=== PATIENT | female | born 1940 | race Caucasian/White ===

== ENCOUNTER → 2016-08-03 | Outpatient (CLI) | payer MEDICARE ==
--- NOTE | 2016-08-03 14:55 | XR ---
EXAMINATION TYPE: XR chest 2V DATE OF EXAM: 08/03/2016 2:37 PM COMPARISON: NONE TECHNIQUE: PA and lateral views submitted. HISTORY: Follow-up for pneumonia FINDINGS: The lungs are clear and there is no pneumothorax, pleural effusion, or focal pneumonia. Biapical pl eural thickening. Hyperinflation suggests COPD. The heart is enlarged. IMPRESSION: 1. No acute process. Correlate for COPD and mild cardiomegaly.
== END | disposition home or self-care (01) ==
LOC: RADXRMAIN 14:22
PROVIDERS: ATTEND Internal Medicine
DX: R05 Cough (principal)
CPT/HCPCS: 71020

== ENCOUNTER → 2016-10-16 | Outpatient (CLI) | payer MEDICARE ==
--- NOTE | 2016-10-17 10:52 | MM ---
Reason for exam: screening (asymptomatic). Last mammogram was performed 2 years and 3 months ago. History: Patient is postmenopausal. Family history of breast cancer in aunt. Benign excisional biopsy of the right breast, February 08, 1998. Took estrogen for 5 years. Physical Findings: A clinical breast exam by your physician is recommended on an annual basis and results should be correlated with mammographic findings. MG 3D Screening Mammo W/Cad Bilateral CC view(s) were taken. MLO and XCCL view(s) were taken of the right breast. Prior study comparison: July 19, 2014, bilateral MG screening mammo w CAD. July 06, 2013, bilateral digital screening mammo w/CAD. The breast tissue is heterogeneously dense. This may lower the sensitivity of mammography. Benign calcifications. There is no discrete abnormality. No significant changes when compared with prior studies. ASSESSMENT: Benign, BI-RAD 2 RECOMMENDATION: Routine screening mammogram of both breasts in 1 year.
== END | disposition home or self-care (01) ==
LOC: RADMAMWWP 09:48
PROVIDERS: ATTEND Internal Medicine
DX: Z12.31 Encounter for screening mammogram for malignant neoplasm of breast (principal)
CPT/HCPCS: 77063; G0202

== ENCOUNTER 2019-09-13 14:43 | Inpatient (IN) | payer MEDICARE ==
[2019-09-13] MEDS ORDERED: DILTIAZEM DRIP BOLUS FROM BAG 1 MG SOLN IV ONE ×2 (15:21→16:39)
[2019-09-13] MEDS ORDERED: FUROSEMIDE 10 MG/ML 4 ML VIAL IV STA (15:21)
[2019-09-13] MEDS ORDERED: DILTIAZEM 125 MG in SODIUM CHLORIDE 0.9% 100 ML IV SCH (15:30)
[2019-09-13 15:51] LABS: Basophils % (A) 0 %; Eosinophils # (A) 0.1 k/uL (0-0.7); Eosinophils % (A) 1 %; HCT 45.9 % (34.0-46.0); HGB 14.7 gm/dL (11.4-16.0); Lymphocytes # (A) 0.8 k/uL (1.0-4.8); Lymphocytes % (A) 11 %; MCH 33.2 pg (25.0-35.0); MCV 103.6 fL (80.0-100.0); Macrocytosis Moderate; Mean Platelet Volume 10.2; Monocytes # (A) 0.4 k/uL (0-1.0); Monocytes % (A) 5 %; Neutrophils # (A) 5.9 k/uL (1.3-7.7); Neutrophils % (A) 81 %; Platelet Count 241 k/uL (150-450); RBC 4.44 m/uL (3.80-5.40); RDW 14.6 % (11.5-15.5); WBC 7.2 k/uL (3.8-10.6)
[2019-09-13 16:01] LABS: Calcium 9.4 mg/dL (8.4-10.2); Magnesium 2.1 mg/dL (1.6-2.3); Potassium 3.8 mmol/L (3.5-5.1); Total Bilirubin 1.5 mg/dL (0.2-1.3)
--- NOTE | 2019-09-13 16:02 | XR ---
EXAMINATION TYPE: XR chest 2V DATE OF EXAM: 09/13/2019 COMPARISON: 08/03/2016 HISTORY: Difficulty breathing TECHNIQUE: FINDINGS: There is mild infiltrate at both lung bases. There is blunting of the costophrenic angles. There is no definite heart failure. Heart is probably enlarged. Thoracic aorta shows mild atheromatou s change. There are chest leads. Bony thorax is intact. IMPRESSION: Mild bilateral basilar pulmonary infiltrates and pleural fluid appears new compared to [facility] st exam. No obvious heart failure.
[2019-09-13 16:05] LABS: INR 1.4 (<1.2); Partial Thromboplastin Time 25.5 sec (22.0-30.0); Prothrombin Time 13.7 sec (9.0-12.0)
--- NOTE | 2019-09-13 16:07 | ED ---
SOB HPI - General Chief Complaint: Shortness of Breath Stated Complaint: SOB/cough-sent by [facility] Time Seen by Provider: 09/13/19 15:00 Source: patient, RN notes reviewed Mode of arrival: ambulatory Limitations: no limitations - History of Present Illness Initial Comments: This is a 78-year-old female history of atrial fibrillation who presents with complaints of shortness of breath. She states for about 3 days some exertional dyspnea she has a fevers chills nausea vomiting sweats no cough no peripheral edema no other symptoms. She's had no palpitations.. She was seen at [facility] and sent here for further evaluation MD Complaint: shortness of breath - Related Data Home Medications Medication Instructions Recorded Confirmed Acetaminophen [Tylenol Arthritis] 650 mg PO Q6H PRN 09/13/19 09/13/19 Apixaban [Eliquis] 5 mg PO BID 09/13/19 09/13/19 Calcium Carbonate/Vitamin D3 1 cap PO DAILY 09/13/19 09/13/19 [Calcium 600-Vit D3 800 Caplet] Celecoxib [CeleBREX] 200 mg PO DAILY 09/13/19 09/13/19 DULoxetine HCL [Cymbalta] 60 mg PO DAILY 09/13/19 09/13/19 Furosemide [Lasix] 20 mg PO Q48H PRN 09/13/19 09/13/19 LORazepam [Ativan] 1 mg PO HS 09/13/19 09/13/19 Losartan [Cozaar] 50 mg PO DAILY 09/13/19 09/13/19 Magnesium Oxide 400 mg PO DAILY 09/13/19 09/13/19 Metoprolol Tartrate 25 mg PO BID 09/13/19 09/13/19 Multivitamins, Thera [Multivitamin 1 tab PO DAILY 09/13/19 09/13/19 (formulary)] Spironolactone 12.5 mg PO Q48H PRN 09/13/19 09/13/19 Venlafaxine HCl [Effexor XR] 75 mg PO DAILY 09/13/19 09/13/19 traZODone HCL 50 mg PO HS 09/13/19 09/13/19 Allergies Allergy/AdvReac Type Severity Reaction Status Date / Time Penicillins AdvReac Rash/Hives Verified 09/13/19 16:23 Review of Systems ROS Statement: Those systems with pertinent positive or pertinent negative responses have been documented in the HPI. ROS Other: All systems not noted in ROS Statement are negative. Past Medical History Past Medical History: Atrial Fibrillation, GERD/Reflux, Hypertension Additional Past Medical History / Comment(s): "inflammed hips" History of Any Multi-Drug Resistant Organisms: None Reported Past Surgical History: Hysterectomy Additional Past Surgical History / Comment(s): "Illestomy,carpal tunnel bilat eral hands,bunyon surgery on left foot." Past Psychological History: Anxiety, Depression Smoking Status: Never smoker Past Alcohol Use History: Occasional Past Drug Use History: None Reported General Exam - General Exam Comments Initial Comments: This is a well-developed well-nourished awake alert oriented x 3 female Limitations: no limitations General appearance: alert, in no apparent distress Head exam: Present: atraumatic, normocephalic, normal inspection Eye exam: Present: normal appearance, PERRL, EOMI. Absent: scleral icterus, conjunctival injection, periorbital swelling ENT exam: Present: normal exam, mucous membranes moist Neck exam: Present: normal inspection. Absent: tenderness, meningismus, lymphadenopathy Respiratory exam: Present: decreased breath sounds, other (Basilar crepitation/rales left&right lower lobes). Absent: respiratory distress, wheezes, rales, rhonchi, stridor Cardiovascular Exam: Present: tachycardia, irregular rhythm. Absent: systolic murmur, diastolic murmur, rubs, gallop, clicks GI/Abdominal exam: Present: soft, normal bowel sounds. Absent: distended, ten derness, guarding, rebound, rigid Extremities exam: Present: normal inspection, full ROM, normal capillary refill. Absent: tenderness, pedal edema, joint swelling, calf tenderness Back exam: Present: normal inspection Neurological exam: Present: alert, oriented X3, CN II-XII intact Psychiatric exam: Present: normal affect, normal mood Skin exam: Present: warm, dry, intact, normal color. Absent: rash Course Vital Signs 09/13/19 09/13/19 09/13/19 14:45 16:02 16:53 Temperature 97.4 F L Pulse Rate 147 H 133 H 125 H Respiratory 20 16 16 Rate Blood Pressure 135/94 151/106 117/94 O2 Sat by Pulse 95 99 98 Oximetry - Reevaluation(s) Reevaluation #1: 09/13/19 17:06 I did reevaluate patient several occasions no improvement in her heart rate just far with the initial treatment. She does have evidence of CHF on x-rays Medical Decision Making - Medical Decision Making I did discuss findings with patient and with Dr. Wiley Evans. Patient be admitted he has have A. fib RVR with evidence of CHF. - Lab Data Result diagrams: 09/13/19 15:41 09/13/19 15:41 Lab Results 09/13/19 09/13/19 09/13/19 Range/Units 15:41 15:41 15:41 WBC 7.2 (3.8-10.6) k/uL RBC 4.44 (3.80-5.40) m/uL Hgb 14.7 (11.4-16.0) gm/dL Hct 45.9 (34.0-46.0) % MCV 103.6 H (80.0-100.0) fL MCH 33.2 (25.0-35.0) pg MCHC 32.0 (31.0-37.0) g/dL RDW 14.6 (11.5-15.5) % Plt Count 241 (150-450) k/uL Neutrophils % 81 % Lymphocytes % 11 % Monocytes % 5 % Eosinophils % 1 % Basophils % 0 % Neutrophils # 5.9 (1.3-7.7) k/uL Lymphocytes # 0.8 L (1.0-4.8) k/uL Monocytes # 0.4 (0-1.0) k/uL Eosinophils # 0.1 (0-0.7) k/uL Basophils # 0.0 (0-0.2) k/uL Macrocytosis Moderate PT 13.7 H (9.0-12.0) sec INR 1.4 H (<1.2) APTT 25.5 (22.0-30.0) sec Sodium 140 (137-145) mmol/L Potassium 3.8 (3.5-5.1) mmol/L Chloride 109 H (98-107) mmol/L Carbon Dioxide 21 L (22-30) mmol/L Anion Gap 10 mmol/L BUN 25 H (7-17) mg/dL Creatinine 0.83 (0.52-1.04) mg/dL Est GFR (CKD-EPI)AfAm 77 (>60 ml/min/1.73 sqM) Est GFR (CKD-EPI)NonAf 67 (>60 ml/min/1.73 sqM) Glucose 202 H (74-99) mg/dL Plasma Lactic Acid Lele (0.7-2.0) mmol/L Calcium 9.4 (8.4-10.2) mg/dL Magnesium 2.1 (1.6-2.3) mg/dL Total Bilirubin 1.5 H (0.2-1.3) mg/dL AST 38 H (14-36) U/L ALT 26 (4-34) U/L Alkaline Phosphatase 61 (38-126) U/L Creatine Kinase 60 (30-135) U/L Troponin I (0.000-0.034) ng/mL NT-Pro-B Natriuret Pep pg/mL Total Protein 7.0 (6.3-8.2) g/dL Albumin 4.0 (3.5-5.0) g/dL 09/13/19 09/13/19 09/13/19 Range/Units 15:41 15:41 15:41 WBC (3.8-10.6) k/uL RBC (3.80-5.40) m/uL Hgb (11.4-16.0) gm/dL Hct (34.0-46.0) % MCV (80.0-100.0) fL MCH (25.0-35.0) pg MCHC (31.0-37.0) g/dL RDW (11.5-15.5) % Plt Count (150-450) k/uL Neutrophils % % Lymphocytes % % Monocytes % % Eosinophils % % Basophils % % Neutrophils # (1.3-7.7) k/uL Lymphocytes # (1.0-4.8) k/uL Monocytes # (0-1.0) k/uL Eosinophils # (0-0.7) k/uL Basophils # (0-0.2) k/uL Macrocytosis PT (9.0-12.0) sec INR (<1.2) APTT (22.0-30.0) sec Sodium (137-145) mmol/L Potassium (3.5-5.1) mmol/L Chloride (98-107) mmol/L Carbon Dioxide (22-30) mmol/L Anion Gap mmol/L BUN (7-17) mg/dL Creatinine (0.52-1.04) mg/dL Est GFR (CKD-EPI)AfAm (>60 ml/min/1.73 sqM) Est GFR (CKD-EPI)NonAf (>60 ml/min/1.73 sqM) Glucose (74-99) mg/dL Plasma Lactic Acid Lele 2.4 H* (0.7-2.0) mmol/L Calcium (8.4-10.2) mg/dL Magnesium (1.6-2.3) mg/dL Total Bilirubin (0.2-1.3) mg/dL AST (14-36) U/L ALT (4-34) U/L Alkaline Phosphatase (38-126) U/L Creatine Kinase (30-135) U/L Troponin I 0.012 (0.000-0.034) ng/mL NT-Pro-B Natriuret Pep 4220 pg/mL Total Protein (6.3-8.2) g/dL Albumin (3.5-5.0) g/dL - EKG Data -: EKG Interpreted by Me (Atrial fibrillation rate of 144 QRS 86 QT since QTC 288/445 septal changes ) - Radiology Data Radiology results: report reviewed (I did review the imaging and report evidence of bilateral lower lobe infiltrate likely consistent with CHF.), image reviewed Critical Care Time Critical Care Time: Yes Critical Care Time: Critical care time: 39 minutes of critical care time which includes initial presentation with history physical labs x-rays multiple reevaluation the patient response to therapy discuss with the patient and the findings discussed with the admitting physician admission orders and documentation of the above Disposition Clinical Impression: Congestive heart failure, Rapid atrial fibrillation Disposition: ADMITTED IP TO THIS [facility] Condition: Fair Referrals: Yoni Fairchild MD [Primary Care Provider] - 1-2 days
[2019-09-13] MEDS: DILTIAZEM 125 MG in SODIUM CHLORIDE 0.9% 100 ML IV SCH ×2 (16:51→21:32)
[2019-09-13] MEDS ORDERED: NALOXONE 0.4 MG/ML 1 ML VIAL IV PRN (17:01)
[2019-09-13] MEDS ORDERED: ACETAMINOPHEN TAB 325 MG TAB PO PRN (17:01)
--- NOTE | 2019-09-13 17:39 | P.HPIM ---
History of Present Illness H&P Date: 09/13/19 Chief Complaint: A. fib with RVR 78-year-old female with PMH of atrial fibrillation on Eliquis, depression, history of diverticulitis with ileostomy, hypertension presents to the ED for shortness of breath. Patient reports exertional shortness of breath that has been getting worse over the past 2 weeks. Over the last few days, patient has experienced immense difficulties with laying flat at night to go to sleep. She does complain of orthopnea. This prompted her to come to the ED. She does report intermittent lower extremity swelling for which she takes Lasix. She also reports a dry cough. She denies any headaches, nausea or vomiting, fever or chills, chest pain, palpitations, changes in urination or bowel habits. No changes in appetite or weight. She denies any dizziness, numbness/weakness/tingling of the extremities. In the ED, her pulse was as high as 147. Her vital signs were otherwise stable. CBC showed macrocytosis with MCV 103.6. Coagulation panel showed INR of 1.4. CMP showed chloride 109, bicarbonate 21, BUN 25, glucose 202. Lactic acid was 2.4. Total bilirubin was 1.5, AST 38. Troponin was less than 0.012, EKG showing atrial fibrillation with RVR. BNP was 4220, chest x-ray showing mild bilateral bibasilar pulmonary infiltrates and pleural fluid. Patient is admitted for atrial fibrillation with RVR with cardiology consulted. Review of Systems Pertinent positives and negatives as discussed in HPI, a complete review of systems was performed and all other systems are negative. Past Medical History Past Medical History: Atrial Fibrillation, GERD/Reflux, Hypertension Additional Past Medical History / Comment(s): "inflammed hips" History of Any Multi-Drug Resistant Organisms: None Reported Past Surgical History: Hysterectomy Additional Past Surgical History / Comment(s): "Illestomy,carpal tunnel bilateral hands,bunyon surgery on left foot." Past Psychological History: Anxiety, Depression Smoking Status: Never smoker Past Alcohol Use History: Occasional Past Drug Use History: None Reported Medications and Allergies Home Medications Medication Instructions Recorded Confirmed Type Acetaminophen [Tylenol Arthritis] 650 mg PO Q6H PRN 09/13/19 09/13/19 History Apixaban [Eliquis] 5 mg PO BID 09/13/19 09/13/19 History Calcium Carbonate/Vitamin D3 1 cap PO DAILY 09/13/19 09/13/19 History [Calcium 600-Vit D3 800 Caplet] Celecoxib [CeleBREX] 200 mg PO DAILY 09/13/19 09/13/19 History DULoxetine HCL [Cymbalta] 60 mg PO DAILY 09/13/19 09/13/19 History Furosemide [Lasix] 20 mg PO Q48H PRN 09/13/19 09/13/19 History LORazepam [Ativan] 1 mg PO HS 09/13/19 09/13/19 History Losartan [Cozaar] 50 mg PO DAILY 09/13/19 09/13/19 History Magnesium Oxide 400 mg PO DAILY 09/13/19 09/13/19 History Metoprolol Tartrate 25 mg PO BID 09/13/19 09/13/19 History Multivitamins, Thera [Multivitamin 1 tab PO DAILY 09/13/19 09/13/19 History (formulary)] Spironolactone 12.5 mg PO Q48H PRN 09/13/19 09/13/19 History Venlafaxine HCl [Effexor XR] 75 mg PO DAILY 09/13/19 09/13/19 History traZODone HCL 50 mg PO HS 09/13/19 09/13/19 History Allergies Allergy/AdvReac Type Severity Reaction Status Date / Time Penicillins AdvReac Rash/Hives Verified 09/13/19 16:23 Physical Exam Vitals: Vital Signs Temp Pulse Resp BP Pulse Ox 09/13/19 16:53 125 H 16 117/94 98 09/13/19 16:02 133 H 16 151/106 99 09/13/19 14:45 97.4 F L 147 H 20 135/94 95 Intake and Output 09/13/19 09/13/19 09/13/19 06:59 14:59 22:59 Other: Weight 73.482 kg General: [non toxic], [no distress], [appears at stated age] Derm: [warm], [dry] Head: [atraumatic], [normocephalic], [symmetric] Eyes: [EOMI], [no lid lag], [anicteric sclera] Mouth: [no lip lesion], [mucus membranes moist] Cardiovascular: [S1S2 irregular], [no murmur], [positive DP pulse bilateral], Lungs: [CTA bilateral], [no rhonchi, no rales] , [no accessory muscle use] Abdominal: [soft], [ nontender to palpation], [no guarding], [no appreciable org anomegaly] Ext: [no gross muscle atrophy], [no edema], [no contractures] Neuro: [ CN II-XI grossly intact], [no focal neuro deficits] Psych: [Alert], [oriented], [appropriate affect] Results CBC & Chem 7: 09/13/19 15:41 09/13/19 15:41 Labs: Abnormal Lab Results - Last 24 Hours (Table) 09/13/19 09/13/19 09/13/19 Range/Units 15:41 15:41 15:41 MCV 103.6 H (80.0-100.0) fL Lymphocytes # 0.8 L (1.0-4.8) k/uL PT 13.7 H (9.0-12.0) sec INR 1.4 H (<1.2) Chloride 109 H (98-107) mmol/L Carbon Dioxide 21 L (22-30) mmol/L BUN 25 H (7-17) mg/dL Glucose 202 H (74-99) mg/dL Plasma Lactic Acid Lele (0.7-2.0) mmol/L Total Bilirubin 1.5 H (0.2-1.3) mg/dL AST 38 H (14-36) U/L 09/13/19 Range/Units 15:41 MCV (80.0-100.0) fL Lymphocytes # (1.0-4.8) k/uL PT (9.0-12.0) sec INR (<1.2) Chloride (98-107) mmol/L Carbon Dioxide (22-30) mmol/L BUN (7-17) mg/dL Glucose (74-99) mg/dL Plasma Lactic Acid Lele 2.4 H* (0.7-2.0) mmol/L Total Bilirubin (0.2-1.3) mg/dL AST (14-36) U/L Assessment and Plan Assessment: Orthopnea related to pulmonary edema from A. fib with RVR versus CHF Atrial fibrillation with RVR Lactic acidosis Transaminitis Hypertension Depression Macrocytosis Her orthopnea is likely related to pulmonary edema from A. fib with RVR. She does report intermittent lower extremity edema as such CHF is high on the differential. BNP is elevated at 4220 with chest x-ray confirming pulmonary edema. Plans: Start Lasix 40 mg IV twice a day. Strict intake and now take. Daily weights. Continue metoprolol. Continue losartan. Follow-up echocardiogram. Follow cardiology recommendations. As seen on EKG. Plans: Currently on diltiazem drip. Continue metoprolol by mouth. Eliquis for anticoagulation. Potassium greater than 4 and magnesium greater than 2. Telemetry monitoring. Follow cardiology recommendations. Lactic acid of 2.4. Possibly related to dehydration? Could also be from hypoperfusion from rapid ventricular rate. Plans: Repeat lactic acid until normal. Encourage hydration by mouth. Total bilirubin 1.5, AST 38. Patient with no abdominal complaints. Possible venous congestion? Plans: Continue to monitor. Repeat CMP tomorrow morning. BP 117/94. Plans: Continue metoprolol. Continue losartan. Monitor vitals, adjust medications as necessary. Plans: Continue Effexor. Continue Cymbalta. Plans: Follow B12 and folic acid. DVT prophylaxis: [Eliquis] Discussed with: [Patient] Anticipated discharge: [2 days] Anticipated discharge place: [Home] A total of [45] minutes was spent on the care of this complex patient more than 50% of the time was spent in counseling and care coordination. Patient is admitted for anticipated greater than 48 hours admission for atrial fibrillation with RVR with cardiology on consult. Patient names her son and daughter the mandie and Casey along with Jimmy decision-makers if she can make decisions for herself. Patient would like to be no code with the exception of intubation for a short period of time if necessary.
[2019-09-13] MEDS: LORazepam 1 MG TAB PO SCH (20:20)
[2019-09-13] MEDS: METOPROLOL TARTRATE 25 MG TAB PO SCH (20:20)
[2019-09-13] MEDS: APIXABAN 5 MG TAB PO SCH (20:20)
[2019-09-13] MEDS: traZODone HCL 50 MG TAB PO SCH (22:47)
[2019-09-14] MEDS: DILTIAZEM 125 MG in SODIUM CHLORIDE 0.9% 100 ML IV SCH ×2 (04:50→15:53)
[2019-09-14 06:38] LABS: Basophils % (A) 0 %; Eosinophils # (A) 0.4 k/uL (0-0.7); Eosinophils % (A) 5 %; HCT 42.7 % (34.0-46.0); Lymphocytes # (A) 1.3 k/uL (1.0-4.8); Lymphocytes % (A) 19 %; MCH 33.7 pg (25.0-35.0); MCHC 32.8 g/dL (31.0-37.0); MCV 102.6 fL (80.0-100.0); Macrocytosis Slight; Mean Platelet Volume 9.7; Monocytes # (A) 0.8 k/uL (0-1.0); Monocytes % (A) 11 %; Neutrophils # (A) 4.4 k/uL (1.3-7.7); Neutrophils % (A) 62 %; Platelet Count 217 k/uL (150-450); RBC 4.16 m/uL (3.80-5.40); RDW 14.5 % (11.5-15.5); WBC 7.1 k/uL (3.8-10.6)
[2019-09-14 06:50] LABS: Albumin 3.7 g/dL (3.5-5.0); Calcium 9.3 mg/dL (8.4-10.2); Potassium 3.2 mmol/L (3.5-5.1); Total Bilirubin 1.5 mg/dL (0.2-1.3); Total Protein 6.5 g/dL (6.3-8.2)
[2019-09-14] MEDS: LOSARTAN 50 MG TAB PO SCH (08:41)
[2019-09-14] MEDS: DULoxetine HCL 60 MG CAPSULE.DR PO SCH (08:41)
[2019-09-14] MEDS: APIXABAN 5 MG TAB PO SCH ×2 (08:41→21:09)
[2019-09-14] MEDS: METOPROLOL TARTRATE 25 MG TAB PO SCH (08:41)
[2019-09-14] MEDS: VENLAFAXINE HCL ER 75 MG CAP PO SCH (08:41)
[2019-09-14] MEDS ORDERED: METOPROLOL TARTRATE 25 MG TAB PO STA (08:47)
[2019-09-14] MEDS ORDERED: Potassium Replacement Protocol 1 EACH MISC MISCELLANE PRN (09:12)
--- NOTE | 2019-09-14 09:57 | CONS ---
CONSULTATION CHIEF COMPLAINT: Palpitations. Lay is an 78-year-old lady with history of permanent atrial fibrillation, hypertension, who was admitted to hospital with atrial fibrillation with rapid ventricular rate. Cardiology has been consulted for the same. The patient has a history of atrial fibrillation and is currently on Eliquis at home along with the metoprolol. On her presentation, she was found to be in atrial fibrillation with RVR with heart rates in the 140s per minute. She is currently on IV Cardizem at 10 mg/hour. Heart rate is still poorly controlled. I am increasing the dose of metoprolol from 25 b.i.d. to 50 b.i.d. PAST MEDICAL HISTORY: Significant for atrial fibrillation, hypertension. MEDICATIONS: Medications at home included Lasix 20 mg every 48 hours, Cymbalta, Effexor, metoprolol 25 b.i.d., Cozaar 50 q. daily, Eliquis 5 b.i.d., spironolactone, magnesium, Tylenol, Ativan, and Celebrex. ALLERGIES: The patient is allergic to PENICILLIN. FAMILY HISTORY: Negative for premature coronary artery disease. SOCIAL HISTORY: Negative for current smoking, EtOH abuse, or drug abuse. REVIEW OF SYSTEMS: HEENT is unremarkable. CARDIAC: As described above. RESPIRATORY: As described above. GI: Negative. GENITOURINARY: Negative. ALLERGY/IMMUNOLOGY: Negative. SKIN: Negative. MUSCULOSKELETAL: Significant for arthritis. PSYCHOSOCIAL: Negative. ENDOCRINE: Negative. DERM: Negative. CONSTITUTIONAL: Negative. ONCOLOGICAL: Negative. OPERATOR: Negative. Rest of the system review is not relevant. PHYSICAL EXAMINATION: On exam patient is afebrile. Heart rate is 120 beats per minute. Blood pressure 112/60. Respiratory rate is 18. O2 sat is 98% on room air. There is no jugular venous distention. Carotid upstroke is diminished. There is no bruit. Chest exam reveals good air entry bilaterally. Heart exam reveals first and second heart sounds, irregular rhythm. Systolic murmur at the apex. Abdomen is soft. Exam of extremities did not reveal any edema. Peripheral pulses are felt. OPERATOR exam did not reveal focal neurological deficits. LABS: Labs show a hemoglobin of 14, platelet count is 217. Potassium is 3.2, creatinine is 0.8. ASSESSMENT: Permanent atrial fibrillation with rapid ventricular rate. PLAN: I am going to control the heart rate with intravenous Cardizem and beta blockers. Continue the Eliquis. Obtain a 2D echo to document her LV function. Please supplement her potassium. I will obtain a TSH and once heart rate is better controlled she can be discharged home. Outpatient followup arranged through my office and patient will need a stress test down the road. MMODL / IJN: [id number] /
--- NOTE | 2019-09-14 09:58 | ECHOF ---
Referral Reason:AFib with RVR MEASUREMENTS -------- HEIGHT: 172.7 cm WEIGHT: 77.6 kg BP: 112/68 RVIDd: 2.7 cm (< 3.3) IVSd: 1.3 cm (0.6 - 1.1) LVIDd: 4.2 cm (3.9 - 5.3) LVPWd: 1.3 cm (0.6 - 1.1) IVSs: 1.6 cm LVIDs: 2.9 cm LVPWs: 1.6 cm LA Diam: 4.9 cm (2.7 - 3.8) Ao Diam: 2.8 cm (2.0 - 3.7) AV Cusp: 1.7 cm (1.5 - 2.6) LA Diam: 3.8 cm (2.7 - 3.8) MV EXCURSION: 13.644 mm (> 18.000) MV EF SLOPE: 80 mm/s (70 - 150) EPSS: 0.7 cm RAP: 5.00 mmHg RVSP: 29.66 mmHg FINDINGS -------- Atrial fibrillation. This was a technically adequate study. The left ventricular size is normal. There is mild concentric left ventricular hypertrophy. Overa ll left ventricular systolic function is moderately impaired with, an EF between 35 - 40 %. The right ventricle is normal in size. The left atrium is moderately dilated. The right atrial size is normal. There is mild aortic valve sclerosis. There is no evidence of aortic regurgitation. Mild mitral annular calcification present. [id number]-rocrkmaj mitral regurgitation is present. Gjlu-us-huyokadh tricuspid regurgitation present. Right ventricular systolic pressure is normal at < 35 mmHg. There is no evidence of pulmonary hypertension. There is no pulmonic regurgitation present. The aortic root size is normal. Small Pleural Effusion. CONCLUSIONS -------- 1. Atrial fibrillation. 2. This was a technically adequate study. 3. The left ventricular size is normal. 4. There is mild concentric left ventricular hypertrophy. 5. Overall left ventricular systolic function is moderately impaired with, an EF between 35 - 40 %. 6. The right ventricle is normal in size. 7. The left atrium is moderately dilated. 8. The right atrial size is normal. 9. There is mild aortic valve sclerosis. 10. Mild mitral annular calcification present. 11. [id number]-wvoqutcq mitral regurgitation is present. 12. Qfkj-ne-mcibqxis tricuspid regurgitation present. 13. Right ventricular systolic pressure is normal at < 35 mmHg. 14. There is no evidence of pulmonary hypertension. 15. There is no pulmonic regurgitation present. 16. The aortic root size is normal. 17. Small Pleural Effusion. MIXING AND MOLDING MACHINE OPERATOR: Lauren Guevara RDCS
[2019-09-14 11:29] VITALS: BMI 26.0
--- NOTE | 2019-09-14 14:49 | P.PN ---
Subjective Progress Note Date: 09/14/19 Principal diagnosis: Shortness of breath Patient was seen and examined. No acute events overnight. Patient reports continued shortness of breath and orthopnea. She denies any chest pain or palpitations. No nausea or vomiting. No fever or chills. Objective - Vital Signs Vital signs: Vital Signs Temp 98 F 09/14/19 12:00 Pulse 127 H 09/14/19 12:00 Resp 18 09/14/19 12:00 BP 120/80 09/14/19 12:00 Pulse Ox 96 09/14/19 12:00 Intake & Output 09/13/19 09/14/19 09/14/19 18:59 06:59 18:59 Intake Total 119.833 110 Output Total 500 300 Balance -500 -180.167 110 Weight 73.482 kg 77.7 kg 77.7 kg Intake: Intake, IV Titration 119.833 Amount Diltiazem 125 mg In 119.833 Sodium Chloride 0.9% 100 ml @ 10 MG/HR 10 mls/hr IV .[id number] [facility] Rx#: [id number] Oral 110 Output: Urine 500 300 Other: Voiding Method Toilet Toilet # Voids 1 - Exam General: [non toxic], [no distress], [appears at stated age] Derm: [warm], [dry] Head: [atraumatic], [normocephalic], [symmetric] Eyes: [EOMI], [no lid lag], [anicteric sclera] Mouth: [no lip lesion], [mucus membranes moist] Cardiovascular: [S1S2 irregular], [no murmur], [positive DP pulse bilateral], Lungs: [CTA bilateral], [no rhonchi, no rales] , [no accessory muscle use] Abdominal: [soft], [ nontender to palpation], [no guarding], [no appreciable organomegaly] Ext: [no gross muscle atrophy], [no edema], [no contractures] Neuro: [no focal neuro deficits] Psych: [Alert], [oriented], [appropriate affect] - Labs CBC & Chem 7: 09/14/19 06:03 09/14/19 06:00 Labs: Abnormal Lab Results - Last 24 Hours (Table) 09/13/19 09/13/19 09/13/19 Range/Units 15:41 15:41 15:41 MCV 103.6 H (80.0-100.0) fL Lymphocytes # 0.8 L (1.0-4.8) k/uL PT 13.7 H (9.0-12.0) sec INR 1.4 H (<1.2) Potassium (3.5-5.1) mmol/L Chloride 109 H (98-107) mmol/L Carbon Dioxide 21 L (22-30) mmol/L BUN 25 H (7-17) mg/dL Glucose 202 H (74-99) mg/dL Plasma Lactic Acid Lele (0.7-2.0) mmol/L Total Bilirubin 1.5 H (0.2-1.3) mg/dL AST 38 H (14-36) U/L 09/13/19 09/13/19 09/14/19 Range/Units 15:41 19:46 06:00 MCV (80.0-100.0) fL Lymphocytes # (1.0-4.8) k/uL PT (9.0-12.0) sec INR (<1.2) Potassium 3.2 L (3.5-5.1) mmol/L Chloride 109 H (98-107) mmol/L Carbon Dioxide (22-30) mmol/L BUN 21 H (7-17) mg/dL Glucose (74-99) mg/dL Plasma Lactic Acid Lele 2.4 H* 3.0 H* (0.7-2.0) mmol/L Total Bilirubin 1.5 H (0.2-1.3) mg/dL AST (14-36) U/L 09/14/19 Range/Units 06:03 MCV 102.6 H (80.0-100.0) fL Lymphocytes # (1.0-4.8) k/uL PT (9.0-12.0) sec INR (<1.2) Potassium (3.5-5.1) mmol/L Chloride (98-107) mmol/L Carbon Dioxide (22-30) mmol/L BUN (7-17) mg/dL Glucose (74-99) mg/dL Plasma Lactic Acid Lele (0.7-2.0) mmol/L Total Bilirubin (0.2-1.3) mg/dL AST (14-36) U/L Assessment and Plan Assessment: Orthopnea related to pulmonary edema from A. fib with RVR versus CHF Atrial fibrillation with RVR systolic CHF exacerbation Hypokalemia Lactic acidosis Transaminitis Hypertension Depression Macrocytosis Her orthopnea is likely related to pulmonary edema from A. fib with RVR. She does report intermittent lower extremity edema as such CHF is high on the differential. BNP is elevated at 4220 with chest x-ray confirming pulmonary edema. Plans: Start Lasix 40 mg IV twice a day. Treatment for A-Fib with RVR. Follow cardiology recommendations. As seen on EKG. Plans: Currently on diltiazem drip. Metoprolol by mouth increased. Eliquis for anticoagulation. Potassium greater than 4 and magnesium greater than 2. Telemetry monitoring. Follow cardiology recommendations. Echocardiogram and shows EF 35-40% with mild concentric LVH. Plans: Start Lasix 40 mg IV twice a day. Strict intake and outtake. Daily weights. Continue metoprolol. Continue losartan. Follow cardiology recommendations. Potassium 3.2. Plans: Replace via protocol. Lactic acid of 2.4. Possibly related to dehydration? Could also be from hypoperfusion from rapid ventricular rate. Plans: Resolved. Total bilirubin 1.5. Patient with no abdominal complaints. Possible venous congestion? Plans: Continue to monitor. Repeat CMP tomorrow morning. BP 120/80. Plans: Continue metoprolol. Continue losartan. Monitor vitals, adjust medications as necessary. Plans: Continue Effexor. Continue Cymbalta. Plans: Follow B12 and folic acid. [Patient is admitted for anticipated greater than 48 hours admission for atrial fibrillation with RVR with cardiology on consult. Needs better rate control. Also has systolic CHF requiring diuresis. She is pending clinical improvement. Likely DC in 1-2 days.
[2019-09-14] MEDS: traZODone HCL 50 MG TAB PO SCH (21:09)
[2019-09-14] MEDS: FUROSEMIDE 10 MG/ML 4 ML VIAL IV SCH (21:09)
[2019-09-14] MEDS: METOPROLOL TARTRATE 50 MG TAB PO SCH (21:09)
[2019-09-14] MEDS: LORazepam 1 MG TAB PO SCH (21:09)
[2019-09-15] MEDS ORDERED: SPIRONOLACTONE 25 MG TAB PO PRN (07:48)
[2019-09-15 08:39] LABS: HCT 44.5 % (34.0-46.0); HGB 14.4 gm/dL (11.4-16.0); MCH 33.6 pg (25.0-35.0); MCHC 32.3 g/dL (31.0-37.0); MCV 103.8 fL (80.0-100.0); Macrocytosis Slight; Mean Platelet Volume 9.8; Platelet Count 254 k/uL (150-450); RBC 4.29 m/uL (3.80-5.40); RDW 14.2 % (11.5-15.5); WBC 9.3 k/uL (3.8-10.6)
[2019-09-15 08:55] LABS: Calcium 9.4 mg/dL (8.4-10.2); Magnesium 1.8 mg/dL (1.6-2.3); Potassium 3.3 mmol/L (3.5-5.1)
--- NOTE | 2019-09-15 09:31 | P.PN ---
Subjective Progress Note Date: 09/15/19 Principal diagnosis: shortness of breath Patient is an 78-year-old female with a past medical history of chronic atrial fibrillation on Eliquis, depression, diverticulitis with ileostomy, and hypertension who presented to the ER with shortness of breath. On arrival to the ER she was found have atrial fibrillation with rapid ventricular response a pulse of 147. Laboratory analysis showed an elevated total bilirubin of 1.5, AST 38, BUN 25, and creatinine 0.38. She also had mildly elevated blood sugar at 202. Her BNP was elevated at 4220 and troponin was negative. Chest x-ray showed mild bilateral bibasilar pulmonary infiltrates with pleural fluid. She was diagnosed with acute exacerbation of congestive heart failure and A. fib with RVR. She was started on a Cardizem drip and Lasix. She is admitted for further monitoring. Cardiology was consulted who r ecommended continuing her Cardizem drip and increasing metoprolol. Eliquis was also started. Echocardiogram came back with mild LVH and an ejection fraction of 35-40% with mild valvular disease. Despite Cardizem drip and escalating doses of metoprolol she continued to have A. fib with RVR up to the 120s to 140s on 09/14. Patient seen and examined at bedside. She complains of feeling very tired, shortness of breath with any exertion, no chest pain, no palpitations, no nausea or vomiting. No other complaints currently. Objective - Vital Signs Vital signs: Vital Signs Temp 97.6 F 09/14/19 20:00 Pulse 136 H 09/15/19 04:00 Resp 16 09/15/19 04:00 BP 126/91 09/15/19 04:00 Pulse Ox 92 L 09/15/19 04:00 Intake & Output 09/14/19 09/15/19 09/15/19 18:59 06:59 18:59 Intake Total 790.500 360 Balance 790.500 360 Weight 77.7 kg 77.7 kg Intake: Intake, IV Titration 110.500 Amount Diltiazem 125 mg In 110.500 Sodium Chloride 0.9% 100 ml @ 10 MG/HR 10 mls/hr IV .[id number] [facility] Rx#: [id number] Oral 680 360 Other: Voiding Method Toilet Toilet # Voids 2 - Exam General: ill appearing, no distress, appears at stated age Derm: warm, dry Head: atraumatic, normocephalic, symmetric Eyes: EOMI, no lid lag, anicteric sclera Mouth: no lip lesion, mucus membranes moist Cardiovascular: S1S2 irreg, positive posterior tibial pulse bilateral, Lungs: Decreased bs bilateral, no rhonchi, no rales , no accessory muscle use Abdominal: soft, nontender to palpation, no guarding, no appreciable orga nomegaly Ext: no gross muscle atrophy, no edema, no contractures Neuro: CN II-XI grossly intact, no focal neuro deficits Psych: Alert, oriented, appropriate affect - Labs CBC & Chem 7: 09/15/19 08:04 09/15/19 08:04 Labs: Abnormal Lab Results - Last 24 Hours (Table) 09/15/19 09/15/19 Range/Units 08:04 08:04 MCV 103.8 H (80.0-100.0) fL Potassium 3.3 L (3.5-5.1) mmol/L BUN 23 H (7-17) mg/dL Glucose 122 H (74-99) mg/dL Assessment and Plan Assessment: A fib with RVR - tele - Metoprolol increased - consider stopping Cardizem - cardio recs Acute exacerbation of systolic CHF EF 35-40% - Lasix IV BID - strict I and O, daily weights - Cozaar, metoprolol - cardio recs - resume home aldactone HTN, controlled - aldactone, metoprolol, cozaar, lasix - follow BP Transaminitis - likely due to hepatic congestion and improving - not need to repeat Depression - cymbalta and effexor Lactic acidosis, resolved DVT prophylaxis: francesca Discussed with: Patient, nursing Anticipated discharge: 2-[address]: home A total of 35 minutes was spent on the care of this complex patient more than 50% of the time was spent in counseling and care coordination.
[2019-09-15] MEDS: APIXABAN 5 MG TAB PO SCH (09:52)
[2019-09-15] MEDS: VENLAFAXINE HCL ER 75 MG CAP PO SCH (09:52)
[2019-09-15] MEDS: FUROSEMIDE 10 MG/ML 4 ML VIAL IV SCH ×2 (09:52→20:05)
[2019-09-15] MEDS: LOSARTAN 50 MG TAB PO SCH (09:52)
[2019-09-15] MEDS: MAGNESIUM OXIDE 400 MG TAB PO SCH (09:52)
[2019-09-15] MEDS: MELOXICAM 7.5 MG TAB PO SCH (09:52)
[2019-09-15] MEDS: DULoxetine HCL 60 MG CAPSULE.DR PO SCH (09:52)
[2019-09-15] MEDS ORDERED: METOPROLOL SUCCINATE (ER) 100 MG TAB.ER.24H PO STA (10:14)
--- NOTE | 2019-09-15 10:51 | P.PN ---
Subjective Progress Note Date: 09/15/19 This is an 78-year-old female with history of persistent atrial fibrillation, hypertension, admitted to the hospital with A. viet with RVR, Dr. Gray saw the patient in consultation yesterday. Her heart rate this morning 104 on the Cardizem 10 mg per hour. Echocardiogram with Doppler study revealed an ejection fraction of 35-40%, mild to moderate MR, [id number] TR. Small pleural effusion. With the reduced LV function, we'll discontinue the IV Cardizem and increase the dose of beta debora today. Overall the patient feels well. Heart rate this morning 104, blood pressure 126/90, 92% on room air. White blood cell count 9.3, hemoglobin 14.4, platelet count 254. Sodium 140, potassium 3.3, BUN 23, creatinine 0.9, magnesium 1.8. Objective - Vital Signs Vital signs: Vital Signs Temp 97.6 F 09/14/19 20:00 Pulse 136 H 09/15/19 04:00 Resp 16 09/15/19 04:00 BP 126/91 09/15/19 04:00 Pulse Ox 92 L 09/15/19 04:00 Intake & Output 09/14/19 09/15/19 09/15/19 18:59 06:59 18:59 Intake Total 790.500 360 Balance 790.500 360 Weight 77.7 kg 77.7 kg Intake: Intake, IV Titration 110.500 Amount Diltiazem 125 mg In 110.500 Sodium Chloride 0.9% 100 ml @ 10 MG/HR 10 mls/hr IV .[id number] [facility] Rx#: [id number] Oral 680 360 Other: Voiding Method Toilet Toilet # Voids 2 - Exam PHYSICAL EXAMINATION: GENERAL: 78-year-old female in no acute distress at the time of my examination HEENT: Head is atraumatic, normocephalic. Pupils equal, round. Sclera anicteric. Conjunctiva are clear. Mucous membranes of the mouth are moist. Neck is supple. There is no elevated jugular venous pressure. No carotid bruit is heard. HEART EXAMINATION: Heart S1 and S2 irregularly irregular a systolic murmur is heard CHEST EXAMINATION: Lungs are clear to auscultation and precussion. No chest wall tenderness is noted on palpation or with deep breathing. ABDOMEN: Soft, nontender. Bowel sounds are heard. No organomegaly noted. EXTREMITIES: 2+ peripheral pulses with no evidence of peripheral edema and no calf tenderness noted. NEUROLOGIC patient is awake, alert and oriented 3 . . - Labs CBC & Chem 7: 09/15/19 08:04 09/15/19 08:04 Labs: Abnormal Lab Results - Last 24 Hours (Table) 09/15/19 09/15/19 Range/Units 08:04 08:04 MCV 103.8 H (80.0-100.0) fL Potassium 3.3 L (3.5-5.1) mmol/L BUN 23 H (7-17) mg/dL Glucose 122 H (74-99) mg/dL Assessment and Plan Plan: Assessment and plan #1 atrial fibrillation with rapid ventricular response, chronic persistent #2 nonischemic cardiomyopathy, documented ejection fraction of 35-40% #3 hypertension Plan We will discontinue the IV Cardizem drip, increase the dose of beta debora. If the patient's heart rate remains less than 110 with ambulation she should be able to be discharged home. DNP note has been reviewed, I agree with a documented findings and plan of care. Patient was seen and examined.
[2019-09-15] MEDS ORDERED: NITROGLYCERIN SL TABS 0.4 MG TAB SUBLINGUAL PRN (11:06)
[2019-09-15] MEDS ORDERED: ATORVASTATIN 80 MG TAB PO STA (11:06)
[2019-09-15] MEDS ORDERED: ALPRAZolam 0.25 MG TAB PO PRN (11:06)
[2019-09-15] MEDS ORDERED: ALPRAZolam 0.5 MG TAB PO PRN (11:06)
[2019-09-15] MEDS ORDERED: SODIUM CHLORIDE 0.9% 1,000 ML in EMPTY BAG 1 BAG IV ONE (11:06)
[2019-09-15] MEDS ORDERED: ASPIRIN 325 MG TAB PO STA (11:06)
[2019-09-15 11:15] LABS: Folate, Serum 22.1 ng/mL
[2019-09-15] MEDS: METOPROLOL TARTRATE 50 MG TAB PO SCH ×2 (11:52→20:05)
[2019-09-15] MEDS: traZODone HCL 50 MG TAB PO SCH (20:05)
[2019-09-15] MEDS: LORazepam 1 MG TAB PO SCH (22:56)
[2019-09-16] MEDS: DULoxetine HCL 60 MG CAPSULE.DR PO SCH (05:35)
[2019-09-16] MEDS: LOSARTAN 50 MG TAB PO SCH (05:35)
[2019-09-16] MEDS: MAGNESIUM OXIDE 400 MG TAB PO SCH (05:35)
[2019-09-16] MEDS: METOPROLOL TARTRATE 50 MG TAB PO SCH ×2 (05:36→19:53)
[2019-09-16] MEDS: MELOXICAM 7.5 MG TAB PO SCH (05:36)
[2019-09-16] MEDS: VENLAFAXINE HCL ER 75 MG CAP PO SCH (06:12)
[2019-09-16 06:30] LABS: HCT 47.3 % (34.0-46.0); HGB 15.6 gm/dL (11.4-16.0); MCHC 32.9 g/dL (31.0-37.0); MCV 103.3 fL (80.0-100.0); Macrocytosis Slight; Mean Platelet Volume 9.8; Platelet Count 269 k/uL (150-450); RBC 4.58 m/uL (3.80-5.40); RDW 14.2 % (11.5-15.5); WBC 8.3 k/uL (3.8-10.6)
[2019-09-16 06:44] LABS: Calcium 9.2 mg/dL (8.4-10.2); Magnesium 1.7 mg/dL (1.6-2.3); Potassium 3.2 mmol/L (3.5-5.1)
[2019-09-16] MEDS ORDERED: DILTIAZEM DRIP BOLUS FROM BAG 1 MG SOLN IV ONE (06:48)
[2019-09-16] MEDS ORDERED: DILTIAZEM 125 MG in SODIUM CHLORIDE 0.9% 100 ML IV SCH (07:00)
[2019-09-16] MEDS ORDERED: POTASSIUM CHLORIDE ER 20 MEQ TAB.ER PO STA (07:45)
[2019-09-16] MEDS ORDERED: IV FLUID CONTINUATION 900 ML IV ONE (08:15)
[2019-09-16] MEDS ORDERED: LIDOCAINE 1% INJ 10MG/ML (20 ML MDV) ONE (08:20)
[2019-09-16] MEDS ORDERED: fentaNYL (PF) 50 MCG/ML 2 ML AMP ONE (08:20)
[2019-09-16] MEDS ORDERED: MIDAZOLAM 2 MG/2 ML VIAL IV ONE (08:29)
[2019-09-16] MEDS ORDERED: fentaNYL (PF) 50 MCG/ML 2 ML AMP IV ONE (08:29)
[2019-09-16] MEDS ORDERED: LIDOCAINE 1% INJ 10MG/ML (20 ML MDV) SQ ONE (08:33)
[2019-09-16] MEDS ORDERED: IOPAMIDOL-370 50ML BTL INJ ONE (09:03)
[2019-09-16] MEDS ORDERED: IOPAMIDOL-370 125ML BTL INJ ONE (09:04)
--- NOTE | 2019-09-16 09:33 | CC ---
CARDIAC CATHETERIZATION REPORT INDICATION: Ischemic cardiomyopathy. PROCEDURE NOTE: After obtaining informed consent, left heart catheterization and coronary angiogram were performed via the right femoral artery. Left coronary artery was engaged using a size 4 left Miladis catheter. Right coronary artery could not be engaged selectively. We went through multiple catheter exchanges including right Miladis, john, multipurpose and Maycol posterior. I performed an aortogram and visualized right coronary artery sub-selectively. FINDINGS: 1. HEMODYNAMICS: Left ventricular end-diastolic pressure is 10 mm. There was no gradient across the aortic valve. 2. AORTOGRAM: Aortogram was performed to visualize the right coronary artery. Aortic root does not appear enlarged. There is 2 to 3+ aortic regurgitation noted. 3. ANGIOGRAPHIC DATA: The right coronary artery sub-selectively visualized. There is a chronic subtotal occlusion in the distal portion. Left main coronary artery appears calcified, but is free of significant stenosis. Divides into left anterior descending coronary artery and circumflex coronary artery. Circumflex coronary artery is a large dominant vessel that shows a focal 90% stenosis. LAD appears diffusely diseased. There is a focal mid 80% stenosis and the distal LAD shows moderate to severe disease. CONCLUSION: 1. Severe three-vessel coronary artery disease as described above. 2. Ischemic cardiomyopathy with ejection fraction of 35%. PLAN: I am going to review angiographic data with Dr. Diogo Holland the on-call locomotive firer and decide on whether to do angioplasty of the circumflex and manage the LAD medically or send the patient to bypass surgery once the coronavirus issue settles down. MMODL / IJN: [id number] /
[2019-09-16] MEDS: POTASSIUM CHLORIDE 10 MEQ in WATER FOR INJECTION 1 100ML.BAG IVPB SCH ×2 (10:11→11:26)
[2019-09-16] MEDS: FUROSEMIDE 10 MG/ML 4 ML VIAL IV SCH (10:11)
[2019-09-16] MEDS ORDERED: RX INFO: IV CONTRAST WAS GIVEN 1 EACH MISC MISCELLANE PRN (10:33)
[2019-09-16] MEDS: SODIUM CHLORIDE 0.9% 1,000 ML IV SCH ×2 (11:26→21:31)
[2019-09-16] MEDS ORDERED: HYDROcodone/APAP 5-325MG 1 EACH TAB PO PRN (11:51)
--- NOTE | 2019-09-16 13:33 | P.PN ---
Subjective Progress Note Date: 09/16/19 Principal diagnosis: Shortness of breath Patient is an 78-year-old female with a past medical history of chronic atrial fibrillation on Eliquis, depression, diverticulitis with ileostomy, and hypertension who presented to the ER with shortness of breath. On arrival to the ER she was found have atrial fibrillation with rapid ventricular response a pulse of 147. Laboratory analysis showed an elevated total bilirubin of 1.5, AST 38, BUN 25, and creatinine 0.38. She also had mildly elevated blood sugar at 202. Her BNP was elevated at 4220 and troponin was negative. Chest x-ray showed mild bilateral bibasilar pulmonary infiltrates with pleural fluid. She was diagnosed with acute exacerbation of congestive heart failure and A. fib with RVR. She was started on a Cardizem drip and Lasix. She is admitted for further monitoring. Cardiology was consulted who r ecommended continuing her Cardizem drip and increasing metoprolol. Eliquis was also started. Echocardiogram came back with mild LVH and an ejection fraction of 35-40% with mild valvular disease. Despite Cardizem drip and escalating doses of metoprolol she continued to have A. fib with RVR up to the 120s to 140s on 09/14. Her metoprolol was increased and her cardizem was stopped. She underwent cath on 09/15 which showed tripple vessel disease. Patient seen and examined at bedside. She complains of feeling very tired, shortness of breath with any exertion, no chest pain, no palpitations, no nausea or vomiting. No other complaints currently. Objective - Vital Signs Vital signs: Vital Signs Temp 97.3 F L 09/16/19 08:00 Pulse 95 09/16/19 11:23 Resp 20 09/16/19 11:23 BP 102/79 09/16/19 11:35 Pulse Ox 95 09/16/19 11:23 Intake & Output 09/15/19 09/16/19 09/16/19 18:59 06:59 18:59 Intake Total 600 10 100 Output Total 850 300 Balance 600 -840 -200 Weight 75.9 kg Intake: IV 10 100 Invasive Line 1 10 Oral 600 Output: Urine 850 300 Other: Voiding Method Toilet Toilet # Voids 1 - Exam General:non toxic , no distress, appears at stated age Derm: warm, dry Head: atraumatic, normocephalic, symmetric Eyes: EOMI, no lid lag, anicteric sclera Mouth: no lip lesion, mucus membranes moist Cardiovascular: S1S2 irreg, positive posterior tibial pulse bilateral, Lungs: Decreased bs bilateral, no rhonchi, no rales , no accessory muscle use Abdominal: soft, nontender to palpation, no guarding, no appreciable organomegaly Ext: no gross muscle atrophy, no edema, no contractures Neuro: CN II-XI grossly intact, no focal neuro deficits Psych: Alert, oriented, appropriate affect - Labs CBC & Chem 7: 09/16/19 05:46 09/16/19 05:46 Labs: Abnormal Lab Results - Last 24 Hours (Table) 09/16/19 09/16/19 Range/Units 05:46 05:46 Hct 47.3 H (34.0-46.0) % MCV 103.3 H (80.0-100.0) fL Potassium 3.2 L (3.5-5.1) mmol/L BUN 23 H (7-17) mg/dL Glucose 195 H (74-99) mg/dL Assessment and Plan Assessment: A fib with RVR - tele - Metoprolol - eliquis - cardio recs Acute exacerbation of systolic CHF EF 35-40% - Lasix stoped and fluid status improved - strict I and O, daily weights - Cozaar, metoprolol, aldactone - cardio recs Severe tripple vessel COronary artery disease - statin, ASA, BB - Cardio recs HTN, controlled - aldactone, metoprolol, cozaar - follow BP Transaminitis - likely due to hepatic congestion and improving - not need to repeat as inpatient Depression - cymbalta and effexor Hypokalemia - replace and recheck Lactic acidosis, resolved DVT prophylaxis: eliquis Discussed with: Patient, nursing Anticipated discharge: in AM Anticipated discharge place: home A total of 35 minutes was spent on the care of this complex patient more than 50% of the time was spent in counseling and care coordination.
[2019-09-16] MEDS: APIXABAN 5 MG TAB PO SCH (19:52)
[2019-09-16] MEDS: ATORVASTATIN 40 MG TAB PO SCH (19:53)
[2019-09-16] MEDS: LORazepam 1 MG TAB PO SCH (19:53)
[2019-09-16] MEDS: traZODone HCL 50 MG TAB PO SCH (19:53)
[2019-09-17 06:44] LABS: HCT 47.5 % (34.0-46.0); HGB 15.3 gm/dL (11.4-16.0); MCH 32.9 pg (25.0-35.0); MCHC 32.1 g/dL (31.0-37.0); MCV 102.5 fL (80.0-100.0); Macrocytosis Slight; Platelet Count 246 k/uL (150-450); RBC 4.64 m/uL (3.80-5.40); RDW 14.2 % (11.5-15.5); WBC 7.7 k/uL (3.8-10.6)
[2019-09-17 06:57] LABS: Calcium 9.1 mg/dL (8.4-10.2); Potassium 3.2 mmol/L (3.5-5.1)
[2019-09-17] MEDS ORDERED: Potassium Replacement Protocol 1 EACH MISC MISCELLANE PRN (08:08)
[2019-09-17] MEDS: METOPROLOL TARTRATE 50 MG TAB PO SCH ×2 (08:17→21:16)
[2019-09-17] MEDS: MELOXICAM 7.5 MG TAB PO SCH (08:17)
[2019-09-17] MEDS: ASPIRIN 81 MG PO SCH (08:17)
[2019-09-17] MEDS: DULoxetine HCL 60 MG CAPSULE.DR PO SCH (08:17)
[2019-09-17] MEDS: LOSARTAN 50 MG TAB PO SCH (08:17)
[2019-09-17] MEDS: APIXABAN 5 MG TAB PO SCH ×2 (08:17→21:16)
[2019-09-17] MEDS: VENLAFAXINE HCL ER 75 MG CAP PO SCH (08:18)
[2019-09-17] MEDS: MAGNESIUM OXIDE 400 MG TAB PO SCH (08:18)
[2019-09-17] MEDS: POTASSIUM CHLORIDE ER 20 MEQ TAB.ER PO SCH ×2 (08:22→11:55)
--- NOTE | 2019-09-17 10:24 | P.PN ---
Subjective Progress Note Date: 09/17/19 This is an 78-year-old female with history of persistent atrial fibrillation, hypertension, admitted to the hospital with A. fib with RVR, Dr. Gray saw the patient in consultation yesterday. Her heart rate this morning 104 on the Cardizem 10 mg per hour. Echocardiogram with Doppler study revealed an ejection fraction of 35-40%, mild to moderate MR, [id number] TR. Small pleural effusion. With the reduced LV function, we'll discontinue the IV Cardizem and increase the dose of beta debora today. Overall the patient feels well. Heart rate this morning 104, blood pressure 126/90, 92% on room air. White blood cell count 9.3, hemoglobin 14.4, platelet count 254. Sodium 140, potassium 3.3, BUN 23, creatinine 0.9, magnesium 1.8. 09/17/2019 Patient seen and examined this morning, sitting up in bed, she has not ambulated much in her room yet, states that when she walks she feels weak. Her heart rate this morning was in the 1 teens but she had not yet received her 100 mg of m etoprolol. Overall from cardiology's perspective, the patient should be able to be discharged home today, she's been encouraged to be ambulating in her room with assistance this morning and to be sitting up in the chair. We will make a follow-up appointment in the office post discharge. Objective - Vital Signs Vital signs: Vital Signs Temp 98.3 F 09/17/19 08:00 Pulse 117 H 09/17/19 08:00 Resp 18 09/17/19 08:00 BP 149/74 09/17/19 08:00 Pulse Ox 93 L 09/17/19 08:00 Intake & Output 09/16/19 09/17/19 09/17/19 18:59 06:59 18:59 Intake Total 580 120 Output Total 300 300 Balance 280 -300 120 Weight 76 kg Intake: IV 100 Oral 480 120 Output: Urine 300 Urine/Stool Mix 300 Other: Voiding Method Toilet # Voids 3 1 - Exam PHYSICAL EXAMINATION: GENERAL: 78-year-old female in no acute distress at the time of my examination HEENT: Head is atraumatic, normocephalic. Pupils equal, round. Sclera a nicteric. Conjunctiva are clear. Mucous membranes of the mouth are moist. Neck is supple. There is no elevated jugular venous pressure. No carotid bruit is heard. HEART EXAMINATION: Heart S1 and S2 irregularly irregular a systolic murmur is heard CHEST EXAMINATION: Lungs are clear to auscultation and precussion. No chest wall tenderness is noted on palpation or with deep breathing. ABDOMEN: Soft, nontender. Bowel sounds are heard. No organomegaly noted. EXTREMITIES: 2+ peripheral pulses with no evidence of peripheral edema and no calf tenderness noted. NEUROLOGIC patient is awake, alert and oriented 3 . . - Labs CBC & Chem 7: 09/17/19 06:10 09/17/19 06:10 Labs: Abnormal Lab Results - Last 24 Hours (Table) 09/17/19 09/17/19 Range/Units 06:10 06:10 Hct 47.5 H (34.0-46.0) % MCV 102.5 H (80.0-100.0) fL Potassium 3.2 L (3.5-5.1) mmol/L BUN 26 H (7-17) mg/dL Glucose 102 H (74-99) mg/dL Assessment and Plan Plan: Assessment and plan #1 atrial fibrillation with rapid ventricular response, chronic persistent #2 nonischemic cardiomyopathy, documented ejection fraction of 35-40% #3 hypertension Plan From cardiology's perspective, we will continue this patient on her current medications. She's been encouraged to ambulate in the room with assistance and be up sitting in the chair today. From our standpoint she should be able to be discharged home today, we will make a follow-up appointment in the office post discharge. DNP note has been reviewed, I agree with a documented findings and plan of care. Patient was seen and examined.
[2019-09-17] MEDS: AMIODARONE 200 MG TAB PO SCH ×2 (13:52→21:16)
--- NOTE | 2019-09-17 15:45 | P.PN ---
Subjective Progress Note Date: 09/17/19 Principal diagnosis: Principal diagnosis: Shortness of breath Patient is an 78-year-old female with a past medical history of chronic atrial fibrillation on Eliquis, depression, diverticulitis with ileostomy, and hypertension who presented to the ER with shortness of breath. On arrival to the ER she was found have atrial fibrillation with rapid ventricular response a pulse of 147. Laboratory analysis showed an elevated total bilirubin of 1.5, AST 38, BUN 25, and creatinine 0.38. She also had mildly elevated blood sugar at 202. Her BNP was elevated at 4220 and troponin was negative. Chest x-ray showed mild bilateral bibasilar pulmonary infiltrates with pleural fluid. She was diagnosed with acute exacerbation of congestive heart failure and A. fib with RVR. She was started on a Cardizem drip and Lasix. She is admitted for further monitoring. Cardiology was consulted who recommended continuing her Cardizem drip and increasing metoprolol. Eliquis was also started. Echocardiogram came back with mild LVH and an ejection fraction of 35-40% with mild valvular disease. Despite Cardizem drip and escalating doses of metoprolol she continued to have A. fib with RVR up to the 120s to 140s on 09/14. Her metoprolol was increased and her cardizem was stopped. She underwent cath on 09/15 which showed tripple vessel disease. 09/17/2019: Patient feels okay, still tachycardic, she denies chest pain or shortness of breath. Heart rate 106-131 Objective - Vital Signs Vital signs: Vital Signs Temp 97.5 F L 09/17/19 15:17 Pulse 106 H 09/17/19 15:17 Resp 20 09/17/19 15:17 BP 123/87 09/17/19 15:17 Pulse Ox 96 09/17/19 15:17 Intake & Output 09/16/19 09/17/19 09/17/19 18:59 06:59 18:59 Intake Total 580 300 Output Total 300 300 Balance 280 -300 300 Weight 76 kg Intake: IV 100 Oral 480 300 Output: Urine 300 Urine/Stool Mix 300 Other: Voiding Method Toilet # Voids 3 1 2 - Exam General:non toxic , no distress Derm: warm, dry Head: atraumatic, normocephalic, symmetric Eyes: EOMI Cardiovascular: S1S2 irreg, positive posterior tibial pulse bilateral, Lungs: Decreased bs bilateral, no rhonchi, no rales , no accessory muscle use Abdominal: soft, nontender to palpation Ext: no gross muscle atrophy, no edema, no contractures Neuro: CN II-XI grossly intact, no focal neuro deficits Psych: Alert, oriented, appropriate affect - Labs CBC & Chem 7: 09/17/19 06:10 09/17/19 06:10 Labs: Abnormal Lab Results - Last 24 Hours (Table) 09/17/19 09/17/19 Range/Units 06:10 06:10 Hct 47.5 H (34.0-46.0) % MCV 102.5 H (80.0-100.0) fL Potassium 3.2 L (3.5-5.1) mmol/L BUN 26 H (7-17) mg/dL Glucose 102 H (74-99) mg/dL Assessment and Plan Plan: Assessment: A fib with RVR - tele - Metoprolol - eliquis - cardio recs , still has episodes of tachycardia up to 131 Acute exacerbation of systolic CHF EF 35-40% - off Lasix and fluid status improved - strict I and O, daily weights - Cozaar, metoprolol, aldactone - cardio recs, monitor. Severe tripple vessel COronary artery disease - statin, ASA, BB - Cardio recs HTN, controlled - aldactone, metoprolol, cozaar - follow BP Transaminitis - likely due to hepatic congestion and improving Depression - cymbalta and effexor Hypokalemia - replace as indicated, 3.2 today Lactic acidosis, resolved DVT prophylaxis: francesca Discussed with: Patient, nursing Anticipated discharge: Home In 1-2 days once heart rate is better Anticipated discharge place: home
[2019-09-17] MEDS: traZODone HCL 50 MG TAB PO SCH (21:16)
[2019-09-17] MEDS: LORazepam 1 MG TAB PO SCH (21:16)
[2019-09-17] MEDS: ATORVASTATIN 40 MG TAB PO SCH (21:16)
[2019-09-18] MEDS: LOSARTAN 50 MG TAB PO SCH (08:10)
[2019-09-18] MEDS: DULoxetine HCL 60 MG CAPSULE.DR PO SCH (08:10)
[2019-09-18] MEDS: ASPIRIN 81 MG PO SCH (08:10)
[2019-09-18] MEDS: METOPROLOL TARTRATE 50 MG TAB PO SCH (08:10)
[2019-09-18] MEDS: MELOXICAM 7.5 MG TAB PO SCH (08:10)
[2019-09-18] MEDS: MAGNESIUM OXIDE 400 MG TAB PO SCH (08:10)
[2019-09-18] MEDS: AMIODARONE 200 MG TAB PO SCH (08:10)
[2019-09-18] MEDS: APIXABAN 5 MG TAB PO SCH (08:10)
[2019-09-18] MEDS: VENLAFAXINE HCL ER 75 MG CAP PO SCH (08:10)
[2019-09-18 08:16] VITALS: RESP 16
--- NOTE | 2019-09-18 08:55 | P.PN ---
Subjective Progress Note Date: 09/18/19 Principal diagnosis: Shortness of breath Patient is an 78-year-old female with a past medical history of chronic atrial fibrillation on Eliquis, depression, diverticulitis with ileostomy, and hypertension who presented to the ER with shortness of breath. On arrival to the ER she was found have atrial fibrillation with rapid ventricular response a pulse of 147. She was started on a Cardizem drip and Lasix. She is admitted for further monitoring. Cardiology was consulted who recommended continuing her Cardizem drip and increasing metoprolol. Eliquis was also started. Echocardiogram came back with mild LVH and an ejection fraction of 35-40% with mild valvular disease. Despite Cardizem drip and escalating doses of metoprolol she continued to have A. fib with RVR up to the 120s to 140s on 09/14. Her metoprolol was increased and her cardizem was stopped. She underwent cath on 09/15 which showed tripple vessel disease. Patient continues to have atrial fib with a resting heart rate under 120. Patient denies chest pain, shortness of breath, fever, chills, nausea or vomiting. Objective - Vital Signs Vital signs: Vital Signs Temp 98.5 F 09/18/19 08:00 Pulse 122 H 09/18/19 08:00 Resp 16 09/18/19 08:00 BP 125/92 09/18/19 08:00 Pulse Ox 93 L 09/18/19 08:00 Intake & Output 09/17/19 09/18/19 09/18/19 18:59 06:59 18:59 Intake Total 540 760 240 Output Total 550 Balance 540 210 240 Weight 75.8 kg Intake: Oral 540 760 240 Output: Urine 550 Other: Voiding Method Toilet # Voids 2 2 # Bowel Movements 1 - Exam General: [non toxic], [no distress], [appears at stated age] Derm: [warm], [dry] Head: [atraumatic], [normocephalic], [symmetric] Eyes: [EOMI], [no lid lag], [anicteric sclera] Mouth: [no lip lesion], [mucus membranes moist] Cardiovascular: [irregulary irregular], [no murmur], [positive posterior tibial pulse bilateral], Lungs: [CTA bilateral], [no rhonchi, no rales] , [no accessory muscle use] Abdominal: [soft], [ nontender to palpation], [no guarding], [no appreciable organomegaly] Ext: [no gross muscle atrophy], [no edema], [no contractures] Neuro: [ CN II-XI grossly intact], [no focal neuro deficits] Psych: [Alert], [oriented], [appropriate affect] - Labs CBC & Chem 7: 09/17/19 06:10 09/17/19 06:10 Assessment and Plan Assessment: A fib with RVR - tele - Metoprolol - eliquis - cardio recs , still has episodes of tachycardia - PT/OT ordered - Will plan for discharge today once cleared by cardiology Acute exacerbation of systolic CHF EF 35-40% resolved - off Lasix and fluid status improved - strict I and O, daily weights - Cozaar, metoprolol, aldactone - cardio recs, monitor. Severe tripple vessel COronary artery disease - statin, ASA, BB - Cardio recs HTN, controlled - aldactone, metoprolol, cozaar - follow BP Transaminitis - likely due to hepatic congestion and improving - repeat CMP Depression - cymbalta and effexor Hypokalemia - replace as indicated, 3.2 today - repeat cmp Lactic acidosis, resolved DVT prophylaxis: francesca Discussed with: Patient, nursing Anticipated discharge: Home In 1-2 days once heart rate is better Anticipated discharge place: home
[2019-09-18] MEDS ORDERED: POTASSIUM CHLORIDE ER 20 MEQ TAB.ER PO SCH (09:00)
[2019-09-18] MEDS ORDERED: SPIRONOLACTONE 25 MG TAB PO SCH (09:00)
[2019-09-18 09:58] LABS: Albumin 3.6 g/dL (3.5-5.0); Calcium 9.2 mg/dL (8.4-10.2); Potassium 3.7 mmol/L (3.5-5.1); Total Bilirubin 1.2 mg/dL (0.2-1.3); Total Protein 6.5 g/dL (6.3-8.2)
--- NOTE | 2019-09-18 11:00 | P.PN ---
Subjective Progress Note Date: 09/18/19 This is an 78-year-old female with history of persistent atrial fibrillation, hypertension, admitted to the hospital with A. viet with RVR, Dr. Gray saw the patient in consultation yesterday. Her heart rate this morning 104 on the Cardizem 10 mg per hour. Echocardiogram with Doppler study revealed an ejection fraction of 35-40%, mild to moderate MR, [id number] TR. Small pleural effusion. With the reduced LV function, we'll discontinue the IV Cardizem and increase the dose of beta debora today. Overall the patient feels well. Heart rate this morning 104, blood pressure 126/90, 92% on room air. White blood cell count 9.3, hemoglobin 14.4, platelet count 254. Sodium 140, potassium 3.3, BUN 23, creatinine 0.9, magnesium 1.8. 09/17/2019 Patient seen and examined this morning, sitting up in bed, she has not ambulated much in her room yet, states that when she walks she feels weak. Her heart rate this morning was in the 1 teens but she had not yet received her 100 mg of m etoprolol. Overall from cardiology's perspective, the patient should be able to be discharged home today, she's been encouraged to be ambulating in her room with assistance this morning and to be sitting up in the chair. We will make a follow-up appointment in the office post discharge. 09/18/2019 Patient seen and examined this morning, feeling much better overall. She did ambulate a significant amount without any difficulty. She's been up in the chair. Hemodynamically she is stable. Her heart rate this morning is around 108, she has not yet received her morning medications. We anticipate her discharge home today. We will continue the amiodarone 400 mg one tablet by mouth twice a day for one week, then decrease to 200 mg one tablet by mouth 3 times a day, then decrease to 200 mg one tablet by mouth twice a day. Objective - Vital Signs Vital signs: Vital Signs Temp 98.5 F 09/18/19 08:00 Pulse 122 H 09/18/19 08:00 Resp 16 09/18/19 08:00 BP 125/92 09/18/19 08:00 Pulse Ox 93 L 09/18/19 08:00 Intake & Output 09/17/19 09/18/1909/17/20 18:59 06:59 18:59 Intake Total 540 760 240 Output Total 550 Balance 540 210 240 Weight 75.8 kg Intake: Oral 540 760 240 Output: Urine 550 Other: Voiding Method Toilet Toilet # Voids 2 2 # Bowel Movements 1 - Exam PHYSICAL EXAMINATION: GENERAL: 78-year-old female in no acute distress at the time of my examination HEENT: Head is atraumatic, normocephalic. Pupils equal, round. Sclera anicteric. Conjunctiva are clear. Mucous membranes of the mouth are moist. Neck is supple. There is no elevated jugular venous pressure. No carotid bruit is heard. HEART EXAMINATION: Heart S1 and S2 irregularly irregular a systolic murmur is heard CHEST EXAMINATION: Lungs are clear to auscultation and precussion. No chest wall tenderness is noted on palpation or with deep breathing. ABDOMEN: Soft, nontender. Bowel sounds are heard. No organomegaly noted. EXTREMITIES: 2+ peripheral pulses with no evidence of peripheral edema and no calf tenderness noted. NEUROLOGIC patient is awake, alert and oriented 3 . . - Labs CBC & Chem 7: 09/17/19 06:10 09/18/19 09:03 Labs: Abnormal Lab Results - Last 24 Hours (Table) 09/18/19 Range/Units 09:03 Sodium 136 L (137-145) mmol/L Carbon Dioxide 21 L (22-30) mmol/L BUN 26 H (7-17) mg/dL Glucose 166 H (74-99) mg/dL Assessment and Plan Plan: Assessment and plan #1 atrial fibrillation with rapid ventricular response, chronic persistent #2 nonischemic cardiomyopathy, documented ejection fraction of 35-40% #3 hypertension Plan From cardiology's perspective, we will continue this patient on her current medications. She will continue amiodarone 400 mg one tablet by mouth twice a day for one week, then decrease to 200 mg one tablet by mouth 3 times a day, then decrease to 200 mg one tablet by mouth twice a day. She may be able to be discharged home today from our perspective, we will make her a follow-up appointment in the office post discharge. DNP note has been reviewed, I agree with a documented findings and plan of care. Patient was seen and examined.
[2019-09-18 11:50] VITALS: BP 121/74; PULSE 102; TEMP 97.7
--- NOTE | 2019-09-18 12:43 | P.DS ---
Providers Date of admission: 09/13/19 17:08 Expected date of discharge: 09/18/19 Attending physician: Carson Lockhart MD Consults: 09/13/19 17:02 Consult Physician Routine Consulting Provider: Tremaine Carmona Consult Reason/Comments: Afib RVR Do you want consulting provider notified?: Yes Primary care physician: Yoni Fairchild Hospital Course: Admitting diagnosis: -Shortness of breath -Acute exacerbation of congestive heart failure secondary to atrial fib with RVR -Lactic acidosis -Transaminitis -Hypertension -Depression -Macrocytosis Discharge diagnoses: -Acute exacerbation of congestive heart failure secondary to atrial with RVR improved -Hypertension controlled -Hypokalemia resolved -Depression stable Hospital course: 78-year-old female with PMH of atrial fibrillation on Eliquis, depression, history of diverticulitis with ileostomy, hypertension presents to the ED for shortness of breath. Patient reported exertional shortness of breath that had been getting worse over the past 2 weeks prior to admission. Over the last few days, patient has experienced immense difficulties with laying flat at night to go to sleep. This prompted her to come to the ED. She did report intermittent lower extremity swelling for which she takes Lasix. She also reported a dry cough. She denied any headaches, nausea or vomiting, fever or chills, chest pain, palpitations, changes in urination or bowel habits. No changes in appetite or weight. She denied any dizziness, numbness/weakness/tingling of the extremities. In initial presentation, her pulse was as high as 147. Her vital signs were otherwise stable. CBC showed macrocytosis with MCV 103.6. Coagulation panel showed INR of 1.4. CMP showed chloride 109, bicarbonate 21, BUN 25, glucose 202. Lactic acid was 2.4. Total bilirubin was 1.5, AST 38. Troponin was less than 0.012, EKG showing atrial fibrillation with RVR. BNP was 4220, chest x-ray showing mild bilateral bibasilar pulmonary infiltrates and p leural fluid. Patient iwas admitted for acute exacerbation of CHF secondary to atrial fibrillation with RVR. Cardiology was consulted who recommended continuing her Cardizem drip and increasing metoprolol. Eliquis was also started. Echocardiogram came back with mild LVH and an ejection fraction of 35- 40% with mild valvular disease. Despite Cardizem drip and escalating doses of metoprolol she continued to have A. fib with RVR up to the 120s to 140s on 09/14. Patient underwent cath on 09/15 which showed tripple vessel disease. Amioderone was iitiated and is to be titrated by cardiology as an out patient. Patient given directions to continue amiodarone 400 mg one tablet by mouth twice a day for one week, then decrease to 200 mg one tablet by mouth 3 times a day, then decrease to 200 mg one tablet by mouth twice a day. During hospital stay patient was mildly hypokalemic. Potassium replacements given daily. On discharge sodium was 136 potassium was 3.7 chloride 105 CO2 21 BUN 26 crea tinine 0.88. Vitals on discharge temperature 97.7 heart rate 102 respiration rate 16 blood pressure 121/74 oxygen 95% room air General: [non toxic], [no distress], [appears at stated age] Derm: [warm], [dry] Head: [atraumatic], [normocephalic], [symmetric] Eyes: [EOMI], [no lid lag], [anicteric sclera] Mouth: [no lip lesion], [mucus membranes moist] Cardiovascular: [irregularly irregular rate controlled], [no murmur], [positive posterior tibial pulse bilateral], Lungs: [CTA bilateral], [no rhonchi, no rales] , [no accessory muscle use] Abdominal: [soft], [ nontender to palpation], [no guarding], [no appreciable organomegaly] Ext: [no gross muscle atrophy], [no edema], [no contractures] Neuro: [ CN II-XI grossly intact], [no focal neuro deficits] Psych: [Alert], [oriented], [appropriate affect] MEDS see EMR Diet Cardiac diet Assessment: A fib with RVR - Metoprolol - eliquis - amioderone Acute exacerbation of systolic CHF EF 35-40% resolved - off Lasix and fluid status improved - Cozaar, metoprolol, aldactone Severe tripple vessel COronary artery disease - statin, ASA, BB - Follow-up with cardiology in 1 week HTN, controlled - aldactone, metoprolol, cozaar Transaminitis resolved - likely due to hepatic congestion Depression stable - cymbalta and effexor Hypokalemia replenished -continue oral KCL -repeat BMP in 1 week Lactic acidosis, resolved Health Concerns: Monitor potassium levels as an outpatient with pcp Pertinent Studies: chest x-ray 09/13/2019 mild bilateral basilar pulmonary infiltrates and pleural fluid appears new compared to last exam EKG 09/13/2027 that with RVR Echocardiogram 09/14/2019 revealed atrial fibrillation with an ejection fraction of 35-40% Left atrium is moderately dilated. Mild aortic valve sclerosis. Small pleural effusion. Cardiac cath 09/13/2019 revealed severe three-vessel coronary artery disease with ischemic cardiomyopathy with an ejection fraction of 35% Patient Condition at Discharge: Fair Plan - Discharge Summary Discharge Rx Participant: Yes New Discharge Prescriptions: New Aspirin 81 mg PO DAILY #30 chew Amiodarone [Cordarone] 400 mg PO BID 30 Days #120 tab DULoxetine HCL [Cymbalta] 60 mg PO DAILY capsule. Potassium Chloride ER [K-Dur 20] 20 meq PO DAILY #30 tab.er.prt Atorvastatin [Lipitor] 40 mg PO HS tab Metoprolol Tartrate [Lopressor] 100 mg PO BID #120 tab Nitroglycerin Sl Tabs [Nitrostat] 0.4 mg SUBLINGUAL Q5M PRN #30 tab PRN Reason: Chest Pain Spironolactone [Aldactone] 12.5 mg PO DAILY #30 tab Continue Acetaminophen [Tylenol Arthritis] 650 mg PO Q6H PRN PRN Reason: Pain Apixaban [Eliquis] 5 mg PO BID Calcium Carbonate/Vitamin D3 [Calcium 600-Vit D3 800 Caplet] 1 cap PO DAILY DULoxetine HCL [Cymbalta] 60 mg PO DAILY LORazepam [Ativan] 1 mg PO HS Losartan [Cozaar] 50 mg PO DAILY Magnesium Oxide 400 mg PO DAILY Multivitamins, Thera [Multivitamin (formulary)] 1 tab PO DAILY traZODone HCL 50 mg PO HS Venlafaxine HCl [Effexor XR] 75 mg PO DAILY Discontinued Celecoxib [CeleBREX] 200 mg PO DAILY Furosemide [Lasix] 20 mg PO Q48H PRN PRN Reason: on odd days Metoprolol Tartrate 25 mg PO BID Spironolactone 12.5 mg PO Q48H PRN PRN Reason: on even days Discharge Medication List Acetaminophen [Tylenol Arthritis] 650 mg PO Q6H PRN 09/13/19 [History] Apixaban [Eliquis] 5 mg PO BID 09/13/19 [History] Calcium Carbonate/Vitamin D3 [Calcium 600-Vit D3 800 Caplet] 1 cap PO DAILY 09/13/19 [History] DULoxetine HCL [Cymbalta] 60 mg PO DAILY 09/13/19 [History] LORazepam [Ativan] 1 mg PO HS 09/13/19 [History] Losartan [Cozaar] 50 mg PO DAILY 09/13/19 [History] Magnesium Oxide 400 mg PO DAILY 09/13/19 [History] Multivitamins, Thera [Multivitamin (formulary)] 1 tab PO DAILY 09/13/19 [History] Venlafaxine HCl [Effexor XR] 75 mg PO DAILY 09/13/19 [History] traZODone HCL 50 mg PO HS 09/13/19 [History] Amiodarone [Cordarone] 400 mg PO BID 30 Days #120 tab 09/18/19 [Rx] Aspirin 81 mg PO DAILY #30 chew 09/18/19 [Rx] Atorvastatin [Lipitor] 40 mg PO HS tab 09/18/19 [Rx] DULoxetine HCL [Cymbalta] 60 mg PO DAILY capsule. 09/18/19 [Rx] Metoprolol Tartrate [Lopressor] 100 mg PO BID #120 tab 09/18/19 [Rx] Nitroglycerin Sl Tabs [Nitrostat] 0.4 mg SUBLINGUAL Q5M PRN #30 tab 09/18/19 [Rx] Potassium Chloride ER [K-Dur 20] 20 meq PO DAILY #30 tab.er.prt 09/18/19 [Rx] Spironolactone [Aldactone] 12.5 mg PO DAILY #30 tab 09/18/19 [Rx] Follow up Appointment(s)/Referral(s): Jonathan Gray MD [STAFF PHYSICIAN] - 1 Week Yoni Fairchild MD [Primary Care Provider] - 1-2 Days Ambulatory/Diagnostic Orders: Basic Metabolic Panel [LAB.AMB] Time Frame: 1 Week, Facility: [facility], Location: [facility] Patient Instructions/Handouts: Heart Failure (ER) Activity/Diet/Wound Care/Special Instructions: Cardiac diet Discharge Disposition: HOME SELF-CARE Care Plan Goals (MU): She will continue amiodarone 400 mg one tablet by mouth twice a day for one week, then decrease to 200 mg one tablet by mouth 3 times a day, then decrease to 200 mg one tablet by mouth twice a day. Follow-up with Cardiology in 1 week. Plan of Treatment: She will continue amiodarone 400 mg one tablet by mouth twice a day for one week, then decrease to 200 mg one tablet by mouth 3 times a day, then decrease to 200 mg one tablet by mouth twice a day. Follow-up with Cardiology in 1 week. Recheck BMP in 1 week.
--- NOTE | 2019-09-18 13:10 | CDI ---
Documentation Clarification Form Date: 09/18/2019 12:54:42 PM From: Bridgette Tanner RN, CCDS Admit Date: 09/13/2019 05:08:00 PM Patient Name: Lay Jones Visit Number: [id number] Discharge Date: ATTENTION: The Clinical Documentation Specialists (CDI) and [facility] Coding Staff appreciate your assistance in clarifying documentation. Please respond to the clarification below the line at the bottom and electronically sign. The CDI & [facility] Coding staff will review the response and follow-up if needed. Please note: Queries are made part of the Legal Health Record. If you have any questions, please contact the author of this message via ITS. Dr. Stacie Washington Atrial Fibrillation is documented in the ED, H&P and subsequent progress notes and further specificity is requested in your assessment for the type of atrial fibrillation. History/Risk Factors: Atrial Fibrillation, Hypertension Clinical Indicators: 78-year-old female present to ED on 09/12 for shortness of breath. In ED, her pulse was high as 147. EKG/telemetry: showing atrial fibrillation with RVR. 147 09/12 Troponin 0.012, BNP 4220 Treatment: Cardizem 10 mg IV bolus than @ 5ml/hr (titrate) (now dc) Cordarone 400 mg PO BID Eliquis 5 mg PO BID Lopressor 100mg PO BID ECHO: Atrial Fibrillation EF between 35-40 % Cardiology consult: (Dr. Gray) Atrial fibrillation with rapid ventricular response, chronic persistent. In your professional opinion, can you please clarify the type of Atrial Fibrillation, if known? Chronic Persistent Atrial fibrillation (Last Revision: September 2017) Chronic Persistent Atrial fibrillation MTDD
== END 2019-09-18 14:11 | disposition home or self-care (01) | DRG 286 ==
LOC: EC 14:43 → 3SCARD 17:08
PROVIDERS: ADMIT Family Medicine; ATTEND Family Medicine
PROC: B2111ZZ Fluoroscopy of Multiple Coronary Arteries using Low Osmolar Contrast (ICD-10-PCS; principal; 2019-09-16 09:00)
PROC: 4A023N7 Measurement of Cardiac Sampling and Pressure, Left Heart, Percutaneous Approach (ICD-10-PCS; principal; 2019-09-16 09:00)
DX: I48.21 Permanent atrial fibrillation (principal); I50.23 Acute on chronic systolic (congestive) heart failure; E87.2 Acidosis; I11.0 Hypertensive heart disease with heart failure; F41.9 Anxiety disorder, unspecified; I25.10 Atherosclerotic heart disease of native coronary artery without angina pectoris; I25.5 Ischemic cardiomyopathy; I42.8 Other cardiomyopathies; E87.6 Hypokalemia; D75.89 Other specified diseases of blood and blood-forming organs; F32.9 Major depressive disorder, single episode, unspecified; K76.1 Chronic passive congestion of liver; Z79.01 Long term (current) use of anticoagulants; Z79.1 Long term (current) use of non-steroidal anti-inflammatories (NSAID); Z79.899 Other long term (current) drug therapy; Z90.710 Acquired absence of both cervix and uterus
CPT/HCPCS: 36415; 71046; 80048; 80053; 82550; 82607; 82746; 83605; 83735; 83880; 84443; 84484; 85025; 85027; 85610; 85730; 93005; 93306; 93458; 93567

== ENCOUNTER → 2019-10-01 | Outpatient (CLI) | payer MEDICARE ==
[2019-10-01 11:46] LABS: HCT 46.2 % (34.0-46.0); HGB 14.5 gm/dL (11.4-16.0); Hypochromasia Slight; MCH 32.5 pg (25.0-35.0); MCHC 31.4 g/dL (31.0-37.0); MCV 103.5 fL (80.0-100.0); Macrocytosis Slight; Mean Platelet Volume 9.8; Platelet Count 261 k/uL (150-450); RBC 4.46 m/uL (3.80-5.40); RDW 13.7 % (11.5-15.5); WBC 8.7 k/uL (3.8-10.6)
[2019-10-01 23:04] LABS: African American GFR (CKD) 49.4 (60.0-200.0); Albumin/Globulin Ratio 1.82 (1.60-3.17); Anion Gap 12.4 mmol/L (4.00-12.00); BUN/Creat Ratio 14.17 Ratio (12.00-20.00); Calcium 9.4 mg/dL (8.7-10.3); Carbon Dioxide 22.6 mmol/L (21.6-31.8); Globulin 2.2 g/dL (1.6-3.3); Non-African American GFR(CKD) 42.6 (60.0-200.0); Potassium 4.2 mmol/L (3.5-5.5); Total Protein 6.2 g/dL (6.2-8.2)
== END | disposition home or self-care (01) ==
LOC: LABWHC1 11:24
PROVIDERS: ATTEND Nurse Practitioner Adult Health
DX: I48.21 Permanent atrial fibrillation (principal)
CPT/HCPCS: 36415; 80053; 85027

== ENCOUNTER → 2019-11-26 | Outpatient (CLI) | payer MEDICARE ==
[2019-11-26 11:32] LABS: HCT 53.2 % (34.0-46.0); HGB 16.7 gm/dL (11.4-16.0); Hypochromasia Slight; MCH 30.9 pg (25.0-35.0); MCHC 31.4 g/dL (31.0-37.0); MCV 98.5 fL (80.0-100.0); Mean Platelet Volume 10.4; Platelet Count 239 k/uL (150-450); RDW 14.7 % (11.5-15.5); WBC 8.1 k/uL (3.8-10.6)
[2019-11-26 18:10] LABS: African American GFR (CKD) 61.6 (60.0-200.0); Anion Gap 10.4 mmol/L (4.00-12.00); Carbon Dioxide 23.6 mmol/L (21.6-31.8); Non-African American GFR(CKD) 53.2 (60.0-200.0); Potassium 3.6 mmol/L (3.5-5.5)
== END | disposition home or self-care (01) ==
LOC: LABWHC1 10:30
PROVIDERS: ATTEND Internal Medicine Cardiovascular Disease
DX: I50.22 Chronic systolic (congestive) heart failure (principal)
CPT/HCPCS: 36415; 80051; 82565; 83880; 84443; 84450; 84460; 84520; 85027

== ENCOUNTER 2019-12-16 18:20 | Observation (INO) | payer MEDICARE ==
[2019-12-16 20:01] LABS: Anisocytosis Slight; Basophils # (A) 0.1 k/uL (0-0.2); Basophils % (A) 1 %; Eosinophils # (A) 0.4 k/uL (0-0.7); Eosinophils % (A) 4 %; HCT 47.7 % (34.0-46.0); HGB 15.1 gm/dL (11.4-16.0); Hypochromasia Slight; Lymphocytes # (A) 2.7 k/uL (1.0-4.8); Lymphocytes % (A) 27 %; MCH 31.4 pg (25.0-35.0); MCHC 31.7 g/dL (31.0-37.0); Macrocytosis Slight; Mean Platelet Volume 11.3; Monocytes # (A) 0.9 k/uL (0-1.0); Monocytes % (A) 10 %; Neutrophils # (A) 5.5 k/uL (1.3-7.7); Neutrophils % (A) 56 %; Platelet Count 245 k/uL (150-450); RBC 4.82 m/uL (3.80-5.40); RDW 16.4 % (11.5-15.5); WBC 9.7 k/uL (3.8-10.6)
[2019-12-16 20:02] LABS: ALT 29 U/L (4-34); AST 35 U/L (14-36); African American GFR (CKD) >90 (>60 ml/min/1.73 sqM); Albumin 3.5 g/dL (3.5-5.0); Alkaline Phosphatase 130 U/L (38-126); Anion Gap 12 mmol/L; Blood Urea Nitrogen 21 mg/dL (7-17); Calcium 9.1 mg/dL (8.4-10.2); Carbon Dioxide 23 mmol/L (22-30); Chloride 101 mmol/L (98-107); Glucose 108 mg/dL (74-99); Non-African American GFR(CKD) 80 (>60 ml/min/1.73 sqM); Potassium 3.6 mmol/L (3.5-5.1); Sodium 136 mmol/L (137-145); Total Bilirubin 0.6 mg/dL (0.2-1.3); Total Protein 6.6 g/dL (6.3-8.2)
[2019-12-16 20:07] LABS: INR 1.1 (<1.2); Prothrombin Time 11.6 sec (9.0-12.0)
--- NOTE | 2019-12-16 20:47 | ED ---
SOB HPI - General Chief Complaint: Shortness of Breath Stated Complaint: chest pain Time Seen by Provider: 12/16/19 18:25 Source: patient, family Mode of arrival: ambulatory Limitations: physical limitation - History of Present Illness Initial Comments: The patient is an 78-year-old female who presents to the emergency room with reported shortness of breath. She states that it began last night. She short of breath with exertion and at rest. Patient has noted some lower extremity edema over the past couple weeks has which has been getting worse. Patient was hospitalized in June for an exacerbation of heart failure. At that time he did find out that she had "blocked vessels" however the patient's does not want a cardiac cath and they are managing her medically. Patient denies having any chest pain. She does have a history of A. fib. Denies palpitations. Fevers or chills. Denies any nausea or vomiting. No ripping or tearing sensation to her back. Denies history of DVT or PE. She is on anticoagulation has not missed any doses. There are no other alleviating, precipitating or modifying factors - Related Data Home Medications Medication Instructions Recorded Confirmed Apixaban [Eliquis] 5 mg PO BID 09/13/19 12/24/19 Losartan [Cozaar] 25 mg PO DAILY 09/13/19 12/24/19 Venlafaxine HCl [Effexor XR] 75 mg PO DAILY 09/13/19 12/24/19 Amiodarone [Cordarone] 200 mg PO DAILY 12/16/19 12/24/19 Furosemide [Lasix] 20 mg PO DAILY 12/16/19 12/24/19 Previous Rx's Medication Instructions Recorded Aspirin 81 mg PO DAILY #30 chew 09/18/19 Nitroglycerin Sl Tabs [Nitrostat] 0.4 mg SUBLINGUAL Q5M PRN #30 tab 09/18/19 Furosemide [Lasix] 40 mg PO DAILY 30 Days #30 tab 12/22/19 Metoprolol Tartrate [Lopressor] 50 mg PO BID #60 tab 12/22/19 Allergies Allergy/AdvReac Type Severity Reaction Status Date / Time adhesive tape AdvReac skin Verified 12/24/19 14:40 irritation Penicillins AdvReac Rash/Hives Verified 12/24/19 14:36 Review of Systems ROS Statement: Those systems with pertinent positive or pertinent negative responses have been documented in the HPI. ROS Other: All systems not noted in ROS Statement are negative. Past Medical History Past Medical History: Atrial Fibrillation, Coronary Artery Disease (CAD), GERD/Reflux, Hypertension Additional Past Medical History / Comment(s): "inflammed hips" History of Any Multi-Drug Resistant Organisms: None Reported Past Surgical History: Hysterectomy Additional Past Surgical History / Comment(s): "Illestomy,carpal tunnel bilateral hands,bunyon surgery on left foot." Past Anesthesia/Blood Transfusion Reactions: No Reported Reaction Past Psychological History: Anxiety, Depression Smoking Status: Never smoker Past Alcohol Use History: None Reported Past Drug Use History: None Reported - Past Family History Mother Family Medical History: Coronary Artery Disease (CAD) Additional Family Medical History / Comment(s): CAD at 40 years old General Exam Limitations: altered mental status General appearance: alert, in no apparent distress Head exam: Present: atraumatic, normocephalic, normal inspection Eye exam: Present: normal appearance, PERRL, EOMI. Absent: scleral icterus, conjunctival injection, periorbital swelling ENT exam: Present: normal exam, mucous membranes moist Neck exam: Present: normal inspection. Absent: tenderness, meningismus, lymphadenopathy Respiratory exam: Present: rales, decreased breath sounds. Absent: respiratory distress, wheezes, rhonchi, stridor Cardiovascular Exam: Present: tachycardia, irregular rhythm, normal heart sounds. Absent: systolic murmur, diastolic murmur, rubs, gallop, clicks GI/Abdominal exam: Present: soft, normal bowel sounds. Absent: distended, tenderness, guarding, rebound, rigid Extremities exam: Present: normal inspection, full ROM, normal capillary refill. Absent: tenderness, pedal edema, joint swelling, calf tenderness Back exam: Present: normal inspection Neurological exam: Present: alert, oriented X3, CN II-XII intact Psychiatric exam: Present: normal affect, normal mood Skin exam: Present: warm, dry, intact, normal color. Absent: rash Course Vital Signs 12/16/19 12/16/19 12/16/19 18:22 19:00 19:30 Temperature 97.3 F L Pulse Rate 65 90 102 H Pulse Rate [ Pulse Oximetery ] Respiratory 20 26 H 27 H Rate Blood Pressure 132/79 125/89 125/105 Blood Pressure [Left Arm Sitting] O2 Sat by Pulse 96 97 Oximetry 12/16/19 12/16/19 12/16/19 20:00 20:30 21:00 Temperature Pulse Rate 93 93 108 H Pulse Rate [ Pulse Oximetery ] Respiratory 20 24 20 Rate Blood Pressure 140/129 123/92 110/88 Blood Pressure [Left Arm Sitting] O2 Sat by Pulse 97 97 96 Oximetry 12/16/19 12/16/19 12/16/19 21:30 22:00 22:30 Temperature Pulse Rate 98 112 H 96 Pulse Rate [ Pulse Oximetery ] Respiratory 23 20 21 Rate Blood Pressure 117/84 132/102 119/98 Blood Pressure [Left Arm Sitting] O2 Sat by Pulse 98 97 98 Oximetry 12/16/19 23:05 Temperature 98.4 F Pulse Rate Pulse Rate [ 104 H Pulse Oximetery ] Respiratory 22 Rate Blood Pressure Blood Pressure 118/74 [Left Arm Sitting] O2 Sat by Pulse 95 Oximetry Medical Decision Making - Medical Decision Making Upon arrival the patient is placed into room 3. A thorough history and physical exam was performed. Peripheral IV was established. Laboratory studies were conducted. BNP [place] elevated at 5070. Chest x-ray demonstrates CHF exacerbation with chronic emphysematous changes. Cardiac mildly with more prominent central vascular congestion and small bilateral pleural effusions. The patient reports that after hospitalization in June she was sent home with [address] Holland took her off of 1. She currently takes 20 mg of Lasix daily. The patient was given 40 mg of IV. 12-lead EKG demonstrates a flutter with a rate around 100. I did recommend hospital admission for cardiology consultation and diuresis. Patient agreed to this. I admitted the patient to Dr. Walker. Patient remained in stable condition and was transported to the floor - Lab Data Result diagrams: 12/22/19 06:28 12/22/19 06:28 Lab Results 12/16/19 12/16/19 12/16/19 Range/Units 19:36 19:36 19:36 WBC 9.7 (3.8-10.6) k/uL RBC 4.82 (3.80-5.40) m/uL Hgb 15.1 (11.4-16.0) gm/dL Hct 47.7 H (34.0-46.0) % MCV 99.0 (80.0-100.0) fL MCH 31.4 (25.0-35.0) pg MCHC 31.7 (31.0-37.0) g/dL RDW 16.4 H (11.5-15.5) % Plt Count 245 (150-450) k/uL Neutrophils % 56 % Lymphocytes % 27 % Monocytes % 10 % Eosinophils % 4 % Basophils % 1 % Neutrophils # 5.5 (1.3-7.7) k/uL Lymphocytes # 2.7 (1.0-4.8) k/uL Monocytes # 0.9 (0-1.0) k/uL Eosinophils # 0.4 (0-0.7) k/uL Basophils # 0.1 (0-0.2) k/uL Hypochromasia Slight Anisocytosis Slight Macrocytosis Slight PT 11.6 (9.0-12.0) sec INR 1.1 (<1.2) APTT 24.0 (22.0-30.0) sec Sodium 136 L (137-145) mmol/L Potassium 3.6 (3.5-5.1) mmol/L Chloride 101 (98-107) mmol/L Carbon Dioxide 23 (22-30) mmol/L Anion Gap 12 mmol/L BUN 21 H (7-17) mg/dL Creatinine 0.72 (0.52-1.04) mg/dL Est GFR (CKD-EPI)AfAm >90 (>60 ml/min/1.73 sqM) Est GFR (CKD-EPI)NonAf 80 (>60 ml/min/1.73 sqM) Glucose 108 H (74-99) mg/dL Calcium 9.1 (8.4-10.2) mg/dL Total Bilirubin 0.6 (0.2-1.3) mg/dL AST 35 (14-36) U/L ALT 29 (4-34) U/L Alkaline Phosphatase 130 H (38-126) U/L Troponin I (0.000-0.034) ng/mL NT-Pro-B Natriuret Pep pg/mL Total Protein 6.6 (6.3-8.2) g/dL Albumin 3.5 (3.5-5.0) g/dL Coronavirus (PCR) (Not Detected) 12/16/19 12/16/19 12/16/19 Range/Units 19:36 20:35 23:21 WBC (3.8-10.6) k/uL RBC (3.80-5.40) m/uL Hgb (11.4-16.0) gm/dL Hct (34.0-46.0) % MCV (80.0-100.0) fL MCH (25.0-35.0) pg MCHC (31.0-37.0) g/dL RDW (11.5-15.5) % Plt Count (150-450) k/uL Neutrophils % % Lymphocytes % % Monocytes % % Eosinophils % % Basophils % % Neutrophils # (1.3-7.7) k/uL Lymphocytes # (1.0-4.8) k/uL Monocytes # (0-1.0) k/uL Eosinophils # (0-0.7) k/uL Basophils # (0-0.2) k/uL Hypochromasia Anisocytosis Macrocytosis PT (9.0-12.0) sec INR (<1.2) APTT (22.0-30.0) sec Sodium (137-145) mmol/L Potassium (3.5-5.1) mmol/L Chloride (98-107) mmol/L Carbon Dioxide (22-30) mmol/L Anion Gap mmol/L BUN (7-17) mg/dL Creatinine (0.52-1.04) mg/dL Est GFR (CKD-EPI)AfAm (>60 ml/min/1.73 sqM) Est GFR (CKD-EPI)NonAf (>60 ml/min/1.73 sqM) Glucose (74-99) mg/dL Calcium (8.4-10.2) mg/dL Total Bilirubin (0.2-1.3) mg/dL AST (14-36) U/L ALT (4-34) U/L Alkaline Phosphatase (38-126) U/L Troponin I <0.012 (0.000-0.034) ng/mL NT-Pro-B Natriuret Pep 5070 pg/mL Total Protein (6.3-8.2) g/dL Albumin (3.5-5.0) g/dL Coronavirus (PCR) Not Detected (Not Detected) 12/17/19 12/17/19 12/17/19 Range/Units 06:39 06:39 16:33 WBC 8.6 (3.8-10.6) k/uL RBC 4.67 (3.80-5.40) m/uL Hgb 14.1 (11.4-16.0) gm/dL Hct 45.1 (34.0-46.0) % MCV 96.6 (80.0-100.0) fL MCH 30.1 (25.0-35.0) pg MCHC 31.1 (31.0-37.0) g/dL RDW 16.6 H (11.5-15.5) % Plt Count 240 (150-450) k/uL Neutrophils % 66 % Lymphocytes % 17 % Monocytes % 11 % Eosinophils % 3 % Basophils % 1 % Neutrophils # 5.6 (1.3-7.7) k/uL Lymphocytes # 1.5 (1.0-4.8) k/uL Monocytes # 0.9 (0-1.0) k/uL Eosinophils # 0.3 (0-0.7) k/uL Basophils # 0.1 (0-0.2) k/uL Hypochromasia Anisocytosis Slight Macrocytosis Slight PT (9.0-12.0) sec INR (<1.2) APTT (22.0-30.0) sec Sodium 138 (137-145) mmol/L Potassium 3.3 L 3.7 (3.5-5.1) mmol/L Chloride 103 (98-107) mmol/L Carbon Dioxide 28 (22-30) mmol/L Anion Gap 7 mmol/L BUN 18 H (7-17) mg/dL Creatinine 0.67 (0.52-1.04) mg/dL Est GFR (CKD-EPI)AfAm >90 (>60 ml/min/1.73 sqM) Est GFR (CKD-EPI)NonAf 83 (>60 ml/min/1.73 sqM) Glucose 95 (74-99) mg/dL Calcium 8.9 (8.4-10.2) mg/dL Total Bilirubin (0.2-1.3) mg/dL AST (14-36) U/L ALT (4-34) U/L Alkaline Phosphatase (38-126) U/L Troponin I (0.000-0.034) ng/mL NT-Pro-B Natriuret Pep pg/mL Total Protein (6.3-8.2) g/dL Albumin (3.5-5.0) g/dL Coronavirus (PCR) (Not Detected) - EKG Data EKG Comments: EKG demonstrates atrial flutter with a rate of 102. QRS 92. QTC of 490. No acute ST segment elevations or depressions concerning for ischemic changes Disposition Clinical Impression: Congestive heart failure, Rapid atrial fibrillation Disposition: ADMITTED IP TO THIS HOSP Condition: Stable Is patient prescribed a controlled substance at d/c from ED?: No Decision to Admit Reason: Admit from EC Decision Date: 12/16/19 Decision Time: 22:38
--- NOTE | 2019-12-16 20:55 | XR ---
EXAMINATION TYPE: XR chest 2V DATE OF EXAM: 12/16/2019 COMPARISON: Chest x-ray September 13, 2019. HISTORY: Cough and pain. TECHNIQUE: Frontal and lateral views of the chest are obtained. FINDINGS: The osseous structures redemonstrated demineralized. Background chronic emphysematous gage ge redemonstrated persistent cardiomegaly with increasing bibasilar opacities and central vascular co ngestion. IMPRESSION: Suspect CHF exacerbation on background chronic emphysematous change as there is cardiome matilde with more prominent central vascular congestion and small bilateral pleural effusions identified currently. There is associated bibasilar atelectasis and/or less likely infiltrates noted.
[2019-12-16] MEDS ORDERED: FUROSEMIDE 10 MG/ML 4 ML VIAL IV STA (21:49)
[2019-12-16] MEDS ORDERED: NALOXONE 0.4 MG/ML 1 ML VIAL IV PRN (22:38)
[2019-12-16] MEDS ORDERED: METOPROLOL TARTRATE 12.5 MG TAB PO SCH (23:45)
[2019-12-17] MEDS: APIXABAN 5 MG TAB PO SCH ×3 (00:05→20:38)
--- NOTE | 2019-12-17 04:37 | P.HPIM ---
History of Present Illness H&P Date: 12/17/19 The patient is an 78-year-old female with a PMH of coronary artery disease (recent cath in August 2019 showing severe triple-vessel disease, currently on medical management) hypertension, ischemic cardio myopathy with systolic CHF, A. fib on Eliquis, and diverticulitis, presented to the ED with complaints of gradually worsening shortness of breath. The patient notes that her symptoms started roughly 24 hours ago and then gradually worsened. She also reports noticing swelling of her legs over the last few weeks but denied orthopnea, PND, or chest discomfort. Patient also denied abdominal pain, nausea, vomiting, diaphoresis, or dizziness. She reports compliance with her diuretics and her di etary restrictions. In the ED, her EKG revealed A. fib at 102 bpm with no acute ST/T-wave changes noted, as reviewed by me. Chest x-ray revealed vascular congestion with concerns for CHF exacerbation. Laboratory evaluation revealed [place] BNP [place] 5070, troponin less than 0.012, sodium of 136, potassium 3.6, BUN 21, creatinine 0.72, WBC count 9.7, hemoglobin 15.1, and platelets 245. Review of Systems Pertinent positives and negatives as discussed in HPI, a complete review of systems was performed and all other systems are negative. Past Medical History Past Medical History: Atrial Fibrillation, Coronary Artery Disease (CAD), SHINE D/Reflux, Hypertension Additional Past Medical History / Comment(s): "inflammed hips" History of Any Multi-Drug Resistant Organisms: None Reported Past Surgical History: Hysterectomy Additional Past Surgical History / Comment(s): "Illestomy,carpal tunnel bilateral hands,bunyon surgery on left foot." Past Anesthesia/Blood Transfusion Reactions: No Reported Reaction Past Psychological History: Anxiety, Depression Smoking Status: Never smoker Past Alcohol Use History: None Reported Past Drug Use History: None Reported Medications and Allergies Home Medications Medication Instructions Recorded Confirmed Type Apixaban [Eliquis] 5 mg PO BID 09/13/19 12/16/19 History Losartan [Cozaar] 25 mg PO DAILY 09/13/19 12/16/19 History Venlafaxine HCl [Effexor XR] 75 mg PO DAILY 09/13/19 12/16/19 History Aspirin 81 mg PO DAILY #30 chew 09/18/19 12/16/19 Rx Nitroglycerin Sl Tabs [Nitrostat] 0.4 mg SUBLINGUAL Q5M PRN #30 tab 09/18/19 12/16/19 Rx Amiodarone [Cordarone] 200 mg PO DAILY 12/16/19 12/16/19 History Furosemide [Lasix] 20 mg PO DAILY 12/16/19 12/16/19 History Metoprolol Tartrate [Lopressor] 12.5 mg PO BID 12/16/19 12/16/19 History Allergies Allergy/AdvReac Type Severity Reaction Status Date / Time Penicillins AdvReac Rash/Hives Verified 12/16/19 19:51 Physical Exam Vitals: Vital Signs Temp Pulse Resp BP Pulse Ox 12/16/19 22:30 96 21 119/98 98 12/16/19 22:00 112 H 20 132/102 97 12/16/19 21:30 98 23 117/84 98 12/16/19 21:00 108 H 20 110/88 96 12/16/19 20:30 93 24 123/92 97 12/16/19 20:00 93 20 140/129 97 12/16/19 19:30 102 H 27 H 125/105 12/16/19 19:00 90 26 H 125/89 97 12/16/19 18:22 97.3 F L 65 20 132/79 96 Intake and Output 12/16/19 12/16/19 12/17/19 14:59 22:59 06:59 Other: Weight 68.946 kg General: non toxic, no distress, appears at stated age, normal weight Derm: no unusual rashes/lesions no unusual ecchymoses, warm, dry Head: atraumatic, normocephalic, symmetric Eyes: EOMI, no lid lag, anicteric sclera, pupils equal round reactive to light ENT: Nose and ears atraumatic, no thrush, no pharyngeal erythema Neck: No thyromegaly, no cervical lymphadenopathy, trachea midline, supple Mouth: no lip lesion, mucus membranes moist Cardiovascular: S1S2 reg, no murmur, positive posterior tibial pulse bilateral, 1+ bilateral lower extremity pitting edema to knees, capillary refill less than 2 seconds Lungs: Mild bibasilar rales, no rhonchi or wheezing appreciated, no accessory muscle use Abdominal: soft, nontender to palpation, no guarding, no appreciable organomegaly, normal bowel sounds Ext: no gross muscle atrophy, muscle strength 5 out of 5 in all 4 extremities grossly, no contractures, Neuro: CN II-XI grossly intact, light touch intact all 4 extremities, finger to nose within normal limits, Psych: Alert, oriented, appropriate affect Results CBC & Chem 7: 12/16/19 19:36 12/16/19 19:36 Labs: Abnormal Lab Results - Last 24 Hours (Table) 12/16/19 12/16/19 Range/Units 19:36 19:36 Hct 47.7 H (34.0-46.0) % RDW 16.4 H (11.5-15.5) % Sodium 136 L (137-145) mmol/L BUN 21 H (7-17) mg/dL Glucose 108 H (74-99) mg/dL Alkaline Phosphatase 130 H (38-126) U/L Assessment and Plan Plan: Shortness of breath, likely acute systolic CHF exacerbation -Continue with Lasix IV 40 mg twice a day -Cardiology consult, cardiac monitoring -Intake and output, daily weights -Fluid restriction -Monitor electrolytes daily and replace as needed Chronic conditions: Hypertension, hyperlipidemia, A. fib -Continue with home meds DVT prophylaxis -Eliquis The patient is admitted with an anticipated less than 2 midnight stay for evaluation of SOB CODE STATUS: Full Code Discussed with: Patient Anticipated discharge date: 1-[address]: Home A total of 35 minutes was spent on the care of this complex patient more than 50% of the time was spent in counseling and care coordination.
[2019-12-17 07:28] LABS: Anisocytosis Slight; Basophils # (A) 0.1 k/uL (0-0.2); Basophils % (A) 1 %; Eosinophils # (A) 0.3 k/uL (0-0.7); Eosinophils % (A) 3 %; HCT 45.1 % (34.0-46.0); HGB 14.1 gm/dL (11.4-16.0); Lymphocytes # (A) 1.5 k/uL (1.0-4.8); Lymphocytes % (A) 17 %; MCH 30.1 pg (25.0-35.0); MCHC 31.1 g/dL (31.0-37.0); MCV 96.6 fL (80.0-100.0); Macrocytosis Slight; Mean Platelet Volume 10.3; Monocytes # (A) 0.9 k/uL (0-1.0); Monocytes % (A) 11 %; Neutrophils # (A) 5.6 k/uL (1.3-7.7); Neutrophils % (A) 66 %; Platelet Count 240 k/uL (150-450); RBC 4.67 m/uL (3.80-5.40); RDW 16.6 % (11.5-15.5); WBC 8.6 k/uL (3.8-10.6)
[2019-12-17 07:47] LABS: African American GFR (CKD) >90 (>60 ml/min/1.73 sqM); Anion Gap 7 mmol/L; Blood Urea Nitrogen 18 mg/dL (7-17); Calcium 8.9 mg/dL (8.4-10.2); Carbon Dioxide 28 mmol/L (22-30); Chloride 103 mmol/L (98-107); Glucose 95 mg/dL (74-99); Non-African American GFR(CKD) 83 (>60 ml/min/1.73 sqM); Potassium 3.3 mmol/L (3.5-5.1); Sodium 138 mmol/L (137-145)
[2019-12-17] MEDS ORDERED: AMIODARONE 200 MG TAB PO SCH (09:00)
[2019-12-17] MEDS ORDERED: Potassium Replacement Protocol 1 EACH MISC MISCELLANE PRN (09:40)
[2019-12-17] MEDS: VENLAFAXINE HCL ER 75 MG CAP PO SCH (09:53)
[2019-12-17] MEDS: ASPIRIN 81 MG PO SCH (09:53)
[2019-12-17] MEDS: LOSARTAN 25 MG TAB PO SCH (09:54)
[2019-12-17] MEDS: METOPROLOL TARTRATE 50 MG TAB PO SCH ×2 (09:54→20:38)
[2019-12-17] MEDS: FUROSEMIDE 10 MG/ML 4 ML VIAL IV SCH ×3 (09:54→20:38)
[2019-12-17] MEDS: POTASSIUM CHLORIDE ER 20 MEQ TAB.ER PO SCH ×2 (09:55→11:20)
--- NOTE | 2019-12-17 15:49 | CONS ---
CONSULTATION CHIEF COMPLAINT: Shortness of breath. Lay is an 78-year-old lady with history of severe 2 vessel coronary artery disease, permanent atrial fibrillation, ischemic cardiomyopathy and chronic systolic heart failure, who presented to hospital complaining of worsening shortness of breath. Her chest x-ray showed evidence of pulmonary congestion and her BNP is elevated at 5000 suggestive of an acute exacerbation of chronic systolic heart failure. At the time of my evaluation this morning, she appears comfortable at rest. She is receiving intravenous Lasix 40 mg b.i.d. Her ejection fraction was around 35% back in August. She underwent a cardiac catheterization when she presented to hospital at that time and because of Covid issues, we were not able to address the underlying coronary artery disease. I have seen her in the office since and I have done tele health visits and have had conversations with the daughter and son. Dr. Diogo Holland the advisory services associate who originally evaluated the angiogram felt that is at high risk angioplasty. He is going to reassess the angiograms and we will readdress this issue. I spoke to the son this morning at home. I had an extensive conversation regarding the pros and cons of doing revascularizing versus non revascularizing, medical therapy versus intervention. He is going to think over it. He understands that it is a high risk angioplasty that there is a risk of dissection, emergent surgery and even . PAST MEDICAL HISTORY: Significant for permanent atrial fibrillation, coronary artery disease, ischemic cardiomyopathy and chronic systolic heart failure. CURRENT MEDICATIONS: Include losartan 25 daily, Lasix 20 daily, aspirin, Eliquis 5 b.i.d., amiodarone 200 daily, Effexor. ALLERGIC TO PENICILLIN. FAMILY HISTORY: Negative for premature coronary artery disease. SOCIAL HISTORY: Negative for current smoking, EtOH abuse, drug abuse. REVIEW OF SYSTEMS: HEENT is unremarkable. Cardiac as described above. Respiratory as described above. GI negative. negative. Allergy/Immunology: Negative. Skin negative. Musculoskeletal significant negative for arthritis. Psychosocial negative. Endocrine negative. DERM: Negative. CONSTITUTIONAL: Negative OPTOMETRY TEACHER negative. Rest of the system review is not relevant. PHYSICAL EXAM: Patient is comfortable at rest. Heart rate is 95 beats per minute. Blood pressure is 120/77, respiratory rate 18. O2 saturation is 97% on room air. There is no jugular venous distention. Carotid upstroke is diminished. There is no bruit. Chest exam reveals diminished air entry at the bases with occasional crackles. Heart exam reveals first and second heart sounds and a systolic murmur at the apex. ABDOMEN: Soft. Exam of extremities did not reveal edema. Peripheral pulses are felt. LAB: Show a hemoglobin of 14.1, platelet count is 240. Potassium is 3.3, creatinine is 0.6. BNP is elevated. Troponin is negative. ASSESSMENT: 1. Acute exacerbation of chronic systolic heart failure. 2. Severe 2 vessel coronary artery disease. 3. Permanent atrial fibrillation. PLAN: I will treat the patient with IV Lasix. Continue the aspirin, Cozaar, Lopressor. Since the amiodarone does not seem to be keeping her in sinus rhythm, I am going to stop it at this time and see if we can control her heart rate otherwise, and will decide on revascularization once we have had an opportunity for the family to decide. SEVEN / JENNIFER: [id number] /
[2019-12-18] MEDS: VENLAFAXINE HCL ER 75 MG CAP PO SCH (09:05)
[2019-12-18] MEDS: APIXABAN 5 MG TAB PO SCH ×2 (09:05→20:09)
[2019-12-18] MEDS: METOPROLOL TARTRATE 50 MG TAB PO SCH ×2 (09:05→20:09)
[2019-12-18] MEDS: LOSARTAN 25 MG TAB PO SCH (09:05)
[2019-12-18] MEDS: FUROSEMIDE 10 MG/ML 4 ML VIAL IV SCH ×2 (09:05→20:09)
[2019-12-18] MEDS: ASPIRIN 81 MG PO SCH (09:05)
--- NOTE | 2019-12-18 11:03 | P.PN ---
Subjective Progress Note Date: 12/18/19 Principal diagnosis: Shortness of breath Patient currently doing well, no chest pain or shortness of breath. No dizziness. No other overnight issues noted. Objective - Vital Signs Vital signs: Vital Signs Temp 97 F L 12/18/19 08:00 Pulse 114 H 12/18/19 08:00 Resp 18 12/18/19 08:00 BP 115/71 12/18/19 08:00 Pulse Ox 94 L 12/18/19 08:00 Intake & Output 12/17/19 12/18/19 12/18/19 18:59 06:59 18:59 Intake Total 500 400 Output Total 200 900 200 Balance 300 -900 200 Weight 70.4 kg Intake: Oral 500 400 Output: Urine 200 300 Stool 600 200 Other: Voiding Method Toilet Toilet # Voids 1 0 # Bowel Movements 0 - Exam Constitutional: No acute distress, conversant, pleasant Eyes:Anicteric sclerae, moist conjunctiva, no lid-lag, PERRLA, ENMT: Oropharynx clear, no erythema, exudates Neck: Supple, FROM, no masses, or JVD, No carotid bruits, No thyromegaly Lungs: Clear to auscultation, Clear to percussion, Normal respiratory effort, no accessory muscle use Cardiovascular: Heart regular in rate and rhythm, No murmurs, gallops, or rubs, No peripheral edema Abdominal: Soft, Nontender, no guarding, rebound or rigidity, Normoactive bowel sounds, No hepatomegaly, No splenomegaly, No palpable mass Skin: Normal temperature, tone, texture, turgor, no induration, No subcutaneous nodules, No rash, lesions, No ulcers Extremities: No digital cyanosis, No clubbing, Pedal pulses intact and symmetric al, Radial pulses intact and symmetrical, No calf tenderness Psychiatric: Alert and oriented to person, place and time, appropriate affect, intact judgement Neuro: Muscles Strength 5/5 in all 4 extremities, Sensation to light touch grossly present throughout, Cranial nerves II-XII grossly intact, no focal sensory deficits - Labs CBC & Chem 7: 12/17/19 06:39 12/17/19 16:33 Assessment and Plan Plan: Shortness of breath, likely acute systolic CHF exacerbation, likely ischemic cardiomyopathy -Continue with Lasix IV 40 mg twice a day -Already on beta debora and losartan -Echocardiogram done last admission, showing EF of 35-40%. -Monitor electrolytes daily and replace as needed CAD No acute coronary event at this time -Patient has high risk for angioplasty/PCI, discussed with cardiology, patient will go for heart cath on Saturday, discussed with patient's family. Chronic conditions: Hypertension, hyperlipidemia, A. fib -Continue with home meds DVT prophylaxis -Eliquis Anticipated discharge date: Planning heart cath this Saturday Anticipated discharge place: Home
--- NOTE | 2019-12-18 12:53 | ECHOF ---
Referral Reason:assess lvf MEASUREMENTS -------- HEIGHT: 172.7 cm WEIGHT: 72.1 kg BP: RVIDd: 1.9 cm (< 3.3) IVSd: 1.1 cm (0.6 - 1.1) LVIDd: 3.7 cm (3.9 - 5.3) LVPWd: 1.3 cm (0.6 - 1.1) IVSs: 1.4 cm LVIDs: 3.5 cm LVPWs: 1.4 cm LAESV Index (A-L): 43.23 ml/m Ao Diam: 3.2 cm (2.0 - 3.7) AV Cusp: 1.6 cm (1.5 - 2.6) LA Diam: 3.0 cm (2.7 - 3.8) MV EXCURSION: 11.800 mm (> 18.000) MV EF SLOPE: 87 mm/s (70 - 150) EPSS: 1.5 cm AV maxP.02 mmHg AV meanP.18 mmHg AR PHT: 924 ms RAP: 5.00 mmHg RVSP: 40.81 mmHg FINDINGS -------- Atrial fibrillation. This was a technically good study. The left ventricular size is normal. There is mild concentric left ventricular hypertrophy. Overa ll left ventricular systolic function is severely impaired with, an EF between 20 - 25 %. Left vent ricular fillimg pressure cannot be estimated due to Atrial fibrillation. The right ventricle is normal in size. LA is severely dilated >40 ml/m2 The right atrial size is normal. Aortic valve is trileaflet and is mildly thickened. There is mild aortic valve sclerosis. There i s mild aortic regurgitation. Peak/mean gradient across the Aortic Valve is 12.02mmHg / 7.18mmHg. The mitral valve is normal. The mitral valve leaflets are mildly thickened. Vpzo-sj-inourhnr mitr al regurgitation is present. The tricuspid valve appears structurally normal. Moderate tricuspid regurgitation present. There is mild pulmonary hypertension. The right ventricular systolic pressure, as measured by Doppler, is 40.81mmHg. There is no pulmonic regurgitation present. The aortic root size is normal. IVC Not well visulized. There is no pericardial effusion. CONCLUSIONS -------- 1. Atrial fibrillation. 2. This was a technically good study. 3. The left ventricular size is normal. 4. There is mild concentric left ventricular hypertrophy. 5. Overall left ventricular systolic function is severely impaired with, an EF between 20 - 25 %. 6. Left ventricular fillimg pressure cannot be estimated due to Atrial fibrillation. 7. The right ventricle is normal in size. 8. LA is severely dilated >40 ml/m2 9. The right atrial size is normal. 10. Aortic valve is trileaflet and is mildly thickened. 11. There is mild aortic valve sclerosis. 12. There is mild aortic regurgitation. 13. Peak/mean gradient across the Aortic Valve is 12.02mmHg / 7.18mmHg. 14. The mitral valve is normal. 15. The mitral valve leaflets are mildly thickened. 16. [id number] mitral regurgitation is present. 17. The tricuspid valve appears structurally normal. 18. Moderate tricuspid regurgitation present. 19. There is mild pulmonary hypertension. 20. The right ventricular systolic pressure, as measured by Doppler, is 40.81mmHg. 21. There is no pulmonic regurgitation present. 22. The aortic root size is normal. 23. IVC Not well visulized. 24. There is no pericardial effusion. ENGAGEMENT MGR: Leona Carias RDCS
--- NOTE | 2019-12-18 13:04 | PN ---
PROGRESS NOTE This is [id number] lady with a history of significant CAD. LV dysfunction and ejection fraction in the 35% to 40% range, who came into the hospital initially and underwent a cardiac cath in August of this year. Initially, she was advised medical therapy, but she continues to have symptoms of angina and shortness of breath. I reviewed the angiograms, discussed with Dr. Gray and also with the patient and subsequently called her son Casey Jones. I am recommending PCI of circumflex. This is a high-risk procedure given the decreased LV function and her right coronary artery was not selectively injected. LAD in the distal 1/3 to distal 1/4 has diffuse 80-90 percent disease. LV function is decreased in the 35% to 40% range. I explained to the patient and her son, the rationale, risks, benefits, and options. They understand all details and wished to proceed with the procedure. I will also try and get a selective injection of the right coronary artery. We are planning on performing PCI of mid circumflex which is a calcified tortuous vessel. The risk of complication is high given the tortuosity, calcification and decreased LV function. The patient and her son understand all details and wished to proceed with the procedure which will be performed on Saturday. Eliquis will be held for 36-48 hours. MMODL / IJN: [id number] /
--- NOTE | 2019-12-18 14:02 | P.PN ---
Subjective Progress Note Date: 12/18/19 This is an 79-year-old female who follows with Dr. Geronimo Holland in the office. She has a history of coronary artery disease, persistent atrial fibrillation, ischemic cardio myopathy, chronic systolic congestive heart failure, presented to the hospital with symptoms of progressively worsening shortness of breath. She was seen in consultation by Dr. Rodriguez on arrival here. She was initiated on IV Lasix, treated for congestive cardiac failure. Her ejection fraction was 35% back in August, she underwent a cardiac catheterization at that time, but did not undergo intervention of her blockages. Dr. HOWARD Holland did come and speak with the patient today, she will be scheduled to undergo stenting of the circumflex artery on Saturday. Blood pressure 108/70 with a heart rate in the 70s, 93% on room air. Objective - Vital Signs Vital signs: Vital Signs Temp 97.6 F 12/18/19 12:00 Pulse 71 12/18/19 12:00 Resp 18 12/18/19 12:00 BP 108/72 12/18/19 12:00 Pulse Ox 93 L 12/18/19 12:00 Intake & Output 12/17/19 12/18/19 12/18/19 18:59 06:59 18:59 Intake Total 500 400 Output Total 200 900 400 Balance 300 -900 0 Weight 70.4 kg Intake: Oral 500 400 Output: Urine 200 300 Stool 600 400 Other: Voiding Method Toilet Toilet # Voids 1 0 # Bowel Movements 0 - Exam PHYSICAL EXAMINATION: GENERAL: 79-year-old female in no acute distress at the time of my examination HEENT: Head is atraumatic, normocephalic. Pupils equal, round. Sclera anicteric. Conjunctiva are clear. Mucous membranes of the mouth are moist. Neck is supple. There is no elevated jugular venous pressure. No carotid bruit is heard. HEART EXAMINATION: Heart S1 and S2 irregularly irregular a systolic murmur is heard CHEST EXAMINATION: Lungs are clear with diminished air entry to the bases bilaterally ABDOMEN: Soft, nontender. Bowel sounds are heard. No organomegaly noted. EXTREMITIES: 2+ peripheral pulses with no evidence of peripheral edema and no calf tenderness noted. NEUROLOGIC patient is awake, alert and oriented 3 . . - Labs CBC & Chem 7: 12/17/19 06:39 06/25/20 16:33 Assessment and Plan Plan: Assessment and plan #1 systolic congestive heart failure acute on chronic #2 coronary artery disease with a documented blockages by cardiac cath performed in August #3 hypertension #4 hyperlipidemia 5 persistent atrial fibrillation Plan Patient will be scheduled on Saturday to undergo PTCA by Dr. Geronimo Holland, of the circumflex artery. Starting tomorrow patient will not receive her Eliquis. Continue the rest of her current medications at this time. DNP note has been reviewed, I agree with a documented findings and plan of care. Patient was seen and examined.
[2019-12-19] MEDS: METOPROLOL TARTRATE 50 MG TAB PO SCH ×2 (08:15→20:27)
[2019-12-19] MEDS: ASPIRIN 81 MG PO SCH (08:15)
[2019-12-19] MEDS: FUROSEMIDE 10 MG/ML 4 ML VIAL IV SCH (08:16)
[2019-12-19] MEDS: VENLAFAXINE HCL ER 75 MG CAP PO SCH (08:16)
[2019-12-19] MEDS: LOSARTAN 25 MG TAB PO SCH (08:16)
[2019-12-19 08:35] LABS: Anisocytosis Slight; Basophils # (A) 0.1 k/uL (0-0.2); Basophils % (A) 1 %; Eosinophils # (A) 0.3 k/uL (0-0.7); Eosinophils % (A) 4 %; HCT 45.9 % (34.0-46.0); HGB 14.4 gm/dL (11.4-16.0); Hypochromasia Slight; Lymphocytes # (A) 1.8 k/uL (1.0-4.8); Lymphocytes % (A) 21 %; MCH 30.4 pg (25.0-35.0); MCHC 31.4 g/dL (31.0-37.0); MCV 97.1 fL (80.0-100.0); Macrocytosis Slight; Mean Platelet Volume 9.4; Monocytes # (A) 0.7 k/uL (0-1.0); Monocytes % (A) 8 %; Neutrophils # (A) 5.5 k/uL (1.3-7.7); Neutrophils % (A) 64 %; Platelet Count 251 k/uL (150-450); RBC 4.73 m/uL (3.80-5.40); RDW 16.3 % (11.5-15.5); WBC 8.5 k/uL (3.8-10.6)
[2019-12-19 08:48] LABS: Calcium 9.2 mg/dL (8.4-10.2); Magnesium 1.7 mg/dL (1.6-2.3); Phosphorus 4.2 mg/dL (2.5-4.5); Potassium 3.6 mmol/L (3.5-5.1)
--- NOTE | 2019-12-19 10:50 | P.PN ---
Subjective Progress Note Date: 12/19/19 Principal diagnosis: Shortness of breath Patient doing well, no sob or chest pain. Objective - Vital Signs Vital signs: Vital Signs Temp 96 F L 12/19/19 08:00 Pulse 59 L 12/19/19 08:00 Resp 18 12/19/19 08:00 BP 123/82 12/19/19 08:00 Pulse Ox 96 12/19/19 08:00 Intake & Output 12/18/19 12/19/19 12/19/19 18:59 06:59 18:59 Intake Total 400 118 Output Total 500 600 Balance -100 -600 118 Weight 70 kg Intake: Oral 400 118 Output: Urine 500 400 Stool 200 Other: Voiding Method Toilet - Exam Constitutional: No acute distress, conversant, pleasant Eyes:Anicteric sclerae, moist conjunctiva, no lid-lag, PERRLA, ENMT: Oropharynx clear, no erythema, exudates Neck: Supple, FROM, no masses, or JVD, No carotid bruits, No thyromegaly Lungs: Clear to auscultation, Clear to percussion, Normal respiratory effort, no accessory muscle use Cardiovascular: Heart regular in rate and rhythm, No murmurs, gallops, or rubs, No peripheral edema Abdominal: Soft, Nontender, no guarding, rebound or rigidity, Normoactive bowel sounds, No hepatomegaly, No splenomegaly, No palpable mass Skin: Normal temperature, tone, texture, turgor, no induration, No subcutaneous nodules, No rash, lesions, No ulcers Extremities: No digital cyanosis, No clubbing, Pedal pulses intact and symmetrical, Radial pulses intact and symmetrical, No calf tenderness Psychiatric: Alert and oriented to person, place and time, appropriate affect, intact judgement Neuro: Muscles Strength 5/5 in all 4 extremities, Sensation to light touch grossly present throughout, Cranial nerves II-XII grossly intact, no focal sensory deficits - Labs CBC & Chem 7: 12/19/19 07:49 12/19/19 07:49 Labs: Abnormal Lab Results - Last 24 Hours (Table) 12/19/19 12/19/19 Range/Units 07:49 07:49 RDW 16.3 H (11.5-15.5) % BUN 21 H (7-17) mg/dL Assessment and Plan Plan: Shortness of breath, likely acute systolic CHF exacerbation, likely ischemic cardiomyopathy -Switch lasix to oral 40 mg daily -Already on beta debora and losartan -Echocardiogram done last admission, showing EF of 35-40%. -Monitor electrolytes daily and replace as needed CAD No acute coronary event at this time Patient has high risk for angioplasty/PCI, Heart cath on Saturday for circumflex PCI. Chronic a-fib HR controlled Continue Lopressor Holding eliquis in anticipation for heart cath Saturday Chronic conditions: Hypertension, hyperlipidemia, A. fib -Continue with home meds DVT prophylaxis -Was on eliquis, now held Anticipated discharge date: 2-[address]: Home
--- NOTE | 2019-12-19 12:40 | P.PN ---
Subjective Progress Note Date: 12/19/19 This is an 79-year-old female who follows with Dr. Geronimo Holland in the office. She has a history of coronary artery disease, persistent atrial fibrillation, ischemic cardio myopathy, chronic systolic congestive heart failure, presented to the hospital with symptoms of progressively worsening shortness of breath. She was seen in consultation by Dr. Rodriguez on arrival here. She was initiated on IV Lasix, treated for congestive cardiac failure. Her ejection fraction was 35% back in August, she underwent a cardiac catheterization at that time, but did not undergo intervention of her blockages. Dr. HOWARD Holland did come and speak with the patient today, she will be scheduled to undergo stenting of the circumflex artery on Saturday. Blood pressure 108/70 with a heart rate in the 70s, 93% on room air. 12/19/2019 Patient was seen and examined this morning, overall feeling well. Breathing is stable, she denies any chest discomfort. Blood pressure 122/80 with a heart rate in the 60s, 96% on room air. White blood cell count 8.5, hemoglobin 14.4, platelet count 251. Sodium 138, potassium 3.6, BUN 21, creatinine 0.8. Magnesium 1.7. Objective - Vital Signs Vital signs: Vital Signs Temp 96 F L 12/19/19 08:00 Pulse 59 L 12/19/19 08:00 Resp 18 12/19/19 08:00 BP 123/82 12/19/19 08:00 Pulse Ox 96 12/19/19 08:00 Intake & Output 12/18/19 12/19/19 12/19/19 18:59 06:59 18:59 Intake Total 400 118 Output Total 500 600 800 Balance -100 -600 -682 Weight 70 kg Intake: Oral 400 118 Output: Urine 500 400 800 Stool 200 Other: Voiding Method Toilet # Bowel Movements 1 - Exam PHYSICAL EXAMINATION: GENERAL: 79-year-old female in no acute distress at the time of my examination HEENT: Head is atraumatic, normocephalic. Pupils equal, round. Sclera anicteric. Conjunctiva are clear. Mucous membranes of the mouth are moist. Neck is supple. There is no elevated jugular venous pressure. No carotid bru it is heard. HEART EXAMINATION: Heart S1 and S2 irregularly irregular a systolic murmur is heard CHEST EXAMINATION: Lungs are clear with diminished air entry to the bases bilaterally ABDOMEN: Soft, nontender. Bowel sounds are heard. No organomegaly noted. EXTREMITIES: 2+ peripheral pulses with no evidence of peripheral edema and no calf tenderness noted. NEUROLOGIC patient is awake, alert and oriented 3 . . - Labs CBC & Chem 7: 12/19/19 07:49 12/19/19 07:49 Labs: Abnormal Lab Results - Last 24 Hours (Table) 12/19/19 12/19/19 Range/Units 07:49 07:49 RDW 16.3 H (11.5-15.5) % BUN 21 H (7-17) mg/dL Assessment and Plan Plan: Assessment and plan #1 systolic congestive heart failure acute on chronic #2 coronary artery disease with a documented blockages by cardiac cath performed in August #3 hypertension #4 hyperlipidemia 5 persistent atrial fibrillation Plan Patient will be scheduled on Saturday to undergo PTCA by Dr. Geronimo Holland, of the circumflex artery. We will hold the Eliquis from today. Continue the rest of the patient's medication. DNP note has been reviewed, I agree with a documented findings and plan of care. Patient was seen and examined.
[2019-12-20] MEDS: ASPIRIN 81 MG PO SCH (08:35)
[2019-12-20] MEDS: METOPROLOL TARTRATE 50 MG TAB PO SCH ×2 (08:35→20:09)
[2019-12-20] MEDS: LOSARTAN 25 MG TAB PO SCH (08:35)
[2019-12-20] MEDS: VENLAFAXINE HCL ER 75 MG CAP PO SCH (08:35)
[2019-12-20] MEDS: FUROSEMIDE 40 MG TAB PO SCH (08:35)
--- NOTE | 2019-12-20 12:27 | P.PN ---
Subjective Progress Note Date: 12/20/19 Principal diagnosis: Shortness of breath Patient is currently resting, no overnight issues. Objective - Vital Signs Vital signs: Vital Signs Temp 97.6 F 12/20/19 11:25 Pulse 96 12/20/19 11:25 Resp 18 12/20/19 11:25 BP 124/71 12/20/19 11:25 Pulse Ox 98 12/20/19 11:25 Intake & Output 12/19/19 12/20/19 12/20/19 18:59 06:59 18:59 Intake Total 918 298 Output Total 800 300 200 Balance 118 -300 98 Weight 70 kg Intake: Oral 918 298 Output: Urine 800 200 200 Stool 100 Other: Voiding Method Toilet Toilet # Bowel Movements 1 - Exam Constitutional: No acute distress, conversant, pleasant Eyes:Anicteric sclerae, moist conjunctiva, no lid-lag, PERRLA, ENMT: Oropharynx clear, no erythema, exudates Neck: Supple, FROM, no masses, or JVD, No carotid bruits, No thyromegaly Lungs: Clear to auscultation, Clear to percussion, Normal respiratory effort, no accessory muscle use Cardiovascular: Heart regular in rate and rhythm, No murmurs, gallops, or rubs, No peripheral edema Abdominal: Soft, Nontender, no guarding, rebound or rigidity, Normoactive bowel sounds, No hepatomegaly, No splenomegaly, No palpable mass Skin: Normal temperature, tone, texture, turgor, no induration, No subcutaneous nodules, No rash, lesions, No ulcers Extremities: No digital cyanosis, No clubbing, Pedal pulses intact and symmetrical, Radial pulses intact and symmetrical, No calf tenderness Psychiatric: Alert and oriented to person, place and time, appropriate affect, intact judgement Neuro: Muscles Strength 5/5 in all 4 extremities, Sensation to light touch grossly present throughout, Cranial nerves II-XII grossly intact, no focal sensory deficits - Labs CBC & Chem 7: 12/19/19 07:49 12/19/19 07:49 Assessment and Plan Plan: Shortness of breath, likely acute systolic CHF exacerbation, likely ischemic cardiomyopathy -Switch lasix to oral 40 mg daily -Already on beta debora and losartan -Echocardiogram done last admission, showing EF of 35-40%. -Monitor electrolytes daily and replace as needed CAD No acute coronary event at this time Patient has high risk for angioplasty/PCI, Heart cath on Saturday for circumflex PCI. Chronic a-fib HR controlled Continue Lopressor Holding eliquis in anticipation for heart cath Saturday Chronic conditions: Hypertension, hyperlipidemia, A. fib -Continue with home meds DVT prophylaxis -Was on eliquis, now held Anticipated discharge date: 2-[address]: Home
--- NOTE | 2019-12-20 12:35 | P.PN ---
Subjective Progress Note Date: 12/20/19 This is an 79-year-old female who follows with Dr. Geronimo Holland in the office. She has a history of coronary artery disease, persistent atrial fibrillation, ischemic cardio myopathy, chronic systolic congestive heart failure, presented to the hospital with symptoms of progressively worsening shortness of breath. She was seen in consultation by Dr. Rodriguez on arrival here. She was initiated on IV Lasix, treated for congestive cardiac failure. Her ejection fraction was 35% back in August, she underwent a cardiac catheterization at that time, but did not undergo intervention of her blockages. Dr. HOWARD Holland did come and speak with the patient today, she will be scheduled to undergo stenting of the circumflex artery on Saturday. Blood pressure 108/70 with a heart rate in the 70s, 93% on room air. 12/19/2019 Patient was seen and examined this morning, overall feeling well. Breathing is stable, she denies any chest discomfort. Blood pressure 122/80 with a heart rate in the 60s, 96% on room air. White blood cell count 8.5, hemoglobin 14.4, platelet count 251. Sodium 138, potassium 3.6, BUN 21, creatinine 0.8. Magnesium 1.7. 12/20/2019 Patient seen and examined this morning, breathing is stable, denies any chest discomfort. Blood pressure 124/70 with a heart rate in the 90s, 98% on room air. White blood cell count 8.5, hemoglobin 14.4, platelet count 251. Sodium 138, potassium 3.6, BUN 21 and creatinine 0.8. Objective - Vital Signs Vital signs: Vital Signs Temp 97.6 F 12/20/19 11:25 Pulse 96 12/20/19 11:25 Resp 18 12/20/19 11:25 BP 124/71 12/20/19 11:25 Pulse Ox 98 12/20/19 11:25 Intake & Output 12/19/19 12/20/19 12/20/19 18:59 06:59 18:59 Intake Total 918 298 Output Total 800 300 200 Balance 118 -300 98 Weight 70 kg Intake: Oral 918 298 Output: Urine 800 200 200 Stool 100 Other: Voiding Method Toilet Toilet # Bowel Movements 1 - Exam PHYSICAL EXAMINATION: GENERAL: 79-year-old female in no acute distress at the time of my examination HEENT: Head is atraumatic, normocephalic. Pupils equal, round. Sclera anicteric. Conjunctiva are clear. Mucous membranes of the mouth are moist. Neck is supple. There is no elevated jugular venous pressure. No carotid bruit is heard. HEART EXAMINATION: Heart S1 and S2 irregularly irregular a systolic murmur is heard CHEST EXAMINATION: Lungs are clear with diminished air entry to the bases bilaterally ABDOMEN: Soft, nontender. Bowel sounds are heard. No organomegaly noted. EXTREMITIES: 2+ peripheral pulses with no evidence of peripheral edema and no calf tenderness noted. NEUROLOGIC patient is awake, alert and oriented 3 . . - Labs CBC & Chem 7: 12/19/19 07:49 12/19/19 07:49 Assessment and Plan Plan: Assessment and plan #1 systolic congestive heart failure acute on chronic #2 coronary artery disease with a documented blockages by cardiac cath performed in August #3 hypertension #4 hyperlipidemia 5 persistent atrial fibrillation Plan Patient will be scheduled on Saturday to undergo PTCA by Dr. Geronimo Holland, of the [facility] cumflex artery. We will continue to hold the Eliquis.. Continue the rest of the patient's medication. DNP note has been reviewed, I agree with a documented findings and plan of care. Patient was seen and examined.
[2019-12-20 13:36] VITALS: BMI 23.4
[2019-12-21] MEDS ORDERED: ATORVASTATIN 80 MG TAB PO ONE (05:00)
[2019-12-21] MEDS ORDERED: NITROGLYCERIN SL TABS 0.4 MG TAB SUBLINGUAL PRN (05:00)
[2019-12-21] MEDS ORDERED: ASPIRIN 325 MG TAB PO ONE (05:00)
[2019-12-21] MEDS ORDERED: ALPRAZolam 0.5 MG TAB PO PRN (05:00)
[2019-12-21] MEDS ORDERED: ALPRAZolam 0.25 MG TAB PO PRN (05:00)
[2019-12-21] MEDS ORDERED: SODIUM CHLORIDE 0.9% 1,000 ML in EMPTY BAG 1 BAG IV ONE (05:00)
[2019-12-21] MEDS: ASPIRIN 81 MG PO SCH (05:14)
[2019-12-21] MEDS: LOSARTAN 25 MG TAB PO SCH (05:15)
[2019-12-21] MEDS: FUROSEMIDE 40 MG TAB PO SCH (05:15)
[2019-12-21] MEDS: METOPROLOL TARTRATE 50 MG TAB PO SCH ×2 (05:15→20:31)
[2019-12-21 05:18] LABS: Glucose,Whole Blood 96 mg/dL (75-99)
[2019-12-21] MEDS: VENLAFAXINE HCL ER 75 MG CAP PO SCH (06:09)
[2019-12-21] MEDS ORDERED: SODIUM CHLORIDE 0.9% 1,000 ML IV ONE (09:00)
[2019-12-21] MEDS ORDERED: MIDAZOLAM 2 MG/2 ML VIAL IV ONE (09:15)
[2019-12-21] MEDS ORDERED: LIDOCAINE 1% INJ 10MG/ML (20 ML MDV) SQ ONE (09:15)
[2019-12-21] MEDS ORDERED: IOPAMIDOL-370 100ML BTL INJ ONE (09:46)
[2019-12-21] MEDS ORDERED: RX INFO: IV CONTRAST WAS GIVEN 1 EACH MISC MISCELLANE PRN (10:11)
--- NOTE | 2019-12-21 11:14 | CC ---
CARDIAC CATHETERIZATION REPORT DATE OF SERVICE: 12/21/2019. PROCEDURE: Left heart catheterization and coronary angiography. PERFORMED BY: Dr. Diogo Holland. SEDATION: Moderate conscious sedation time was 30 minutes. Patient was administered Versed. Oxygen saturation, hemodynamics and EKG were monitored closely. CLINICAL INFORMATION: Mrs. Lay Jones is an 79-year-old lady with ischemic cardiomyopathy, chronic persistent atrial fibrillation, who was recently in the hospital in August. She had a cardiac cath at that time. Right coronary artery was sub selectively injected. Good images were not available, but she had significant disease in the circumflex as well as the LAD. However, she was advised high-risk PCI, but after some deliberation, she was discharged on medical therapy. She came back into the hospital with chest pain and more importantly shortness of breath and heart failure. Since then, her LV function has decreased to 25%. Before any intervention, I recommended that I will do coronary angiography and check a selective injection of the RCA and then make a decision. I explained to the patient, also spoke to her son that any PCI would be high risk, may require Impella support, but if RCA is widely patent, I will consider doing a staged intervention of the left system. With this information, she was brought in for the procedure after due discussion regarding risks, benefits, and options. PROCEDURE NOTE: Under local anesthesia and strict aseptic precautions, a 6-Hebrew introducer was placed in the left femoral artery. Patient has a history of a colostomy and she has a somewhat of a hematoma type picture on the right groin. Therefore I chose to go from the left side. I used an AR1 catheter for the right coronary, which was not selectively injected in the previous cardiac cath, but I could not get a good seating. Then I switched over to an AL1 catheter. With this, I was able to get selective injection of the RCA and I used a JL4 for the left system and a pigtail catheter was used to check LV pressure but LV gram was not performed. The sheath was then taken out and manual compression used to secure hemostasis and she was sent to the room in a stable condition. CARDIAC CATHETERIZATION FINDINGS: Left ventricular end-diastolic pressure was about 10-12 mmHg without any gradient across aortic valve. CORONARY ANGIOGRAPHY FINDINGS: RIGHT CORONARY ARTERY: This is a dominant vessel that comes from a somewhat posterior location. There is no significant disease at the ostium. The proximal portion has ectasia and then there is diffuse disease after which the vessel is almost subtotally occluded and fills late. Mid RCA therefore is totally occluded. It is a very dominant vessel. Distally bifurcates into PDA and PLV, both of which are well are good caliber vessels, but they fill very slowly and the vessel has no disease, but there is slow flow because of significant disease. The entire mid and distal 1/3 of the vessel has diffuse disease before bifurcation. The RCA technically is a subtotally occluded, dominant vessel with very poor flow in distal branches. LEFT MAIN CORONARY ARTERY: Short patent vessel, free of significant disease. Moderate calcification bifurcates into LAD and circumflex. LEFT ANTERIOR DESCENDING CORONARY ARTERY: This is a fair caliber vessel that extends along the anterior wall. It gives off septal and diagonal branches. In the midportion after the diagonal branch, there is a 95% calcified stenosis. The entire LAD is calcified. The distal 1/4 has diffuse disease and it curves over the apex to supply the inferoapical portion of left ventricle. Mid LAD therefore has a 95% heavily calcified lesion after a long calcified segment. LEFT POSTERIOR CIRCUMFLEX CORONARY ARTERY: This is technically a nondominant vessel, gives off a groove branch very proximally, then there is a 95% eccentric lesion then followed by another 80% lesion after which the vessel gives off 2 obtuse marginal branches and distally bifurcates into 2 small additional branches. The groove branch also has some diffuse disease in it. Circumflex therefore has 2 lesions. Very proximal lesion right after the groove branch and then there are 2 obtuse marginal branches, then there is diffuse distal disease noted. Left ventriculogram was not performed. FINAL IMPRESSION: 1. This patient has significant triple-vessel disease with ejection fraction by echo of 25% with normal filling pressures and no gradient across aortic valve. 2. RCA is subtotally occluded super dominant vessel with very limited antegrade flow. 3. Left main is free of significant disease. 4. LAD has a heavily calcified mid lesion of 95%, diffuse disease in the distal 1/4. 5. Circumflex has a both proximal and mid lesion which is quite significant right after the groove branch and is a nondominant vessel but seems to provide some collaterals to the distal RCA. 6. Filling pressures are normal. No gradient across aortic valve. RECOMMENDATIONS: I am recommending a PCI with a clear understanding that she is not a good surgical candidate because of diffuse nature of disease distally and the bypass to LAD would not be a good one because of severe diffuse disease distally and also circumflex marginal is heavily calcified. The RCA also has a poor flow. I will seek a surgical opinion, but I believe she will require multivessel PCI with Impella support. I discussed this at length with the patient and also with her son and daughter. I will seek a surgical opinion. Unfortunately, patient's on Saturday and there is a on the coming Saturday and therefore I will discharge her on medical therapy with the understanding that I will perform the procedure the following week. The patient is a very high risk for any intervention, but I will also seek a surgical opinion in the interim. These details were discussed with the patient as well as her family. I will also obtain ultrasound of the right groin where there is some puffiness and I performed the procedure from the left groin. MMPOPEYE / JENNIFER: [id number] /
--- NOTE | 2019-12-21 11:15 | US ---
EXAMINATION TYPE: US lower ext pseudo artery RT DATE OF EXAM: 12/21/2019 COMPARISON: NONE CLINICAL HISTORY: Hematoma/ pseudoaneurysm RT groin, procedure 09/10. Hard palpable in right groin. P jay had heart cath performed September 11, 2019. EXAM PERFORMED: Grayscale and color Doppler duplex imaging performed of the groin, post cardiac inna ter to assess for pseudoaneurysm. SIDE PERFORMED: Right Color and Waveform Doppler performed to assess for the presence of pseudoaneurysm; Is there ultrasound evidence of a pseudoaneurysm: Possible clotted pseudoaneurysm. Possible vascula r neck = 1.9 mm visualized off bilobular mass in right groin at [facility]. No vascular flow visualized in bilateral lobular area. Lobe 1 = 5.4 x 3.9 x 3.1 cm. Lobe 2= 2.9 x 3.4 x 2.6 cm. Neck best visua lized transverse. Is there evidence of AV shunting: no Is there a fluid collection present: no IMPRESSION: There is a large bilobed pseudoaneurysm which appears to demonstrate near complete thrombosis. Follow -up ultrasound recommended.
[2019-12-21] MEDS: SODIUM CHLORIDE 0.9% 1,000 ML IV SCH (13:06)
--- NOTE | 2019-12-21 14:48 | P.GSCN ---
History of Present Illness Consult date: 12/21/19 Reason for Consult: Coronary artery disease Requesting physician: Jake Holland History of present illness: This is an 79-year-old female who follows on an outpatient basis with Dr. Fairchild. She has a previous medical history of chronic atrial fibrillation on Eliquis for anticoagulation, ischemic cardiomyopathy, hypertension, hyperlipidemia, ulcerative colitis status post colostomy, depression, and family history of premature coronary artery disease. She presented to [facility] emergency room with complaints of shortness of breath both with exertion and at rest. In addition she complained of bilateral lower extremity. She denies any other aggravating or alleviating symptoms, no complaints of chest pain. Chest x-ray demonstrated chronic emphysematous changes, central vascular congestion, small bilateral pleural effusions, and bibasilar atelectasis. WBC 9.7, hemoglobin 15.1, creatinine 0.72, BNP 5070, troponin negative. She was afebrile. She did have a heart catheterization in August of this year demonstrating triple vessel coronary artery disease but wanted to be managed medically at that time, patient has been compliant with her medications and follow-up appointments with cardiology. She's been admitted for evaluation and treatment with consultation placed to cardiology. Transthoracic echocardiogram was completed demonstrating mild concentric left ventricular hypertrophy, severe ly impaired left ventricular systolic function with EF 20-25%, dilated left atrium, mild aortic regurgitation, mild to moderate mitral regurgitation, moderate tricuspid regurgitation with mild pulmonary hypertension. Left heart catheterization was completed today which demonstrated mid LAD stenosis 95%, the entire LAD is heavily calcified, proximal and mid circumflex significant stenosis 80-95%, and subtotal occlusion of the right coronary artery with collateral flow from the left side. Due to these findings consultation was placed to Dr. Villalobos from cardiothoracic surgery for recommendations of coronary artery bypass graft surgery versus multivessel PCI with Impella support. Review of Systems Review of systems was completed and was negative except as noted - Cardiovascular Reports as per HPI, Reports decreased exercise tolerance, Reports dyspnea on exertion, Reports leg edema Past Medical History Past Medical History: Atrial Fibrillation, Coronary Artery Disease (CAD), GERD/Reflux, Hyperlipidemia, Hypertension Additional Past Medical History / Comment(s): "inflammed hips"; ischemic cardiomyopathy; history of ulcerative colitis History of Any Multi-Drug Resistant Organisms: None Reported Past Surgical History: Hysterectomy Additional Past Surgical History / Comment(s): "Illestomy,carpal tunnel bilateral hands,bunyon surgery on left foot." Past Anesthesia/Blood Transfusion Reactions: No Reported Reaction Past Psychological History: Anxiety, Depression Smoking Status: Never smoker Past Alcohol Use History: None Reported Past Drug Use History: None Reported - Past Family History Mother Family Medical History: Coronary Artery Disease (CAD) Additional Family Medical History / Comment(s): CAD at 40 years old Medications and Allergies Home Medications Medication Instructions Recorded Confirmed Type Apixaban [Eliquis] 5 mg PO BID 09/13/19 12/16/19 History Losartan [Cozaar] 25 mg PO DAILY 09/13/19 12/16/19 History Venlafaxine HCl [Effexor XR] 75 mg PO DAILY 09/13/19 12/16/19 History Aspirin 81 mg PO DAILY #30 chew 09/18/19 12/16/19 Rx Nitroglycerin Sl Tabs [Nitrostat] 0.4 mg SUBLINGUAL Q5M PRN #30 tab 09/18/19 12/16/19 Rx Amiodarone [Cordarone] 200 mg PO DAILY 12/16/19 12/16/19 History Furosemide [Lasix] 20 mg PO DAILY 12/16/19 12/16/19 History Metoprolol Tartrate [Lopressor] 12.5 mg PO BID 12/16/19 12/16/19 History Allergies Allergy/AdvReac Type Severity Reaction Status Date / Time Penicillins AdvReac Rash/Hives Verified 12/16/19 19:51 Surgical - Exam Vital Signs Temp Pulse Resp BP Pulse Ox 97.3 F L 65 20 132/79 96 12/16/19 18:22 12/16/19 18:22 12/16/19 18:22 12/16/19 18:22 12/16/19 18:22 - General well developed, well nourished, no distress, no pain - Eyes PERRL, normal ocular movement - ENT no hearing loss - Neck trachea midline - Respiratory Lungs sounds clear bilaterally. Respirations even, nonlabored. Currently on room air with oxygen saturation 95%. No chest wall deformities, no clubbing or cyanosis present. - Cardiovascular S1, S2 present. Irregular rate and rhythm, controlled atrial fibrillation on telemetry. Palpable peripheral pulses bilaterally. No edema present. No calf pain or tenderness noted. - Abdomen Abdomen: soft, non tender, bowel sounds - Genitourinary Deferred - Rectum Deferred - Integumentary no rash, no growths - Neurologic normal coordination - Musculoskeletal normal posture - Psychiatric oriented to time, oriented to person, oriented to place, speech is normal, memory intact Results - Labs 12/19/19 07:49 12/19/19 07:49 - Imaging Chest x-ray: report reviewed, image reviewed Assessment and Plan Assessment: 1. Severe triple-vessel coronary artery disease 2. Ischemic cardiomyopathy 3. Chronic atrial fibrillation on Eliquis for anticoagulation 4. Hypertension 5. Hyperlipidemia 6. History of ulcerative colitis with colostomy 7. Depression 8. Family history of premature coronary artery disease Plan: The patient was seen and examined at the bedside. Chart/diagnostics were reviewed. Films will be reviewed with Dr. Villalobos. At this time we recommend continuing aspirin, statin, beta debora therapy. Continue amiodarone and Eliquis for atrial fibrillation. More recommendations to follow once Dr. Villalobos has seen the patient's films. Thank you Dr. Holland for this consult. Time with Patient: Greater than 30
--- NOTE | 2019-12-21 16:29 | P.PN ---
Subjective Progress Note Date: 12/21/19 Principal diagnosis: Shortness of breath Patient went to heart catheterization today. She was found to have a swelling on her right groin so because was done using left groin approach. 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 Objective - Vital Signs Vital signs: Vital Signs Temp 97.4 F L 12/21/19 07:50 Pulse 71 12/21/19 12:56 Resp 17 12/21/19 10:41 BP 141/81 12/21/19 12:56 Pulse Ox 95 12/21/19 12:56 Intake & Output 12/20/19 12/21/19 12/21/19 18:59 06:59 18:59 Intake Total 416 75 Output Total 500 Balance -84 75 Weight 70 kg 68.9 kg Intake: IV 75 Oral 416 Output: Urine 500 Other: Voiding Method Toilet Toilet Toilet # Voids 1 4 # Bowel Movements 1 - Exam Constitutional: No acute distress, conversant, pleasant Eyes:Anicteric sclerae, moist conjunctiva, no lid-lag, PERRLA, ENMT: Oropharynx clear, no erythema, exudates Neck: Supple, FROM, no masses, or JVD, No carotid bruits, No thyromegaly Lungs: Clear to auscultation, Clear to percussion, Normal respiratory effort, no accessory muscle use Cardiovascular: Heart regular in rate and rhythm, No murmurs, gallops, or rubs, No peripheral edema Abdominal: Soft, Nontender, no guarding, rebound or rigidity, Normoactive bowel sounds, No hepatomegaly, No splenomegaly, No palpable mass Skin: Normal temperature, tone, texture, turgor, no induration, No subcutaneous nodules, No rash, lesions, No ulcers Extremities: No digital cyanosis, No clubbing, Pedal pulses intact and symmetrical, Radial pulses intact and symmetrical, No calf tenderness Psychiatric: Alert and oriented to person, place and time, appropriate affect, intact judgement Neuro: Muscles Strength 5/5 in all 4 extremities, Sensation to light touch grossly present throughout, Cranial nerves II-XII grossly intact, no focal sensory deficits - Labs CBC & Chem 7: 12/19/19 07:49 12/19/19 07:49 Assessment and Plan Plan: Shortness of breath, likely acute systolic CHF exacerbation, likely ischemic cardiomyopathy -Continue lasix 40 mg daily -Already on beta debora and losartan -Echocardiogram done last admission, showing EF of 35-40%. -Monitor electrolytes daily and replace as needed CAD No acute coronary event at this time S/p cath which showed 3 vessel disease, consult CT surgery. Right groin pseudoaneurysm with clot Found on U/S Consult vascular surgery Already on eliquis Chronic a-fib HR controlled Continue Lopressor Continue eliquis in anticipation for heart cath Saturday Chronic conditions: Hypertension, hyperlipidemia, A. fib -Continue with home meds DVT prophylaxis -Was on eliquis, now held Anticipated discharge date: 2-[address]: Home
--- NOTE | 2019-12-21 17:44 | P.GSCN ---
History of Present Illness History of present illness: 79-year-old white female, patient has history of atrial fibrillation coronary artery disease patient had a heart catheterization done in the past and today again patient had a heart catheterization to the left femoral approach. Patient had ultrasound of the groin showed a bilobed pseudoaneurysm #1 is 5.4 x 3.9 x 3.1 and #2 pseudoaneurysm is 2.9 x 3.4 x 2.6 ultrasound showed near-complete third thrombosis of the pseudoaneurysm On examination patient was seen in her room abdomen is soft patient has a colostomy bag Vascular examination nontender right groin area no bruit appreciated Brisahen had a heart catheterization from the left side this is a intact Ultrasound showed bilobed pseudoaneurysm near-complete thrombosis of the both aneurysm by ultrasound discussed with Dr. LYNCH we'll do the CT of the abdomen and pelvis with runoff patient is going to have a intervention by Dr. Holland for coronary artery disease through the left groin follow with you thank you Past Medical History Past Medical History: Atrial Fibrillation, Coronary Artery Disease (CAD), GERD/Reflux, Hyperlipidemia, Hypertension Additional Past Medical History / Comment(s): "inflammed hips"; ischemic cardiomyopathy; history of ulcerative colitis History of Any Multi-Drug Resistant Organisms: None Reported Past Surgical History: Hysterectomy Additional Past Surgical History / Comment(s): "Illestomy,carpal tunnel bilateral hands,bunyon surgery on left foot." Past Anesthesia/Blood Transfusion Reactions: No Reported Reaction Past Psychological History: Anxiety, Depression Smoking Status: Never smoker Past Alcohol Use History: None Reported Past Drug Use History: None Reported - Past Family History Mother Family Medical History: Coronary Artery Disease (CAD) Additional Family Medical History / Comment(s): CAD at 40 years old Medications and Allergies Home Medications Medication Instructions Recorded Confirmed Type Apixaban [Eliquis] 5 mg PO BID 09/13/19 12/16/19 History Losartan [Cozaar] 25 mg PO DAILY 09/13/19 12/16/19 History Venlafaxine HCl [Effexor XR] 75 mg PO DAILY 09/13/19 12/16/19 History Aspirin 81 mg PO DAILY #30 chew 09/18/19 12/16/19 Rx Nitroglycerin Sl Tabs [Nitrostat] 0.4 mg SUBLINGUAL Q5M PRN #30 tab 09/18/19 12/16/19 Rx Amiodarone [Cordarone] 200 mg PO DAILY 12/16/19 12/16/19 History Furosemide [Lasix] 20 mg PO DAILY 12/16/19 12/16/19 History Metoprolol Tartrate [Lopressor] 12.5 mg PO BID 12/16/19 12/16/19 History Allergies Allergy/AdvReac Type Severity Reaction Status Date / Time Penicillins AdvReac Rash/Hives Verified 12/16/19 19:51 Surgical - Exam Vital Signs Temp Pulse Resp BP Pulse Ox 97.3 F L 65 20 132/79 96 12/16/19 18:22 12/16/19 18:22 12/16/19 18:22 12/16/19 18:22 12/16/19 18:22 Results - Labs 12/19/19 07:49 12/19/19 07:49
--- NOTE | 2019-12-21 19:57 | CT ---
EXAMINATION TYPE: CT angio abd aorta w/Runoff And angiogram of the chest DATE OF EXAM: 12/21/2019 COMPARISON: HISTORY: c/o SOB CT DLP: 1848 mGycm Automated exposure control for dose reduction was used. CONTRAST: Performed with IV Contrast, patient injected with 100 mL of Isovue 370. Images were obtained from the thoracic inlet to the bottom of the feet with IV contrast and 3-D post processed images. There are bilateral pleural effusions. Heart is enlarged. There is atelectasis at the lung bases. The re is no evidence of a pulmonary mass. 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 There is no dis section. I see no filling defects in the pulmonary arteries. There is patency of the celiac artery and superior mesenteric artery. There is bilateral arterial otf w in the renal arteries. There is arterial flow in the iliac and femoral arteries. There is septated 3 cm cyst in the right lobe of the liver Gallbladder appears normal. Spleen shows multiple calcified granulomata. There is no evidence of panc reatic mass. Stomach is intact. There is no adrenal mass. Kidneys have normal size and contour. There is no hydronephrosis. Ureters are not dilated. There is no retroperitoneal adenopathy. Bladder diste nds smoothly. There is no free fluid in the pelvis. There is 5 cm rounded mixed density mass adjacent to the right femoral artery in the right groin cons istent with pseudoaneurysm. There is higher attenuation component consistent with different ages of t he pseudoaneurysm.. I see no contrast extravasation. The femoral arteries widely patent. There is no evidence of dissection. There is arterial flow in the superficial femoral arteries and profunda femoris arteries. Femoral art eries are widely patent. The popliteal arteries appear widely patent. There is patency of the tibial artery trifurcation. There is variable plaque and decreased flow in the anterior tibial arteries bila terally. The posterior tibial artery and peroneal arteries are opacified. No contrast is seen at the ankles and this could be due to timing of the exam. At the midcalf there is good arterial flow in the peroneal and posterior tibial arteries. There is no evidence of a soft tissue mass in the lower limb s. I see no bony destructive process. . There is no mesenteric edema. There is no ascites or free air. There is no sign of a bowel obstructio n. There is apparent ileostomy in the right lower abdomen. There appears to be total colectomy. Thora cic and lumbar spine appear intact. Bony pelvis is intact. IMPRESSION: Large pseudoaneurysm or hematoma in the right groin. No femoral artery abnormality seen. No evidence of active bleeding. There appears to be some atherosclerotic disease and decreased blood flow in the anterior tibial fanny nichol bilaterally at the ankles. No evidence of hemodynamic stenosis of the femoral and popliteal and proximal tibial arteries. 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 No evidence of pulmonary embolism. Moderate cardiomegaly with pleural effusions and basilar atelectasis could relate to some chronic con gestive heart failure.
[2019-12-21] MEDS: APIXABAN 5 MG TAB PO SCH (20:31)
[2019-12-22 05:46] VITALS: RESP 18
[2019-12-22] MEDS: SODIUM CHLORIDE 0.9% 1,000 ML IV SCH (06:29)
[2019-12-22 07:03] LABS: Anisocytosis Slight; Basophils % (A) 0 %; Eosinophils # (A) 0.3 k/uL (0-0.7); Eosinophils % (A) 4 %; HCT 45.8 % (34.0-46.0); HGB 14.8 gm/dL (11.4-16.0); Hypochromasia Slight; Lymphocytes # (A) 1.4 k/uL (1.0-4.8); Lymphocytes % (A) 17 %; MCH 31.8 pg (25.0-35.0); MCHC 32.4 g/dL (31.0-37.0); MCV 98.1 fL (80.0-100.0); Macrocytosis Slight; Mean Platelet Volume 9.5; Monocytes # (A) 0.8 k/uL (0-1.0); Monocytes % (A) 9 %; Neutrophils # (A) 5.8 k/uL (1.3-7.7); Neutrophils % (A) 68 %; Platelet Count 269 k/uL (150-450); RBC 4.67 m/uL (3.80-5.40); RDW 16.5 % (11.5-15.5); WBC 8.5 k/uL (3.8-10.6)
[2019-12-22 07:14] LABS: Calcium 9.1 mg/dL (8.4-10.2); Potassium 3.8 mmol/L (3.5-5.1)
[2019-12-22 08:40] VITALS: TEMP 96.1
[2019-12-22] MEDS ORDERED: LOSARTAN 50 MG TAB PO SCH (09:00)
[2019-12-22] MEDS: METOPROLOL TARTRATE 50 MG TAB PO SCH (10:24)
[2019-12-22] MEDS: APIXABAN 5 MG TAB PO SCH (10:24)
[2019-12-22] MEDS: ASPIRIN 81 MG PO SCH (10:25)
[2019-12-22] MEDS: VENLAFAXINE HCL ER 75 MG CAP PO SCH (10:25)
[2019-12-22] MEDS: FUROSEMIDE 40 MG TAB PO SCH (10:25)
[2019-12-22 12:24] VITALS: BP 132/76; PULSE 88
--- NOTE | 2019-12-22 12:30 | P.DS ---
Providers Date of admission: 12/18/19 13:52 Expected date of discharge: 12/22/19 Attending physician: Andreas Walker MD Consults: 12/16/19 22:40 Consult Physician Urgent Consulting Provider: [facility] Consult Reason/Comments: acute respiratory insuff, AECHF Do you want consulting provider notified?: Yes 12/21/19 10:02 Consult Physician Routine Consulting Provider: Luis Felipe Villalobos Consult Reason/Comments: CABG VS PCI WITH IMPELLA Do you want consulting provider notified?: Yes 12/21/19 16:23 Consult Physician Urgent Consulting Provider: Nate Tovar Consult Reason/Comments: pseudoaneurysm Do you want consulting provider notified?: Yes Primary care physician: [facility] Hospital Course: 78-year-old female with a PMH of coronary artery disease (recent cath in August 2019 showing severe triple-vessel disease, currently on medical management) hypertension, ischemic cardio myopathy with systolic CHF, A. fib on Eliquis, and diverticulitis, presented to the ED with complaints of gradually worsening shortness of breath. Symptoms were ongoing for roughly 24 hours ago and then gradually worsened. She also reports noticing swelling of her legs over the l ast few weeks but denied orthopnea, PND, or chest discomfort. Patient also denied abdominal pain, nausea, vomiting, diaphoresis, or dizziness. She reports compliance with her diuretics and her dietary restrictions. In the ED, her EKG revealed A. fib at 102 bpm with no acute ST/T-wave changes noted. Chest x-ray revealed vascular congestion with concerns for CHF exacerbation. Laboratory evaluation [place] 5070, troponin less than 0.012, sodium of 136, potassium 3.6, BUN 21, creatinine 0.72, WBC count 9.7, hemoglobin 15.1, and platelets 245. Patient was admitted to the hospital for working diagnosis of acute exacerbation of congestive heart failure. Patient is known to have low EF at 35%. This is according to an echocardiogram done last admission. She was diuresed with IV Lasix. She symptomatically felt better with diuresis. She was already on beta debora and losartan and those were continued. Echocardiogram was not repeated as she just had one last August. PCI was attempted again by cardiology but failed. She had three-vessel disease based on heart cath and she was considered and a poor candidate for bypass surgery. Cardiology recommended repeat cath to try PCI with empella ventricular support. Patient was seen by cardiothoracic surgery who agreed with cardiology that she would not be a good candidate for bypass. On physical exam shows SOME bulging on the right groin, an ultrasound was done and that showed a pseudoaneurysm with some clotting inside. She was seen by vascular surgery who did not recommend surgical intervention. She was already on eliquis for anticoagulation, she will be resumed on that. Patient is going to follow-up with cardiology for repeat catheterization. This will be scheduled for this coming Saturday. Currently patient is switched to oral Lasix, her breathing is at baseline. she'll be discharged home in a stable condition. Time for discharge 35 minutes. Patient Condition at Discharge: Stable Plan - Discharge Summary Discharge Rx Participant: No New Discharge Prescriptions: New Furosemide [Lasix] 40 mg PO DAILY 30 Days #30 tab Continue Apixaban [Eliquis] 5 mg PO BID Losartan [Cozaar] 25 mg PO DAILY Venlafaxine HCl [Effexor XR] 75 mg PO DAILY Aspirin 81 mg PO DAILY #30 chew Nitroglycerin Sl Tabs [Nitrostat] 0.4 mg SUBLINGUAL Q5M PRN #30 tab PRN Reason: Chest Pain Amiodarone [Cordarone] 200 mg PO DAILY Metoprolol Tartrate [Lopressor] 12.5 mg PO BID No Action Furosemide [Lasix] 20 mg PO DAILY Discharge Medication List Apixaban [Eliquis] 5 mg PO BID 09/13/19 [History] Losartan [Cozaar] 25 mg PO DAILY 09/13/19 [History] Venlafaxine HCl [Effexor XR] 75 mg PO DAILY 09/13/19 [History] Aspirin 81 mg PO DAILY #30 chew 09/18/19 [Rx] Nitroglycerin Sl Tabs [Nitrostat] 0.4 mg SUBLINGUAL Q5M PRN #30 tab 09/18/19 [Rx] Amiodarone [Cordarone] 200 mg PO DAILY 12/16/19 [History] Furosemide [Lasix] 20 mg PO DAILY 12/16/19 [History] Metoprolol Tartrate [Lopressor] 12.5 mg PO BID 12/16/19 [History] Furosemide [Lasix] 40 mg PO DAILY 30 Days #30 tab 12/22/19 [Rx] Follow up Appointment(s)/Referral(s): Yoni Fairchild MD [Primary Care Provider] - 1-2 days Jake Holland MD [STAFF PHYSICIAN] - 1 Week (follow up December 29 for stenting and angioplasty using the Impella assist device) Patient Instructions/Handouts: *Surgery [facility] - After Heart Catheterization - [employer] Instructions, Heart Failure (DC)
--- NOTE | 2019-12-22 12:34 | P.PN ---
Subjective Progress Note Date: 12/22/19 This is an 79-year-old female who follows with Dr. Geronimo Holland in the office. She has a history of coronary artery disease, persistent atrial fibrillation, ischemic cardio myopathy, chronic systolic congestive heart failure, presented to the hospital with symptoms of progressively worsening shortness of breath. She was seen in consultation by Dr. Rodriguez on arrival here. She was initiated on IV Lasix, treated for congestive cardiac failure. Her ejection fraction was 35% back in August, she underwent a cardiac catheterization at that time, but did not undergo intervention of her blockages. Dr. HOWARD Holland did come and speak with the patient today, she will be scheduled to undergo stenting of the circumflex artery on Saturday. Blood pressure 108/70 with a heart rate in the 70s, 93% on room air. 12/19/2019 Patient was seen and examined this morning, overall feeling well. Breathing is stable, she denies any chest discomfort. Blood pressure 122/80 with a heart rate in the 60s, 96% on room air. White blood cell count 8.5, hemoglobin 14.4, platelet count 251. Sodium 138, potassium 3.6, BUN 21, creatinine 0.8. Magnesium 1.7. 12/20/2019 Patient seen and examined this morning, breathing is stable, denies any chest discomfort. Blood pressure 124/70 with a heart rate in the 90s, 98% on room air. White blood cell count 8.5, hemoglobin 14.4, platelet count 251. Sodium 138, potassium 3.6, BUN 21 and creatinine 0.8. 12/22/2019 Patient seen and examined this morning, she underwent a cardiac catheterization yesterday by Dr. Geronimo Holland, revealed significant triple-vessel disease, RCA is subtotally occluded, left main free of any significant disease, LAD is heavily calcified, 95%, circumflex has both proximal and mid lesion, filling pressures normal. Dr. Geronimo Holland's recommendation is to proceed with a PCI with a clear understanding the patient is not a good surgical candidate. She will be discharged home and brought back with Impella support. Patient was noted to have significant swelling in the right groin from prior cardiac catheterization, the ultrasound of the groin showed a large bilobed pseudoaneurysm which appeared to demonstrate near complete thrombosis. Patient was seen by vascular surgery, who commented that the ultrasound showed the bilobed pseudoaneurysm with near complete thrombosis. Computed tomography scan showed large pseudoaneurysm or hematoma at the right groin, no from oral artery abnormality seen no evidence of active bleeding. No evidence of hemodynamic stenosis of this for moral and popliteal and proximal tibial arteries. 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 Patient is feeling well overall and is quite anxious to be discharged home today, she did recently lose her . Blood pressure 132/76 with a heart rate in the 80s, 97% on room air. White blood cell count 8.5, hemoglobin 14.8, platelet count 269. Sodium 138, potassium 3.8, BUN 21, creatinine 0.7. Objective - Vital Signs Vital signs: Vital Signs Temp 96.1 F L 12/22/19 08:38 Pulse 88 12/22/19 12:00 Resp 18 12/22/19 08:00 BP 132/76 12/22/19 12:00 Pulse Ox 97 12/22/19 12:00 Intake & Output 12/21/19 12/22/19 12/22/19 18:59 06:59 18:59 Intake Total 315 360 480 Balance 315 360 480 Weight 69.3 kg Intake: IV 75 360 Sodium Chloride 0.9% 1, 360 000 ml @ 75 mls/hr IV . [id number] [facility] Rx#:[id number] Oral 240 480 Other: Voiding Method Toilet Toilet Toilet # Voids 1 1 1 - Exam PHYSICAL EXAMINATION: GENERAL: 79-year-old female in no acute distress at the time of my e xamination HEENT: Head is atraumatic, normocephalic. Pupils equal, round. Sclera anicteric. Conjunctiva are clear. Mucous membranes of the mouth are moist. Neck is supple. There is no elevated jugular venous pressure. No carotid bruit is heard. HEART EXAMINATION: Heart S1 and S2 irregularly irregular a systolic murmur is heard CHEST EXAMINATION: Lungs are clear with diminished air entry to the bases bilaterally ABDOMEN: Soft, nontender. Bowel sounds are heard. No organomegaly noted. EXTREMITIES: 2+ peripheral pulses with no evidence of peripheral edema and no calf tenderness noted. Right groin is firm, there is a soft bruit heard, mild tenderness. Left groin soft, no evidence of any hematoma. NEUROLOGIC patient is awake, alert and oriented 3 . . - Labs CBC & Chem 7: 12/22/19 06:28 12/22/19 06:28 Labs: Abnormal Lab Results - Last 24 Hours (Table) 12/22/19 12/22/19 Range/Units 06:28 06:28 RDW 16.5 H (11.5-15.5) % BUN 21 H (7-17) mg/dL Glucose 100 H (74-99) mg/dL Assessment and Plan Plan: Assessment and plan #1 systolic congestive heart failure acute on chronic #2 multivessel coronary artery disease #3 hypertension #4 hyperlipidemia #5 persistent atrial fibrillation #6 right groin pseudoaneurysm, thrombosed Plan Patient may be discharged home today, she'll return to the hospital to undergo multivessel PCI with Impella support. DNP note has been reviewed, I agree with a documented findings and plan of care. Patient was seen and examined.
== END 2019-12-22 14:05 | disposition home or self-care (01) ==
LOC: EC 18:20 → 3SCARD 22:44 → INTOOBSV 12-18 13:52 → OBSVTOIN 12-18 13:52 → UNDODISIN 12-22 14:05
PROVIDERS: ADMIT Internal Medicine; ATTEND Internal Medicine
PROC: 4A023N7 Measurement of Cardiac Sampling and Pressure, Left Heart, Percutaneous Approach (ICD-10-PCS; principal; 2019-12-21 09:00)
PROC: B2111ZZ Fluoroscopy of Multiple Coronary Arteries using Low Osmolar Contrast (ICD-10-PCS; principal; 2019-12-21 09:00)
DX: I11.0 Hypertensive heart disease with heart failure (principal); I50.23 Acute on chronic systolic (congestive) heart failure; I48.21 Permanent atrial fibrillation; I74.3 Embolism and thrombosis of arteries of the lower extremities; I48.92 Unspecified atrial flutter; I27.20 Pulmonary hypertension, unspecified; I25.5 Ischemic cardiomyopathy; I25.10 Atherosclerotic heart disease of native coronary artery without angina pectoris; I71.2 Thoracic aortic aneurysm, without rupture; I08.3 Combined rheumatic disorders of mitral, aortic and tricuspid valves; E78.5 Hyperlipidemia, unspecified; F32.9 Major depressive disorder, single episode, unspecified; F41.9 Anxiety disorder, unspecified; K57.90 Diverticulosis of intestine, part unspecified, without perforation or abscess without bleeding; K21.9 Gastro-esophageal reflux disease without esophagitis; Z20.828 Contact with and (suspected) exposure to other viral communicable diseases; Z79.01 Long term (current) use of anticoagulants; Z79.82 Long term (current) use of aspirin; Z79.899 Other long term (current) drug therapy; Z90.710 Acquired absence of both cervix and uterus; Z88.0 Allergy status to penicillin; Z91.048 Other nonmedicinal substance allergy status; Z87.19 Personal history of other diseases of the digestive system; Z93.3 Colostomy status; Z82.49 Family history of ischemic heart disease and other diseases of the circulatory system
CPT/HCPCS: 96376 ×3; 96374; 99285; 36415; 93005; 93306; 93458; 83880; 80053; 80048 ×3; 83735; 84100; 84132; 84484; 85025 ×4; 85610; 85730; 71046; 93975; 93926; 75635; G0378 ×7; C1894; C1769 ×2; U0003; J2250; J1940 ×4; J2001; Q9967

== ENCOUNTER → 2019-12-16 | Outpatient (CLI) | payer MEDICARE ==
[2019-12-16 21:00] LABS: ALT 32 U/L (8-44); AST 30 U/L (13-35)
== END | disposition home or self-care (01) ==
LOC: LABPAT 10:53
PROVIDERS: ATTEND Internal Medicine Cardiovascular Disease
DX: R94.5 Abnormal results of liver function studies (principal)
CPT/HCPCS: 36415; 84450; 84460

== ENCOUNTER 2019-12-30 12:00 | Inpatient (IN) | payer MEDICARE ==
[2019-12-24 14:39] VITALS: BMI 21.9
--- NOTE | 2019-12-31 21:51 | HP ---
HISTORY AND PHYSICAL This is an 79-year-old lady with a known history of ischemic cardiomyopathy. She was seen by me recently and I performed coronary angiography during her recent hospitalization. That study revealed severe triple-vessel disease with proximal circumflex as well as mid LAD and significant disease in distal LAD as well as a long area of disease in a dominant RCA. She had a hematoma in the right groin with a pseudoaneurysm that has healed, and I performed the procedure from the left groin. Given her poor LV function and significant disease, I am recommending a supported PCI, which is a high-risk PCI, with heart pump Impella. This was explained to the patient and family members, specifically her son and daughter, in great detail. Because of an unfortunate situation with her having , the procedure was not performed. She went home, and I am bringing her back electively. Patient is fully aware of the risks, benefits, options, and we will perform Impella from the left femoral approach and from the radial approach or from the right femoral approach if the groin is reasonable I will be doing the PCI. I am planning on intervention of circumflex and LAD and will probably treat the RCA medically based on how it goes. Patient and family are aware of the rationale, risks, benefits and options. PAST MEDICAL HISTORY: 1. Ischemic cardiomyopathy. 2. Chronic atrial fibrillation. 3. History of hypertension. 4. Hypercholesterolemia. 5. Multiple hospitalizations with episodes of chest pain. PHYSICAL EXAMINATION: On examination, blood pressure was 130/70, pulse rate about 70, irregular. HEENT unremarkable. Fundus was not examined by me. Neck is supple. There is JVD of 1 cm. No carotid bruit. Heart exam reveals S1, S2 with a short systolic murmur at the base. Lungs reveal bilateral diminished air entry. Abdomen is soft, nontender. Lower extremities reveal diminished pulses. Right groin has a hematoma. There is no bruit. Left groin is clean and dry. There is a small area of ecchymosis. Lower extremities reveal diminished pulses. Central nervous system grossly within normal limits. IMPRESSION: 1. Ischemic cardiomyopathy with severe triple-vessel disease. 2. Chronic atrial fibrillation. 3. Hypertension. 4. Hyperlipidemia. RECOMMENDATIONS: I am recommending supported PCI with Impella support and multi-vessel PCI. Rationale, risks, benefits and options were explained. Patient and family understand all details and wish to proceed with the procedure scheduled for 01/01/2020 at [facility]. MMANDREL / IJN: [id number] /
[2020-01-01] MEDS ORDERED: SODIUM CHLORIDE 0.9% 1,000 ML in EMPTY BAG 1 BAG IV ONE (05:51)
[2020-01-01] MEDS ORDERED: ASPIRIN 81 MG ONE (11:09)
--- NOTE | 2020-01-01 11:32 | US ---
EXAMINATION TYPE: US lower ext pseudo artery RT DATE OF EXAM: 01/01/2020 COMPARISON: CLINICAL HISTORY: KNOWN HEMATOMA FROM RECENT PROCEDURE. follow up from 12/21/19. lump right groin. he art cath 09/11/19 EXAM PERFORMED: Grayscale and color Doppler duplex imaging performed of the groin, post cardiac inna ter to assess for pseudoaneurysm. SIDE PERFORMED: right Color and Waveform Doppler performed to assess for the presence of pseudoaneurysm; Complex bilobar anechoic area right groin adjacent to vessels = 6.3 x 3.7 x 6.1cm. No evidence of otf w within or neck at this time. possible clotted pseudoaneurysm vs hematoma IMPRESSION: Findings likely represent thrombosed pseudoaneurysm in right groin similar to prior exam
[2020-01-01] MEDS ORDERED: SODIUM CHLORIDE 0.9% 1,000 ML IV ONE (11:45)
[2020-01-01] MEDS ORDERED: LIDOCAINE 1% INJ 10MG/ML (20 ML MDV) ONE (11:56)
[2020-01-01] MEDS ORDERED: MIDAZOLAM 2 MG/2 ML VIAL IV ONE (11:57)
[2020-01-01] MEDS ORDERED: SODIUM CHLORIDE 0.9% 500 ML 500 ML IV ONE (12:00)
[2020-01-01] MEDS ORDERED: LIDOCAINE 1% INJ 10MG/ML (20 ML MDV) SQ ONE (12:02)
[2020-01-01] MEDS ORDERED: fentaNYL (PF) 50 MCG/ML 2 ML AMP ONE (12:04)
[2020-01-01] MEDS ORDERED: fentaNYL (PF) 50 MCG/ML 2 ML AMP IV ONE (12:07)
[2020-01-01 12:40] LABS: INR 1.1 (<1.2); Partial Thromboplastin Time 22.5 sec (22.0-30.0)
[2020-01-01] MEDS ORDERED: IOPAMIDOL-370 100ML BTL INJ ONE ×2 (12:46→14:31)
[2020-01-01] MEDS ORDERED: CLOPIDOGREL 75 MG TAB ONE (13:38)
[2020-01-01] MEDS ORDERED: CLOPIDOGREL 75 MG TAB PO ONE ×2 (13:39→14:11)
[2020-01-01] MEDS: NITROGLYCERIN 1000MCG/10ML SYRINGE INTRACORON ONE ×3 (13:48→14:22)
[2020-01-01] MEDS ORDERED: IOPAMIDOL-370 125ML BTL INJ ONE (13:58)
[2020-01-01] MEDS ORDERED: IOPAMIDOL-370 50ML BTL INJ ONE (14:14)
[2020-01-01] MEDS ORDERED: HYDROmorphone 1 MG/ML 1 ML SYRINGE ONE (14:35)
[2020-01-01] MEDS ORDERED: HYDROmorphone 1 MG/ML 1 ML SYRINGE IVP ONE (14:37)
[2020-01-01] MEDS ORDERED: NITROGLYCERIN SL TABS 0.4 MG TAB SUBLINGUAL PRN (14:47)
[2020-01-01 15:11] LABS: Glucose,Whole Blood 166 mg/dL (75-99)
[2020-01-01] MEDS: SODIUM CHLORIDE 0.9% 1,000 ML IV SCH (15:25)
[2020-01-01] MEDS ORDERED: ONDANSETRON 4 MG/2 ML VIAL IVP PRN (20:32)
--- NOTE | 2020-01-01 22:17 | PTCA ---
PERCUTANEOUSTRANS CORORONARY ANGIOGRAPHY DATE OF SERVICE: 01/01/2020. PROCEDURE: 1. Impella heart pump placement for supported complex high-risk multivessel percutaneous coronary intervention. 2. Orbital atherectomy and stenting of long mid left anterior descending coronary artery lesion with FRANCHESKA. 3. Percutaneous transluminal coronary angioplasty and stenting of a long proximal circumflex marginal stenosis with a drug-eluting stent. ANESTHESIA: Moderate conscious sedation time was 158 minutes. Patient was administered Versed and fentanyl combination. Oxygen saturation, hemodynamics and EKG were monitored closely. CLINICAL INFORMATION: Mrs. Lay Jones is an 79-year-old elderly lady with severe triple-vessel disease, ejection fraction of less than 25%. 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 Proximal circumflex marginal had a significant stenosis. LAD was a diffusely diseased, heavily calcified vessel with a mid lesion of 80% and diffuse disease in the distal LAD. She was advised a supported PCI because of poor LV function. Risks, benefits and options were explained. The patient had a pseudoaneurysm in the right groin and I performed cardiac cath from the left groin to assess the status of her right coronary artery. I advised the patient to have procedure performed, and we would place the Impella from the left femoral approach. Risks, benefits, options and rationale were explained to the patient's son and daughter. Patient was brought in for the procedure electively after holding Eliquis for 48 hours. PROCEDURE NOTE: Under local anesthesia and strict aseptic precautions, a 6-Mosotho introducer was placed in the left femoral artery. I then advanced and positioned under fluoroscopic guidance with gradually increasingly-sized sheaths/dilators, and eventually a 14-Mosotho long introducer was placed in the left femoral artery with access well above bifurcation of the common femoral artery. I then advanced and positioned the Impella heart device after crossing the aortic valve with a pigtail catheter. Impella device was positioned and there was a good cardiac output of 2.3 L noted. Patient was quite stable. I then used a single access approach, and at the 2 o'clock position in the 14-Mosotho sheath I punctured with a micropuncture needle and advanced and positioned the 6-Mosotho introducer. Excellent hemostasis was noted. I then advanced a JL3.5 guide catheter to cannulate the left coronary artery. I used a long run-through wire and crossed the lesion in the obtuse marginal, kept it distally. I used an NC Trek balloon to pre- dilate the lesion of 2.5 caliber and then deployed a 23 mm long 3.25 caliber Xience stent at 12 atmospheres. Patient developed hypotension with this. Excellent angiographic result was achieved. I then turned my attention to the LAD. I advanced the same run-through wire into the LAD, kept it very distal, and then using a Teleport catheter, I exchanged this wire for a Nitinol Verrata atherectomy wire. This wire was kept very distally. I then advanced under fluoroscopic guidance the orbital atherectomy catheter using the Parker Assist. I advanced it all the way to the mid portion, where there was a significant lesion, and I made 2 passes to perform atherectomy of the mid lesion. I then moved the whole system back and I stented the entire length of LAD with at least 3 passes of the atherectomy. A modestly decent result was achieved. I then took the atherectomy device out over the wire carefully. Keeping the Nitinol Verrata wire, I advanced a 2.5 caliber NC Trek balloon and dilated the entire length of the lesion very carefully. I then deployed a 2.75 caliber 23 mm long Xience stent and tried to deploy this, but I had difficulty advancing the stent. At this stage, I used a short run-through wire and kept this run-through wire along the Nitinol wire. Using the Nitinol wire as a mamadou, I advanced over the short run- through wire the 12 mm 2.75 caliber Xience stent, and I was able to advance it very well. This stent was deployed in the distal aspect of the lesion. An additional 23 mm 2.75 caliber stent was deployed proximal to it, and finally the most proximal stent was a 3.0 caliber 8 mm Xience stent. All these 3 stents were deployed, and the middle stent still had some lesion. I took a 12 mm NC Trek balloon of 3.25 caliber and with this I dilated the entire stented segment up to 12 to 13 atmospheres. Excellent angiographic result was achieved. I then took the Nitinol wire out and advanced the run thru wire all the way to the distal aspect of the LAD towards the apex. Using a 1.5 balloon initially and then 2.0 caliber NC Trek balloon, I dilated the entire length of the LAD lesion where there was a subtotal distal stenosis. Excellent angiographic result was achieved. I then took the guide catheter out after taking the final pictures. Patient received a total of 6000 units of heparin and ACT was in the range of 350 to 400 initially and then between 250 and 300 towards the end of the procedure. In the LAD there was an excellent angiographic result. I performed orbital atherectomy and stenting with 3 drug-eluting stents, and then the distal apical portion of the LAD was dilated with a 2.0 caliber NC Trek balloon with excellent result. For the circumflex, I deployed a single 23 mm long 3.25 caliber Xience stent with an excellent result. The patient was hemodynamically stable throughout the procedure. Following the intervention, I decreased the Impella output, and this was taken out carefully under fluoroscopic guidance. I also took out the 6-Mosotho introducer through the Impella sheath. Before the placement of the 14-Mosotho sheath, I had pre- closed the vascular site with 2 Perclose devices, one at 10 o'clock and one at 2 o'clock position. At this stage I took the Impella out and I was able to get decent hemostasis with the 2 Perclose devices. However, the 2 o'clock Perclose device string got detached and there was some bleeding. I was able to get a very good secure placement of the Perclose device in the 10 o'clock position. I then advanced over the wire an 8-Mosotho Angio- Seal device, and with this I was able to get excellent hemostasis. I still applied a Femstop at 40 for 4 hours. There was excellent pulse distally. The patient tolerated the procedure well. She received 600 mg of Plavix. Results were discussed with the patient and her son. She was sent to the ICU in stable condition after spending some time in the extended-stay unit. Excellent angiographic result without complication was achieved. I expect patient will be discharged in the next 48 hours. Moderate conscious sedation time was 158 minutes. Patient was administered Versed and fentanyl combination. SEVEN / JENNIFER: [id number] / MTDD
[2020-01-01] MEDS: METOPROLOL TARTRATE 50 MG TAB PO SCH (22:37)
[2020-01-01] MEDS: ATORVASTATIN 80 MG TAB PO SCH (22:37)
[2020-01-02] MEDS: SODIUM CHLORIDE 0.9% 1,000 ML IV SCH (04:30)
[2020-01-02 05:26] LABS: Anisocytosis Slight; Basophils # (A) 0.1 k/uL (0-0.2); Basophils % (A) 1 %; Eosinophils # (A) 0.1 k/uL (0-0.7); Eosinophils % (A) 1 %; HCT 42.6 % (34.0-46.0); HGB 13.5 gm/dL (11.4-16.0); Hypochromasia Slight; Lymphocytes # (A) 1.6 k/uL (1.0-4.8); Lymphocytes % (A) 12 %; MCH 31.7 pg (25.0-35.0); MCHC 31.8 g/dL (31.0-37.0); MCV 99.8 fL (80.0-100.0); Macrocytosis Slight; Mean Platelet Volume 10.9; Monocytes # (A) 0.7 k/uL (0-1.0); Monocytes % (A) 6 %; Neutrophils # (A) 9.9 k/uL (1.3-7.7); Neutrophils % (A) 80 %; Platelet Count 207 k/uL (150-450); RBC 4.26 m/uL (3.80-5.40); RDW 16.6 % (11.5-15.5); WBC 12.5 k/uL (3.8-10.6)
[2020-01-02 05:49] LABS: Calcium 9.4 mg/dL (8.4-10.2); Potassium 4.5 mmol/L (3.5-5.1)
[2020-01-02] MEDS ORDERED: ASPIRIN 81 MG PO SCH (09:00)
[2020-01-02] MEDS ORDERED: FUROSEMIDE 40 MG TAB PO SCH (09:00)
[2020-01-02] MEDS: SPIRONOLACTONE 25 MG TAB PO SCH (10:01)
[2020-01-02] MEDS: LOSARTAN 25 MG TAB PO SCH (10:01)
[2020-01-02] MEDS: VENLAFAXINE HCL ER 75 MG CAP PO SCH (10:01)
[2020-01-02] MEDS: METOPROLOL TARTRATE 50 MG TAB PO SCH ×2 (10:02→20:06)
[2020-01-02] MEDS: APIXABAN 5 MG TAB PO SCH ×2 (10:02→20:06)
[2020-01-02] MEDS: FUROSEMIDE 20 MG TAB PO SCH (10:02)
[2020-01-02] MEDS: CLOPIDOGREL 75 MG TAB PO SCH (10:02)
[2020-01-02] MEDS ORDERED: SODIUM CHLORIDE 0.9% 1,000 ML IV SCH (10:30)
--- NOTE | 2020-01-02 13:35 | PN ---
PROGRESS NOTE Lay is an 79-year-old lady that is electively brought in for complex multivessel angioplasty including atherectomy and stenting of the mid LAD and stenting of the proximal circumflex coronary artery with Impella support. The patient has cardiomyopathy with severe LV dysfunction. She has a thrombosed pseudoaneurysm involving the right groin. Throughout last night, she was feeling a little nauseous, and could not keep her food down. She is otherwise doing well. Denies chest pain or difficulty in breathing. On exam, heart rate is 86 beats per minute. Blood pressure 107/80. Respiratory is 18. O2 sat is 96% on room air. There is no jugular venous distention. Chest exam reveals good air entry bilaterally. Heart exam reveals first and second heart sounds. No gallop. ABDOMEN: Soft. Exam of extremities did not reveal any edema. Left groin access site appears normal. Labs show a hemoglobin of 13.5, creatinine is 0.7. ASSESSMENT: Status post complex multivessel angioplasty. PLAN: Patient is doing fairly well. Continue the Eliquis, Lipitor, Plavix, Lasix, Cozaar, Lopressor, Aldactone. Hopefully home tomorrow. MMODL / IJN: [id number] /
[2020-01-02] MEDS: ATORVASTATIN 80 MG TAB PO SCH (20:05)
[2020-01-03 00:21] VITALS: TEMP 97.8
[2020-01-03 08:08] VITALS: PULSE 112; RESP 20
[2020-01-03 08:11] VITALS: BP 114/71
[2020-01-03] MEDS: CLOPIDOGREL 75 MG TAB PO SCH (08:12)
[2020-01-03] MEDS: SPIRONOLACTONE 25 MG TAB PO SCH (08:12)
[2020-01-03] MEDS: METOPROLOL TARTRATE 50 MG TAB PO SCH (08:12)
[2020-01-03] MEDS: FUROSEMIDE 20 MG TAB PO SCH (08:12)
[2020-01-03] MEDS: APIXABAN 5 MG TAB PO SCH (08:12)
[2020-01-03] MEDS: LOSARTAN 25 MG TAB PO SCH (08:13)
[2020-01-03] MEDS: VENLAFAXINE HCL ER 75 MG CAP PO SCH (08:13)
--- NOTE | 2020-01-03 10:26 | DS ---
DISCHARGE SUMMARY DATE OF ADMISSION: 12/31/2019. DATE OF DISCHARGE: 01/02/2020 PROCEDURE PERFORMED: 1. Impella heart pump placement. 2. High risk multivessel angioplasty. 3. Percutaneous intervention of the proximal circumflex coronary artery and LAD. HOSPITAL COURSE: The patient has tolerated the angioplasties well. She was somewhat nauseous yesterday that is why we could not discharge her home. This morning she is feeling fine. PHYSICAL EXAMINATION: Heart rates are between 90-105 beats per minute, afebrile. Blood pressure is 114/71, O2 saturation is 96% on room air. There is no jugular venous distention. Chest exam reveals diminished air entry at the bases without any crackles or rhonchi. Heart exam reveals first and second heart sounds, irregular rhythm and a systolic murmur at the left lower sternal border. Abdomen is soft. Exam of extremities did not reveal any edema. Peripheral pulses are felt. DISCHARGE MEDICATIONS: Patient will go home on Eliquis 5 b.i.d., Lipitor 80 daily, Plavix 75 daily, Lasix, Cozaar 25 daily, Lopressor 50 b.i.d., Aldactone, Effexor. FOLLOWUP: Patient will be followed up in my office in a week's time. MMODL / IJN: [id number] /
== END 2020-01-03 12:09 | disposition home or self-care (01) | DRG 215 ==
LOC: 2ORMAIN 01-01 10:36 → 2SICU 01-01 15:08
PROVIDERS: ADMIT Internal Medicine Interventional Cardiology; ATTEND Internal Medicine Interventional Cardiology
PROC: 02HA3RJ Insertion of Short-term External Heart Assist System into Heart, Intraoperative, Percutaneous Approach (ICD-10-PCS; principal; 2020-01-01 11:30)
PROC: 5A0221D Assistance with Cardiac Output using Impeller Pump, Continuous (ICD-10-PCS; principal; 2020-01-01 11:30)
PROC: 027036Z Dilation of Coronary Artery, One Artery with Three Drug-eluting Intraluminal Devices, Percutaneous Approach (ICD-10-PCS; principal; 2020-01-01 11:30)
PROC: 027034Z Dilation of Coronary Artery, One Artery with Drug-eluting Intraluminal Device, Percutaneous Approach (ICD-10-PCS; principal; 2020-01-01 11:30)
PROC: X2C0361 Extirpation of Matter from Coronary Artery, One Artery using Orbital Atherectomy Technology, Percutaneous Approach, New Technology Group 1 (ICD-10-PCS; principal; 2020-01-01 11:30)
DX: I25.10 Atherosclerotic heart disease of native coronary artery without angina pectoris (principal); I48.20 Chronic atrial fibrillation, unspecified; E78.00 Pure hypercholesterolemia, unspecified; E78.5 Hyperlipidemia, unspecified; I10 Essential (primary) hypertension; I25.5 Ischemic cardiomyopathy; Z88.0 Allergy status to penicillin; Z63.4 Disappearance and death of family member; I72.8 Aneurysm of other specified arteries; Z79.01 Long term (current) use of anticoagulants; Z79.82 Long term (current) use of aspirin; Z79.899 Other long term (current) drug therapy
CPT/HCPCS: 33990; 80048; 83735; 85025; 85347; 85384; 85610; 85730; 93975

== ENCOUNTER → 2020-03-18 | Outpatient (CLI) | payer MEDICARE ==
[2020-03-18 16:25] LABS: Chol/HDL Ratio 2.84; LDL Cholesterol,Calculated 69.6 mg/dL (0.0-131.0); VLDL Calculation 20.4 mg/dL (5.00-40.00)
== END | disposition home or self-care (01) ==
LOC: LABWHC1 08:15
PROVIDERS: ATTEND Family Medicine
DX: I25.9 Chronic ischemic heart disease, unspecified (principal)
CPT/HCPCS: 36415; 80061; 82550

== ENCOUNTER 2020-11-20 16:18 | Inpatient (IN) | payer MEDICARE ==
[2020-11-20 16:29] LABS: Glucose,Whole Blood 106 mg/dL (75-99)
[2020-11-20] MEDS ORDERED: SODIUM CHLORIDE 0.9% 500 ML 500 ML IV STA (16:31)
[2020-11-20 16:42] LABS: Basophils # (A) 0.1 k/uL (0-0.2); Basophils % (A) 1 %; Eosinophils # (A) 0.7 k/uL (0-0.7); Eosinophils % (A) 9 %; HCT 48.5 % (34.0-46.0); HGB 16.5 gm/dL (11.4-16.0); Lymphocytes # (A) 1.6 k/uL (1.0-4.8); Lymphocytes % (A) 19 %; MCH 33.4 pg (25.0-35.0); MCHC 33.9 g/dL (31.0-37.0); MCV 98.5 fL (80.0-100.0); Mean Platelet Volume 9.5; Monocytes # (A) 0.7 k/uL (0-1.0); Monocytes % (A) 8 %; Neutrophils % (A) 61 %; Platelet Count 176 k/uL (150-450); RBC 4.93 m/uL (3.80-5.40); RDW 13.9 % (11.5-15.5); WBC 8.2 k/uL (3.8-10.6)
--- NOTE | 2020-11-20 16:51 | CT ---
EXAMINATION TYPE: CT brain wo con for TPA DATE OF EXAM: 11/20/2020 COMPARISON: None HISTORY: Left sided weakness and nausea. CT DLP: 1124.8 mGycm Automated exposure control for dose reduction was used. There is cerebral cortical atrophy. There is no mass effect nor midline shift. There is no sign of in tracranial hemorrhage. Calvarium is intact. There is some atheromatous changes and ectasia of the hillary tebrobasilar artery system.. IMPRESSION: Cerebral atrophy. No acute intracranial abnormality.
[2020-11-20 16:53] LABS: INR 1.1 (<1.2); Partial Thromboplastin Time 22.8 sec (22.0-30.0); Prothrombin Time 11.6 sec (9.0-12.0)
--- NOTE | 2020-11-20 16:53 | ED ---
Neuro HPI - General Chief Complaint: Neuro Symptoms/Deficit Stated Complaint: Poss Stroke Time Seen by Provider: 11/20/20 16:22 Source: patient, EMS Mode of arrival: EMS - History of Present Illness Is the patient presenting with stroke symptoms?: Yes Last Known Well Date: 11/20/20 Last Known Well Time: 15:30 -: minutes(s) Initial Comments: This patient is an 79-year-old woman who presents with complaint that she may be having a stroke. The patient had acute onset of left arm numbness and weakness, and some slurred speech, which started this afternoon. The patient does have history of atrial fibrillation and has taken her Eliquis today. Location: speech, left arm History of same: No Place: home Severity: moderate Quality: weak, numb Improves With: none Worsens With: none Context: sudden onset Associated Symptoms: denies other symptoms Treatments Prior to Arrival: none - Related Data Home Medications: Home Medications Medication Instructions Recorded Confirmed Losartan [Cozaar] 25 mg PO DAILY 09/13/19 11/20/20 Alendronate Sodium [Fosamax] 70 mg PO WE 11/20/20 11/20/20 Apixaban [Eliquis] 2.5 mg PO BID 11/20/20 11/20/20 Carvedilol [Coreg] 6.25 mg PO BID 11/20/20 11/20/20 Cholecalciferol [Vitamin D3 (25 25 mcg PO DAILY 11/20/20 11/20/20 Mcg = 1000 Iu)] Famotidine 40 mg PO HS 11/20/20 11/20/20 Fluticasone Nasal [place] [Flonase 1 spray EA NOSTRIL DAILY PRN 11/20/20 11/20/20 Nasal [place]] Furosemide [Lasix] 20 mg PO DAILY 11/20/20 11/20/20 Ketotifen 0.025% Ophth Soln 1 drop BOTH EYES BID PRN 11/20/20 11/20/20 [Zaditor] Rosuvastatin [Crestor] 20 mg PO HS 11/20/20 11/20/20 Spironolactone 25 mg PO DAILY 11/20/20 11/20/20 Venlafaxine HCl [Effexor XR] 37.5 mg PO DAILY 11/20/20 11/20/20 Previous Rx's Medication Instructions Recorded Aspirin 81 mg PO DAILY #30 chew 09/18/19 Clopidogrel Bisulfate [Plavix] 75 mg PO DAILY #0 tab 01/03/20 Allergies/Adverse Reactions: Allergies Allergy/AdvReac Type Severity Reaction Status Date / Time adhesive tape AdvReac skin Verified 11/20/20 18:00 irritation Penicillins AdvReac Rash/Hives Verified 11/20/20 18:00 Review of Systems ROS Statement: Those systems with pertinent positive or pertinent negative responses have been documented in the HPI. ROS Other: All systems not noted in ROS Statement are negative. Constitutional: Denies: fever Eyes: Denies: vision change Respiratory: Denies: cough, dyspnea Cardiovascular: Denies: chest pain, palpitations, edema Gastrointestinal: Denies: abdominal pain, nausea, vomiting, diarrhea Genitourinary: Denies: dysuria, frequency Musculoskeletal: Denies: back pain Skin: Denies: rash Neurological: Reports: as per HPI, weakness, numbness. Denies: headache, confusion, vertigo Hematological/Lymphatic: Denies: easy bleeding General Exam General appearance: alert, in no apparent distress Head exam: Present: atraumatic, normocephalic Eye exam: Present: normal appearance, PERRL, EOMI. Absent: scleral icterus, conjunctival injection, nystagmus ENT exam: Present: normal oropharynx Neck exam: Present: normal inspection, full ROM Respiratory exam: Present: normal lung sounds bilaterally. Absent: respiratory distress, wheezes, rales, rhonchi, stridor Cardiovascular Exam: Present: regular rate, normal rhythm, normal heart sounds. Absent: systolic murmur, diastolic murmur, rubs, gallop GI/Abdominal exam: Present: soft. Absent: distended, tenderness, guarding, rebound, rigid, mass Extremities exam: Present: normal inspection, normal capillary refill. Absent: pedal edema, calf tenderness Back exam: Present: normal inspection. Absent: CVA tenderness (R), CVA tenderness (L) Neurological exam: Present: alert, oriented X3, CN II-XII intact. Absent: motor sensory deficit Skin exam: Present: warm, dry, intact, normal color. Absent: rash Stroke MDM - Lab Data Result diagrams: 11/22/20 07:37 11/22/20 07:37 Lab Results 11/20/20 11/20/20 11/20/20 Range/Units 16:23 16:25 16:25 WBC 8.2 (3.8-10.6) k/uL RBC 4.93 (3.80-5.40) m/uL Hgb 16.5 H (11.4-16.0) gm/dL Hct 48.5 H (34.0-46.0) % MCV 98.5 (80.0-100.0) fL MCH 33.4 (25.0-35.0) pg MCHC 33.9 (31.0-37.0) g/dL RDW 13.9 (11.5-15.5) % Plt Count 176 (150-450) k/uL MPV 9.5 Neutrophils % 61 % Lymphocytes % 19 % Monocytes % 8 % Eosinophils % 9 % Basophils % 1 % Neutrophils # 5.0 (1.3-7.7) k/uL Lymphocytes # 1.6 (1.0-4.8) k/uL Monocytes # 0.7 (0-1.0) k/uL Eosinophils # 0.7 (0-0.7) k/uL Basophils # 0.1 (0-0.2) k/uL PT 11.6 (9.0-12.0) sec INR 1.1 (<1.2) APTT 22.8 (22.0-30.0) sec Sodium (137-145) mmol/L Potassium (3.5-5.1) mmol/L Chloride (98-107) mmol/L Carbon Dioxide (22-30) mmol/L Anion Gap mmol/L BUN (7-17) mg/dL Creatinine (0.52-1.04) mg/dL Est GFR (CKD-EPI)AfAm (>60 ml/min/1.73 sqM) Est GFR (CKD-EPI)NonAf (>60 ml/min/1.73 sqM) Glucose (74-99) mg/dL POC Glucose (mg/dL) 106 H (75-99) mg/dL POC Glu Form Designer ID Samantha Carter Calcium (8.4-10.2) mg/dL Total Bilirubin (0.2-1.3) mg/dL AST (14-36) U/L ALT (4-34) U/L Alkaline Phosphatase (38-126) U/L Troponin I (0.000-0.034) ng/mL Total Protein (6.3-8.2) g/dL Albumin (3.5-5.0) g/dL 11/20/20 11/20/20 Range/Units 16:25 16:25 WBC (3.8-10.6) k/uL RBC (3.80-5.40) m/uL Hgb (11.4-16.0) gm/dL Hct (34.0-46.0) % MCV (80.0-100.0) fL MCH (25.0-35.0) pg MCHC (31.0-37.0) g/dL RDW (11.5-15.5) % Plt Count (150-450) k/uL MPV Neutrophils % % Lymphocytes % % Monocytes % % Eosinophils % % Basophils % % Neutrophils # (1.3-7.7) k/uL Lymphocytes # (1.0-4.8) k/uL Monocytes # (0-1.0) k/uL Eosinophils # (0-0.7) k/uL Basophils # (0-0.2) k/uL PT (9.0-12.0) sec INR (<1.2) APTT (22.0-30.0) sec Sodium 139 (137-145) mmol/L Potassium 4.5 (3.5-5.1) mmol/L Chloride 106 (98-107) mmol/L Carbon Dioxide 23 (22-30) mmol/L Anion Gap 10 mmol/L BUN 26 H (7-17) mg/dL Creatinine 1.17 H (0.52-1.04) mg/dL Est GFR (CKD-EPI)AfAm 51 (>60 ml/min/1.73 sqM) Est GFR (CKD-EPI)NonAf 44 (>60 ml/min/1.73 sqM) Glucose 92 (74-99) mg/dL POC Glucose (mg/dL) (75-99) mg/dL POC Glu Form Designer ID Calcium 9.4 (8.4-10.2) mg/dL Total Bilirubin 0.8 (0.2-1.3) mg/dL AST 48 H (14-36) U/L ALT 33 (4-34) U/L Alkaline Phosphatase 102 (38-126) U/L Troponin I <0.012 (0.000-0.034) ng/mL Total Protein 7.1 (6.3-8.2) g/dL Albumin 4.2 (3.5-5.0) g/dL - EKG Data -: EKG Interpreted by Me EKG shows normal: axis (Normal), intervals (Normal) Rate: normal (Rate 100 bpm) Interpretation: nonspecific ST-T wave changes, other (Underlying rhythm appears to be atrial flutter with variable block. Possible old septal infarct.) Past Medical History Past Medical History: Atrial Fibrillation, Coronary Artery Disease (CAD), Heart Failure, GERD/Reflux, Hypertension Additional Past Medical History / Comment(s): ileostomy, acute colitis, some memory loss History of Any Multi-Drug Resistant Organisms: None Reported Past Surgical History: Heart Catheterization, Hysterectomy, Orthopedic Surgery Additional Past Surgical History / Comment(s): Illeostomy, carpal tunnel bilateral hands, bunion surgery on left foot. last heart cath 12/21/19 Past Anesthesia/Blood Transfusion Reactions: No Reported Reaction Past Psychological History: Anxiety, Depression Smoking Status: Never smoker Past Alcohol Use History: Occasional Past Drug Use History: None Reported - Past Family History Family Family Medical History: No Reported History Course Vital Signs 11/20/20 11/20/20 11/20/20 16:21 17:13 17:30 Temperature 97.4 F L Pulse Rate 102 H 82 96 Respiratory 20 20 20 Rate Blood Pressure 152/78 135/76 142/126 O2 Sat by Pulse 97 Oximetry 11/20/20 11/20/20 17:54 18:30 Temperature 97.6 F Pulse Rate 86 90 Respiratory 20 20 Rate Blood Pressure 157/95 123/86 O2 Sat by Pulse 98 Oximetry - Reevaluation(s) Reevaluation #1: 11/20/20 17:22 Case discussed again with Dr. Mcmullen after he has seen the CAT scans and his recommendations are incorporated. The patient is reevaluated and has had resolution of symptoms. Critical Care Time Critical Care Time: Yes (30 minutes) Disposition Clinical Impression: Transient cerebral ischemia Disposition: ADMITTED IP TO THIS [facility] Condition: Stable Is patient prescribed a controlled substance at d/c from ED?: No
--- NOTE | 2020-11-20 16:54 | XR ---
EXAMINATION TYPE: XR chest 2V DATE OF EXAM: 11/20/2020 COMPARISON: 02/15/2020 HISTORY: Altered mental status TECHNIQUE: 2 views FINDINGS: Heart is enlarged. There is no heart failure. There is no pleural effusion. Thoracic aorta is atheromatous. There are chest leads. IMPRESSION: No active cardiopulmonary disease. There is clearing of the heart failure and pleural flu id compared to old exam.
[2020-11-20 16:56] LABS: Albumin 4.2 g/dL (3.5-5.0); Calcium 9.4 mg/dL (8.4-10.2); Potassium 4.5 mmol/L (3.5-5.1); Total Bilirubin 0.8 mg/dL (0.2-1.3); Total Protein 7.1 g/dL (6.3-8.2)
--- NOTE | 2020-11-20 17:16 | CT ---
EXAMINATION TYPE: CT angio head neck DATE OF EXAM: 11/20/2020 COMPARISON: None HISTORY: Left sided weakness and nausea. CT DLP: 425.4 mGycm Automated exposure control for dose reduction was used. CONTRAST: Performed with IV Contrast, patient injected with 65 mL of Isovue 370. Images obtained from the aortic arch to the vertex of the brain with IV contrast. There are 3-D post processed images. There is normal branching pattern of the great vessels on the aortic arch. There is bilateral arteria l flow in the subclavian arteries. There is arterial flow in the common internal and external carotid arteries bilaterally. There is arterial flow in the common internal and external carotid arteries bi laterally. There is mild plaque at the carotid artery bifurcations and less than 20% stenosis. There is arterial flow in both vertebral arteries. There is no evidence of carotid or vertebral artery aneu rysm or dissection. There is arterial flow in the vertebrobasilar artery system. There is arterial flow in the anterior m iddle and posterior cerebral arteries. There is ectasia of the distal vertebral arteries and the basi lar artery. I see no evidence of hemodynamic stenosis. There is no focal aneurysm. There is no mass e ffect. There is no evidence of neovascularity. There is normal enhancement of the venous sinuses. IMPRESSION: Atheromatous changes with ectasia of the basilar and distal vertebral arteries. No evidence of hemody namic stenosis.
[2020-11-20] MEDS ORDERED: SODIUM CHLORIDE 0.9% 1,000 ML IV ONE (17:17)
[2020-11-20] MEDS ORDERED: ASPIRIN 81 MG PO STA (17:17)
[2020-11-20] MEDS ORDERED: SODIUM CHLORIDE 0.9% 500 ML IV ONE (17:33)
[2020-11-20] MEDS ORDERED: NITROGLYCERIN SL TABS 0.4 MG TAB SUBLINGUAL PRN (17:48)
[2020-11-20] MEDS: SODIUM CHLORIDE 0.9% 1,000 ML IV SCH (18:42)
[2020-11-20] MEDS ORDERED: APIXABAN 5 MG TAB PO SCH (21:00)
[2020-11-20] MEDS ORDERED: FAMOTIDINE 20 MG TAB PO SCH (21:00)
[2020-11-20] MEDS ORDERED: METOPROLOL TARTRATE 50 MG TAB PO SCH (21:00)
[2020-11-21 00:20] VITALS: RESP 18
--- NOTE | 2020-11-21 01:10 | P.HPIM ---
History of Present Illness H&P Date: 11/20/20 Chief Complaint: Left upper extremity is 79-year-old female patient with A. 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 to pull herself and then her daughter helped her out of the car as she was walking to home she couldn't get on the 3 steps to get to the main door which is unusual for her she was also not making sense having slurred speech so her daughter decided to call EMS to bring the hospital as he was concerned regarding stroke patient symptoms improved as she got to the hospital after obtaining all imaging her symptoms completely resolved she's currently denying any weakness denies any other focal neuro deficits denies any vision changes hearing changes denies any headache chest pain trouble breathing nausea vomiting shortness of breath, denies any abdominal pain or GI bleeding Denies any history of stroke over she does have history of A. fib she is on Eliquis, she has been compliant with her medications In the ED CT of the brain and CT angiogram showed no acute pathology Blood work showed acute kidney injury and polycythemia Review of Systems Pertinent positives as noted in HPI. All other systems were reviewed and are negative Past Medical History Past Medical History: Atrial Fibrillation, Coronary Artery Disease (CAD), Heart Failure, GERD/Reflux, Hypertension Additional Past Medical History / Comment(s): ileostomy, acute colitis, some memory loss History of Any Multi-Drug Resistant Organisms: None Reported Past Surgical History: Heart Catheterization, Hysterectomy, Orthopedic Surgery Additional Past Surgical History / Comment(s): Illeostomy, carpal tunnel bilateral hands, bunion surgery on left foot. last heart cath 12/21/19 Past Anesthesia/Blood Transfusion Reactions: No Reported Reaction Past Psychological History: Anxiety, Depression Smoking Status: Never smoker Past Alcohol Use History: Occasional Past Drug Use History: None Reported - Past Family History Family Family Medical History: No Reported History Medications and Allergies Home Medications Medication Instructions Recorded Confirmed Type Losartan [Cozaar] 25 mg PO DAILY 09/13/19 11/20/20 History Aspirin 81 mg PO DAILY #30 chew 09/18/19 11/20/20 Rx Clopidogrel Bisulfate [Plavix] 75 mg PO DAILY #0 tab 07/12/20 05/30/21 Rx Alendronate Sodium [Fosamax] 70 mg PO WE 11/20/20 11/20/20 History Apixaban [Eliquis] 2.5 mg PO BID 11/20/20 11/20/20 History Carvedilol [Coreg] 6.25 mg PO BID 11/20/20 11/20/20 History Cholecalciferol [Vitamin D3 (25 25 mcg PO DAILY 11/20/20 11/20/20 History Mcg = 1000 Iu)] Famotidine 40 mg PO HS 11/20/20 11/20/20 History Fluticasone Nasal [place] [Flonase 1 spray EA NOSTRIL DAILY PRN 11/20/20 11/20/20 History Nasal [place]] Furosemide [Lasix] 20 mg PO DAILY 11/20/20 11/20/20 History Ketotifen 0.025% Ophth Soln 1 drop BOTH EYES BID PRN 11/20/20 11/20/20 History [Zaditor] Rosuvastatin [Crestor] 20 mg PO HS 11/20/20 11/20/20 History Spironolactone 25 mg PO DAILY 11/20/20 11/20/20 History Venlafaxine HCl [Effexor XR] 37.5 mg PO DAILY 11/20/20 11/20/20 History Allergies Allergy/AdvReac Type Severity Reaction Status Date / Time adhesive tape AdvReac skin Verified 11/20/20 18:00 irritation Penicillins AdvReac Rash/Hives Verified 11/20/20 18:00 Physical Exam Vitals: Vital Signs Temp Pulse Resp BP Pulse Ox 11/20/20 18:30 90 20 123/86 98 11/20/20 17:54 97.6 F 86 20 157/95 11/20/20 17:30 96 20 142/126 11/20/20 17:13 82 20 135/76 11/20/20 16:21 97.4 F L 102 H 20 152/78 97 Intake and Output 11/20/20 11/20/20 11/20/20 06:59 14:59 22:59 Other: Weight 75.387 kg Constitutional: No acute distress, conversant, pleasant Eyes: Anicteric sclerae, moist conjunctiva, Pupils equal round reactive to light ENMT: NC/AT Oropharynx clear, no erythema, or exudates Neck: Supple, FROM, no masses, or JVD No carotid bruits No thyromegaly Lungs: Clear to auscultation Clear to percussion Normal respiratory effort, no accessory muscle use Cardiovascular: Heart irregular in rate and rhythm, No murmurs, gallops, or rubs No peripheral edema Abdominal: Soft Nontender, no guarding, rebound or rigidity Abdomen moving with respiration Normoactive bowel sounds No hepatomegaly, No splenomegaly No palpable mass No abdominal wall hernia noted Skin: Normal temperature, tone, texture, turgor No induration No subcutaneous nodules No rash, lesions No ulcers Extremities: No digital cyanosis No clubbing Pedal pulses intact and symmetrical Radial pulses intact and symmetrical No calf tenderness Psychiatric: Alert and oriented to person, place and time Appropriate affect fair judgement Neuro Muscles Strength 5/5 in all 4 extremities Sensation to light touch grossly present throughout Cranial nerves II-XII grossly intact No focal sensory deficits Finger-nose, heel carlisle test both unremarkable Lymphatics: no palpable cervical or supraclavicular , or inguinal lymph nodes Results CBC & Chem 7: 11/20/20 16:25 11/20/20 16:25 Labs: Abnormal Lab Results - Last 24 Hours (Table) 11/20/20 11/20/20 11/20/20 Range/Units 16:23 16:25 16:25 Hgb 16.5 H (11.4-16.0) gm/dL Hct 48.5 H (34.0-46.0) % BUN 26 H (7-17) mg/dL Creatinine 1.17 H (0.52-1.04) mg/dL POC Glucose (mg/dL) 106 H (75-99) mg/dL AST 48 H (14-36) U/L Assessment and Plan Assessment: TIA Neurology consult Neurochecks CT angiogram the head and the brain both reviewed acute pathology Statin and aspirin Plavix Echocardiogram Acute kidney injury Gentle IV fluid hydration Hold of a toxic meds Hold losartan and diuretics A. fib on Eliquis resume home meds History of coronary artery disease GERD Hypertension Hyperlipidemia Resume home PT eval Fall precautions CODE STATUS full code DVT prophylaxis: Eliquis Discussed with: Patient, ER Anticipated length of stay > than [address]: pending clinical course A total of 75minutes was spent on the care of this complex patient more than 50% of the time was spent in counseling and care coordination.
[2020-11-21] MEDS: DOCUSATE 100 MG CAP PO SCH ×3 (05:21→17:05)
[2020-11-21] MEDS: carvediloL 6.25 MG TAB PO SCH ×2 (06:20→17:05)
[2020-11-21 08:19] LABS: Calcium 8.6 mg/dL (8.4-10.2)
[2020-11-21 08:35] LABS: Basophils % (A) 1 %; Eosinophils # (A) 0.5 k/uL (0-0.7); Eosinophils % (A) 9 %; HCT 41.4 % (34.0-46.0); Lymphocytes # (A) 1.3 k/uL (1.0-4.8); Lymphocytes % (A) 22 %; Macrocytosis Slight; Monocytes # (A) 0.5 k/uL (0-1.0); Monocytes % (A) 8 %; Neutrophils # (A) 3.3 k/uL (1.3-7.7); Neutrophils % (A) 59 %; Platelet Count 140 k/uL (150-450); RBC 4.14 m/uL (3.80-5.40); RDW 14.8 % (11.5-15.5); WBC 5.7 k/uL (3.8-10.6)
[2020-11-21 08:43] LABS: HGB 13.2 gm/dL (11.4-16.0)
[2020-11-21] MEDS ORDERED: FUROSEMIDE 40 MG TAB PO SCH (09:00)
[2020-11-21] MEDS ORDERED: LOSARTAN 25 MG TAB PO SCH (09:00)
[2020-11-21] MEDS: APIXABAN 2.5 MG TABLET PO SCH ×2 (09:51→20:00)
[2020-11-21] MEDS: CLOPIDOGREL 75 MG TAB PO SCH (09:51)
[2020-11-21] MEDS: VENLAFAXINE HCL ER 75 MG CAP PO SCH (10:42)
[2020-11-21] MEDS ORDERED: FLUTICASONE 50MCG/SPRAY NASAL 16GM EA NOSTRIL PRN (10:47)
--- NOTE | 2020-11-21 10:51 | P.PN ---
Subjective Progress Note Date: 11/21/20 Patient is doing fairly well today. She denies any weakness this morning. No headaches or acute events overnight. Objective - Vital Signs Vital signs: Vital Signs Temp 98.1 F 11/21/20 08:00 Pulse 76 11/21/20 08:00 Resp 18 11/21/20 08:00 BP 131/66 11/21/20 08:00 Pulse Ox 98 11/21/20 08:00 Intake & Output 11/20/20 11/21/20 11/21/20 18:59 06:59 18:59 Intake Total 100 Balance 100 Weight 75.387 kg 73.3 kg Intake: Intake, IV Titration 100 Amount Sodium Chloride 0.9% 1, 100 000 ml @ 100 mls/hr IV . Q10H FIDE Rx#:[id number] Other: # Voids 1 - Exam General: The patient is awake and alert, in no distress Eye: there is normal conjunctiva bilaterally. Neck: The neck is supple, there is no JVD. Cardiovascular: Normal S1-S2, no S3-S4, no murmurs. Respiratory: Lungs clear to auscultation bilaterally Gastrointestinal: Abdomen is soft, nontender Musculoskeletal: There is no pedal edema. Neurological:. Speech is normal. Skin: Skin is warm and dry - Labs CBC & Chem 7: 11/21/20 07:13 11/21/20 07:13 Labs: Abnormal Lab Results - Last 24 Hours (Table) 11/20/20 11/20/20 11/20/20 Range/Units 16:23 16:25 16:25 Hgb 16.5 H (11.4-16.0) gm/dL Hct 48.5 H (34.0-46.0) % Plt Count (150-450) k/uL Chloride (98-107) mmol/L Carbon Dioxide (22-30) mmol/L BUN 26 H (7-17) mg/dL Creatinine 1.17 H (0.52-1.04) mg/dL Glucose (74-99) mg/dL POC Glucose (mg/dL) 106 H (75-99) mg/dL AST 48 H (14-36) U/L 11/21/20 11/21/20 Range/Units 07:13 07:13 Hgb (11.4-16.0) gm/dL Hct (34.0-46.0) % Plt Count 140 L (150-450) k/uL Chloride 113 H (98-107) mmol/L Carbon Dioxide 19 L (22-30) mmol/L BUN 18 H (7-17) mg/dL Creatinine (0.52-1.04) mg/dL Glucose 72 L (74-99) mg/dL POC Glucose (mg/dL) (75-99) mg/dL AST (14-36) U/L Assessment and Plan Assessment: This is a 79-year-old female with past medical history noted below who presented to the emergency room with sudden onset left upper extremity weakness and slurred speech. Patient was evaluated in the ER and admitted to the hospital for further management of her medical problems noted below. 1. Suspected TIA, computed tomography scan of the brain and CT angiogram of the head and neck with no acute findings. Awaiting neurology evaluation. May consider MRI of the brain. Symptoms completely resolved. Patient is on dual antiplatelet therapy and Eliquis at home. I would order echocardiogram. 2. Acute kidney injury, resolved with IV fluid hydration. We'll discontinue IV fluids today. Resume home dose of diuretics. Recheck lab work in the morning. 3. Chronic atrial fibrillation on anticoagulation with Eliquis 4. Coronary artery disease with prior stent placement on dual antiplatelet therapy 5. Chronic diastolic heart failure with no evidence of exacerbation Today, I reviewed her medication list and lab work results. PT/OT/speech pathology consulted. We will continue supportive care and teletypesetter monitor. Repeat lab work in the morning. Anticipate discharge home tomorrow if stable.
[2020-11-21 12:19] LABS: Chol/HDL Ratio 3.11; LDL Cholesterol,Calculated 59.2 mg/dL (0.0-131.0); VLDL Calculation 16.8 mg/dL (5.00-40.00)
--- NOTE | 2020-11-21 13:47 | P.CNNES ---
History of Present Illness Consult date: 11/21/20 Requesting physician: Kehinde Eddy Reason for Consult: Stroke versus TIA History of Present Illness: Patient is a 79-year-old right-handed female with history of atrial fibrillation, on long-term anticoagulation, came to the hospital yesterday at 4:18 PM presented with acute onset of left arm numbness and weakness and some slurred speech As per EMS flow sheet, it was reported, they were at the cemetry-patient had an episode of emesis. They immediately returned home. She wanted to get out of the car, and could not grab the handle above the window and the hand keep on slipping down. Her daughter helped her up and she came to the patio, was having difficulty getting up 3 steps to her house and was hanging onto the handrail. She came to the patio and sat down. She felt weird. Her daughter notices that there was some slurred speech. She was not acting right, therefore she told her daughter to call her son and also the ambulance, she was feeling as if she may be having a stroke. There was no facial droop noted. When EMS arrived, patient was alert and oriented 4 and was noted to have left arm and leg weakness, left facial droop and slurred speech. Her blood pressure the scene was 147/84, pulse rate 55, respiration 20 saturation 89% EKG shows atrial fibrillation. All of these symptoms lasted for about 10 minutes. Vital signs on arrival blood pressure 152/78, pulse rate 102, temperature 97.4. CT head showed cerebral atrophy with no acute intracranial process. CTA of head and neck showed atheromatous changes with ectasia of the basilar and distal vertebral arteries. No evidence of hemodynamic stenosis. Chest x-ray showed no active cardiopulmonary disease. There is clearing of the heart failure and pleural fluid compared to old exam. EKG shows atrial flutter with variable AV block. Septal infarct, age undetermined. Patient's blood test shows normal WBC hemoglobin 16.5, platelets 176. PT/PTT normal, electrolytes normal. BUN 26, creatinine 1.17. AST 48, ALT 33, troponin negative. TSH normal. Faith virus PCR negative. Her recent vitamin B12 was 1080 on 09/14/2019 with folate 24 and LDL 69.6. Last hemoglobin A1c 6.0 on 06/29/2019. Patient does take aspirin 81 mg, Plavix 75 mg, losartan 25 mg, Crestor 20 mg, Pepcid 40 mg vitamin D, spironolactone, Effexor XR 37.5 mg, Lasix 20 mg, carvedilol 6.25 milligram. Eliquis 2.5 mg twice a day. Patient has history of hypertension, diabetes that is well controlled. Hyperlipidemia that is controlled. She never smoked, does not drink. Patient states that she has had similar spells in the past as well. Sometimes she would have difficulty holding onto a glass with her left hand or sometimes difficulty with grabbing onto the handle above the window. So this left hand episode is not new has happened before as well. I asked her son about the slurred speech if it has ever happened before. Patient's son states that about a year ago she was very sick, in and out of the hospital and she had similar speech impediment at that time as well. Uncertain if all the symptoms as mentioned above are TIA or nonischemic in nature. Patient also states that her left leg was feeling weak when EMS arrived, because she had many blankets on her legs and the site felt weak. However when those numbers were taken off, her left leg was intact to normal and was able to lift it up without difficulty. Review of Systems Denies any chest pain shortness of breath wheezing or cough. Denies any double vision or loss of vision, hoarseness, sore throat, dysphagia. Patient does have mild hearing loss. Denies any symptoms of carpal tunnel syndrome. At present patient feels fine. Patient had some stomach upset, vomiting yesterday. No diarrhea. No fever or chills. Her hands and feet get cold Past Medical History Past Medical History: Atrial Fibrillation, Coronary Artery Disease (CAD), Heart Failure, GERD/Reflux, Hypertension Additional Past Medical History / Comment(s): ileostomy, acute colitis, some memory loss History of Any Multi-Drug Resistant Organisms: None Reported Past Surgical History: Heart Catheterization, Hysterectomy, Orthopedic Surgery Additional Past Surgical History / Comment(s): Illeostomy, carpal tunnel bilateral hands, bunion surgery on left foot. last heart cath 12/21/19 Past Anesthesia/Blood Transfusion Reactions: No Reported Reaction Past Psychological History: Anxiety, Depression Smoking Status: Never smoker Past Alcohol Use History: Occasional Past Drug Use History: None Reported - Past Family History Family Family Medical History: No Reported History Medications and Allergies Home Medications Medication Instructions Recorded Confirmed Type Losartan [Cozaar] 25 mg PO DAILY 09/13/19 11/20/20 History Aspirin 81 mg PO DAILY #30 chew 09/18/19 11/20/20 Rx Clopidogrel Bisulfate [Plavix] 75 mg PO DAILY #0 tab 01/03/20 11/20/20 Rx Alendronate Sodium [Fosamax] 70 mg PO WE 11/20/20 11/20/20 History Apixaban [Eliquis] 2.5 mg PO BID 11/20/20 11/20/20 History Carvedilol [Coreg] 6.25 mg PO BID 11/20/20 11/20/20 History Cholecalciferol [Vitamin D3 (25 25 mcg PO DAILY 11/20/20 11/20/20 History Mcg = 1000 Iu)] Famotidine 40 mg PO HS 11/20/20 11/20/20 History Fluticasone Nasal [place] [Flonase 1 spray EA NOSTRIL DAILY PRN 11/20/20 11/20/20 History Nasal [place]] Furosemide [Lasix] 20 mg PO DAILY 11/20/20 11/20/20 History Ketotifen 0.025% Ophth Soln 1 drop BOTH EYES BID PRN 11/20/20 11/20/20 History [Zaditor] Rosuvastatin [Crestor] 20 mg PO HS 11/20/20 11/20/20 History Spironolactone 25 mg PO DAILY 11/20/20 11/20/20 History Venlafaxine HCl [Effexor XR] 37.5 mg PO DAILY 11/20/20 11/20/20 History Allergies Allergy/AdvReac Type Severity Reaction Status Date / Time adhesive tape AdvReac skin Verified 11/20/20 18:00 irritation Penicillins AdvReac Rash/Hives Verified 11/20/20 18:00 Physical Examination - Vital Signs Vital Signs: Vital Signs Temp Pulse Pulse Resp BP BP Pulse Ox 11/21/20 08:00 98.1 F 76 18 131/66 98 11/21/20 04:00 77 18 111/63 99 11/21/20 02:00 84 18 11/20/20 22:05 97.3 F L 84 18 131/79 98 11/20/20 18:30 90 20 123/86 98 11/20/20 17:54 97.6 F 86 20 157/95 11/20/20 17:30 96 20 142/126 11/20/20 17:13 82 20 135/76 11/20/20 16:21 97.4 F L 102 H 20 152/78 97 Intake and Output 11/20/20 11/21/20 11/21/20 22:59 06:59 14:59 Intake Total 100 Balance 100 Intake: Intake, IV Titration 100 Amount Sodium Chloride 0.9% 1, 100 000 ml @ 100 mls/hr IV . Q10H FIDE Rx#:[id number] Other: # Voids 1 1 Weight 75.387 kg 73.3 kg Patient is an elderly female, very pleasant, in no acute distress. Patient is alert awake oriented to time place and person. Speech and language functions are normal. Attention, concentration and fund of knowledge is adequate. On cranial examination, pupils are equal, round and reacting to light, visual carlton are full on confrontation with no neglect on double simultaneous stimulation, extraocular muscles are intact with no nystagmus. Face is symmetric, tongue protrudes to the midline. Palatal elevation and sensation normal, hearing and shoulder shrug normal, facial sensation normal. Shoulder shrug normal. On muscle strength testing, there is no pronator drift and the strength is norm al in arms and legs distally and proximally. Deep tendon reflexes are 2+ in the arms and legs and plantars downgoing Sensory to touch is equal with no neglect. Cerebellar function showed no ataxia for [id number] testing. No dysdiadochokinesia. Tone and bulk of muscles normal. Gait normal. On general examination, there is no carotid bruit or murmur, S1-S2 audible. Abdomen is soft nontender. Chest is clear. Peripheral pulses are present. No edema. Results - Laboratory Findings CBC and BMP: 11/21/20 07:13 11/21/20 07:13 Abnormal Lab Findings: Abnormal Labs 11/20/20 11/20/20 11/20/20 16:23 16:25 16:25 Hgb 16.5 H Hct 48.5 H Plt Count Chloride Carbon Dioxide BUN 26 H Creatinine 1.17 H Glucose POC Glucose (mg/dL) 106 H AST 48 H 11/21/20 11/21/20 07:13 07:13 Hgb Hct Plt Count 140 L Chloride 113 H Carbon Dioxide 19 L BUN 18 H Creatinine Glucose 72 L POC Glucose (mg/dL) AST Assessment and Plan Assessment: * Transient episode of possible left arm weakness, slurred speech without any loss or impairment of consciousness. Symptoms lasted for 10 minutes. Patient has atrial fibrillation, therefore TIA is in the differential. However patient is already on anticoagulation with Apixaban, and also on aspirin and Plavix regimen. Therefore would be unusual to have TIA with medications on board and patient being fully compliant. There was no alteration or impairment of consciousness, therefore seizure appears very unlikely. Appare ntly patient has had similar symptoms in the past, therefore uncertain if it represents TIA or some other nonischemic spells. * Hypertension * Diabetes, well controlled * Hyperlipidemia, well controlled * Atrial fibrillation on anticoagulation. * Coronary artery disease, history of cardiac stenting * CHF. Plan: * Patient's examination is back to normal. Her symptoms were very transient only lasting for 10 minutes. * Patient had a normal CTA of head and neck. Only showed atherosclerotic changes and ectasia of the basilar and distal vertebral arteries. * Continue anticoagulation with Eliquis. Patient also on DAP for her cardiac stenting. She is already on maximal medical management for stroke prevention * Awaiting 2-D echo. * We will check hemoglobin A1c. * MRI has a very low yield and will not change the management. * Lipid panels are well controlled. * We will follow.
[2020-11-21] MEDS: SODIUM CHLORIDE 0.9% 1,000 ML IV SCH (18:05)
[2020-11-21] MEDS ORDERED: ATORVASTATIN 20 MG TAB PO SCH (21:00)
[2020-11-21] MEDS ORDERED: FAMOTIDINE 20 MG TAB PO SCH (21:00)
[2020-11-21 21:42] VITALS: TEMP 97.9
[2020-11-21 23:14] LABS: Hemoglobin A1C 6.7 % (4.0-6.0)
[2020-11-22] MEDS: DOCUSATE 100 MG CAP PO SCH ×3 (04:37→09:34)
[2020-11-22] MEDS: carvediloL 6.25 MG TAB PO SCH (06:23)
--- NOTE | 2020-11-22 08:04 | P.DS ---
Providers Date of admission: 11/20/20 17:46 Expected date of discharge: 11/22/20 Attending physician: Andreas Walker MD Consults: 11/20/20 17:46 Consult Physician Routine Consulting Provider: Frank Terry Consult Reason/Comments: Acute ischemic stroke versus TIA. Do you want consulting provider notified?: Yes Primary care physician: Fei [facility] Hospital Course: This is a 79-year-old female with past medical history noted below who presented to the emergency room with sudden onset left upper extremity weakness and slurred speech. Her symptoms lasted for approximately 10 minutes and resolved prior to presentation. Patient was evaluated in the ER and admitted to the hospital for further management of her medical problems noted below. 1. Suspected TIA, computed tomography scan of the brain and CT angiogram of the head and neck with no acute findings. Symptoms completely resolved. Patient was seen and evaluated by neurology Patient is on dual antiplatelet therapy and Eliquis at home. We will defer on ordering an MRI at this time as it won't change the management in this patient 2. Acute kidney injury, resolved with IV fluid hydration. 3. Chronic atrial fibrillation on anticoagulation with Eliquis 4. Coronary artery disease with prior stent placement on dual antiplatelet therapy 5. Chronic diastolic heart failure with no evidence of exacerbation Patient will be discharged home in a stable condition. For further details about this hospitalization please refer to the electronic chart. Patient Condition at Discharge: Stable Plan - Discharge Summary Discharge Rx Participant: No New Discharge Prescriptions: Continue Losartan [Cozaar] 25 mg PO DAILY Aspirin 81 mg PO DAILY #30 chew Clopidogrel Bisulfate [Plavix] 75 mg PO DAILY #0 tab Ketotifen 0.025% Ophth Soln [Zaditor] 1 drop BOTH EYES BID PRN PRN Reason: Eye Irritation Fluticasone Nasal [place] [Flonase Nasal [place]] 1 spray EA NOSTRIL DAILY PRN PRN Reason: Allergy Symptoms Alendronate Sodium [Fosamax] 70 mg PO WE Rosuvastatin [Crestor] 20 mg PO HS Famotidine 40 mg PO HS Cholecalciferol [Vitamin D3 (25 Mcg = 1000 Iu)] 25 mcg PO DAILY Spironolactone 25 mg PO DAILY Venlafaxine HCl [Effexor XR] 37.5 mg PO DAILY Furosemide [Lasix] 20 mg PO DAILY Carvedilol [Coreg] 6.25 mg PO BID Apixaban [Eliquis] 2.5 mg PO BID Discharge Medication List Losartan [Cozaar] 25 mg PO DAILY 09/13/19 [History] Aspirin 81 mg PO DAILY #30 chew 09/18/19 [Rx] Clopidogrel Bisulfate [Plavix] 75 mg PO DAILY #0 tab 01/03/20 [Rx] Alendronate Sodium [Fosamax] 70 mg PO WE 11/20/20 [History] Apixaban [Eliquis] 2.5 mg PO BID 11/20/20 [History] Carvedilol [Coreg] 6.25 mg PO BID 11/20/20 [History] Cholecalciferol [Vitamin D3 (25 Mcg = 1000 Iu)] 25 mcg PO DAILY 11/20/20 [History] Famotidine 40 mg PO HS 11/20/20 [History] Fluticasone Nasal [place] [Flonase Nasal [place]] 1 spray EA NOSTRIL DAILY PRN 11/20/20 [History] Furosemide [Lasix] 20 mg PO DAILY 11/20/20 [History] Ketotifen 0.025% Ophth Soln [Zaditor] 1 drop BOTH EYES BID PRN 11/20/20 [History] Rosuvastatin [Crestor] 20 mg PO HS 11/20/20 [History] Spironolactone 25 mg PO DAILY 11/20/20 [History] Venlafaxine HCl [Effexor XR] 37.5 mg PO DAILY 11/20/20 [History] Follow up Appointment(s)/Referral(s): Fei Mcpherson MD [Primary Care Provider] - 1-2 days Discharge Disposition: HOME SELF-CARE
[2020-11-22 08:31] LABS: Basophils % (A) 1 %; Eosinophils # (A) 0.6 k/uL (0-0.7); Eosinophils % (A) 9 %; HCT 38.8 % (34.0-46.0); HGB 13.1 gm/dL (11.4-16.0); Lymphocytes # (A) 1.1 k/uL (1.0-4.8); Lymphocytes % (A) 18 %; MCH 33.4 pg (25.0-35.0); MCHC 33.7 g/dL (31.0-37.0); MCV 99.1 fL (80.0-100.0); Mean Platelet Volume 9.7; Monocytes # (A) 0.5 k/uL (0-1.0); Monocytes % (A) 8 %; Neutrophils % (A) 64 %; Platelet Count 138 k/uL (150-450); RBC 3.92 m/uL (3.80-5.40); RDW 13.9 % (11.5-15.5); WBC 6.2 k/uL (3.8-10.6)
[2020-11-22 08:49] LABS: Calcium 8.8 mg/dL (8.4-10.2); Magnesium 1.8 mg/dL (1.6-2.3); Potassium 4.1 mmol/L (3.5-5.1)
[2020-11-22] MEDS ORDERED: SPIRONOLACTONE 25 MG TAB PO SCH (09:00)
[2020-11-22] MEDS ORDERED: CHOLECALCIFEROL 25 MCG (1000 IU) TABLET PO SCH (09:00)
[2020-11-22] MEDS ORDERED: ASPIRIN 325 MG TAB PO SCH (09:00)
[2020-11-22] MEDS ORDERED: FUROSEMIDE 20 MG TAB PO SCH (09:00)
[2020-11-22] MEDS ORDERED: ASPIRIN 81 MG PO SCH (09:00)
[2020-11-22] MEDS: APIXABAN 2.5 MG TABLET PO SCH (09:31)
[2020-11-22] MEDS: CLOPIDOGREL 75 MG TAB PO SCH (09:31)
[2020-11-22] MEDS: VENLAFAXINE HCL ER 75 MG CAP PO SCH (09:32)
[2020-11-22 09:51] VITALS: BP 112/71; PULSE 77
== END 2020-11-22 11:19 | disposition home or self-care (01) | DRG 69 ==
LOC: SUPCPDRO 16:18 → EC 16:18 → 3SCARD 17:46
PROVIDERS: ADMIT Internal Medicine; ATTEND Internal Medicine
DX: G45.9 Transient cerebral ischemic attack, unspecified (principal); I48.20 Chronic atrial fibrillation, unspecified; I50.32 Chronic diastolic (congestive) heart failure; N17.9 Acute kidney failure, unspecified; Z79.01 Long term (current) use of anticoagulants; K21.9 Gastro-esophageal reflux disease without esophagitis; I25.10 Atherosclerotic heart disease of native coronary artery without angina pectoris; I11.0 Hypertensive heart disease with heart failure; Z95.5 Presence of coronary angioplasty implant and graft; Z79.82 Long term (current) use of aspirin; E11.9 Type 2 diabetes mellitus without complications; E78.5 Hyperlipidemia, unspecified; Z79.02 Long term (current) use of antithrombotics/antiplatelets; Z79.83 Long term (current) use of bisphosphonates; Z79.899 Other long term (current) drug therapy; Z20.822 Contact with and (suspected) exposure to COVID-19
CPT/HCPCS: 36415; 70450; 70496; 70498; 71046; 80048; 80053; 80061; 83036; 83735; 84443; 84484; 85025; 85610; 85730; 87635; 93005; 94760; 99285

== ENCOUNTER 2021-06-21 13:36 | Observation (INO) | payer MEDICARE ==
[2021-06-21 13:44] LABS: Glucose,Whole Blood 135 mg/dL (75-99)
[2021-06-21 14:01] LABS: Basophils # (A) 0.1 k/uL (0-0.2); Basophils % (A) 1 %; Eosinophils # (A) 0.9 k/uL (0-0.7); Eosinophils % (A) 9 %; HCT 48.2 % (34.0-46.0); HGB 15.6 gm/dL (11.4-16.0); Lymphocytes # (A) 1.8 k/uL (1.0-4.8); Lymphocytes % (A) 18 %; MCH 33.6 pg (25.0-35.0); MCHC 32.5 g/dL (31.0-37.0); MCV 103.5 fL (80.0-100.0); Macrocytosis Slight; Mean Platelet Volume 9.3; Monocytes # (A) 0.7 k/uL (0-1.0); Monocytes % (A) 7 %; Neutrophils # (A) 6.3 k/uL (1.3-7.7); Neutrophils % (A) 63 %; Platelet Count 226 k/uL (150-450); RBC 4.65 m/uL (3.80-5.40); RDW 12.6 % (11.5-15.5)
[2021-06-21 14:20] LABS: INR 1.1 (<1.2); Partial Thromboplastin Time 22.6 sec (22.0-30.0); Prothrombin Time 11.4 sec (9.0-12.0)
[2021-06-21 14:39] LABS: Albumin 4.1 g/dL (3.5-5.0); Calcium 9.7 mg/dL (8.4-10.2); Magnesium 2.1 mg/dL (1.6-2.3); Potassium 4.8 mmol/L (3.5-5.1); Total Bilirubin 0.7 mg/dL (0.2-1.3); Total Protein 7.4 g/dL (6.3-8.2)
--- NOTE | 2021-06-21 14:44 | ED ---
General Adult HPI - General Chief complaint: Syncope Stated complaint: Poss Stroke Time Seen by Provider: 06/21/21 13:40 Source: patient, EMS Mode of arrival: EMS Limitations: physical limitation - History of Present Illness Initial comments: 80-year-old female past medical history of A. fib, TIAs, hypertension presents emergency Department with possible syncope and strokelike symptoms. EMS provided the history. States that she was with her daughter. She attempted to ambulate to the bathroom and requested help from her daughter as she "did not fe el right". Daughter was able to sit her down on the commode. States that her eyes rolled back in her head and she lost consciousness for a few seconds. She came to she had notable left upper extremity weakness and left-sided facial droop. She began dry heaving. Daughter called the patient's son. He arrives to the house and called EMS. EMS was able to witness the left-sided deficits. Upon arrival to the hospital the patient had complete resolution in her symptoms. She is on [place] for her A. fib. She denies any chest pain or shortness of breath. No headaches or visual changes. No recent head trauma. Denies fevers. No other alleviating, precipitating or modifying factors - Related Data Home Medications Medication Instructions Recorded Confirmed Losartan [Cozaar] 25 mg PO DAILY 09/13/19 06/21/21 Alendronate Sodium [Fosamax] 70 mg PO TH 11/20/20 06/21/21 Apixaban [Eliquis] 2.5 mg PO BID 11/20/20 06/21/21 Carvedilol [Coreg] 6.25 mg PO BID 11/20/20 06/21/21 Cholecalciferol [Vitamin D3 (25 25 mcg PO HS 11/20/20 06/21/21 Mcg = 1000 Iu)] Famotidine 40 mg PO HS 11/20/20 06/21/21 Fluticasone Nasal [place] [Flonase 1 spray EA NOSTRIL DAILY PRN 11/20/20 06/21/21 Nasal [place]] Furosemide [Lasix] 20 mg PO DAILY 11/20/20 06/21/21 Rosuvastatin [Crestor] 20 mg PO HS 11/20/20 06/21/21 Spironolactone 25 mg PO DAILY 11/20/20 06/21/21 Venlafaxine HCl ER [Effexor XR] 75 mg PO DAILY 06/21/21 06/21/21 Previous Rx's Medication Instructions Recorded Aspirin 81 mg PO DAILY #30 chew 09/18/19 Clopidogrel Bisulfate [Plavix] 75 mg PO DAILY #0 tab 01/03/20 Cephalexin [Keflex] 500 mg PO BID 3 Days #6 cap 06/23/21 metFORMIN HCL [Glucophage] 500 mg PO BID 30 Days #60 tab 06/23/21 Allergies Allergy/AdvReac Type Severity Reaction Status Date / Time adhesive tape AdvReac skin Verified 06/21/21 17:59 irritation Penicillins AdvReac Rash/Hives Verified 06/21/21 17:59 Review of Systems ROS Statement: Those systems with pertinent positive or pertinent negative responses have been documented in the HPI. ROS Other: All systems not noted in ROS Statement are negative. Past Medical History Past Medical History: Atrial Fibrillation, Coronary Artery Disease (CAD), Heart Failure, GERD/Reflux, Hypertension Additional Past Medical History / Comment(s): ileostomy, acute colitis, some memory loss History of Any Multi-Drug Resistant Organisms: None Reported Past Surgical History: Heart Catheterization, Hysterectomy, Orthopedic Surgery Additional Past Surgical History / Comment(s): Illeostomy, carpal tunnel bilateral hands, bunion surgery on left foot. last heart cath 12/21/19 Past Anesthesia/Blood Transfusion Reactions: No Reported Reaction Past Psychological History: Anxiety, Depression Smoking Status: Never smoker Past Alcohol Use History: Occasional Past Drug Use History: None Reported - Past Family History Family Family Medical History: No Reported History General Exam Limitations: physical limitation General appearance: alert, in no apparent distress Head exam: Present: atraumatic, normocephalic, normal inspection Eye exam: Present: normal appearance, PERRL, EOMI. Absent: scleral icterus, conjunctival injection, periorbital swelling ENT exam: Present: normal exam, mucous membranes moist Neck exam: Present: normal inspection. Absent: tenderness, meningismus, lymphadenopathy Respiratory exam: Present: normal lung sounds bilaterally. Absent: respiratory distress, wheezes, rales, rhonchi, stridor Cardiovascular Exam: Present: regular rate, irregular rhythm, normal heart sounds. Absent: systolic murmur, diastolic murmur, rubs, gallop, clicks GI/Abdominal exam: Present: soft, normal bowel sounds. Absent: distended, tenderness, guarding, rebound, rigid Extremities exam: Present: normal inspection, full ROM, normal capillary refill. Absent: tenderness, pedal edema, joint swelling, calf tenderness Back exam: Present: normal inspection Neurological exam: Present: alert, oriented X3, CN II-XII intact Psychiatric exam: Present: normal affect, normal mood Skin exam: Present: warm, dry, intact, normal color. Absent: rash Course Vital Signs 06/21/21 06/21/21 06/21/21 13:40 13:47 14:00 Temperature 97.6 F Pulse Rate 60 87 Respiratory 18 Rate Blood Pressure 117/89 123/104 117/89 O2 Sat by Pulse 100 98 99 Oximetry 06/21/21 06/21/21 06/21/21 14:30 15:00 16:57 Temperature Pulse Rate 92 88 95 Respiratory 18 Rate Blood Pressure 126/93 121/92 138/72 O2 Sat by Pulse 99 98 97 Oximetry 06/21/21 06/21/21 06/21/21 18:26 20:00 22:40 Temperature Pulse Rate 84 95 104 H Respiratory 18 18 18 Rate Blood Pressure 140/93 134/100 111/76 O2 Sat by Pulse 97 97 94 L Oximetry EKG Findings - EKG Comments: EKG Findings:: EKG demonstrates a flutter with a rate of 97. QRS 72. QTC of 454. No acute ST segment elevations Medical Decision Making - Medical Decision Making Upon arrival patient was placed into room 2. NIH is assessed and is 0. Laboratory studies are conducted. Patient does over for a CT of her brain. CT angiography is not performed as the patient does have worsening kidney function comparative to last lab draws. Radiology is not recommending contrast injection. Laboratory data reviewed demonstrated a creatinine of 1.27. CT demonstrates no acute process. Patient observed in the emergency department for 3 hours without return of her strokelike symptoms. I did recommend admission for neurology consultation which the patient did agree to. Spoke with Dr. Dutta who agreed to admit the patient. Patient remained in stable condition awaiting a bed - Lab Data Result diagrams: 06/23/21 08:25 06/23/21 08:25 Lab Results 06/21/21 06/21/21 06/21/21 Range/Units 13:43 13:51 13:51 WBC 10.0 (3.8-10.6) k/uL RBC 4.65 (3.80-5.40) m/uL Hgb 15.6 (11.4-16.0) gm/dL Hct 48.2 H (34.0-46.0) % MCV 103.5 H (80.0-100.0) fL MCH 33.6 (25.0-35.0) pg MCHC 32.5 (31.0-37.0) g/dL RDW 12.6 (11.5-15.5) % Plt Count 226 (150-450) k/uL MPV 9.3 Neutrophils % 63 % Lymphocytes % 18 % Monocytes % 7 % Eosinophils % 9 % Basophils % 1 % Neutrophils # 6.3 (1.3-7.7) k/uL Lymphocytes # 1.8 (1.0-4.8) k/uL Monocytes # 0.7 (0-1.0) k/uL Eosinophils # 0.9 H (0-0.7) k/uL Basophils # 0.1 (0-0.2) k/uL Macrocytosis Slight PT 11.4 (9.0-12.0) sec INR 1.1 (<1.2) APTT 22.6 (22.0-30.0) sec Sodium (137-145) mmol/L Potassium (3.5-5.1) mmol/L Chloride (98-107) mmol/L Carbon Dioxide (22-30) mmol/L Anion Gap mmol/L BUN (7-17) mg/dL Creatinine (0.52-1.04) mg/dL Est GFR (CKD-EPI)AfAm (>60 ml/min/1.73 sqM) Est GFR (CKD-EPI)NonAf (>60 ml/min/1.73 sqM) Glucose (74-99) mg/dL POC Glucose (mg/dL) 135 H (75-99) mg/dL POC Glu Expeller Operator ID Willing, Nathalia Calcium (8.4-10.2) mg/dL Magnesium (1.6-2.3) mg/dL Total Bilirubin (0.2-1.3) mg/dL AST (14-36) U/L ALT (4-34) U/L Alkaline Phosphatase (38-126) U/L Troponin I (0.000-0.034) ng/mL Total Protein (6.3-8.2) g/dL Albumin (3.5-5.0) g/dL 06/21/21 06/21/21 Range/Units 13:51 13:51 WBC (3.8-10.6) k/uL RBC (3.80-5.40) m/uL Hgb (11.4-16.0) gm/dL Hct (34.0-46.0) % MCV (80.0-100.0) fL MCH (25.0-35.0) pg MCHC (31.0-37.0) g/dL RDW (11.5-15.5) % Plt Count (150-450) k/uL MPV Neutrophils % % Lymphocytes % % Monocytes % % Eosinophils % % Basophils % % Neutrophils # (1.3-7.7) k/uL Lymphocytes # (1.0-4.8) k/uL Monocytes # (0-1.0) k/uL Eosinophils # (0-0.7) k/uL Basophils # (0-0.2) k/uL Macrocytosis PT (9.0-12.0) sec INR (<1.2) APTT (22.0-30.0) sec Sodium 139 (137-145) mmol/L Potassium 4.8 (3.5-5.1) mmol/L Chloride 102 (98-107) mmol/L Carbon Dioxide 25 (22-30) mmol/L Anion Gap 12 mmol/L BUN 32 H (7-17) mg/dL Creatinine 1.27 H (0.52-1.04) mg/dL Est GFR (CKD-EPI)AfAm 46 (>60 ml/min/1.73 sqM) Est GFR (CKD-EPI)NonAf 40 (>60 ml/min/1.73 sqM) Glucose 150 H (74-99) mg/dL POC Glucose (mg/dL) (75-99) mg/dL POC Glu Expeller Operator ID Calcium 9.7 (8.4-10.2) mg/dL Magnesium 2.1 (1.6-2.3) mg/dL Total Bilirubin 0.7 (0.2-1.3) mg/dL AST 57 H (14-36) U/L ALT 52 H (4-34) U/L Alkaline Phosphatase 111 (38-126) U/L Troponin I <0.012 (0.000-0.034) ng/mL Total Protein 7.4 (6.3-8.2) g/dL Albumin 4.1 (3.5-5.0) g/dL Disposition Clinical Impression: TIA (transient ischemic attack), Syncope, Afib Disposition: ADMITTED IP TO THIS [facility] Condition: Stable Is patient prescribed a controlled substance at d/c from ED?: No Decision to Admit Reason: Admit from EC Decision Date: 06/21/21 Decision Time: 16:31
--- NOTE | 2021-06-21 15:14 | CT ---
EXAMINATION TYPE: CT brain wo con DATE OF EXAM: 06/21/2021 COMPARISON: 11/20/2020 HISTORY: Patient unable to get up after falling. CT DLP: 1141.[address] of the brain was performed. The ventricles, basal cisterns and sulci overlying the cerebral convexities demonstrate mild enlargem ent. There is no evidence for intracranial hemorrhage or sulcal effacement. There is decreased attenuation about the periventricular white matter and deep white matter of both c erebral hemispheres, compatible with chronic small vessel ischemia. Differential diagnosis does inclu de demyelination. No mass effects are seen.No midline shift. Osseous calvarium is intact. If symptoms persist consider MRI. IMPRESSION: 1. Age related atrophic and chronic small vessel ischemic change without acute intracranial process s een at this time.
--- NOTE | 2021-06-21 15:35 | XR ---
EXAMINATION TYPE: XR chest 2V DATE OF EXAM: 06/21/2021 COMPARISON: 11/20/2020 HISTORY: Shortness of breath TECHNIQUE: Frontal and lateral views of the chest are obtained. FINDINGS: Scattered senescent parenchymal changes noted. Hyperinflation compatible with COPD. No evidence for infiltrate. No evidence for atelectasis. Heart size is stable. Mediastinal structures are stable and grossly unremarkable. No evidence for hilar prominence. Degenerative changes dorsal spine. IMPRESSION: 1. No evidence for acute pulmonary disease.
[2021-06-21] MEDS ORDERED: NALOXONE 0.4 MG/ML 1 ML VIAL IV PRN (16:31)
[2021-06-21] MEDS ORDERED: ATORVASTATIN 40 MG TAB PO STA (16:38)
[2021-06-21] MEDS ORDERED: ASPIRIN 325 MG TAB PO STA (16:38)
[2021-06-21] MEDS ORDERED: FLUTICASONE 50MCG/SPRAY NASAL 16GM EA NOSTRIL PRN (18:28)
--- NOTE | 2021-06-21 19:03 | P.HPIM ---
<You Carreon - Last Filed: 06/21/21 18:30> History of Present Illness H&P Date: 06/21/21 History of Presenting Illness: Patient is a very pleasant 80-year-old female with a past medical history of CAD with multiple stents on Plavix and aspirin, chronic systolic heart failure with previously known EF of 20-25%, chronic persistent atrial fibrillation on anticoagulation with Eliquis, hypertension, hyperlipidemia, TIAs, and ulcerative colitis resulting in permanent colostomy. Patient presented to the emergency department with a chief complaint of slurred/garbled speech, left-sided facial drooping, and left arm numbness and weakness. Patient's son at bedside reports that his mother lives at home with his sister and states that their mom was complaining of not feeling right and she assisted her walking into the bathroom. He reports his mother walked normally with the walker into the restroom and sat on the commode and again stated she did not feel well and suddenly went unresponsive for less than 60 seconds and upon awakening had significant left- sided facial droop, slurred/garbled speech, and was unable to use her left arm. Patient's son reports his sister called him immediately as their mom has had these episodes previously in the past, however they typically only last for a few moments and resolve spontaneously on their own. Patient's son reports he came straight over the house and found his mom to continue to have significant left-sided facial droop, slurred/garbled speech and complete left arm flaccidity so they called EMS. Patient's left-sided deficits and slurred/garbled speech resolved while in route to the ER. Patient's son reports these symptoms lasted approximately one hour possibly slightly longer which is much different from previous TIAs she has had in the past. They deny any recent injuries or illnesses. Upon arrival to the emergency department all symptoms had resolved initial NIH 0. Patient underwent full workup in the ED. CBC was unremarkable, BMP revealing acute kidney injury with BUN of 32, creatinine 1.27, and GFR 40 with baseline creatinine of 0.77. Patient also had slight elevation of AST and ALT with AST of 57 and ALT of 52. Troponin normal findings at less than 0.012. CT head revealing age-related atrophic and chronic small vessel ischemic changes and negative for acute intercranial process. Patient was admitted under our services to undergo further neurological workup for TIA and neurology has been consulted. Patient seen and fully evaluated at the bedside reports "I just did not feel right." Patient is somewhat of a poor historian and does not recall difficulties with her speech but did report that her left arm felt funny and she was not able to move it. Patient reports chronic double vision of right eye if she does not wear her glasses and reports chronic shortness of breath with exertion but denies having any changes in these chronic conditions. Patient and patient's son at bedside reports patient has taking her medication as prescribed and has not missed any doses of her aspirin, Plavix, or Eliquis. Patient denies having a headache, lightheadedness, dizziness, chest pain, palpitations, shortness of breath, abdominal pain, nausea, or experiencing any numbness/tingling/weakness in her extremities at this time. Review of systems: Pertinent positives and negatives as discussed in HPI, a complete review of systems was performed and all other systems are negative. Physical exam: Vital signs reviewed and stable. General: Nontoxic, no distress and appears stated age. Derm: Skin warm and dry, normal coloration for ethnicity. Head: Atraumatic, normocephalic and symmetric. Eyes: EOMs intact, no lid lag, and anicteric sclera (patient keeps right eye closed when talking to you because she reports forgetting her glasses at home and states that she does not keep right eye closed she will have double vision, denies this being a new finding states chronic and unchanged) Mouth: no lip lesions, mucus membranes moist Cardiovascular: regular rate and rhythm with normal S1S2, no murmur, positive posterior tibial pulses bilaterally, and cap refill < 2 seconds. Lungs: Respirations even, regular, and unlabored on room air. Lungs CTA bilaterally, no rhonchi, no rales, no wheezing, and no accessory muscle usage. Abdominal: soft, nontender to palpation, no guarding, no appreciable orga nomegaly Ext: ROM intact. No gross muscle atrophy, no edema, no contractures Neuro: Speech clear, face symmetrical and CN II-XII grossly intact with no noted focal neuro deficits. Normal finger to nose. Negative arm drift. Normal [id number]. 5 out of 5 strength upper extremities and 5 out of 5 strength to lower extremities. Sensation equal and intact. Psych: Alert and oriented to person, place and situation (somewhat of a poor historian, however son at bedside reports this is patient's baseline) Appropriate and pleasant affect. Assessment and Plan of Care: TIA Garbled/slurred speech, resolved after 1 hour Left upper extremity weakness and numbness, resolved after 1 hour -CT had revealed age-related atrophic and chronic small vessel ischemic changes and negative for acute intercranial process. -Neurology consulted. -Echocardiogram to be completed. -Neuro checks every 4 hours -Consult PT/OT -Telemetry monitoring -Continue daily dual antiplatelet therapy with Plavix and aspirin -Continue atorvastatin nightly. -Lipid profile and hemoglobin A1c with a.m. labs -MRI brain to be completed Acute kidney injury -BUN of 32, creatinine 1.27, and GFR 40 with baseline creatinine of 0.77. -Likely secondary to dehydration resulting from daily diuretic use. -Caution with IV fluids as patient has history of systolic heart failure with previously known EF of 20-25%. -At this time we will hold diuretics including Lasix and spironolactone as well as losartan and continue to monitor closely with repeat a.m. labs. Chronic persistent atrial fibrillation -Continue anticoagulation with Eliquis. Chronic systolic heart failure with previously known EF of 20-25% CAD with multiple stents Hypertension Hyperlipidemia -Monitor vital signs. -Telemetry monitoring -Continue daily medication regimen consisting of aspirin, Eliquis, Plavix, atorvastatin, and carvedilol. 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 -We are obtaining a repeat echocardiogram. Ulcerative colitis with permanent colostomy -Order placed for Colostomy care to be provided per nursing shift and as needed The patient is admitted with an anticipated less than 2 midnight stay for evaluation of TIA. Surrogate decision-maker: Pt's son and daughter CODE STATUS: Full code DVT prophylaxis: Eliquis Discussed with: Patient, Patient's son and RN Anticipated discharge date: 1-[address]: home A total of 50 minutes was spent on the care of this complex patient more than 50% of the time was spent in counseling and care coordination. Past Medical History Past Medical History: Atrial Fibrillation, Coronary Artery Disease (CAD), Heart Failure, GERD/Reflux, Hypertension Additional Past Medical History / Comment(s): ileostomy, acute colitis, some memory loss History of Any Multi-Drug Resistant Organisms: None Reported Past Surgical History: Heart Catheterization, Hysterectomy, Orthopedic Surgery Additional Past Surgical History / Comment(s): Illeostomy, carpal tunnel bilateral hands, bunion surgery on left foot. last heart cath 12/21/19 Past Anesthesia/Blood Transfusion Reactions: No Reported Reaction Past Psychological History: Anxiety, Depression Smoking Status: Never smoker Past Alcohol Use History: Occasional Past Drug Use History: None Reported - Past Family History Family Family Medical History: No Reported History Medications and Allergies Home Medications Medication Instructions Recorded Confirmed Type Losartan [Cozaar] 25 mg PO DAILY 09/13/19 06/21/21 History Aspirin 81 mg PO DAILY #30 chew 09/18/19 06/21/21 Rx Clopidogrel Bisulfate [Plavix] 75 mg PO DAILY #0 tab 01/03/20 06/21/21 Rx Alendronate Sodium [Fosamax] 70 mg PO TH 11/20/20 06/21/21 History Apixaban [Eliquis] 2.5 mg PO BID 11/20/20 06/21/21 History Carvedilol [Coreg] 6.25 mg PO BID 11/20/20 06/21/21 History Cholecalciferol [Vitamin D3 (25 25 mcg PO HS 11/20/20 06/21/21 History Mcg = 1000 Iu)] Famotidine 40 mg PO HS 11/20/20 06/21/21 History Fluticasone Nasal [place] [Flonase 1 spray EA NOSTRIL DAILY PRN 11/20/20 06/21/21 History Nasal [place]] Furosemide [Lasix] 20 mg PO DAILY 11/20/20 06/21/21 History Rosuvastatin [Crestor] 20 mg PO HS 11/20/20 06/21/21 History Spironolactone 25 mg PO DAILY 11/20/20 06/21/21 History Venlafaxine HCl ER [Effexor Xr] 75 mg PO DAILY 06/21/21 06/21/21 History Allergies Allergy/AdvReac Type Severity Reaction Status Date / Time adhesive tape AdvReac skin Verified 06/21/21 17:59 irritation Penicillins AdvReac Rash/Hives Verified 06/21/21 17:59 Physical Exam Vitals: Vital Signs Temp Pulse Resp BP Pulse Ox 06/21/21 15:00 88 121/92 98 06/21/21 14:30 92 126/93 99 06/21/21 14:00 87 117/89 99 06/21/21 13:47 123/104 98 06/21/21 13:40 97.6 F 60 18 117/89 100 Intake and Output 06/21/21 06/21/21 06/21/21 06:59 14:59 22:59 Other: Weight 81.647 kg Results CBC & Chem 7: 06/21/21 13:51 06/21/21 13:51 Labs: Abnormal Lab Results - Last 24 Hours (Table) 06/21/21 06/21/21 06/21/21 Range/Units 13:43 13:51 13:51 Hct 48.2 H (34.0-46.0) % MCV 103.5 H (80.0-100.0) fL Eosinophils # 0.9 H (0-0.7) k/uL BUN 32 H (7-17) mg/dL Creatinine 1.27 H (0.52-1.04) mg/dL Glucose 150 H (74-99) mg/dL POC Glucose (mg/dL) 135 H (75-99) mg/dL AST 57 H (14-36) U/L ALT 52 H (4-34) U/L <Sia Dutta - Last Filed: 06/22/21 07:16> History of Present Illness Patient seen and examined independently on 06/21/21 at 1845. Patient was also seen by You Carreon NP and case was discussed. I am in agreement with subjective, physical exam, assessment and plan as written above and amended below. Patient states that her left-sided weakness has returned to normal. She has been taking all medications as prescribed and has not missed any doses. All questions answered. General: non toxic, no distress, appears at stated age Derm: warm, dry Head: atraumatic, normocephalic, symmetric Eyes: EOMI, no lid lag, anicteric sclera Mouth: no lip lesion, mucus membranes moist Cardiovascular: S1S2 reg, no murmur, positive posterior tibial pulse bilateral, Lungs: CTA bilateral, no rhonchi, no rales , no accessory muscle use Abdominal: soft, nontender to palpation, no guarding, no appreciable organomegaly Ext: no gross muscle atrophy, no edema, no contractures Neuro: No tongue deviation, uvula elevation symmetrical, pupils equal round reactive to light, extraocular motion intact, light touch intact bilateral face, hands, legs, muscle strength symmetrical and equal bilateral upper and lower extremities Psych: Alert, oriented, appropriate affect Physical Exam Osteopathic Statement: *. No significant issues noted on an osteopathic structural exam other than those noted in the History and Physical/Consult. Vitals: Vital Signs Temp Pulse Pulse Resp BP BP Pulse Ox 06/22/21 04:00 98.4 F 68 16 127/68 96 06/21/21 23:00 97.6 F 92 18 130/65 99 06/21/21 22:40 104 H 18 111/76 94 L 06/21/21 20:00 95 18 134/100 97 06/21/21 18:26 84 18 140/93 97 06/21/21 16:57 95 18 138/72 97 06/21/21 15:00 88 121/92 98 06/21/21 14:30 92 126/93 99 06/21/21 14:00 87 117/89 99 06/21/21 13:47 123/104 98 06/21/21 13:40 97.6 F 60 18 117/89 100 Intake and Output 06/21/21 06/22/21 06/22/21 22:59 06:59 14:59 Intake Total 10 Balance 10 Intake: IV 10 Invasive Line 1 10 Other: Voiding Method Toilet # Voids 0 Weight 81.647 kg Results CBC & Chem 7: 06/21/21 13:51 06/21/21 13:51 Labs: Abnormal Lab Results - Last 24 Hours (Table) 06/21/21 06/21/21 06/21/21 Range/Units 13:43 13:51 13:51 Hct 48.2 H (34.0-46.0) % MCV 103.5 H (80.0-100.0) fL Eosinophils # 0.9 H (0-0.7) k/uL BUN 32 H (7-17) mg/dL Creatinine 1.27 H (0.52-1.04) mg/dL Glucose 150 H (74-99) mg/dL POC Glucose (mg/dL) 135 H (75-99) mg/dL AST 57 H (14-36) U/L ALT 52 H (4-34) U/L
[2021-06-21] MEDS: carvediloL 6.25 MG TAB PO SCH (20:17)
[2021-06-21] MEDS: CHOLECALCIFEROL 25 MCG (1000 IU) TABLET PO SCH (20:17)
[2021-06-21] MEDS: APIXABAN 2.5 MG TABLET PO SCH (20:17)
[2021-06-21] MEDS ORDERED: FAMOTIDINE 20 MG TAB PO SCH (21:00)
[2021-06-22] MEDS: carvediloL 6.25 MG TAB PO SCH ×2 (06:16→17:21)
[2021-06-22 07:51] LABS: Basophils # (A) 0.1 k/uL (0-0.2); Basophils % (A) 1 %; Eosinophils # (A) 0.8 k/uL (0-0.7); Eosinophils % (A) 9 %; HGB 14.9 gm/dL (11.4-16.0); Lymphocytes # (A) 1.6 k/uL (1.0-4.8); Lymphocytes % (A) 17 %; MCH 32.8 pg (25.0-35.0); MCHC 31.8 g/dL (31.0-37.0); MCV 103.2 fL (80.0-100.0); Macrocytosis Slight; Mean Platelet Volume 9.2; Monocytes # (A) 0.8 k/uL (0-1.0); Monocytes % (A) 8 %; Neutrophils % (A) 64 %; Platelet Count 230 k/uL (150-450); RBC 4.55 m/uL (3.80-5.40); RDW 12.7 % (11.5-15.5); WBC 9.4 k/uL (3.8-10.6)
[2021-06-22 08:06] LABS: African American GFR (CKD) 45 (>60 ml/min/1.73 sqM); Anion Gap 8 mmol/L; Blood Urea Nitrogen 35 mg/dL (7-17); Calcium 9.7 mg/dL (8.4-10.2); Carbon Dioxide 26 mmol/L (22-30); Chloride 103 mmol/L (98-107); Glucose 111 mg/dL (74-99); Magnesium 2.1 mg/dL (1.6-2.3); Non-African American GFR(CKD) 39 (>60 ml/min/1.73 sqM); Potassium 4.7 mmol/L (3.5-5.1); Sodium 137 mmol/L (137-145)
[2021-06-22] MEDS: VENLAFAXINE HCL ER 75 MG CAP PO SCH (08:18)
[2021-06-22] MEDS: APIXABAN 2.5 MG TABLET PO SCH ×2 (08:18→19:53)
[2021-06-22] MEDS: ASPIRIN 81 MG PO SCH (08:18)
[2021-06-22] MEDS: CLOPIDOGREL 75 MG TAB PO SCH (08:19)
[2021-06-22] MEDS ORDERED: FUROSEMIDE 20 MG TAB PO SCH (09:00)
[2021-06-22] MEDS ORDERED: LOSARTAN 25 MG TAB PO SCH (09:00)
[2021-06-22] MEDS ORDERED: SPIRONOLACTONE 25 MG TAB PO SCH (09:00)
[2021-06-22 09:21] LABS: Amorphous Sediment,Urine Rare /hpf; Appearance,Urine Cloudy (Clear); Bacteria,Urine Rare /hpf; Bilirubin,Urine Negative (Negative); Blood,Urine Negative (Negative); Color,Urine Yellow; Glucose,Urine (UA) Negative (Negative); Ketones,Urine Negative (Negative); Leukocyte Esterase,Urine Large (Negative); Mucus,Urine Many /hpf; Nitrite,Urine Negative (Negative); Protein,Urine Trace (Negative); Specific Gravity,Urine 1.016 (1.001-1.035); Squamous Epithelial Cell,Urine 4 /hpf (0-4); Urobilinogen,Urine <2.0 mg/dL (<2.0); WBC,Urine 112 /hpf (0-5)
[2021-06-22 10:25] VITALS: BMI 27.3
--- NOTE | 2021-06-22 10:55 | ECHOF ---
Referral Reason:TIA MEASUREMENTS -------- HEIGHT: 172.7 cm WEIGHT: 81.6 kg BP: RVIDd: 2.7 cm (< 3.3) IVSd: 1.3 cm (0.6 - 1.1) LVIDd: 2.7 cm (3.9 - 5.3) LVPWd: 1.1 cm (0.6 - 1.1) IVSs: 1.5 cm LVIDs: 2.4 cm LVPWs: 1.5 cm LA Diam: 3.2 cm (2.7 - 3.8) Ao Diam: 3.5 cm (2.0 - 3.7) MV EXCURSION: 11.800 mm (> 18.000) MV EF SLOPE: 58 mm/s (70 - 150) EPSS: 1.0 cm RAP: 5.00 mmHg RVSP: 23.58 mmHg FINDINGS -------- Undetermined rhythm. This was a technically adequate study. The left ventricular size is normal. There is mild concentric left ventricular hypertrophy. Overa ll left ventricular systolic function is mild-moderately impaired with, an EF between 40 - 45 %. The right ventricle is normal in size. The left atrial size is normal. The right atrial size is normal. There is mild aortic valve sclerosis. There is mild aortic regurgitation. The mitral valve leaflets are mildly thickened. Mild mitral regurgitation is present. Mild tricuspid regurgitation present. Right ventricular systolic pressure is normal at < 35 mmHg. There is no pulmonic regurgitation present. Echo free space represents a pericardial fat pad. CONCLUSIONS -------- 1. The left ventricular size is normal. 2. There is mild concentric left ventricular hypertrophy. 3. Overall left ventricular systolic function is mild-moderately impaired with, an EF between 40 - 45 %. 4. The right ventricle is normal in size. 5. The left atrial size is normal. 6. The right atrial size is normal. 7. There is mild aortic valve sclerosis. 8. There is mild aortic regurgitation. 9. The mitral valve leaflets are mildly thickened. 10. Mild mitral regurgitation is present. 11. Mild tricuspid regurgitation present. 12. Echo free space represents a pericardial fat pad. FOUNDER AND PRESIDENT: Lauren Guevara RDCS
--- NOTE | 2021-06-22 11:38 | P.PN ---
<You Carreon - Last Filed: 06/22/21 16:37> Subjective Progress Note Date: 06/22/21 History of Presenting Illness: Patient is a very pleasant 80-year-old female with a past medical history of CAD with multiple stents on Plavix and aspirin, chronic systolic heart failure with previously known EF of 20-25%, chronic persistent atrial fibrillation on anticoagulation with Eliquis, hypertension, hyperlipidemia, TIAs, and ulcerative colitis resulting in permanent colostomy. Patient presented to the emergency department with a chief complaint of slurred/garbled speech, left-sided facial drooping, and left arm numbness and weakness. Patient's son at bedside reports that his mother lives at home with his sister and states that their mom was complaining of not feeling right and she assisted her walking into the bathroom. He reports his mother walked normally with the walker into the restroom and sat on the commode and again stated she did not feel well and suddenly went un responsive for less than 60 seconds and upon awakening had significant left- sided facial droop, slurred/garbled speech, and was unable to use her left arm. Patient's son reports his sister called him immediately as their mom has had these episodes previously in the past, however they typically only last for a few moments and resolve spontaneously on their own. Patient's son reports he came straight over the house and found his mom to continue to have significant left-sided facial droop, slurred/garbled speech and complete left arm flaccidity so they called EMS. Patient's left-sided deficits and slurred/garbled speech resolved while in route to the ER. Patient's son reports these symptoms lasted approximately one hour possibly slightly longer which is much different from previous TIAs she has had in the past. They deny any recent injuries or illnesses. Upon arrival to the emergency department all symptoms had resolved initial NIH 0. Patient underwent full workup in the ED. CBC was unremarkable, BMP revealing acute kidney injury with BUN of 32, creatinine 1.27, and GFR 40 with baseline creatinine of 0.77. Patient also had slight elevation of AST and ALT with AST of 57 and ALT of 52. Troponin normal findings at less than 0.012. CT head revealing age-related atrophic and chronic small vessel ischemic changes and negative for acute intercranial process. Patient was admitted under our services to undergo further neurological workup for TIA and neurology has been consulted. Echocardiogram completed revealing mild to moderately impaired EF between 40 and 45% with mild aortic, mitral, and tricuspid valve regurgitation and mild aortic valve sclerosis. MRI to be completed this afternoon. Lipid profile unremarkable and hemoglobin A1c was elevated at 7.0%. Physical exam: Pt seen and fully evaluated at bedside this morning. She appears to be doing well this morning. Her speech is clear. She continues to have full resolution of left upper extremity weakness and continues to deny having any headache, lightheadedness, dizziness, chest pain, palpitations, shortness of breath, nausea, vomiting, or experiencing any current numbness/tingling/weakness/swelling in her extremities. Patient to go down for MRI this afternoon. Vital signs reviewed and stable. General: Nontoxic, no distress and appears stated age. Derm: Skin warm and dry, normal coloration for ethnicity. Head: Atraumatic, normocephalic and symmetric. Eyes: EOMs intact, no lid lag, and anicteric sclera (patient keeps right eye closed when talking to you because she reports forgetting her glasses at home and states that she does not keep right eye closed she will have double vision, denies this being a new finding states chronic and unchanged) Mouth: no lip lesions, mucus membranes moist Cardiovascular: regular rate and rhythm with normal S1S2, no murmur, positive posterior tibial pulses bilaterally, and cap refill < 2 seconds. Lungs: Respirations even, regular, and unlabored on room air. Lungs CTA bilaterally, no rhonchi, no rales, no wheezing, and no accessory muscle usage. Abdominal: soft, nontender to palpation, no guarding, no appreciable organomegaly Ext: ROM intact. No gross muscle atrophy, no edema, no contractures Neuro: Speech clear, face symmetrical and CN II-XII grossly intact with no noted focal neuro deficits. Normal finger to nose. Negative arm drift. Normal [id number]. 5 out of 5 strength upper extremities and 5 out of 5 strength to lower extremities. Sensation equal and intact. Psych: Alert and oriented to person, place and situation (somewhat of a poor historian, however son at bedside reports this is patient's baseline) Appropriate and pleasant affect. Assessment and Plan of Care: TIA versus vasovagal syncope Garbled/slurred speech, resolved after 1 hour Left upper extremity weakness and numbness, resolved after 1 hour -CT had revealed age-related atrophic and chronic small vessel ischemic changes and negative for acute intercranial process. -Neurology consulted. -Repeat echocardiogram showing improvement in EF up to 40-45% with mild aortic, mitral, and tricuspid valve regurgitation and mild aortic valve sclerosis. -Neuro checks every 4 hours -Consult PT/OT -Telemetry monitoring -Continue daily dual antiplatelet therapy with Plavix and aspirin -Continue atorvastatin nightly. -Lipid profile unremarkable and hemoglobin A1c 7% -MRI brain to be completed Acute kidney injury -BUN of 35, creatinine 1.29, and GFR 39 with baseline creatinine of 0.77. -Likely secondary to dehydration resulting from daily diuretic use. -We will gently hydrate patient with 0.9% normal saline at 75 mLs per hour 13 hours and reevaluate renal function with a.m. labs. -At this time we will hold diuretics including Lasix and spironolactone as well as losartan and continue to monitor closely with repeat a.m. labs. -Bladder scan and assess for postvoid residual. Chronic persistent atrial fibrillation -Continue anticoagulation with Eliquis. Chronic systolic heart failure with previously known EF of 20-25% CAD with multiple stents Hypertension Hyperlipidemia -Monitor vital signs. -Telemetry monitoring -Continue daily medication regimen consisting of aspirin, Eliquis, Plavix, atorvastatin, and carvedilol. 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 -Repeat echocardiogram showing improvement in EF up to 40-45% with mild aortic, mitral, and tricuspid valve regurgitation and mild aortic valve sclerosis. Ulcerative colitis with permanent colostomy -Order placed for Colostomy care to be provided per nursing shift and as needed CODE STATUS: Full code DVT prophylaxis: Eliquis Discussed with: Patient and RN Anticipated discharge date: 1-[address]: Weekly tomorrow morning A total of 40 minutes was spent on the care of this complex patient more than 50% of the time was spent in counseling and care coordination. Objective - Vital Signs Vital signs: Vital Signs Temp 98.7 F 06/22/21 08:00 Pulse 120 H 06/22/21 08:00 Resp 17 06/22/21 08:00 BP 162/87 06/22/21 08:00 Pulse Ox 96 06/22/21 08:00 Intake & Output 06/21/21 06/22/21 06/22/21 18:59 06:59 18:59 Intake Total 10 180 Balance 10 180 Weight 81.647 kg 81.647 kg 81.647 kg Intake: IV 10 Invasive Line 1 10 Oral 180 Other: Voiding Method Toilet # Voids 0 1 # Bowel Movements 1 - Labs CBC & Chem 7: 06/22/21 07:24 06/22/21 07:24 Labs: Abnormal Lab Results - Last 24 Hours (Table) 06/21/21 06/21/21 06/21/21 Range/Units 13:43 13:51 13:51 Hct 48.2 H (34.0-46.0) % MCV 103.5 H (80.0-100.0) fL Eosinophils # 0.9 H (0-0.7) k/uL BUN 32 H (7-17) mg/dL Creatinine 1.27 H (0.52-1.04) mg/dL Glucose 150 H (74-99) mg/dL POC Glucose (mg/dL) 135 H (75-99) mg/dL AST 57 H (14-36) U/L ALT 52 H (4-34) U/L Urine Appearance (Clear) Urine Protein (Negative) Ur Leukocyte Esterase (Negative) Urine WBC (0-5) /hpf Amorphous Sediment (None) /hpf Urine Bacteria (None) /hpf Urine Mucus (None) /hpf 06/22/21 06/22/21 06/22/21 Range/Units 07:24 07:24 07:30 Hct 47.0 H (34.0-46.0) % MCV 103.2 H (80.0-100.0) fL Eosinophils # 0.8 H (0-0.7) k/uL BUN 35 H (7-17) mg/dL Creatinine 1.29 H (0.52-1.04) mg/dL Glucose 111 H (74-99) mg/dL POC Glucose (mg/dL) (75-99) mg/dL AST (14-36) U/L ALT (4-34) U/L Urine Appearance Cloudy H (Clear) Urine Protein Trace H (Negative) Ur Leukocyte Esterase Large H (Negative) Urine WBC 112 H (0-5) /hpf Amorphous Sediment Rare H (None) /hpf Urine Bacteria Rare H (None) /hpf Urine Mucus Many H (None) /hpf <Sia Dutta A - Last Filed: 12/30/21 20:32> Subjective You Carreon NP rendered care for this patient independently, reviewed the findings and plan as documented in the note above. I did not physically speak with or examine the patient on this date. Likely home in a.m. once MRI results available. Objective - Vital Signs Vital signs: Vital Signs Temp 98.3 F 06/22/21 12:00 Pulse 96 06/22/21 16:00 Resp 18 06/22/21 16:00 BP 170/85 06/22/21 16:00 Pulse Ox 97 06/22/21 16:00 Intake & Output 06/22/21 06/22/21 06/23/21 06:59 18:59 06:59 Intake Total 10 540 Balance 10 540 Weight 81.647 kg 81.647 kg Intake: IV 10 Invasive Line 1 10 Oral 540 Other: Voiding Method Toilet # Voids 0 1 # Bowel Movements 1 - Labs CBC & Chem 7: 06/22/21 07:24 06/22/21 07:24 Labs: Abnormal Lab Results - Last 24 Hours (Table) 06/22/21 06/22/21 06/22/21 Range/Units 07:24 07:24 07:24 Hct 47.0 H (34.0-46.0) % MCV 103.2 H (80.0-100.0) fL Eosinophils # 0.8 H (0-0.7) k/uL BUN 35 H (7-17) mg/dL Creatinine 1.29 H (0.52-1.04) mg/dL Glucose 111 H (74-99) mg/dL Hemoglobin A1c 7.0 H (4.0-6.0) % Urine Appearance (Clear) Urine Protein (Negative) Ur Leukocyte Esterase (Negative) Urine WBC (0-5) /hpf Amorphous Sediment (None) /hpf Urine Bacteria (None) /hpf Urine Mucus (None) /hpf 06/22/21 Range/Units 07:30 Hct (34.0-46.0) % MCV (80.0-100.0) fL Eosinophils # (0-0.7) k/uL BUN (7-17) mg/dL Creatinine (0.52-1.04) mg/dL Glucose (74-99) mg/dL Hemoglobin A1c (4.0-6.0) % Urine Appearance Cloudy H (Clear) Urine Protein Trace H (Negative) Ur Leukocyte Esterase Large H (Negative) Urine WBC 112 H (0-5) /hpf Amorphous Sediment Rare H (None) /hpf Urine Bacteria Rare H (None) /hpf Urine Mucus Many H (None) /hpf
[2021-06-22] MEDS: CEPHALEXIN 500 MG CAP PO SCH ×2 (11:53→19:53)
--- NOTE | 2021-06-22 12:40 | P.CNNES ---
History of Present Illness Consult date: 06/22/21 Requesting physician: Nicolette Donato Reason for Consult: Suspected TIA History of Present Illness: Patient is a 80-year-old female came to the hospital yesterday at 1:36 PM by ambulance. Patient states that yesterday in the afternoon, she was sleeping in the bed. Her daughter woke her up for the lunch. She wanted to go to the bathroom to pass urine. Her daughter helped her sit up, but she would lay down, did not want to sit up. Finally Ely, her daughter helped her up and took her to the bathroom. After she was done, patient remembers telling her daughter "I'm done". Her daughter came over, helped her get up but she wanted to sit down again, and the next thing she remembers is her sons are around her. She probably been out for some time. She did not fall, as her daughter was with her. She did not bite her tongue. EMS was called. As per EMS flow sheet, patient was alert to verbal, pale and cold skin, and lethargic with left-sided facial droop and weakness. EKG shows atrial flutter. Patient's symptoms started improving rapidly until they were nearly completely resolved. Patient's blood pressure was systolic unable to complete, pulse 90, respiration 20, saturation 93% blood sugar 150. Repeat blood pressure was 153/82. And oxygen saturation 97%. Vital signs on arrival blood pressure 117/89, pulse rate 60, temperature 97.6. Blood test shows normal WBC, hemoglobin 48.2, with elevated MCV 103.5. PT/PTT normal, electrolytes are normal. BUN 32, creatinine 1.27. AST mildly elevated 57, ALT 52. Troponin negative, UA shows large amount of leukocyte esterase and 1 and 12 WBC. C oronavirus PCR negative. Patient's home medications include losartan 25 mg, aspirin 81 mg, Plavix 75 mg, Crestor 20 mg, Pepcid 40 mg, vitamin D, spiral tone, Lasix 20 mg, Coreg, Eliquis 2.5 mg twice a day and Effexor. Patient was seen by myself on 11/21/2020, in which she had transient episode of possible left arm weakness, slurred speech without any loss or impairment of consciousness. Symptoms lasted for 10 minutes. Patient has atrial fibrillation, therefore TIA in the differential. Even at that time patient was on same medication regimen as above. CTA of head and neck showed atheromatous changes with ectasia of the basilar and distal vertebral arteries. No evidence of hemodynamic significant stenosis. 2-D echo at that time revealed atrial fibrillation. Mild concentric LVH. Left ventricular systolic function is severely impaired with an EF between 20-25%. Left atrium is severely dilated. Her last hemoglobin A1c 6.7 on 11/21/2020, cholesterol 112, LDL 59.2, HDL 36 and triglycerides 84. Patient denies diabetes, never smoked. Patient states that she is fully vaccinated for coronavirus, also had received booster shot a while ago. I further spoke to patient's daughter Ely on the phone. She states that after she took patient to the bathroom, and when she got up after passing the urine, she felt sick and wanted to sit down. Patient's daughter shut the toilet lid a nd had her set up on the toilet seat. Patient then threw up what she had taken in shoulder earlier. Then she felt weak, and became somewhat unresponsive. When she noticed that her left arm was slightly weak, face was droopy and she was slurring. All this lasted for about 20-25 minutes, until hers son cane, and called the EMS. Patient's daughter stayed close to mom throughout this event. She also states that patient at baseline walks fairly steadily with her walker. She sometimes feels shaky and wants someone to be around her just for extra precaution. Otherwise she does most of activities herself. Review of Systems As above in detailed in HPI. All other 14 point review systems reviewed and noncontributory to the present illness. Past Medical History Past Medical History: Atrial Fibrillation, Coronary Artery Disease (CAD), Heart Failure, GERD/Reflux, Hypertension Additional Past Medical History / Comment(s): ileostomy, acute colitis, some memory loss History of Any Multi-Drug Resistant Organisms: None Reported Past Surgical History: Heart Catheterization, Hysterectomy, Orthopedic Surgery Additional Past Surgical History / Comment(s): Illeostomy, carpal tunnel bilateral hands, bunion surgery on left foot. last heart cath 12/21/19 Past Anesthesia/Blood Transfusion Reactions: No Reported Reaction Past Psychological History: Anxiety, Depression Smoking Status: Never smoker Past Alcohol Use History: Occasional Past Drug Use History: None Reported - Past Family History Family Family Medical History: No Reported History Medications and Allergies Home Medications Medication Instructions Recorded Confirmed Type Losartan [Cozaar] 25 mg PO DAILY 09/13/19 06/21/21 History Aspirin 81 mg PO DAILY #30 chew 09/18/19 06/21/21 Rx Clopidogrel Bisulfate [Plavix] 75 mg PO DAILY #0 tab 01/03/20 06/21/21 Rx Alendronate Sodium [Fosamax] 70 mg PO TH 11/20/20 06/21/21 History Apixaban [Eliquis] 2.5 mg PO BID 11/20/20 06/21/21 History Carvedilol [Coreg] 6.25 mg PO BID 11/20/20 06/21/21 History Cholecalciferol [Vitamin D3 (25 25 mcg PO HS 11/20/20 06/21/21 History Mcg = 1000 Iu)] Famotidine 40 mg PO HS 11/20/20 06/21/21 History Fluticasone Nasal Patten [Flonase 1 spray EA NOSTRIL DAILY PRN 11/20/20 06/21/21 History Nasal Patten] Furosemide [Lasix] 20 mg PO DAILY 11/20/20 06/21/21 History Rosuvastatin [Crestor] 20 mg PO HS 11/20/20 06/21/21 History Spironolactone 25 mg PO DAILY 11/20/20 06/21/21 History Venlafaxine HCl ER [Effexor Xr] 75 mg PO DAILY 06/21/21 06/21/21 History Allergies Allergy/AdvReac Type Severity Reaction Status Date / Time adhesive tape AdvReac skin Verified 06/21/21 17:59 irritation Penicillins AdvReac Rash/Hives Verified 06/21/21 17:59 Physical Examination - Vital Signs Vital Signs: Vital Signs Temp Pulse Pulse Resp BP BP Pulse Ox 06/22/21 08:00 98.7 F 120 H 17 162/87 96 06/22/21 04:00 98.4 F 68 16 127/68 96 06/21/21 23:00 97.6 F 92 18 130/65 99 06/21/21 22:40 104 H 18 111/76 94 L 06/21/21 20:00 95 18 134/100 97 06/21/21 18:26 84 18 140/93 97 06/21/21 16:57 95 18 138/72 97 06/21/21 15:00 88 121/92 98 06/21/21 14:30 92 126/93 99 06/21/21 14:00 87 117/89 99 06/21/21 13:47 123/104 98 06/21/21 13:40 97.6 F 60 18 117/89 100 Intake and Output 06/21/21 06/22/21 06/22/21 22:59 06:59 14:59 Intake Total 10 180 Balance 10 180 Intake: IV 10 Invasive Line 1 10 Oral 180 Other: Voiding Method Toilet # Voids 0 1 # Bowel Movements 1 Weight 81.647 kg 81.647 kg Patient is an elderly female in no acute distress. Patient is alert awake oriented to time place and person. She knows it is May 2021, the name of the hospital, city stayed in the president. Speech and language functions are normal. Attention, concentration and fund of knowledge is adequate. Patient can name and repeat very well. No aphasia or dysarthria. On cranial examination, pupils are round and reacting to light, visual carlton are full on confrontation, extraocular muscles are intact with no nystagmus. Face is symmetric, tongue protrudes to the midline. Palatal elevation and sensation normal, hearing is slightly decreased and shoulder shrug normal, facial sensation normal. Shoulder shrug normal. On muscle strength testing, there is no pronator drift and the strength is normal in arms and legs distally and proximally. Deep tendon reflexes are 2+ in the arms and legs and plantars downgoing bilaterally. Sensory to touch is equal with no neglect. Cerebellar function showed no ataxia for [id number] testing. No dysdiadochokinesia. Tone and bulk of muscles normal. Gait deferred. On general examination, there is no carotid bruit or murmur, S1-S2 audible. Abdomen is soft nontender, positive bowel sounds, no organomegaly. Chest is clear to auscultation, no rhonchi. Peripheral pulses are present. No edema. Results - Laboratory Findings CBC and BMP: 06/22/21 07:24 06/22/21 07:24 Abnormal Lab Findings: Abnormal Labs 06/21/21 06/21/21 06/21/21 13:43 13:51 13:51 Hct 48.2 H MCV 103.5 H Eosinophils # 0.9 H BUN 32 H Creatinine 1.27 H Glucose 150 H POC Glucose (mg/dL) 135 H AST 57 H ALT 52 H Urine Appearance Urine Protein Ur Leukocyte Esterase Urine WBC Amorphous Sediment Urine Bacteria Urine Mucus 06/22/21 06/22/21 06/22/21 07:24 07:24 07:30 Hct 47.0 H MCV 103.2 H Eosinophils # 0.8 H BUN 35 H Creatinine 1.29 H Glucose 111 H POC Glucose (mg/dL) AST ALT Urine Appearance Cloudy H Urine Protein Trace H Ur Leukocyte Esterase Large H Urine WBC 112 H Amorphous Sediment Rare H Urine Bacteria Rare H Urine Mucus Many H Assessment and Plan Assessment: * Probable vasovagal syncope versus TIA. This is a second event after the first in October 2020. * Hypertension * Atrial fibrillation, on anticoagulation. * CHF * CAD Plan: * Patient had a 2-D echo, which revealed normal left ventricle size. Mild concentric LVH. Left ventricular systolic function is mild to moderately impaired with EF between 40-45%. Right ventricle is normal in size. Left atrial size is normal. Mild aortic valve sclerosis, mild ER. Mild MR. * Patient undergoing MRI of the brain. * Continue Eliquis 2.5 mg twice a day and antiplatelet medication. Patient on Pepcid for gastric ulcer prophylaxis. * We will follow. * Discussed with patient's daughter in detail. * Thank you for the consult.
[2021-06-22 15:12] LABS: Chol/HDL Ratio 2.75 Ratio; VLDL Calculation 16.88 mg/dL (5.00-40.00)
[2021-06-22] MEDS ORDERED: SODIUM CHLORIDE 0.9% 1,000 ML IV SCH (17:00)
[2021-06-22] MEDS ORDERED: NON FORMULARY DRUG (Alendronate Sodium [Fosamax] 70 MG Tablet) PO SCH (18:00)
[2021-06-22] MEDS: CHOLECALCIFEROL 25 MCG (1000 IU) TABLET PO SCH (19:53)
[2021-06-22] MEDS ORDERED: FAMOTIDINE 20 MG TAB PO SCH (21:00)
[2021-06-22] MEDS ORDERED: ATORVASTATIN 40 MG TAB PO SCH (21:00)
--- NOTE | 2021-06-23 01:23 | MR ---
EXAMINATION TYPE: MR brain wo con DATE OF EXAM: 06/22/2021 COMPARISON: None HISTORY: Recurrent TIAs, weakness Multiplanar multiecho imaging of the brain without contrast. There is cerebral cortical atrophy which appears moderate. Appropriate for age. There is no mass effe ct or midline shift. There is no evidence of intracranial hemorrhage. Diffusion images show no eviden ce of an acute infarct. There are patchy areas of abnormal increased signal on the T2 and FLAIR images throughout the periven tricular white matter. These are mostly at the beavers-white matter junction in measure up to 11 mm in t hickness. Total number is more than 30. There is also some increased signal within the central maria teresa t hat is irregular measuring 6 mm. The cerebellum is intact. There is no evidence of orbital mass. There is mucosal thickening in the frontal ethmoid and maxillary sinuses. There is mild sphenoid sinu s posterior mucosal thickening. There is no evidence of posterior fossa mass. IMPRESSION: Cerebral atrophy. Moderate white matter signal changes probably related to extensive microvascular is chemia. No evidence of any significant cortical infarct.
[2021-06-23] MEDS: carvediloL 6.25 MG TAB PO SCH (06:12)
[2021-06-23] MEDS: VENLAFAXINE HCL ER 75 MG CAP PO SCH (08:13)
[2021-06-23] MEDS: CEPHALEXIN 500 MG CAP PO SCH (08:13)
[2021-06-23] MEDS: CLOPIDOGREL 75 MG TAB PO SCH (08:13)
[2021-06-23] MEDS: ASPIRIN 81 MG PO SCH (08:13)
[2021-06-23] MEDS: APIXABAN 2.5 MG TABLET PO SCH (08:13)
[2021-06-23 08:54] LABS: HCT 43.6 % (34.0-46.0); HGB 13.8 gm/dL (11.4-16.0); MCH 33.1 pg (25.0-35.0); MCHC 31.7 g/dL (31.0-37.0); MCV 104.5 fL (80.0-100.0); Macrocytosis Slight; Mean Platelet Volume 9.2; Platelet Count 199 k/uL (150-450); RBC 4.17 m/uL (3.80-5.40); RDW 13.2 % (11.5-15.5); WBC 9.7 k/uL (3.8-10.6)
[2021-06-23 09:08] LABS: Albumin 3.3 g/dL (3.5-5.0); Calcium 8.9 mg/dL (8.4-10.2); Magnesium 1.9 mg/dL (1.6-2.3); Potassium 4.5 mmol/L (3.5-5.1); Total Bilirubin 1.1 mg/dL (0.2-1.3); Total Protein 6.3 g/dL (6.3-8.2)
--- NOTE | 2021-06-23 12:12 | P.DS ---
<You Carreon - Last Filed: 06/23/21 17:34> Providers Expected date of discharge: 06/23/21 Hospital Course: Discharge Diagnosis: TIA versus vasovagal syncope Garbled/slurred speech, resolved after 1 hour Left upper extremity weakness and numbness, resolved after 1 hour Acute kidney injury UTI Newly diagnosed type II Diabetes Mellitus Chronic persistent atrial fibrillation Chronic systolic heart failure with previously known EF of 20-25% CAD with multiple stents Hypertension Hyperlipidemia Ulcerative colitis with permanent colostomy Hospital course: Patient is a very pleasant 80-year-old female with a past medical history of CAD with multiple stents on Plavix and aspirin, chronic systolic heart failure with previously known EF of 20-25%, chronic persistent atrial fibrillation on anticoagulation with Eliquis, hypertension, hyperlipidemia, TIAs, and ulcerative colitis resulting in permanent colostomy. Patient presented to the emergency department with a chief complaint of slurred/garbled speech, left-sided facial drooping, and left arm numbness and weakness. Patient's son at bedside reports that his mother lives at home with his sister and states that their mom was complaining of not feeling right and she assisted her walking into the bathroom. He reports his mother walked normally with the walker into the restroom and sat on the commode and again stated she did not feel well and suddenly went unresponsive for less than 60 seconds and upon awakening had significant left- sided facial droop, slurred/garbled speech, and was unable to use her left arm. Patient's son reports his sister called him immediately as their mom has had these episodes previously in the past, however they typically only last for a few moments and resolve spontaneously on their own. Patient's son reports he came straight over the house and found his mom to continue to have significant left-sided facial droop, slurred/garbled speech and complete left arm flaccidity so they called EMS. Patient's left-sided deficits and slurred/garbled speech resolved while in route to the ER. Patient's son reports these symptoms lasted approximately one hour possibly slightly longer which is much different from previous TIAs she has had in the past. They deny any recent injuries or illnesses. Upon arrival to the emergency department all symptoms had resolved initial NIH 0. Patient underwent full workup in the ED. CBC was unremarkable, BMP revealing acute kidney injury with BUN of 32, creatinine 1.27, and GFR 40 with baseline creatinine of 0.77. Patient also had slight elevation of AST and ALT with AST of 57 and ALT of 52. Troponin normal findings at less than 0.012. CT head revealing age-related atrophic and chronic small vessel ischemic changes and negative for acute intercranial process. Patient was admitted under our services to undergo further neurological workup for TIA and neurology has been consulted. Echocardiogram completed revealing mild to moderately impaired EF between 40 and 45% with mild aortic, mitral, and tricuspid valve regurgitation and mild aortic valve sclerosis. MRI to be completed this afternoon. Lipid profile unremarkable and hemoglobin A1c was elevated at 7.0% in patient being started on Glucophage 500 mg twice daily. Urinalysis positive for infection and patient started on cephalexin. MRI was completed showing cerebral atrophy with moderate white matter signal changes probably related to extensive microvascular ischemia. Patient is stable for discharge home on dual antiplatelet therapy with Plavix and aspirin, she is to continue atorvastatin nightly. Started on Glucophage 500 mg twice a day and will be discharged on remaining 3 day course of cephalexin to complete a 5 day course of antibiotics. Patient being discha rged home where she lives with her daughter. Physical exam: Pt seen and fully evaluated at bedside this morning. She she continues to be doing well. Speech remains clear and she continues to have full upper and lower extremity movement, sensation, and strength with no further episodes of weakness since arrival to facility. Morning labs reviewed and stable. Patient denies having any needs or complaints this morning including headache, lightheadedness, dizziness, chest pain, palpitations, shortness of breath, or experiencing any numbness/tingling/weakness in her extremities. Patient medically stable for discharge at this time instructed to follow-up with PCP, neurology as well as cardiology for possible SEAN as discussed outpatient. Patient to continue aspirin, atorvastatin, Plavix, and Eliquis. Vital signs reviewed and stable. General: Nontoxic, no distress and appears stated age. Derm: Skin warm and dry, normal coloration for ethnicity. Head: Atraumatic, normocephalic and symmetric. Eyes: EOMs intact, no lid lag, and anicteric sclera (patient keeps right eye closed when talking to you because she reports forgetting her glasses at home and states that she does not keep right eye closed she will have double vision, denies this being a new finding states chronic and unchanged) Mouth: no lip lesions, mucus membranes moist Cardiovascular: regular rate and rhythm with normal S1S2, no murmur, positive posterior tibial pulses bilaterally, and cap refill < 2 seconds. Lungs: Respirations even, regular, and unlabored on room air. Lungs CTA bilaterally, no rhonchi, no rales, no wheezing, and no accessory muscle usage. Abdominal: soft, nontender to palpation, no guarding, no appreciable organomegaly Ext: ROM intact. No gross muscle atrophy, no edema, no contractures Neuro: Speech clear, face symmetrical and CN II-XII grossly intact with no noted focal neuro deficits. Normal finger to nose. Negative arm drift. Normal [id number]. 5 out of 5 strength upper extremities and 5 out of 5 strength to lower extremities. Sensation equal and intact. Psych: Alert and oriented to person, place and situation (somewhat of a poor historian, however son at bedside reports this is patient's baseline) Appropriate and pleasant affect. A total of 45 minutes of time were spent preparing this complex discharge summary. Patient Condition at Discharge: Stable Plan - Discharge Summary Discharge Rx Participant: No New Discharge Prescriptions: New Cephalexin [Keflex] 500 mg PO BID 3 Days #6 cap metFORMIN HCL [Glucophage] 500 mg PO BID 30 Days #60 tab Continue Losartan [Cozaar] 25 mg PO DAILY Aspirin 81 mg PO DAILY #30 chew Clopidogrel Bisulfate [Plavix] 75 mg PO DAILY #0 tab Fluticasone Nasal Castor [Flonase Nasal Castor] 1 spray EA NOSTRIL DAILY PRN PRN Reason: Allergy Symptoms Alendronate Sodium [Fosamax] 70 mg PO TH Rosuvastatin [Crestor] 20 mg PO HS Famotidine 40 mg PO HS Cholecalciferol [Vitamin D3 (25 Mcg = 1000 Iu)] 25 mcg PO HS Spironolactone 25 mg PO DAILY Furosemide [Lasix] 20 mg PO DAILY Carvedilol [Coreg] 6.25 mg PO BID Apixaban [Eliquis] 2.5 mg PO BID Venlafaxine HCl ER [Effexor XR] 75 mg PO DAILY Discharge Medication List Losartan [Cozaar] 25 mg PO DAILY 09/13/19 [History] Aspirin 81 mg PO DAILY #30 chew 09/18/19 [Rx] Clopidogrel Bisulfate [Plavix] 75 mg PO DAILY #0 tab 01/03/20 [Rx] Alendronate Sodium [Fosamax] 70 mg PO TH 11/20/20 [History] Apixaban [Eliquis] 2.5 mg PO BID 11/20/20 [History] Carvedilol [Coreg] 6.25 mg PO BID 11/20/20 [History] Cholecalciferol [Vitamin D3 (25 Mcg = 1000 Iu)] 25 mcg PO HS 11/20/20 [History] Famotidine 40 mg PO HS 11/20/20 [History] Fluticasone Nasal Castor [Flonase Nasal Castor] 1 spray EA NOSTRIL DAILY PRN 11/20/20 [History] Furosemide [Lasix] 20 mg PO DAILY 11/20/20 [History] Rosuvastatin [Crestor] 20 mg PO HS 11/20/20 [History] Spironolactone 25 mg PO DAILY 11/20/20 [History] Venlafaxine HCl ER [Effexor XR] 75 mg PO DAILY 06/21/21 [History] Cephalexin [Keflex] 500 mg PO BID 3 Days #6 cap 06/23/21 [Rx] metFORMIN HCL [Glucophage] 500 mg PO BID 30 Days #60 tab 06/23/21 [Rx] Follow up Appointment(s)/Referral(s): Jake Holland MD [STAFF PHYSICIAN] - 1 Week (follow up with cardiology for possible SEAN to be arranged outpatient. office closed make appointment saturday.) Fei Mcpherson MD [Primary Care Provider] - 1-2 days (make appointment saturday. ) Lizz Hamilton MD [Medical Doctor] - 1 Week (refusing follow up. will follow up with primary and discuss with him. ) Patient Instructions/Handouts: Transient Ischemic Attack (DC) Activity/Diet/Wound Care/Special Instructions: Activity: As tolerated. Take breaks as needed. Diet: Heart healthy and carb consistent diet. Avoid salts, or foods with hidden salts such as canned or boxed foods and frozen dinners. Extra salt makes your heart work harder and traps the fluid in your body for longer. Special Instructions: Take all of your medications as directed and remember to keep all of your doctor's appointments and follow-up as needed. Hgb A1c 7.0%. Will need to start monitoring blood glucose levels and begin oral hypoglycemic medication glucophage. Thank you for allowing us to participate in your care, it was truly a pleasure having you for our patient!!! Discharge Disposition: TRANSFER TO SNF/ECF <Sia Dutta - Last Filed: 06/23/21 20:35> Providers Date of admission: 06/21/21 16:32 Attending physician: Sia Dutta DO Consults: 06/21/21 16:35 Consult Physician Urgent Consulting Provider: Colten Veliz Consult Reason/Comments: suspected tia Do you want consulting provider notified?: Yes Primary care physician: Fei Mcpherson [facility] Course: You Carreon NP rendered care for this patient independently, reviewed the findings and plan as documented in the note above. I did not physically speak with or examine the patient on this date. Additionally new echo show improvement of ejection fraction.
[2021-06-23 13:53] VITALS: BP 130/62; PULSE 84; RESP 17; TEMP 98
== END 2021-06-23 14:28 ==
LOC: EC 13:36 → 3SCARD 16:32
PROVIDERS: ADMIT Internal Medicine; ATTEND Internal Medicine
DX: G45.9 Transient cerebral ischemic attack, unspecified (principal); N17.9 Acute kidney failure, unspecified; N39.0 Urinary tract infection, site not specified; E11.9 Type 2 diabetes mellitus without complications; I48.19 Other persistent atrial fibrillation; Z20.822 Contact with and (suspected) exposure to COVID-19; I11.0 Hypertensive heart disease with heart failure; I50.22 Chronic systolic (congestive) heart failure; I25.10 Atherosclerotic heart disease of native coronary artery without angina pectoris; E78.5 Hyperlipidemia, unspecified; E86.0 Dehydration; I48.92 Unspecified atrial flutter; K51.90 Ulcerative colitis, unspecified, without complications; R41.3 Other amnesia; K21.9 Gastro-esophageal reflux disease without esophagitis; I08.3 Combined rheumatic disorders of mitral, aortic and tricuspid valves; F32.A Depression, unspecified; F41.9 Anxiety disorder, unspecified; Z79.02 Long term (current) use of antithrombotics/antiplatelets; Z79.899 Other long term (current) drug therapy; Z79.83 Long term (current) use of bisphosphonates; Z79.82 Long term (current) use of aspirin; Z79.01 Long term (current) use of anticoagulants; Z88.0 Allergy status to penicillin; Z91.048 Other nonmedicinal substance allergy status; Z90.710 Acquired absence of both cervix and uterus; Z93.3 Colostomy status; Z95.5 Presence of coronary angioplasty implant and graft; Z98.890 Other specified postprocedural states; Z86.73 Personal history of transient ischemic attack (TIA), and cerebral infarction without residual deficits; Z87.11 Personal history of peptic ulcer disease
CPT/HCPCS: 99285; 36415; 93005; 93306; 97161; 97165; 80061; 80053 ×2; 80048; 83735 ×3; 84484; 85025 ×2; 85027; 85610; 85730; 81001; 83036; 87635; 71046; 70450; 70551; G0378 ×3

== ENCOUNTER 2022-03-12 11:59 | Inpatient (IN) | payer MEDICARE ==
[2022-03-12 12:14] LABS: Glucose,Whole Blood 187 mg/dL (70-110)
[2022-03-12] MEDS ORDERED: FUROSEMIDE 10 MG/ML 4 ML VIAL IV STA (12:25)
[2022-03-12 12:54] LABS: Basophils # (A) 0.1 k/uL (0-0.2); Basophils % (A) 1 %; Eosinophils # (A) 0.6 k/uL (0-0.7); Eosinophils % (A) 7 %; HCT 45.9 % (34.0-46.0); HGB 14.9 gm/dL (11.4-16.0); Lymphocytes # (A) 1.2 k/uL (1.0-4.8); Lymphocytes % (A) 14 %; MCHC 32.5 g/dL (31.0-37.0); MCV 101.6 fL (80.0-100.0); Macrocytosis Slight; Monocytes # (A) 0.5 k/uL (0-1.0); Monocytes % (A) 6 %; Neutrophils # (A) 5.9 k/uL (1.3-7.7); Neutrophils % (A) 71 %; Platelet Count 233 k/uL (150-450); RBC 4.52 m/uL (3.80-5.40); RDW 13.3 % (11.5-15.5); WBC 8.3 k/uL (3.8-10.6)
[2022-03-12 13:10] LABS: Albumin 3.9 g/dL (3.5-5.0); Calcium 9.3 mg/dL (8.4-10.2); Potassium 4.1 mmol/L (3.5-5.1); Total Bilirubin 0.7 mg/dL (0.2-1.3); Total Protein 6.9 g/dL (6.3-8.2)
[2022-03-12 13:13] LABS: INR 1.1 (<1.2); Partial Thromboplastin Time 26.4 sec (22.0-30.0); Prothrombin Time 11.8 sec (9.0-12.0)
--- NOTE | 2022-03-12 13:14 | CT ---
EXAMINATION TYPE: CT brain wo con DATE OF EXAM: 03/12/2022 COMPARISON: 06/21/2021 INDICATION: altered mental status DLP: 1096.4 mGycm, Automated exposure control for dose reduction was used. CONTRAST: None CT of the brain is performed utilizing 3 mm thick sections through the posterior fossa and 3 mm thick sections through the remaining calvarium. Study is performed within 24 hours of arrival to the hosp [place]. No abnormal hyperdensity is present to suggest an acute intracranial hemorrhage. Dense vascular calci fications are present within the basilar system and internal carotid arteries. No mass lesion is evident. There may be some new subcortical white matter hypointensity posterior left frontal lobe. Example michelle ge series 201 image 37. Patchy periventricular white matter hypodensity is present, likely on the basis of chronic white mat ter ischemic changes. This was present previously. Ventricles and sulci are appropriate for the patient age. Paranasal sinuses and mastoid air cells within the [id number] are clear. IMPRESSIONS: 1. Clinical consideration for a subacute subcortical ischemic area within the posterior left fronta l lobe. This could be further evaluated with MRI. 2. Chronic stable appearing periventricular white matter ischemic type changes otherwise appear to be present.
--- NOTE | 2022-03-12 13:17 | XR ---
EXAMINATION TYPE: XR chest 2V DATE OF EXAM: 03/12/2022 COMPARISON: 06/21/2021 HISTORY: 81-year-old female shortness of breath, difficulty breathing, slurred speech TECHNIQUE: AP and lateral views FINDINGS: Heart mildly enlarged. Mild hyperinflation. Pulmonary vasculature within normal limits. Some strandy atelectasis in the lower lungs. No consolidation or pleural effusion. IMPRESSION: Mild cardiomegaly and COPD. Chronic changes without definite acute process.
--- NOTE | 2022-03-12 14:48 | ED ---
General Adult HPI - General Chief complaint: Neuro Symptoms/Deficit Stated complaint: slurred speech Time Seen by Provider: 03/12/22 12:15 Source: patient, family Mode of arrival: ambulatory Limitations: no limitations - History of Present Illness Initial comments: This 81-year-old female presents with daughter as well as [id number] with complaint of having some slurred speech. They state that they just noticed that shortly prior to arrival. The [id number] oftentimes will take care of her during the day and states that yesterday she had somewhat similar symptoms after exerting herself taking a shower. The patient is denying any current symptomatology. She denies any weakness of extremities or difficulty in breathing. There's been no fevers, chills, or recent infections. She is not having any chest pain. She does have a history of chronic atrial fibrillation. She also has a significant history of congestive heart failure. Upon presentation her oxygen level is 86%. She denies any lower extremity edema. No other complaints or modifying factors. - Related Data Home Medications Medication Instructions Recorded Confirmed Alendronate Sodium [Fosamax] 70 mg PO TH@0830 11/20/20 03/12/22 Apixaban [Eliquis] 2.5 mg PO BID 11/20/20 03/12/22 Cholecalciferol [Vitamin D3 (25 25 mcg PO HS 11/20/20 03/12/22 Mcg = 1000 Iu)] Famotidine 40 mg PO HS 11/20/20 03/12/22 Fluticasone Nasal [place] [Flonase 1 spray EA NOSTRIL DAILY PRN 11/20/20 03/12/22 Nasal [place]] Furosemide [Lasix] 20 mg PO DAILY 11/20/20 03/12/22 Rosuvastatin [Crestor] 20 mg PO HS 11/20/20 03/12/22 Spironolactone 25 mg PO DAILY 11/20/20 03/12/22 Venlafaxine HCl ER [Effexor XR] 75 mg PO DAILY 06/21/21 03/12/22 Losartan Potassium [Cozaar] 25 mg PO DAILY 03/12/22 03/12/22 Propylene Glycol [Systane Complete] 1 drop BOTH EYES QID PRN 03/12/22 03/12/22 carvediloL [Coreg] 6.25 mg PO DAILY 03/12/22 03/12/22 Previous Rx's Medication Instructions Recorded Aspirin 81 mg PO DAILY #30 chew 09/18/19 Clopidogrel Bisulfate [Plavix] 75 mg PO DAILY #0 tab 01/03/20 Allergies Allergy/AdvReac Type Severity Reaction Status Date / Time adhesive tape AdvReac skin Verified 03/12/22 14:07 irritation Penicillins AdvReac Rash/Hives Verified 03/12/22 14:07 Review of Systems ROS Statement: Those systems with pertinent positive or pertinent negative responses have been documented in the HPI. ROS Other: All systems not noted in ROS Statement are negative. Past Medical History Past Medical History: Atrial Fibrillation, Coronary Artery Disease (CAD), Heart Failure, GERD/Reflux, Hypertension Additional Past Medical History / Comment(s): ileostomy, acute colitis, some memory loss History of Any Multi-Drug Resistant Organisms: None Reported Past Surgical History: Heart Catheterization, Hysterectomy, Orthopedic Surgery Additional Past Surgical History / Comment(s): Illeostomy, carpal tunnel bilateral hands, bunion surgery on left foot. last heart cath 12/21/19 Past Anesthesia/Blood Transfusion Reactions: No Reported Reaction Past Psychological History: Anxiety, Depression Smoking Status: Never smoker Past Alcohol Use History: Occasional Past Drug Use History: None Reported - Past Family History Family Family Medical History: No Reported History General Exam - General Exam Comments Initial Comments: GENERAL: The patient is well nourished and well hydrated. VITAL SIGNS: Heart rate, blood pressure, respiratory rate reviewed as recorded in nurse's notes. EYES: Pupils are round and reactive. Extraocular movements are intact. No conjunctival / lid redness or swelling. ENT: No external evidence of injury, swelling, or ecchymosis. Airway is patent. Throat is clear. NECK: Nontender. No swelling or evidence of injury. No subcutaneous emphysema. Trachea is midline. No thyroid mass. HEART: Regular rate and rhythm. Good peripheral pulses. LUNGS/CHEST: Breath sounds clear and equal bilaterally. No rales, rhonchi, or wheezes. No ecchymosis, subcutaneous emphysema, or tenderness. ABDOMEN: Abdomen soft without tenderness. No palpable masses or organomegaly. No peritoneal signs. No abdominal wall swelling or ecchymosis. EXTREMITIES: No extremity tenderness. Normal muscle tone and function. No thoracolumbar tenderness. NEUROLOGIC: Sensation is grossly intact. Cranial nerve exam reveals face is symmetrical, tongue is midline, speech is clear. SKIN: No abrasions or ecchymosis is noted. No induration or masses noted. PSYCHIATRIC: Alert and oriented. Appropriate behavior and judgment. Limitations: no limitations Course Vital Signs 03/12/22 03/12/22 03/12/22 12:00 12:19 13:33 Temperature 97.6 F Pulse Rate 62 104 H 95 Respiratory 18 18 16 Rate Blood Pressure 126/80 112/58 115/64 O2 Sat by Pulse 86 L 92 L 99 Oximetry 03/12/22 14:02 Temperature Pulse Rate 71 Respiratory 21 Rate Blood Pressure 110/60 O2 Sat by Pulse 99 Oximetry Medical Decision Making - Medical Decision Making The patient was seen and examined. All diagnostics are reviewed. She is placed on monitoring engineer and this does show an irregular heart rhythm. The EKG is done and shows atrial fibrillation with rapid ventricular response at a heart rate of 102. There is no identifiable ST elevation. The DE interval is not measurable, QRS duration is 78, and the QTc interval is 383. An IV is established. She does receive Lasix 40 mg IV. She also receives oxygen and her pulse ox does significantly improved. She had a chest x-ray which does not show any acute processes. Her laboratory does show slightly decreased CO2. The computed tomography scan of the brain does show evidence of a subacute infarct. No other acute process. She is given an aspirin. It is felt as though she would benefit from admission to the hospital for further workup. Case is discussed with [facility] physician Dr. Bourgeois and they are agreeable with admission. BNP and troponin are pending at time of admission. - Lab Data Result diagrams: 03/12/22 12:41 03/12/22 12:41 Lab Results 03/12/22 03/12/22 03/12/22 Range/Units 12:11 12:41 12:41 WBC 8.3 (3.8-10.6) k/uL RBC 4.52 (3.80-5.40) m/uL Hgb 14.9 (11.4-16.0) gm/dL Hct 45.9 (34.0-46.0) % MCV 101.6 H (80.0-100.0) fL MCH 33.0 (25.0-35.0) pg MCHC 32.5 (31.0-37.0) g/dL RDW 13.3 (11.5-15.5) % Plt Count 233 (150-450) k/uL MPV 10.0 Neutrophils % 71 % Lymphocytes % 14 % Monocytes % 6 % Eosinophils % 7 % Basophils % 1 % Neutrophils # 5.9 (1.3-7.7) k/uL Lymphocytes # 1.2 (1.0-4.8) k/uL Monocytes # 0.5 (0-1.0) k/uL Eosinophils # 0.6 (0-0.7) k/uL Basophils # 0.1 (0-0.2) k/uL Macrocytosis Slight PT 11.8 (9.0-12.0) sec INR 1.1 (<1.2) APTT 26.4 (22.0-30.0) sec Sodium (137-145) mmol/L Potassium (3.5-5.1) mmol/L Chloride (98-107) mmol/L Carbon Dioxide (22-30) mmol/L Anion Gap mmol/L BUN (7-17) mg/dL Creatinine (0.52-1.04) mg/dL Est GFR (CKD-EPI)AfAm (>60 ml/min/1.73 sqM) Est GFR (CKD-EPI)NonAf (>60 ml/min/1.73 sqM) Glucose (74-99) mg/dL POC Glucose (mg/dL) 187 H (70-110) mg/dL POC Glu B2B Sales Representative ID [facility] Calcium (8.4-10.2) mg/dL Total Bilirubin (0.2-1.3) mg/dL AST (14-36) U/L ALT (4-34) U/L Alkaline Phosphatase (38-126) U/L Troponin I (0.000-0.034) ng/mL Total Protein (6.3-8.2) g/dL Albumin (3.5-5.0) g/dL Coronavirus (PCR) (Not Detectd) 03/12/22 03/12/22 03/12/22 Range/Units 12:41 12:41 14:02 WBC (3.8-10.6) k/uL RBC (3.80-5.40) m/uL Hgb (11.4-16.0) gm/dL Hct (34.0-46.0) % MCV (80.0-100.0) fL MCH (25.0-35.0) pg MCHC (31.0-37.0) g/dL RDW (11.5-15.5) % Plt Count (150-450) k/uL MPV Neutrophils % % Lymphocytes % % Monocytes % % Eosinophils % % Basophils % % Neutrophils # (1.3-7.7) k/uL Lymphocytes # (1.0-4.8) k/uL Monocytes # (0-1.0) k/uL Eosinophils # (0-0.7) k/uL Basophils # (0-0.2) k/uL Macrocytosis PT (9.0-12.0) sec INR (<1.2) APTT (22.0-30.0) sec Sodium 135 L (137-145) mmol/L Potassium 4.1 (3.5-5.1) mmol/L Chloride 101 (98-107) mmol/L Carbon Dioxide 19 L (22-30) mmol/L Anion Gap 15 mmol/L BUN 31 H (7-17) mg/dL Creatinine 1.11 H (0.52-1.04) mg/dL Est GFR (CKD-EPI)AfAm 53 (>60 ml/min/1.73 sqM) Est GFR (CKD-EPI)NonAf 46 (>60 ml/min/1.73 sqM) Glucose 203 H (74-99) mg/dL POC Glucose (mg/dL) (70-110) mg/dL POC Glu B2B Sales Representative ID Calcium 9.3 (8.4-10.2) mg/dL Total Bilirubin 0.7 (0.2-1.3) mg/dL AST 42 H (14-36) U/L ALT 28 (4-34) U/L Alkaline Phosphatase 82 (38-126) U/L Troponin I <0.012 (0.000-0.034) ng/mL Total Protein 6.9 (6.3-8.2) g/dL Albumin 3.9 (3.5-5.0) g/dL Coronavirus (PCR) Not Detected (Not Detectd) Disposition Clinical Impression: Slurred speech, CVA (cerebral vascular accident), Hypoxia, Respiratory failure, History of congestive heart failure, Atrial fibrillation Disposition: ADMITTED IP TO THIS HOSP Condition: Fair Referrals: Fei Mcpherson MD [Primary Care Provider] - 1-2 days Time of Disposition: 14:47 Decision Date: 03/12/22 Decision Time: 14:47
[2022-03-12] MEDS ORDERED: ASPIRIN 325 MG TAB PO STA (14:55)
--- NOTE | 2022-03-12 15:08 | P.HPIM ---
History of Present Illness H&P Date: 03/12/22 Patient is 80-year-old female with PMH of CAD with multiple stents on Plavix and aspirin, chronic systolic CHF with EF of 20-25%, chronic persistent atrial fibrillation on anticoagulation with Eliquis, hypertension, dyslipidemia, diabetes mellitus, history of TIAs and ulcerative colitis with colostomy presents the ED after family noted that the patient had slurred speech and unintelligible speech. Family is at bedside providing majority of the history. Family reports patient woke up this morning and started complaining of vertiginous-like symptoms. Her symptoms progressively improved throughout the day. She had a PCP appointment at 12 PM, started developing slurred speech along with confusion. Family decided to take the patient to the ED at that time. Her symptoms resolved en route to the hospital. Of note, patient reports a syncopal episode 2 weeks ago for which family did not seek medical attention. Patient currently denies any headache, lower extremity edema, nausea or vomit ing, fever or chills, cough, chest pain, shortness of breath, palpitations, changes in urination or bowel habits. No changes in appetite or weight. She denies any dizziness, numbness/weakness/tingling of the extremities. Her NIH stroke scale at this time is 0. In the ED, patient was noted to be hypoxic with O2 saturation of 86% on room air. Her vital signs were otherwise stable with heart rate in the low 100s. CBC showed macrocytosis with MCV of 101.6. CMP shows sodium 135, bicarb of 19, BUN of 31, creatinine 1.11, glucose of 203 and AST of 42. Troponin was less than 0.012. Chest x-ray showed mild cardiomegaly and COPD. CT head showed subacute subcortical ischemic area within the posterior left frontal lobe. Patient is admitted for further management of her symptoms. #Slurred speech with altered mental status #Subacute CVA seen on CT head #Acute kidney injury with metabolic acidosis #Diabetes mellitus with hyperglycemia #Macrocytosis Chronic condition: Atrial fibrillation, CAD, chronic systolic CHF, hypertension, dyslipidemia, ulcerative colitis Patient presents with slurred speech and altered mentation that occurred around 12 PM. Her symptoms have completely resolved. CT head shows possible subacute stroke. We will pursue full stroke workup. Patient will be given aspirin 325 mg by mouth STAT. MRI brain on be ordered. Echocardiogram will be ordered. Carotid duplex will be ordered. Hemoglobin A1c and lipid panel will be ordered. Patient be placed on telemetry monitoring. PT, OT and speech therapy will be consulted. Urology has been consulted for further management of this patient. Patient will be hydrated with normal saline at 50 mL per hour. Lasix, losartan and Aldactone will be discontinued for now. Nephrotoxins will be avoided. Plans to repeat BMP tomorrow morning. Patient will be placed on low-dose insulin sliding scale along with Accu-Cheks 4 times a day and hypoglycemic precautions. B12, folic acid and TSH will be ordered. Restart Coreg and Eliquis for history of A-Fib. Restart ASA and Plavix along with Crestor for history of CAD. Monitor vitals adjust medications if necessary. DVT prophylaxis: [Elquis] Discussed with: [Patient, family, ED physician] Anticipated discharge: [1-2 days] Anticipated discharge place: [home] A total of [35] minutes was spent on the care of this complex patient more than 50% of the time was spent in counseling and care coordination. Patient names her son and daughter in law decision maker if she cant make decisions for herself. Patient would like to be NO CODE. This was confirmed with the family at bedside. Past Medical History Past Medical History: Atrial Fibrillation, Coronary Artery Disease (CAD), Heart Failure, GERD/Reflux, Hypertension Additional Past Medical History / Comment(s): ileostomy, acute colitis, some mem ory loss History of Any Multi-Drug Resistant Organisms: None Reported Past Surgical History: Heart Catheterization, Hysterectomy, Orthopedic Surgery Additional Past Surgical History / Comment(s): Illeostomy, carpal tunnel river ateral hands, bunion surgery on left foot. last heart cath 12/21/19 Past Anesthesia/Blood Transfusion Reactions: No Reported Reaction Past Psychological History: Anxiety, Depression Smoking Status: Never smoker Past Alcohol Use History: Occasional Past Drug Use History: None Reported - Past Family History Family Family Medical History: No Reported History Medications and Allergies Home Medications Medication Instructions Recorded Confirmed Type Aspirin 81 mg PO DAILY #30 chew 09/18/19 03/12/22 Rx Clopidogrel Bisulfate [Plavix] 75 mg PO DAILY #0 tab 01/03/20 03/12/22 Rx Alendronate Sodium [Fosamax] 70 mg PO TH@0830 11/20/20 03/12/22 History Apixaban [Eliquis] 2.5 mg PO BID 11/20/20 03/12/22 History Cholecalciferol [Vitamin D3 (25 25 mcg PO HS 11/20/20 03/12/22 History Mcg = 1000 Iu)] Famotidine 40 mg PO HS 11/20/20 03/12/22 History Fluticasone Nasal [place] [Flonase 1 spray EA NOSTRIL DAILY PRN 11/20/20 03/12/22 History Nasal [place]] Furosemide [Lasix] 20 mg PO DAILY 11/20/20 03/12/22 History Rosuvastatin [Crestor] 20 mg PO HS 11/20/20 03/12/22 History Spironolactone 25 mg PO DAILY 11/20/20 03/12/22 History Venlafaxine HCl ER [Effexor XR] 75 mg PO DAILY 06/21/21 03/12/22 History Losartan Potassium [Cozaar] 25 mg PO DAILY 03/12/22 03/12/22 History Propylene Glycol [Systane Complete] 1 drop BOTH EYES QID PRN 03/12/22 03/12/22 History carvediloL [Coreg] 6.25 mg PO DAILY 03/12/22 03/12/22 History Allergies Allergy/AdvReac Type Severity Reaction Status Date / Time adhesive tape AdvReac skin Verified 03/12/22 14:07 irritation Penicillins AdvReac Rash/Hives Verified 03/12/22 14:07 Physical Exam Vitals: Vital Signs Temp Pulse Resp BP Pulse Ox 03/12/22 14:02 71 21 110/60 99 03/12/22 13:33 95 16 115/64 99 03/12/22 12:19 104 H 18 112/58 92 L 03/12/22 12:00 97.6 F 62 18 126/80 86 L Intake and Output 03/12/22 03/12/22 03/12/22 06:59 14:59 22:59 Other: Weight 81.647 kg Results CBC & Chem 7: 03/12/22 12:41 03/12/22 12:41 Labs: Abnormal Lab Results - Last 24 Hours (Table) 03/12/22 03/12/22 03/12/22 Range/Units 12:11 12:41 12:41 MCV 101.6 H (80.0-100.0) fL Sodium 135 L (137-145) mmol/L Carbon Dioxide 19 L (22-30) mmol/L BUN 31 H (7-17) mg/dL Creatinine 1.11 H (0.52-1.04) mg/dL Glucose 203 H (74-99) mg/dL POC Glucose (mg/dL) 187 H (70-110) mg/dL AST 42 H (14-36) U/L
[2022-03-12] MEDS: SODIUM CHLORIDE 0.9% 1,000 ML IV SCH (15:23)
[2022-03-12 15:55] LABS: Appearance,Urine Cloudy (Clear); Bacteria,Urine Many /hpf; Bilirubin,Urine Negative (Negative); Blood,Urine Negative (Negative); Color,Urine Colorless; Glucose,Urine (UA) 4+ (Negative); Hyaline Casts,Urine 9 /lpf (0-2); Ketones,Urine Negative (Negative); Leukocyte Esterase,Urine Large (Negative); Mucus,Urine Rare /hpf; Nitrite,Urine Negative (Negative); Protein,Urine Negative (Negative); RBC,Urine 7 /hpf (0-5); Specific Gravity,Urine 1.006 (1.001-1.035); Squamous Epithelial Cell,Urine 5 /hpf (0-4); Urobilinogen,Urine <2.0 mg/dL (<2.0); WBC,Urine 17 /hpf (0-5)
--- NOTE | 2022-03-12 16:20 | US ---
EXAMINATION TYPE: US carotid duplex BILAT DATE OF EXAM: 03/12/2022 COMPARISON: NONE CLINICAL HISTORY: Stenosis. TECHNIQUE: Carotid duplex ultrasound examination. Indirect Doppler criteria was utilized. FINDINGS: EXAM MEASUREMENTS: RIGHT: Peak Systolic Velocity (PSV) cm/sec ----- Right CCA: 39.8 ----- Right ICA: 41.0 ----- Right ECA: 54.3 ICA/CCA ratio: 1.0 RIGHT: End Diastole cm/sec ----- Right CCA: 4.7 ----- Right ICA: 12.5 ----- Right ECA: 0.0 LEFT: Peak Systolic Velocity (PSV) cm/sec ----- Left CCA: 24.3 ----- Left ICA: 32.5 ----- Left ECA: 28.1 ICA/CCA ratio: 1.3 LEFT: End Diastole cm/sec ----- Left CCA: 0.0 ----- Left ICA: 5.1 ----- Left ECA: 0.0 VERTEBRALS (direction of flow): Right Vertebral: Antegrade Left Vertebral: Antegrade Rhythm: Arrhythmia TRAVEL OCCUPATIONAL THERAPIST NOTES: No significant stenosis seen, mild to moderate plaque. Grayscale, color Doppler, spectral Doppler imaging performed the carotid arteries. Waveform analysis does not show significant stenosis of the proximal internal carotid arteries. IMPRESSION: No hemodynamic significant stenosis of the proximal internal carotid arteries by Doppler criteria, an indirect measurement of carotid stenosis, note is made of cardiac arrhythmia. Criteria for Assigning % of Stenosis / Diameter reduction (Estimation based on the indirect measurements of the internal carotid artery velocities (ICA PSV). 1. Normal (no stenosis)=ICA PSV < 125 cm/s: ratio < 2.0: ICA EDV<40 cm/s. 2. Less than 50% stenosis=ICA PSV < 125 cm/s: ratio < 2.0: ICA EDV<40 cm/s. 3. 50 to 69% stenosis=ICA PSV of 125 to 230 cm/s: ration 2.0 ? 4.0: ICA EDV 40-100 cm/s. 4. Greater than 70% stenosis to near occlusion= ICA PSV > 230 cm/s: ratio > 4.0: ICA EDV > 100 cm/s. 5. Near occlusion= ICA PSV velocities may be low or undetectable: variable ratio and ICA EDV. 6. Total occlusion=unable to detect flow.
[2022-03-12 17:13] LABS: Glucose,Whole Blood 143 mg/dL (70-110)
[2022-03-12] MEDS: INSULIN ASPART (NovoLOG) 100 UNIT/ML VIAL SQ SCH ×2 (17:45→20:30)
--- NOTE | 2022-03-12 20:00 | P.CNNES ---
History of Present Illness Consult date: 03/12/22 Requesting physician: Carson Lockhart Reason for Consult: TIA History of Present Illness: Patient is a 81-year-old female with history of hypertension, atrial fibrillation on anticoagulation, CHF, CAD, known to neurology service from the past came to the hospital for a possible TIA. Patient's daughter was also presadolfo nt. She mentioned that patient had an appointment with her primary physician on 02/19/2022. She had some blood workup done at that time, which was abnormal. They were going to her doctor's appointment for a follow-up on the blood test results when this event happened. Patient's daughter states that patient was in the living room, went to the kitchen. She sat in the chair. She got shaky in the kitchen. She sat there for a few minutes and was okay. Patient's daughter noticed that her speech was slurred, and she could not understand what she was saying. Patient puts her head back in the chair and felt dizzy. This episode lasted for about 1-1-1/2 minutes. There was no associated facial droop, problem with the vision, focal numbness tingling or weakness. Patient's vitals on arrival blood pressure 126/80, pulse at 62 temperature 97.6. Patient underwent computed tomography scan of the head, which revealed clinical consideration for a subacute subcortical ischemic area within the posterior left frontal now. This could be further evaluated with MRI. I personally reviewed this CT head, and appears is chronic in nature. This abnormality was present in the previous computed tomography scan from 06/21/2021 and 11/20/2020. Patient currently takes Eliquis 2.5 mg twice a day, aspirin 81 mg and Plavix 75 mg. Also on Crestor. Patient is compliant with the medication. Patient had an episode on 11/21/2020 in which she had transient episode of possible left arm weakness, slurred speech without any loss of impairment of consciousness. Symptoms lasted for 10 minutes. Patient was on aspirin, Plavix and Eliquis at that time. Patient then was seen again in neurology consultation on 06/22/2021 for possible vasovagal syncope versus TIA. Patient had MRI of the brain which was normal. Patient had a syncopal spell in October 2020 as well. Review of Systems Constitutional: Denies chills, Denies fever Eyes: denies blurred vision, denies pain Ears, nose, mouth and throat: Denies headache, Denies sore throat Cardiovascular: Denies chest pain, Denies shortness of breath Respiratory: Denies cough Gastrointestinal: Denies abdominal pain, Denies diarrhea, Denies nausea, Denies vomiting Genitourinary: Denies dysuria, Denies hematuria Musculoskeletal: Denies myalgias Integumentary: Denies pruritus, Denies rash Neurological: Denies numbness, Denies weakness Psychiatric: Denies anxiety, Denies depression Endocrine: Denies fatigue, Denies weight change Hematologic/Lymphatic: Denies lymphadenopathy Allergic/Immunologic: Denies persistent infections Past Medical History Past Medical History: Atrial Fibrillation, Coronary Artery Disease (CAD), Heart Failure, GERD/Reflux, Hypertension Additional Past Medical History / Comment(s): ileostomy, acute colitis, some memory loss History of Any Multi-Drug Resistant Organisms: None Reported Past Surgical History: Heart Catheterization With Stent, Hysterectomy, Orthopedic Surgery Additional Past Surgical History / Comment(s): Illeostomy, carpal tunnel bilateral hands, bunion surgery on left foot. last heart cath 12/21/19, stents x3 in December 2019 Past Anesthesia/Blood Transfusion Reactions: No Reported Reaction Date of Last Stent Placement:: 12/2019 Smoking Status: Never smoker Past Alcohol Use History: Occasional Past Drug Use History: None Reported - Past Family History Family Family Medical History: No Reported History Medications and Allergies Home Medications Medication Instructions Recorded Confirmed Type Aspirin 81 mg PO DAILY #30 chew 09/18/19 03/12/22 Rx Clopidogrel Bisulfate [Plavix] 75 mg PO DAILY #0 tab 01/03/20 03/12/22 Rx Alendronate Sodium [Fosamax] 70 mg PO TH@0830 11/20/20 03/12/22 History Apixaban [Eliquis] 2.5 mg PO BID 11/20/20 03/12/22 History Cholecalciferol [Vitamin D3 (25 25 mcg PO HS 11/20/20 03/12/22 History Mcg = 1000 Iu)] Famotidine 40 mg PO HS 11/20/20 03/12/22 History Fluticasone Nasal [place] [Flonase 1 spray EA NOSTRIL DAILY PRN 11/20/20 03/12/22 History Nasal [place]] Furosemide [Lasix] 20 mg PO DAILY 11/20/20 03/12/22 History Rosuvastatin [Crestor] 20 mg PO HS 11/20/20 03/12/22 History Spironolactone 25 mg PO DAILY 11/20/20 03/12/22 History Venlafaxine HCl ER [Effexor XR] 75 mg PO DAILY 06/21/21 03/12/22 History Losartan Potassium [Cozaar] 25 mg PO DAILY 03/12/22 03/12/22 History Propylene Glycol [Systane Complete] 1 drop BOTH EYES QID PRN 03/12/22 03/12/22 History carvediloL [Coreg] 6.25 mg PO DAILY 03/12/22 03/12/22 History metFORMIN HCL [Glucophage] 500 mg PO BID #60 tab 03/13/22 Rx Allergies Allergy/AdvReac Type Severity Reaction Status Date / Time adhesive tape AdvReac skin Verified 03/12/22 14:07 irritation Penicillins AdvReac Rash/Hives Verified 03/12/22 14:07 Physical Examination - Vital Signs Vital Signs: Vital Signs Temp Pulse Pulse Resp BP BP Pulse Ox 03/12/22 17:43 97.3 F L 63 18 112/75 96 03/12/22 17:24 101 H 21 116/86 98 03/12/22 14:02 71 21 110/60 99 03/12/22 13:33 95 16 115/64 99 03/12/22 12:19 104 H 18 112/58 92 L 03/12/22 12:00 97.6 F 62 18 126/80 86 L Intake and Output 03/12/22 03/12/22 03/12/22 06:59 14:59 22:59 Other: # Bowel Movements 1 Weight 81.647 kg 81.647 kg Patient is an elderly female, in no acute distress. Patient is alert awake oriented to time place and person. Patient knows it is February 2022. Speech and language functions are normal. Patient can name and repeat very well. No aphasia or dysarthria. Attention, concentration and fund of knowledge is adequate. On cranial nerve examination, pupils are equal, round and reacting to light, visual carlton are full on confrontation, with no neglect on double simultaneous depression. Extraocular muscles are intact with no nystagmus. Face is symmetr ic, tongue protrudes to the midline. Palatal elevation and sensation normal, hearing and shoulder shrug normal, facial sensation normal. On muscle strength testing, there is no pronator drift and the strength is normal in arms and legs distally and proximally. Deep tendon reflexes are symmetric 2+ and plantars downgoing. Sensory to touch is equal with no neglect on double simultaneous stimulation. Cerebellar function showed no ataxia for [id number] testing. No dysdiadochokinesia. No ataxia for qxsq-pz-noce testing on either side. Tone and bulk of muscles normal. Gait deferred.. On general examination, there is no carotid bruit or murmur, S1-S2 audible. Chest is clear on consultation. Abdomen is soft nontender. No organomegaly, bowel sounds present. Peripheral pulses are present. No edema. Results - Laboratory Findings CBC and BMP: 03/12/22 12:41 03/12/22 12:41 Abnormal Lab Findings: Abnormal Labs 03/12/22 03/12/22 03/12/22 12:11 12:41 12:41 MCV 101.6 H Sodium 135 L Carbon Dioxide 19 L BUN 31 H Creatinine 1.11 H Glucose 203 H POC Glucose (mg/dL) 187 H AST 42 H Urine Appearance Urine Glucose (UA) Ur Leukocyte Esterase Urine RBC Urine WBC Urine WBC Clumps Ur Squamous Epith Cells Urine Bacteria Hyaline Casts Urine Mucus 03/12/22 03/12/22 15:42 17:11 MCV Sodium Carbon Dioxide BUN Creatinine Glucose POC Glucose (mg/dL) 143 H AST Urine Appearance Cloudy H Urine Glucose (UA) 4+ H Ur Leukocyte Esterase Large H Urine RBC 7 H Urine WBC 17 H Urine WBC Clumps Few H Ur Squamous Epith Cells 5 H Urine Bacteria Many H Hyaline Casts 9 H Urine Mucus Rare H Assessment and Plan Assessment: * Probable TIA manifesting with transient speech difficulty, that lasted for about a minute or so. * Abnormal CT head reported as subacute subcortical ischemic area within the posterior left frontal lobe. I reviewed previous CT scans, and this abnormality was present in the previous CT scans as well. This is not acute finding. * Hypertension * Atrial fibrillation, on anticoagulation * CHF, * CAD Plan: * Patient's symptoms lasted for only 1 minute or slightly longer. MRI probably will be negative for any acute stroke. * Continue current medications including Eliquis 2.5 mg twice a day, aspirin 81 mg and Plavix 75 mg, as she has been taking. Patient is compliant with the medication. * Continue Pepcid 20 mg twice a day for gastric ulcer prophylaxis. * Continue statins. * Carotid Doppler revealed no hemodynamic significant stenosis of the proximal ICA. Antegrade flow in both vertebral arteries. * Lipid panel, hemoglobin A1c. * 2-D echo revealed mild left-ventricular systolic dysfunction. Mild mitral regurgitation. Aortic sclerosis without any stenosis. Left atrial enlargement. EF 40-45%. * Neurologically clear. Suggest checking EEG as an outpatient. * Thank you for the consult.
[2022-03-12 20:06] LABS: Glucose,Whole Blood 177 mg/dL (70-110)
[2022-03-12] MEDS: APIXABAN 2.5 MG TABLET PO SCH (20:30)
[2022-03-12] MEDS ORDERED: FAMOTIDINE 20 MG TAB PO SCH ×2 (21:00)
[2022-03-12] MEDS ORDERED: ATORVASTATIN 40 MG TAB PO SCH (21:00)
[2022-03-13 06:21] LABS: Glucose,Whole Blood 87 mg/dL (70-110)
[2022-03-13] MEDS: INSULIN ASPART (NovoLOG) 100 UNIT/ML VIAL SQ SCH ×2 (06:27→11:54)
[2022-03-13] MEDS ORDERED: carvediloL 6.25 MG TAB PO SCH (07:30)
[2022-03-13] MEDS: APIXABAN 2.5 MG TABLET PO SCH (08:36)
[2022-03-13] MEDS ORDERED: CLOPIDOGREL 75 MG TAB PO SCH (09:00)
[2022-03-13] MEDS ORDERED: ASPIRIN 81 MG PO SCH (09:00)
[2022-03-13] MEDS ORDERED: VENLAFAXINE HCL ER 75 MG CAP PO SCH (09:00)
--- NOTE | 2022-03-13 10:06 | CA ---
Transthoracic Echo Report Name: Lay Jones Age: 81 Gender: F : 1940 Exam Date: 03/13/2022 07:47 Exam Location: [facility] Ht (in): 68 Wt (lb): 180 Ordering Physician: Carson Lockhart MD Attending/Referring Phys: Corporate Planner Lauren Guevara RDCS Procedure CPT: Indications: Thrombus Cardiac Hx: Technical Quality: Good Contrast 1: Total Dose (mL): Contrast 2: Total Dose (mL): MEASUREMENTS (Male / Female) Normal Values 2D ECHO LV Diastolic Diameter PLAX 3.6 cm 4.2 - 5.9 / 3.9 - 5.3 cm LV Systolic Diameter PLAX 3.1 cm IVS Diastolic Thickness 1.1 cm 0.6 - 1.0 / 0.6 - 0.9 cm LVPW Diastolic Thickness 1.0 cm 0.6 - 1.0 / 0.6 - 0.9 cm LV Relative Wall Thickness 0.6 RV Internal Dim ED PLAX 3.0 cm LA Systolic Diameter LX 3.3 cm 3.0 - 4.0 / 2.7 - 3.8 cm LA Volume 68.3 cm??? 18 - 58 / 22 - 52 cm??? M-MODE Aortic Root Diameter MM 3.9 cm LA Systolic Diameter MM 3.3 cm LA Ao Ratio MM 0.8 AV Cusp Separation MM 1.4 cm DOPPLER MV E' Velocity 2.9 cm/s TR Peak Velocity 224.0 cm/s TR Peak Gradient 20.1 mmHg Right Ventricular Systolic Press 25.1 mmHg FINDINGS Left Ventricle Left ventricular ejection fraction is estimated at 40-45%. Mildly increased left ventricular wall thickness. Right Ventricle Normal right ventricular size and function. Right ventricular systolic pressure within normal limits. Right Atrium Normal right atrial size. Left Atrium Moderately increased left atrial volume. Mitral Valve Mitral annular calcification. Mild mitral regurgitation. Aortic Valve Trileaflet aortic valve. Aortic valve sclerosis. Tricuspid Valve Structurally normal tricuspid valve. Pulmonic Valve Structurally normal pulmonic valve. Pericardium Normal pericardium. Aorta Normal size aortic root and proximal ascending aorta. CONCLUSIONS Mild LV systolic dysfunction. Mild mitral regurgitation. Aortic sclerosis without any stenosis. Left atrial enlargement. Previewed by: Dr. Jonathan Gray MD (Electronically Signed) Final Date: 13 March 2022 10:05
[2022-03-13 11:38] VITALS: BP 116/74; PULSE 89; RESP 18; TEMP 97.5
[2022-03-13 11:43] LABS: Glucose,Whole Blood 123 mg/dL (70-110)
[2022-03-13] MEDS: SODIUM CHLORIDE 0.9% 1,000 ML IV SCH (12:15)
--- NOTE | 2022-03-13 15:38 | MR ---
EXAMINATION TYPE: MR brain wo con DATE OF EXAM: 03/13/2022 COMPARISON: 06/22/2021 HISTORY: Neuro deficit, acute, stroke suspected CONTRAST: Performed utilizing 0 mL intravenous Gadavist gadolinium contrast. TECHNIQUE: Multiplanar, multiecho imaging on a 3.0 Amelia magnet is performed through the brain. Stud y is performed within 24 hours of arrival to the hospital. The craniovertebral junction is normal. The pituitary is normal. Diffusion-weighted imaging is performed. No abnormal hyperintensity is present to suggest an acute i ntracranial infarct or acute ischemic change. There is mild increased signal within deep white matter including the brainstem and periventricular w gary matter. Subcortical white matter changes are present. Findings are nonspecific but can be relate d to microvascular ischemic change. Differential diagnosis could include multiple sclerosis and vascu litis. Findings appear similar to the comparison study. Ventricles and sulci are mildly prominent for the patient age. IMPRESSIONS: 1. Patchy periventricular and deep white matter changes including the brainstem likely related to chr onic white matter ischemic changes. 2. No suspicious changes to suggest acute ischemic change
--- NOTE | 2022-03-13 15:52 | P.DS ---
Providers Date of admission: 03/12/22 15:03 Expected date of discharge: 03/13/22 Attending physician: Carson Lockhart MD Consults: 03/12/22 14:57 Consult Physician Urgent Consulting Provider: Colten Veliz Consult Reason/Comments: TIA Do you want consulting provider notified?: Yes Primary care physician: Fei Mcpherson Hospital Course: Discharge Diagnosis: TIA Diabetes mellitus with hyperglycemia Atrial fibrillation Coronary artery disease Chronic systolic heart failure Hypertension Dyslipidemia Ulcerative colitis Hospital Course: Patient is a 80-year-old female with a past medical history of coronary disease at with multiple stents on Plavix aspirin, chronic systolic heart failure, chronic persistent atrial fibrillation on anticoagulation, hypertension, dyslipidemia, diabetes, history of TIAs and ulcerative colitis with colostomy who presents to the ED with slurred speech and incoherent speech. When the patient arrived to the ED her symptoms had resolved. Patient had a CT head that was negative for bleed. However did show possible subacute CVA. Patient did have an MRI that was negative for any acute infarct. Patient's carotid Dopplers were negative for any high-grade stenosis. Patient's echocardiogram showed EF of 40-45% which is an improvement from her previous echocardiogram. On discharge patient will resume her home dose of aspirin and Plavix and Eliquis. Patient's LDL was 76. She is already on a high intensity statin at home. Patient did have hyperglycemia and her last hemoglobin A1c in May 2021 was 7.0. I started the patient on metformin. Patient worked with physical therapy and was deemed stable to go home with 24 7 supervision. Patient lives with her daughter and has 24 7 supervision. Patient deemed stable for discharge home. Patient seen and examined at bedside.[] Vital signs reviewed and stable. General: [non toxic], [no distress], [appears at stated age] appears chronically debilitated Derm: [warm], [dry] Head: [atraumatic], [normocephalic], [symmetric] Eyes: [EOMI], [no lid lag], [anicteric sclera] Mouth: [no lip lesion], [mucus membranes moist] Cardiovascular: [S1S2 reg], [no murmur], [positive posterior tibial pulse bilateral], Lungs: [CTA bilateral], [no rhonchi, no rales] , [no accessory muscle use] Abdominal: [soft], [ nontender to palpation], [no guarding], [no appreciable organomegaly] Ext: [no gross muscle atrophy], [no edema], [no contractures] Neuro: [ CN II-XI grossly intact], [no focal neuro deficits] Psych: [Alert], [oriented], [appropriate affect] A total of [33] minutes of time were spent preparing this complex discharge summary . Patient Condition at Discharge: Fair Plan - Discharge Summary Discharge Rx Participant: No New Discharge Prescriptions: New metFORMIN HCL [Glucophage] 500 mg PO BID #60 tab Continue Aspirin 81 mg PO DAILY #30 chew Clopidogrel Bisulfate [Plavix] 75 mg PO DAILY #0 tab Fluticasone Nasal [place] [Flonase Nasal [place]] 1 spray EA NOSTRIL DAILY PRN PRN Reason: Allergy Symptoms Alendronate Sodium [Fosamax] 70 mg PO TH@0830 Rosuvastatin [Crestor] 20 mg PO HS Famotidine 40 mg PO HS Cholecalciferol [Vitamin D3 (25 Mcg = 1000 Iu)] 25 mcg PO HS Spironolactone 25 mg PO DAILY carvediloL [Coreg] 6.25 mg PO DAILY Propylene Glycol [Systane Complete] 1 drop BOTH EYES QID PRN PRN Reason: dry eyes Furosemide [Lasix] 20 mg PO DAILY Apixaban [Eliquis] 2.5 mg PO BID Venlafaxine HCl ER [Effexor XR] 75 mg PO DAILY Losartan Potassium [Cozaar] 25 mg PO DAILY Discharge Medication List Aspirin 81 mg PO DAILY #30 chew 09/18/19 [Rx] Clopidogrel Bisulfate [Plavix] 75 mg PO DAILY #0 tab 01/03/20 [Rx] Alendronate Sodium [Fosamax] 70 mg PO TH@0830 11/20/20 [History] Apixaban [Eliquis] 2.5 mg PO BID 11/20/20 [History] Cholecalciferol [Vitamin D3 (25 Mcg = 1000 Iu)] 25 mcg PO HS 11/20/20 [History] Famotidine 40 mg PO HS 11/20/20 [History] Fluticasone Nasal [place] [Flonase Nasal [place]] 1 spray EA NOSTRIL DAILY PRN 11/20/20 [History] Furosemide [Lasix] 20 mg PO DAILY 11/20/20 [History] Rosuvastatin [Crestor] 20 mg PO HS 11/20/20 [History] Spironolactone 25 mg PO DAILY 11/20/20 [History] Venlafaxine HCl ER [Effexor XR] 75 mg PO DAILY 06/21/21 [History] Losartan Potassium [Cozaar] 25 mg PO DAILY 03/12/22 [History] Propylene Glycol [Systane Complete] 1 drop BOTH EYES QID PRN 03/12/22 [History] carvediloL [Coreg] 6.25 mg PO DAILY 03/12/22 [History] metFORMIN HCL [Glucophage] 500 mg PO BID #60 tab 03/13/22 [Rx] Follow up Appointment(s)/Referral(s): Fei Mcpherson MD [Primary Care Provider] - 1-2 days Colten Veliz MD [STAFF PHYSICIAN] - 1 Week Discharge Disposition: HOME SELF-CARE
[2022-03-13 16:04] LABS: Chol/HDL Ratio 2.97 Ratio; LDL Cholesterol,Calculated 71.1 mg/dL (0.0-131.0)
--- NOTE | 2022-03-14 11:00 | P.PN ---
Subjective Progress Note Date: 03/13/22 Patient was seen for a follow-up. Patient is feeling fine. Patient is laying comfortably in the bed. Patient's family members were present. Objective - Vital Signs Vital signs: Vital Signs Temp 97.5 F L 03/13/22 11:35 Pulse 89 03/13/22 11:35 Resp 18 03/13/22 11:35 BP 116/74 03/13/22 11:35 Pulse Ox 100 03/13/22 11:35 FiO2 Intake & Output 03/12/22 03/13/22 03/13/22 18:59 06:59 18:59 Intake Total 400 400 Output Total 101 Balance 400 299 Weight 81.647 kg Intake: Intake, IV Titration 400 400 Amount Sodium Chloride 0.9% 1, 400 400 000 ml @ 50 mls/hr IV . Q20H FIDE Rx#:[id number] Output: Stool 101 Other: Voiding Method Toilet Toilet # Voids 1 1 # Bowel Movements 1 1 - Exam Examination deferred. Patient's mentation normal. - Labs CBC & Chem 7: 03/12/22 12:41 03/12/22 12:41 Labs: Abnormal Lab Results - Last 24 Hours (Table) 03/12/22 03/12/22 03/13/22 Range/Units 17:11 20:04 08:58 POC Glucose (mg/dL) 143 H 177 H (70-110) mg/dL Hemoglobin A1c 7.6 H (0.0-6.0) % 03/13/22 Range/Units 11:42 POC Glucose (mg/dL) 123 H (70-110) mg/dL Hemoglobin A1c (0.0-6.0) % Microbiology - Last 24 Hours (Table) 03/12/22 12:41 Blood Culture - Preliminary Blood No Growth after 24 hours 03/12/22 15:42 Urine Culture - Preliminary Urine,Voided Assessment and Plan Assessment: * Probable TIA manifesting with transient speech difficulty, that lasted for about a minute or so. * Abnormal CT head reported as subacute subcortical ischemic area within the posterior left frontal lobe. I reviewed previous CT scans, and this abnormality was present in the previous CT scans as well. This is not acute finding. * Hypertension * Atrial fibrillation, on anticoagulation * CHF, * CAD Plan: * Patient's symptoms lasted for only 1 minute or slightly longer. MRI probably will be negative for any acute stroke. * Continue current medications including Eliquis 2.5 mg twice a day, aspirin 81 mg and Plavix 75 mg, as she has been taking. Patient is compliant with the medication. * Continue Pepcid 20 mg twice a day for gastric ulcer prophylaxis. * Continue statins. * Carotid Doppler revealed no hemodynamic significant stenosis of the proximal ICA. Antegrade flow in both vertebral arteries. * Lipid panel with cholesterol 132, LDL 71, HDL 44 and triglycerides 82. * Hemoglobin A1c 7.6. Optimize control of diabetes to target A1c <7.0 * 2-D echo revealed mild left ventricular systolic function. Mild MR. Aortic sclerosis without any stenosis. Left atrial enlargement. * MRI of the brain revealed patchy periventricular and deep white matter changes, including the brainstem likely related to chronic white matter ischemic changes. No acute ischemic process. I personally reviewed MRI agree with the findings. * Neurologically clear for discharge.
--- NOTE | 2022-03-15 12:59 | CDI ---
Documentation Clarification Form Date: 03/15/2022 12:17:00 PM From: Bea Morgan Admit Date: 03/12/2022 03:03:00 PM Patient Name: Lay Jones Visit Number: [id number] Discharge Date: 03/13/2022 05:01:00 PM ATTENTION: The Clinical Documentation Specialists (CDI) and [facility] Coding Staff appreciate your assistance in clarifying documentation. Please respond to the clarification below the line at the bottom and electronically sign. The CDI & [facility] Coding staff will review the response and follow-up if needed. Please note: Queries are made part of the Legal Health Record. If you have any questions, please contact the author of this message via ITS. Dr. Driss Willis Your patient has hypoxia and respiratory failure documented in the ED note. Based on this information and the findings below, is there an additional diagnosis that is clinically appropriate for this patient? History/Risk Factors: came in with slurred speech, CVA, hypoxia, respiratory failure, chronic CHF with systolic dysfunction, and AFIB with RVR, COPD Clinical Indicators: Vital signs: 126/80 Pule 62-104 Pulse oximetry: on presentation oxygen level is 86% CO2 19 Treatment: lasix and oxygen Continuous Pulse ox: 86, 92, 99, 94, 100 on room air chest x-ray for shortness of breath, difficulty breathing, and slurred speech findings: mild cardiomegaly and COPD. Chronic changes without definite acute process Is there an additional diagnosis that is clinically appropriate for this patient? [ ] Acute Hypoxic Respiratory Failure (SpO2 <91% on room air) [ ] Acute on Chronic hypoxic Respiratory Failure [ ] Chronic Hypoxic Respiratory Failure [ ] Acute Respiratory Insufficiency [ X ] Hypoxic respiratory failure ruled out [ ] Other Diagnosis, please specify [ ] Unable to determine MTDD
== END 2022-03-13 17:01 | disposition home or self-care (01) | DRG 69 ==
LOC: EC 11:59 → 3SCARD 15:03
PROVIDERS: ADMIT Family Medicine; ATTEND Family Medicine
DX: G45.9 Transient cerebral ischemic attack, unspecified (principal); E87.2 Acidosis; N17.9 Acute kidney failure, unspecified; I48.19 Other persistent atrial fibrillation; I50.22 Chronic systolic (congestive) heart failure; K51.90 Ulcerative colitis, unspecified, without complications; R47.81 Slurred speech; R41.82 Altered mental status, unspecified; E11.65 Type 2 diabetes mellitus with hyperglycemia; D75.89 Other specified diseases of blood and blood-forming organs; J44.9 Chronic obstructive pulmonary disease, unspecified; I11.0 Hypertensive heart disease with heart failure; E78.5 Hyperlipidemia, unspecified; I25.10 Atherosclerotic heart disease of native coronary artery without angina pectoris; F32.A Depression, unspecified; F41.9 Anxiety disorder, unspecified; K21.9 Gastro-esophageal reflux disease without esophagitis; Z79.01 Long term (current) use of anticoagulants; Z79.02 Long term (current) use of antithrombotics/antiplatelets; Z79.82 Long term (current) use of aspirin; Z79.83 Long term (current) use of bisphosphonates; Z79.899 Other long term (current) drug therapy; Z93.3 Colostomy status; Z95.5 Presence of coronary angioplasty implant and graft; Z86.73 Personal history of transient ischemic attack (TIA), and cerebral infarction without residual deficits; Z88.0 Allergy status to penicillin; Z91.048 Other nonmedicinal substance allergy status
CPT/HCPCS: 36415; 70450; 70551; 71046; 80053; 80061; 81001; 82607; 82746; 83036; 83880; 84443; 84484; 85025; 85610; 85730; 87040; 87077; 87086; 87186; 87635; 93005; 93306; 93880

== ENCOUNTER 2022-04-19 13:15 | Observation (INO) | payer MEDICARE ==
--- NOTE | 2022-04-19 13:48 | CT ---
EXAMINATION TYPE: CT brain wo con for TPA CT DLP: 1115 mGycm, Automated exposure control for dose reduction was used. DATE OF EXAM: 04/19/2022 1:42 PM COMPARISON: CT brain 03/12/2022 , MRI brain 03/13/2022. CLINICAL INDICATION:Female, 81 years old with history of Neuro deficit, acute, stroke suspected, TECHNIQUE: Brain: Multiple axial CT images of the brain were obtained without IV contrast. Coronal and sagittal reformats reviewed. FINDINGS: Brain: Extra-axial spaces: No abnormal extra-axial fluid collections. Ventricular system: Within normal limits Cerebral parenchyma: No acute intraparenchymal hemorrhage or mass effect. The beavers-white junction is well differentiated. Scattered hypoattenuating areas are seen within the white matter. Cerebral vol ume loss. Cerebellum: Unremarkable. Mass effect: No evidence of midline shift. Intracranial vasculature: Atherosclerotic calcifications of the intracranial vessels. Soft tissues: Normal. Calvarium/osseous structures: No depressed skull fracture. Paranasal sinuses and mastoid air cells: Mild scattered paranasal sinus disease. Visualized orbits: Bilateral aphakia IMPRESSION: 1. No acute intracranial process. 2. Nonspecific white matter changes, likely secondary to chronic small vessel ischemic disease. Findings called to and discussed with Dr. Eddy at 1:46 PM on 04/19/2022.
[2022-04-19 13:53] LABS: Basophils % (A) 0 %; Eosinophils # (A) 0.7 k/uL (0-0.7); Eosinophils % (A) 9 %; HCT 46.7 % (34.0-46.0); HGB 15.3 gm/dL (11.4-16.0); Lymphocytes # (A) 1.1 k/uL (1.0-4.8); Lymphocytes % (A) 15 %; MCH 32.7 pg (25.0-35.0); MCHC 32.7 g/dL (31.0-37.0); MCV 99.8 fL (80.0-100.0); Mean Platelet Volume 10.3; Monocytes # (A) 0.5 k/uL (0-1.0); Monocytes % (A) 7 %; Neutrophils % (A) 67 %; Platelet Count 176 k/uL (150-450); RBC 4.68 m/uL (3.80-5.40); RDW 12.6 % (11.5-15.5); WBC 7.4 k/uL (3.8-10.6)
[2022-04-19 14:01] LABS: Albumin 3.8 g/dL (3.5-5.0); Calcium 8.9 mg/dL (8.4-10.2); Total Protein 6.9 g/dL (6.3-8.2)
--- NOTE | 2022-04-19 14:02 | ED ---
General Adult HPI - General Chief complaint: Neuro Symptoms/Deficit Stated complaint: stroke symptoms Time Seen by Provider: 04/19/22 13:16 Source: patient Mode of arrival: EMS Limitations: altered mental status, physical limitation - History of Present Illness Initial comments: 's patient is an 81-year-old woman who was in her usual state of health until approximately 12:30 PM today. She then began to have nausea vomiting, and it was also noted that her speech was not clear and that she was having some possible stroke symptoms. She was having some facial droop and her speech is not clear. On arrival, patient denying headache, change in vision or hearing. She has not noticed any weakness of the extremities or change in sensation. Patient did take her medications. Onset/Timin -: hour(s) Location: face Severity scale (1-10): 0 Consistency: constant Improves with: none Worsens with: none Associated Symptoms: nausea/vomiting Treatments Prior to Arrival: none - Related Data Home Medications Medication Instructions Recorded Confirmed Alendronate Sodium [Fosamax] 70 mg PO TH@0830 11/20/20 04/19/22 Apixaban [Eliquis] 2.5 mg PO BID 11/20/20 04/19/22 Cholecalciferol [Vitamin D3 (25 25 mcg PO HS 11/20/20 04/19/22 Mcg = 1000 Iu)] Famotidine 40 mg PO HS 11/20/20 04/19/22 Fluticasone Nasal [place] [Flonase 1 spray EA NOSTRIL DAILY PRN 11/20/20 04/19/22 Nasal [place]] Furosemide [Lasix] 20 mg PO DAILY 11/20/20 04/19/22 Rosuvastatin [Crestor] 20 mg PO HS 11/20/20 04/19/22 Spironolactone 25 mg PO DAILY 11/20/20 04/19/22 Venlafaxine HCl ER [Effexor XR] 75 mg PO DAILY 06/21/21 04/19/22 Losartan Potassium [Cozaar] 25 mg PO DAILY 03/12/22 04/19/22 Propylene Glycol [Systane Complete] 1 drop BOTH EYES QID PRN 03/12/22 04/19/22 carvediloL [Coreg] 6.25 mg PO DAILY 03/12/22 04/19/22 Previous Rx's Medication Instructions Recorded Aspirin 81 mg PO DAILY #30 chew 09/18/19 Clopidogrel Bisulfate [Plavix] 75 mg PO DAILY #0 tab 01/03/20 Allergies Allergy/AdvReac Type Severity Reaction Status Date / Time adhesive tape AdvReac skin Verified 04/19/22 14:13 irritation Penicillins AdvReac Rash/Hives Verified 04/19/22 14:13 Review of Systems ROS Statement: Those systems with pertinent positive or pertinent negative responses have been documented in the HPI. ROS Other: All systems not noted in ROS Statement are negative. Constitutional: Denies: fever, chills Eyes: Denies: eye pain, vision change ENT: Denies: hearing loss Respiratory: Denies: cough, dyspnea Cardiovascular: Denies: chest pain, palpitations, orthopnea, edema, syncope Gastrointestinal: Reports: nausea, vomiting. Denies: abdominal pain, diarrhea, hematemesis, melena, hematochezia Genitourinary: Denies: dysuria, hematuria Musculoskeletal: Denies: back pain Skin: Denies: rash Neurological: Reports: weakness (Left facial weakness). Denies: headache, numbness, paresthesias, confusion Past Medical History Past Medical History: Atrial Fibrillation, Coronary Artery Disease (CAD), Heart Failure, GERD/Reflux, Hypertension Additional Past Medical History / Comment(s): ileostomy, acute colitis, some memory loss History of Any Multi-Drug Resistant Organisms: None Reported Past Surgical History: Heart Catheterization With Stent, Hysterectomy, Orthopedic Surgery Additional Past Surgical History / Comment(s): Illeostomy, carpal tunnel bilateral hands, bunion surgery on left foot. last heart cath 12/21/19, stents x3 in December 2019 Past Anesthesia/Blood Transfusion Reactions: No Reported Reaction Date of Last Stent Placement:: 12/2019 Smoking Status: Never smoker Past Alcohol Use History: Occasional Past Drug Use History: None Reported - Past Family History Family Family Medical History: No Reported History General Exam Limitations: altered mental status, physical limitation General appearance: alert, in no apparent distress Head exam: Present: atraumatic, normocephalic Eye exam: Present: normal appearance. Absent: scleral icterus, conjunctival injection Neck exam: Present: normal inspection Respiratory exam: Present: normal lung sounds bilaterally. Absent: respiratory distress, wheezes, rales, rhonchi, stridor Cardiovascular Exam: Present: normal rhythm, irregular rhythm, normal heart sounds. Absent: systolic murmur, diastolic murmur, rubs, gallop GI/Abdominal exam: Present: soft. Absent: distended, tenderness, guarding, rebound, rigid, mass Extremities exam: Present: normal inspection, normal capillary refill. Absent: pedal edema, calf tenderness Back exam: Present: normal inspection. Absent: CVA tenderness (R), CVA tenderness (L) Neurological exam: Present: alert, oriented X3. Absent: CN II-XII intact, motor sensory deficit Expanded Neurological exam: Present: other (There is mild dysarthria) Patient oriented to: Present: person, place, time Cranial nerves: EOM's Intact: Normal, Gag Reflex: Normal, Facial Palsy with Forehead Movement: Abnormal Left Cerebellar function: Finger to Nose: Normal Upper motor neuron: Andrea Neglect: Normal Sensory exam: Upper Extremity Light Touch: Normal Motor strength exam: RUE: 5, LUE: 5, RLE: 5, LLE: 5 Eye Response: (4) open spontaneously Motor Response: (6) obeys commands Verbal Response: (5) oriented Skin exam: Present: warm, dry, intact, normal color. Absent: rash Course Vital Signs 04/19/22 13:15 Temperature 97.6 F Pulse Rate 112 H Respiratory 20 Rate Blood Pressure 129/97 O2 Sat by Pulse 94 L Oximetry - Reevaluation(s) Reevaluation #1: 04/19/22 14:29 Case is discussed with the stroke network, including the clinical presentation, physical findings, computed tomography scan results, and Dr. Boogie pacheco continuing the eliquis, neurology consultation, further medical management. EKG Findings - EKG Comments: EKG Findings:: Suspected old anteroseptal infarct. - EKG Results: EKG: interpreted by ERMD, normal axis EKG shows: atrial fibrillation (Rate 78 bpm) Medical Decision Making - Lab Data Result diagrams: 04/19/22 13:34 04/19/22 13:34 Lab Results 04/19/22 04/19/22 04/19/22 Range/Units 13:34 13:34 13:34 WBC 7.4 (3.8-10.6) k/uL RBC 4.68 (3.80-5.40) m/uL Hgb 15.3 (11.4-16.0) gm/dL Hct 46.7 H (34.0-46.0) % MCV 99.8 (80.0-100.0) fL MCH 32.7 (25.0-35.0) pg MCHC 32.7 (31.0-37.0) g/dL RDW 12.6 (11.5-15.5) % Plt Count 176 (150-450) k/uL MPV 10.3 Neutrophils % 67 % Lymphocytes % 15 % Monocytes % 7 % Eosinophils % 9 % Basophils % 0 % Neutrophils # 5.0 (1.3-7.7) k/uL Lymphocytes # 1.1 (1.0-4.8) k/uL Monocytes # 0.5 (0-1.0) k/uL Eosinophils # 0.7 (0-0.7) k/uL Basophils # 0.0 (0-0.2) k/uL PT 12.0 (9.0-12.0) sec INR 1.1 (<1.2) APTT 22.0 (22.0-30.0) sec Sodium 135 L (137-145) mmol/L Potassium 5.3 H (3.5-5.1) mmol/L Chloride 100 (98-107) mmol/L Carbon Dioxide 20 L (22-30) mmol/L Anion Gap 15 mmol/L BUN 30 H (7-17) mg/dL Creatinine 1.16 H (0.52-1.04) mg/dL Est GFR (CKD-EPI)AfAm 51 (>60 ml/min/1.73 sqM) Est GFR (CKD-EPI)NonAf 44 (>60 ml/min/1.73 sqM) Glucose 130 H (74-99) mg/dL Calcium 8.9 (8.4-10.2) mg/dL Total Bilirubin 1.0 (0.2-1.3) mg/dL AST 56 H (14-36) U/L ALT 31 (4-34) U/L Alkaline Phosphatase 72 (38-126) U/L Troponin I (0.000-0.034) ng/mL Total Protein 6.9 (6.3-8.2) g/dL Albumin 3.8 (3.5-5.0) g/dL 04/19/22 Range/Units 13:34 WBC (3.8-10.6) k/uL RBC (3.80-5.40) m/uL Hgb (11.4-16.0) gm/dL Hct (34.0-46.0) % MCV (80.0-100.0) fL MCH (25.0-35.0) pg MCHC (31.0-37.0) g/dL RDW (11.5-15.5) % Plt Count (150-450) k/uL MPV Neutrophils % % Lymphocytes % % Monocytes % % Eosinophils % % Basophils % % Neutrophils # (1.3-7.7) k/uL Lymphocytes # (1.0-4.8) k/uL Monocytes # (0-1.0) k/uL Eosinophils # (0-0.7) k/uL Basophils # (0-0.2) k/uL PT (9.0-12.0) sec INR (<1.2) APTT (22.0-30.0) sec Sodium (137-145) mmol/L Potassium (3.5-5.1) mmol/L Chloride (98-107) mmol/L Carbon Dioxide (22-30) mmol/L Anion Gap mmol/L BUN (7-17) mg/dL Creatinine (0.52-1.04) mg/dL Est GFR (CKD-EPI)AfAm (>60 ml/min/1.73 sqM) Est GFR (CKD-EPI)NonAf (>60 ml/min/1.73 sqM) Glucose (74-99) mg/dL Calcium (8.4-10.2) mg/dL Total Bilirubin (0.2-1.3) mg/dL AST (14-36) U/L ALT (4-34) U/L Alkaline Phosphatase (38-126) U/L Troponin I <0.012 (0.000-0.034) ng/mL Total Protein (6.3-8.2) g/dL Albumin (3.5-5.0) g/dL Critical Care Time Critical Care Time: Yes (40 minutes) Disposition Clinical Impression: CVA (cerebral vascular accident), Vomiting Disposition: ADMITTED IP TO THIS HOSP Condition: Fair Is patient prescribed a controlled substance at d/c from ED?: No Referrals: Fei Mcpherson MD [Primary Care Provider] - 1-2 days
[2022-04-19 14:14] LABS: INR 1.1 (<1.2)
[2022-04-19 14:22] LABS: Potassium 5.3 mmol/L (3.5-5.1)
--- NOTE | 2022-04-19 14:23 | CT ---
EXAMINATION TYPE: CT angio head neck CT DLP: 454 mGycm, Automated exposure control for dose reduction was used. DATE OF EXAM: 04/19/2022 1:57 PM COMPARISON: CTA head and neck 11/20/2020. CLINICAL INDICATION:Female, 81 years old with history of Neuro deficit, acute, stroke suspected; PHH, Left facial droop, left side weakness, right gaze TECHNIQUE: Axially acquired helical CT angiogram of the head and neck was obtained with contrast util izing 65 cc of Isovue-370 administered intravenously. Axial images are supplemented with 3D reconstru ctions which were post-processed at an independent workstation. NASCET criteria used. FINDINGS: Motion degraded examination. CTA HEAD: No evidence of acute intracranial hemorrhage, mass effect, or midline shift. The ventricles, sulci, a nd cisterns are unremarkable. The visualized portions of the left middle cerebral artery, anterior cerebral arteries, and posterior cerebral arteries are patent. Calcification involving the proximal right MCA. There is occlusion at the trifurcation of the right MCA M2 segment (series 413, image 53). The basilar and vertebral arteries are patent. CTA NECK: Right Carotid System: The common carotid artery and external carotid artery are patent. The carotid bifurcation demonstrate s less than 50 percent stenosis. The remaining portions of the internal carotid artery pain with mode rate atherosclerotic plaque involving the cavernous portion with approximately 50% stenosis. Left Carotid System: The common carotid artery and external carotid artery are patent. There is approximately 50% stenosis of the origin of the left internal carotid artery secondary to calcified and noncalcified plaque. Th e remaining portions of the internal carotid artery are patent with moderate atherosclerotic plaque i nvolving the cavernous portion. Vertebral arteries are patent. Moderate calcified and noncalcified plaque involving the intracranial portion of both vertebral arteries. Mild stenosis of the origin of the left vertebral artery secondar y to calcified plaque. There is a three-vessel aortic arch. The origins of the great vessels are patent. Mild calcified and noncalcified plaque at the origin of the left subclavian artery. No evidence of hemodynamically signi ficant stenosis. IMPRESSION: 1. 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 2. Approximately 50% stenosis origin left internal carotid artery with less than 50% stenosis at the origin of the right internal carotid artery. Approximately 50% stenosis involving the cavernous porti on of the right internal carotid artery with less than 50% stenosis involving the cavernous portion o f the left internal carotid artery. 3. Patent vertebral arteries with moderate calcified and noncalcified plaque. Findings called to and discussed with Dr. Eddy at 2:19 PM on 04/19/2022.
[2022-04-19] MEDS ORDERED: ACETAMINOPHEN TAB 325 MG TAB PO PRN (14:52)
[2022-04-19] MEDS ORDERED: SODIUM CHLORIDE 0.9% 500 ML 500 ML IV STA (14:52)
[2022-04-19] MEDS ORDERED: ASPIRIN 325 MG TAB PO STA (14:52)
--- NOTE | 2022-04-19 15:00 | XR ---
EXAMINATION TYPE: XR chest 2V DATE OF EXAM: 04/19/2022 COMPARISON: Chest x-ray dated 03/12/2022 HISTORY: Altered mental status TECHNIQUE: Frontal and lateral views of the chest are obtained. FINDINGS: There is no focal air space opacity, pleural effusion, or pneumothorax seen. Chronic inter stitial changes are stable. The cardiac silhouette size is remarkable for an enlarged heart, there ar e coronary artery calcifications, the aorta is dense. Apical pleural thickening in the right is stabl e. The osseous structures are intact, bone mineralization is reduced, there is multilevel spondylosi s. Visualized spine. IMPRESSION: Stable cardiomegaly. Coronary artery disease.
[2022-04-19] MEDS: SODIUM CHLORIDE 0.9% 1,000 ML IV SCH (15:04)
[2022-04-19] MEDS ORDERED: TICAGRELOR 90 MG TAB PO SCH (16:16)
--- NOTE | 2022-04-19 16:51 | P.CNNES ---
History of Present Illness Consult date: 04/19/22 Requesting physician: Kehinde Eddy Reason for Consult: acute ischemic stroke History of Present Illness: This is an 81-year-old woman with history of probable TIA in 02/2022, atrial fibrillation on eliquis, congestive heart failure, CAD s/p stent who presented because of left arm weakness, slurred speech, left facial droop. Her daughter and [id number] are at bedside and provide some of the history. Her daughter who lives with her, stated that patient was doing well in the morning today then slept at 8:30A.M. then woke up at 11:30ish AM today and was still doing well. But within a few minutes her leg gave out and unsure which then patient notified her daughter that she was feeling dizzy and light headed. Then all the sudden patient passed out but unknown duration but no foaming around the mouth, or ashok stacy of any extremities, her eyes were open and was staring off. Her daughter and [id number] felt she had left upper extremity was flaccid, slurring her speech, left facial droop. She stated that patient has not missed her eliquis, plavix or asa. She does not have history of seizures. As result of patient's symptoms above, stroke code was activated and she had CT head which is reported as No acute intracranial process. Nonspecific white matter changes, likely secondary to chronic small vessel ischemic disease. CTA head and neck is reported as occlusion at the right MCA trifurcation M2 segment. Approximately 50% stenosis origin left internal carotid artery with less than 50% stenosis at the origin of the right internal carotid artery. Approximately 50% stenosis involving the cavernous portion of the right internal carotid artery with less than 50% stenosis involving the cavernous portion of the left internal carotid artery. Patent vertebral arteries with moderate calcified and noncalcified plaque. Her NIH stroke scale per ED was 2. Per ED physician, Stroke attending (Dr. Hyman) recommended no IV tpa since patient is on anticoagulation, low NIH and risk outweigh the benefit. No interventional for reported thrombus over the right M2 because of low NIH. He recommended to continue eliquis by stroke attending according to ED physician. Of note, she was last seen by Dr. Veliz on 03/14/2022 and felt she had probable TIA manifesting with transient speech difficulty. He felt the CT head finding of posterior left frontal stroke is not acute and felt was seen on prior image. She had MRI Brain on that admission and no acute stroke. Please refer to his notes for further details. Some of the other work-up during this visit consisted of: Atrial fibrilation. Anteroseptal myocardial infarction, probably old, abnormal EKG. INR: 1.1, PT and PTT within normal limits Glucose [address] head and there is no acute or subacute ischemic stroke. Review of Systems Review of system: The 12 point system was reviewed and apparent positive and negative per HPI. Past Medical History Past Medical History: Atrial Fibrillation, Coronary Artery Disease (CAD), Heart Failure, GERD/Reflux, Hypertension Additional Past Medical History / Comment(s): ileostomy, acute colitis, some memory loss History of Any Multi-Drug Resistant Organisms: None Reported Past Surgical History: Heart Catheterization With Stent, Hysterectomy, Orthopedic Surgery Additional Past Surgical History / Comment(s): Illeostomy, carpal tunnel bilateral hands, bunion surgery on left foot. last heart cath 12/21/19, stents x3 in December 2019 Past Anesthesia/Blood Transfusion Reactions: No Reported Reaction Date of Last Stent Placement:: 12/2019 Smoking Status: Never smoker Past Alcohol Use History: Occasional Past Drug Use History: None Reported - Past Family History Family Family Medical History: No Reported History Medications and Allergies Home Medications Medication Instructions Recorded Confirmed Type Aspirin 81 mg PO DAILY #30 chew 09/18/19 04/19/22 Rx Clopidogrel Bisulfate [Plavix] 75 mg PO DAILY #0 tab 01/03/20 04/19/22 Rx Alendronate Sodium [Fosamax] 70 mg PO TH@0830 11/20/20 04/19/22 History Apixaban [Eliquis] 2.5 mg PO BID 11/20/20 04/19/22 History Cholecalciferol [Vitamin D3 (25 25 mcg PO HS 11/20/20 04/19/22 History Mcg = 1000 Iu)] Famotidine 40 mg PO HS 11/20/20 04/19/22 History Fluticasone Nasal [employer] [Flonase 1 spray EA NOSTRIL DAILY PRN 11/20/20 04/19/22 History Nasal [employer]] Furosemide [Lasix] 20 mg PO DAILY 11/20/20 04/19/22 History Rosuvastatin [Crestor] 20 mg PO HS 11/20/20 04/19/22 History Spironolactone 25 mg PO DAILY 11/20/20 04/19/22 History Venlafaxine HCl ER [Effexor XR] 75 mg PO DAILY 06/21/21 04/19/22 History Losartan Potassium [Cozaar] 25 mg PO DAILY 03/12/22 04/19/22 History Propylene Glycol [Systane Complete] 1 drop BOTH EYES QID PRN 03/12/22 04/19/22 History carvediloL [Coreg] 6.25 mg PO DAILY 03/12/22 04/19/22 History Allergies Allergy/AdvReac Type Severity Reaction Status Date / Time adhesive tape AdvReac skin Verified 04/19/22 14:13 irritation Penicillins AdvReac Rash/Hives Verified 04/19/22 14:13 Physical Examination - Vital Signs Vital Signs: Vital Signs Temp Pulse Resp BP Pulse Ox 04/19/22 13:15 97.6 F 112 H 20 129/97 94 L Intake and Output 04/19/22 04/19/22 04/19/22 06:59 14:59 22:59 Other: Weight 80.5 kg GENERAL: The patient is lying in bed and is not in acute distress. CHEST: The heart rate is regular rate rhythm. No murmurs to auscultation. No carotid bruit bilaterally. LUNG: Clear to auscultation bilaterally no wheezing noted throughout. Not labored breathing. ABDOMEN/GI: Bowel sounds present in all 4 quadrants. No tenderness to palpation throughout. NEUROLOGICAL: Higher mental function: The patient is awake, alert, oriented to self, place and time. Patient is following commands. No aphasia and no neglect. Cranial nerves: The pupils are round, equal and reactive to light and accommodation. Visual carlton are full to confrontation throughout. Extraocular movement is intact no nystagmus is noted. Facial sensation is normal to touch throughout. The facial strength is normal throughout. Hearing is severely decreased bilaterally to hand rub (does not have her hearing aids). Tongue is midline and moved [id number] without any difficulty. No dysarthria is noted. Shoulder shrug is normal bilaterally. Motor: The strength is 5 over 5 throughout. Normal tone and bulk. Cerebellum: Normal finger to nose bilaterally. Sensation: Sensation is normal to touch throughout. Reflexes (right/left):1+ throughout Plantars are downgoing bilaterally. Results - Laboratory Findings CBC and BMP: 04/19/22 13:34 04/19/22 13:34 Abnormal Lab Findings: Abnormal Labs 04/19/22 04/19/22 13:34 13:34 Hct 46.7 H Sodium 135 L Potassium 5.3 H Carbon Dioxide 20 L BUN 30 H Creatinine 1.16 H Glucose 130 H AST 56 H Assessment and Plan Assessment: TIA (presented with acute left upper extremity weakness, facial droop, slurred speech). No IV tpa since had low NIH 2 (on presentation) that resolved. Right M2 occlusion on CTA. No intervention since had low NIH stroke scale History of probable TIA in 02/2022 History of atrial fibrillation on eliquis History of CAD s/p stent Congestive hear failure Plan: I spoke with the primary team and notified them that if patient has worsening of her neurologicl symptoms then to activate the stroke pager especially since has right M2 thrombus for possible intervention. In the ED the patient was given aspirin 325 once. I decreased the dose of ASA from 325mg daily started by ED and went down to her home dose of 81mg daily. I notified the primary team that her eliquis 2.5 mg 1 tablet twice a day could be a low low and to consider going up to 5 mg 1 tablet twice a day for her atria l fibrillation but will defer final decision to primary team and her optician apprentice dispensing. If Eliquis is capped at the same dose (2.5mg) then stop Plavix and recommend Brilinta instead. I feel patient is on many antiplatelets in addition to her anticoagulation that would increase her risk of bleed (but again will defer the use of dual antiplatelets to primary and optician apprentice dispensing). I ordered MRI of the brain, MRA of the head, 2D echo. Lipid panel is ordered If patient has any further passing out episodes then recommend routine EEG to rule out seizures Continue neuro checks Placed on cardiac monitoring PT OT and STUDENT SERVICES VICE PRESIDENT are consulted Recommend permissive hypertension. Treat systolic blood pressure is systolic >220 or diastolic >110. Will defer the rest of medical management to the primary team. For DVT prophylaxis if the patient started on Eliquis then that is sufficient. The plan is discussed with the patient daughter and [id number] who are at bedside. Thank you for the consultation.
--- NOTE | 2022-04-19 18:00 | P.HPIM ---
History of Present Illness H&P Date: 04/19/22 Patient is 81-year-old female with PMH of CAD with multiple stents on Plavix and aspirin, chronic systolic CHF with EF of 20-25%, chronic persistent atrial fibrillation on anticoagulation with Eliquis, hypertension, dyslipidemia, diabetes mellitus, history of TIAs and ulcerative colitis with colostomy presents the ED after family noted that the patient had slurred speech and left sided weakness. Family is at bedside providing majority of the history. Patient had gotten up to use the washroom using a walker, when family noted that her knees buckled causing her to fall to the floor. When they were able to get her up, they noted that she had slurred speech, left-sided facial droop and significant left-sided weakness. She had loss of consciousness for around 8 minutes. Family decided to call EMS. Her symptoms have mostly resolved en route to the hospital except slurred speech. Patient currently denies any headache, lower extremity edema, nausea or vomiting, fever or chills, cough, chest pain, shortness of breath, palpitations, changes in urination or bowel habits. No changes in appetite or weight. She denies any dizziness, numbness/weakness/tingling of the extremities. NIH was 2. Neuro interventional recommended no TPA. In the ED, her vital signs were otherwise stable with heart rate in the low 110s. CBC was unremarkable. CMP shows sodium 135, potassium of 5.3, bicarb of 20, BUN of 30, creatinine 1.16, glucose of 130 and AST of 56. Troponin was less than 0.012 x 2. Chest x-ray showed no acute findings. CT head showed no acute intracranial process. CTA head and neck showed occlusion of the right MCA, 50% stenosis left internal carotid, less than 50% stenosis right internal carotid. Patient is admitted for further management of her symptoms. General: non toxic, no distress, appears at stated age Derm: warm, dry Head: atraumatic, normocephalic, symmetric Eyes: EOMI, no lid lag, anicteric sclera Mouth: no lip lesion, mucus membranes moist Cardiovascular: Irregularly regular, no murmur, positive posterior tibial pulse bilateral Lungs: CTA bilateral, no rhonchi, no rales , no accessory muscle use Abdominal: soft, nontender to palpation, no guarding, no appreciable organomegaly Ext: no gross muscle atrophy, no edema, no contractures Neuro: CN II-XI grossly intact except right-sided facial droop, strength 5 out of 5 and sensation intact to touch in all 4 extremities Psych: Alert, oriented, appropriate affect #TIA #Acute kidney injury with metabolic acidosis and hyperkalemia #Diabetes mellitus #Atrial fibrillation Chronic condition: Atrial fibrillation, CAD, chronic systolic CHF, hypertension, dyslipidemia, ulcerative colitis Her symptoms have mostly resolved except slurred speech. We will pursue full stroke workup. Patient will be given aspirin 325 mg by mouth STAT. MRI brain on be ordered. Echocardiogram will be ordered. MR angiogram ordered. Lipid panel will be ordered. Patient be placed on telemetry monitoring. PT, OT and speech therapy will be consulted. Patient will be started on ASA 81 mg PO QD, Eliquis 2.5 mg PO BID and Lipitor 80 mg PO QD. Plavix will be switched to Brilinta. Neurology has been consulted for further management of this patient. Patient will be hydrated with normal saline at 50 mL per hour. Lasix, losartan and Aldactone will be discontinued for now. Nephrotoxins will be avoided. Plans to repeat BMP tomorrow morning. Patient will be placed on low-dose insulin sliding scale along with Accu-Cheks 4 times a day and hypoglycemic precautions. DVT prophylaxis: Pradip Discussed with: Patient, family, ED physician Anticipated discharge: [address]: home A total of 35 minutes was spent on the care of this complex patient more than 50% of the time was spent in counseling and care coordination. Patient names her son and daughter in law decision maker if she cant make decisions for herself. Patient would like to be NO CODE. This was confirmed with the family at bedside. Past Medical History Past Medical History: Atrial Fibrillation, Coronary Artery Disease (CAD), Heart Failure, GERD/Reflux, Hypertension Additional Past Medical History / Comment(s): ileostomy, acute colitis, some memory loss History of Any Multi-Drug Resistant Organisms: None Reported Past Surgical History: Heart Catheterization With Stent, Hysterectomy, Orthopedic Surgery Additional Past Surgical History / Comment(s): Illeostomy, carpal tunnel b ilateral hands, bunion surgery on left foot. last heart cath 12/21/19, stents x3 in December 2019 Past Anesthesia/Blood Transfusion Reactions: No Reported Reaction Date of Last Stent Placement:: 12/2019 Smoking Status: Never smoker Past Alcohol Use History: Occasional Past Drug Use History: None Reported - Past Family History Family Family Medical History: No Reported History Medications and Allergies Home Medications Medication Instructions Recorded Confirmed Type Aspirin 81 mg PO DAILY #30 chew 09/18/19 04/19/22 Rx Clopidogrel Bisulfate [Plavix] 75 mg PO DAILY #0 tab 01/03/20 04/19/22 Rx Alendronate Sodium [Fosamax] 70 mg PO TH@0830 11/20/20 04/19/22 History Apixaban [Eliquis] 2.5 mg PO BID 11/20/20 04/19/22 History Cholecalciferol [Vitamin D3 (25 25 mcg PO HS 11/20/20 04/19/22 History Mcg = 1000 Iu)] Famotidine 40 mg PO HS 11/20/20 04/19/22 History Fluticasone Nasal [place] [Flonase 1 spray EA NOSTRIL DAILY PRN 11/20/20 04/19/22 History Nasal [place]] Furosemide [Lasix] 20 mg PO DAILY 11/20/20 04/19/22 History Rosuvastatin [Crestor] 20 mg PO HS 11/20/20 04/19/22 History Spironolactone 25 mg PO DAILY 11/20/20 04/19/22 History Venlafaxine HCl ER [Effexor XR] 75 mg PO DAILY 06/21/21 04/19/22 History Losartan Potassium [Cozaar] 25 mg PO DAILY 03/12/22 04/19/22 History Propylene Glycol [Systane Complete] 1 drop BOTH EYES QID PRN 03/12/22 04/19/22 History carvediloL [Coreg] 6.25 mg PO DAILY 03/12/22 04/19/22 History Allergies Allergy/AdvReac Type Severity Reaction Status Date / Time adhesive tape AdvReac skin Verified 04/19/22 14:13 irritation Penicillins AdvReac Rash/Hives Verified 04/19/22 14:13 Physical Exam Vitals: Vital Signs Temp Pulse Resp BP Pulse Ox 04/19/22 13:15 97.6 F 112 H 20 129/97 94 L Intake and Output 04/19/22 04/19/22 04/19/22 06:59 14:59 22:59 Other: Weight 80.5 kg Results CBC & Chem 7: 04/19/22 13:34 04/19/22 13:34 Labs: Abnormal Lab Results - Last 24 Hours (Table) 04/19/22 04/19/22 Range/Units 13:34 13:34 Hct 46.7 H (34.0-46.0) % Sodium 135 L (137-145) mmol/L Potassium 5.3 H (3.5-5.1) mmol/L Carbon Dioxide 20 L (22-30) mmol/L BUN 30 H (7-17) mg/dL Creatinine 1.16 H (0.52-1.04) mg/dL Glucose 130 H (74-99) mg/dL AST 56 H (14-36) U/L
[2022-04-19 20:47] LABS: Glucose,Whole Blood 93 mg/dL (70-110)
[2022-04-19] MEDS: INSULIN ASPART (NovoLOG) 100 UNIT/ML VIAL SQ SCH (20:51)
[2022-04-19] MEDS: DOCUSATE 100 MG CAP PO SCH ×2 (20:51→23:06)
[2022-04-19] MEDS: APIXABAN 2.5 MG TABLET PO SCH (20:54)
[2022-04-19] MEDS: TICAGRELOR 90 MG TAB PO SCH (20:54)
[2022-04-19] MEDS ORDERED: FAMOTIDINE 20 MG TAB PO SCH ×2 (21:00)
[2022-04-19] MEDS ORDERED: ATORVASTATIN 80 MG TAB PO SCH (21:00)
[2022-04-20 06:01] LABS: Glucose,Whole Blood 86 mg/dL (70-110)
[2022-04-20] MEDS: INSULIN ASPART (NovoLOG) 100 UNIT/ML VIAL SQ SCH ×3 (06:16→17:05)
[2022-04-20] MEDS ORDERED: FAMOTIDINE 20 MG TAB PO SCH (09:00)
[2022-04-20] MEDS ORDERED: ASPIRIN 81 MG PO SCH (09:00)
[2022-04-20] MEDS ORDERED: VENLAFAXINE HCL ER 75 MG CAP PO SCH (09:00)
[2022-04-20] MEDS ORDERED: ASPIRIN 325 MG TAB PO SCH (09:00)
[2022-04-20] MEDS ORDERED: carvediloL 6.25 MG TAB PO SCH (09:00)
[2022-04-20] MEDS: APIXABAN 2.5 MG TABLET PO SCH (09:54)
[2022-04-20] MEDS: SODIUM CHLORIDE 0.9% 1,000 ML IV SCH (09:54)
[2022-04-20] MEDS: TICAGRELOR 90 MG TAB PO SCH (09:54)
[2022-04-20] MEDS: DOCUSATE 100 MG CAP PO SCH ×2 (09:55→16:09)
--- NOTE | 2022-04-20 10:15 | CA ---
Transthoracic Echo Report Name: Lay Jones Age: 81 Gender: F : 1940 Exam Date: 04/20/2022 08:52 Exam Location: [facility] Ht (in): 68 Wt (lb): 177 Ordering Physician: Frank Terry MD Attending/Referring Phys: Sheet Manufacturing Supervisor Leigh Melgar RDCS Procedure CPT: Indications: stroke Cardiac Hx: Technical Quality: Fair Contrast 1: Total Dose (mL): Contrast 2: Total Dose (mL): MEASUREMENTS (Male / Female) Normal Values 2D ECHO LV Diastolic Diameter PLAX 3.5 cm 4.2 - 5.9 / 3.9 - 5.3 cm LV Systolic Diameter PLAX 2.5 cm IVS Diastolic Thickness 1.1 cm 0.6 - 1.0 / 0.6 - 0.9 cm LVPW Diastolic Thickness 1.1 cm 0.6 - 1.0 / 0.6 - 0.9 cm LV Relative Wall Thickness 0.6 RV Internal Dim ED PLAX 3.2 cm LVOT Diameter 2.2 cm LA Systolic Diameter LX 3.4 cm 3.0 - 4.0 / 2.7 - 3.8 cm LA Volume 39.8 cm??? 18 - 58 / 22 - 52 cm??? M-MODE Aortic Root Diameter MM 3.8 cm AV Cusp Separation MM 1.5 cm DOPPLER AV Peak Velocity 130.1 cm/s AV Peak Gradient 6.8 mmHg AI Peak Velocity 379.2 cm/s AI Peak Gradient 57.5 mmHg AI Pressure Half Time 341.7 ms MV Area PHT 5.2 cm??? MV Deceleration Time 124.7 ms TR Peak Velocity 230.0 cm/s TR Peak Gradient 21.2 mmHg Right Ventricular Systolic Press 35.9 mmHg FINDINGS Left Ventricle Left ventricular ejection fraction is estimated at 40-45 %. Small left ventricular cavity. Borderline left ventricular hypertrophy. Right Ventricle Normal right ventricular size and function. Mild pulmonary hypertension. Right Atrium Normal right atrial size. Left Atrium Normal left atrial size. Mitral Valve Mild mitral regurgitation. Aortic Valve Focal thickening of the aortic valve cusps. Moderate aortic regurgitation. Tricuspid Valve Mild tricuspid regurgitation. Pulmonic Valve Pulmonic valve not well visualized. Pericardium Normal pericardium. No pericardial effusion. Aorta Mild aortic dilatation at the level of the sinuses of valsalva 38 mm CONCLUSIONS Left ventricle systolic function mildly reduced from 40-45% Moderate aortic regurgitation with mild aortic root dilation Previewed by: Dr. Asael Mcmahan MD (Electronically Signed) Final Date: 20 April 2022 10:14
--- NOTE | 2022-04-20 10:50 | P.PN ---
Subjective Progress Note Date: 04/20/22 The patient is seen at bedside and stated she is doing well. Denies any new neurological issues. Objective - Vital Signs Vital signs: Vital Signs Temp 98 F 04/20/22 03:11 Pulse 77 04/20/22 03:11 Resp 15 04/20/22 03:11 BP 109/65 04/20/22 03:11 Pulse Ox 98 04/20/22 03:11 FiO2 Intake & Output 04/19/22 04/20/22 04/20/22 18:59 06:59 18:59 Output Total 300 Balance -300 Weight 80.5 kg 80.5 kg Output: Stool 300 - Exam GENERAL: The patient is lying in bed and is not in acute distress. NEUROLOGICAL: Higher mental function: The patient is awake, alert, oriented to self, place and time. Patient is following commands. No aphasia and no neglect. Cranial nerves: The pupils are round, equal and reactive to light and accommodation. Visual carlton are full to confrontation throughout. Extraocular movement is intact no nystagmus is noted. Facial sensation is normal to touch throughout. The facial strength is normal throughout. Hearing is severely decreased bilaterally to hand rub (does not have her hearing aids). Tongue is midline and moved [id number] without any difficulty. No dysarthria is noted. Shoulder shrug is normal bilaterally. Motor: The strength is 5 over 5 throughout. Normal tone and bulk. Cerebellum: Normal finger to nose bilaterally. Sensation: Sensation is normal to touch throughout. Reflexes (right/left):1+ throughout Plantars are downgoing bilaterally. Some of the work-up during this visit consisted of: CT head which is reported as No acute intracranial process. Nonspecific white matter changes, likely secondary to chronic small vessel ischemic disease. I personally reviewed CT head and there is no acute or subacute ischemic stroke. CTA head and neck is reported as occlusion at the right MCA trifurcation M2 segment. Approximately 50% stenosis origin left internal carotid artery with less than 50% stenosis at the origin of the right internal carotid artery. Approximately 50% stenosis involving the cavernous portion of the right internal carotid artery with less than 50% stenosis involving the cavernous portion of the left internal carotid artery. Patent vertebral arteries with moderate calcified and noncalcified plaque. 2D echo: It is reported as left ventricle systolic function mildly reduced 40- 45%. Moderate aortic regurgitation with mild aortic root dilation. Normal left atrial size. - Labs CBC & Chem 7: 04/19/22 13:34 04/20/22 14:47 Labs: Abnormal Lab Results - Last 24 Hours (Table) 04/19/22 04/19/22 Range/Units 13:34 13:34 Hct 46.7 H (34.0-46.0) % Sodium 135 L (137-145) mmol/L Potassium 5.3 H (3.5-5.1) mmol/L Carbon Dioxide 20 L (22-30) mmol/L BUN 30 H (7-17) mg/dL Creatinine 1.16 H (0.52-1.04) mg/dL Glucose 130 H (74-99) mg/dL AST 56 H (14-36) U/L Assessment and Plan Assessment: TIA (presented with acute left upper extremity weakness, facial droop, slurred speech). No IV tpa since had low NIH 2 (on presentation) that resolved. Right M2 occlusion on CTA. No intervention since had low NIH stroke scale History of probable TIA in 02/2022 History of atrial fibrillation on eliquis History of CAD s/p stent Congestive hear failure Plan: Dr. Hyman stated no intervention for the left M2 occlusion (and I think likely due to low NIH) on presentation and the risk outweigh the benefit. Patient was restarted her home medication for aspirin 81 mg, Eliquis 2.5mg 1 tab bid. I stopped Plavix and started on Brilinta 90mg 1 tab bid. From a neurology perspective the patient does not need to be on dual antiplatelet in addition to the Eliquis because of increase risk of bleed. I am not sure if the patient is getting the right dose of Eliquis for atrila fibrillation and we'll defer that to the primary as well as the cardiology team. Continue lipitor 80mg qhs for secondary stroke prophylaxis. Pending MRI of the brain, MRA of the head, Lipid panel. Ordered routine EEG because of her passing out episode at home to rule out any underlying seizure or discharges on the EEG. Recommend patient to follow-up with interventional neurology team as outpatient for intravascular stenosis for possible diagnostic cerebral angiogram (Dr. Brittny zelaya) Continue neuro checks On cardiac monitoring PT OT and SUPERVISOR [employer] are consulted Will defer the rest of medical management to the primary team. DVT prophylaxis iOn Eliquis then that is sufficient. Recommend the patient to follow-up with neurologist as outpatient. The plan is discussed with the patient. Time with Patient: Less than 30
[2022-04-20 11:10] VITALS: RESP 18; TEMP 97.8
--- NOTE | 2022-04-20 12:58 | MR ---
EXAMINATION TYPE: MR brain wo con, MR angio head wo con DATE OF EXAM: 04/20/2022 12:52 PM COMPARISON: 03/13/22 HISTORY: Stroke FINDINGS: The ventricles, basal cisterns and sulci overlying the cerebral convexities are mildly enlarged. There is evidence of moderate periventricular white matter ischemic demyelination. Remote deep white matter insults are also noted. No acute edema is seen on diffusion weighted imaging. There is no evidence for midline shift or mass effect. Acute intracranial hemorrhage or extra-axial collection is not evident. The paranasal sinuses and mastoid air cells are well-aerated. IMPRESSION: Age-related atrophic and chronic small vessel ischemic change. No acute intracranial process at this time. EXAMINATION TYPE: MR brain wo con, MR angio head wo con DATE OF EXAM: 04/20/2022 12:52 PM COMPARISON: NONE HISTORY: Stroke Three-dimensional [id number] intracranial MRA was performed with multiple intensity projection im ages submitted and source data reviewed at the workstation. The vertebrobasilar system as well as intracranial portions of the internal carotid arteries and thei r major tributaries are patent. Luminal narrowing distal MCAs bilaterally. Suspect underlying atherom atous change. I do not see evidence for sizable aneurysm or vascular malformation. IMPRESSION: Luminal narrowing distal MCAs bilaterally. Suspect underlying atheromatous change.
[2022-04-20 13:12] LABS: Glucose,Whole Blood 147 mg/dL (70-110)
--- NOTE | 2022-04-20 14:35 | P.PN ---
Subjective Progress Note Date: 04/20/22 Patient is 81-year-old female with PMH of CAD with multiple stents on Plavix and aspirin, chronic systolic CHF with EF of 20-25%, chronic persistent atrial fibrillation on anticoagulation with Eliquis, hypertension, dyslipidemia, diabetes mellitus, history of TIAs and ulcerative colitis with colostomy pre sents the ED after family noted that the patient had slurred speech and left sided weakness. NIH was 2. Neuro interventional recommended no TPA. In the ED, her vital signs were otherwise stable with heart rate in the low 110s. CBC was unremarkable. CMP shows sodium 135, potassium of 5.3, bicarb of 20, BUN of 30, creatinine 1.16, glucose of 130 and AST of 56. Troponin was less than 0.012 x 2. Chest x-ray showed no acute findings. CT head showed no acute intracranial process. CTA head and neck showed occlusion of the right MCA, 50% stenosis left internal carotid, less than 50% stenosis right internal carotid. Patient is admitted for further management of her symptoms. Patient was seen and examined. No acute events overnight. Still has some slurring of the speech. She has no other complaints. General: non toxic, no distress, appears at stated age Derm: warm, dry Head: atraumatic, normocephalic, symmetric Eyes: EOMI, no lid lag, anicteric sclera Mouth: no lip lesion, mucus membranes moist Cardiovascular: Irregularly regular, no murmur, positive posterior tibial pulse bilateral Lungs: CTA bilateral, no rhonchi, no rales , no accessory muscle use Abdominal: soft, nontender to palpation, no guarding, no appreciable organomegaly Ext: no gross muscle atrophy, no edema, no contractures Neuro: CN II-XI grossly intact except right-sided facial droop, strength 5 out of 5 and sensation intact to touch in all 4 extremities Psych: Alert, oriented, appropriate affect #TIA #Acute kidney injury with metabolic acidosis and hyperkalemia #Diabetes mellitus #Atrial fibrillation Chronic condition: CAD, chronic systolic CHF, hypertension, dyslipidemia, ulcerative colitis Her symptoms have mostly resolved except slurred speech. We will pursue full stroke workup. Patient will be given aspirin 325 mg by mouth STAT. MRI brain and MR angiogram shows no acute CVA, luminal narrowing distal MCAs bilaterally. Echocardiogram shows EF 40-45% with LVH. Lipid panel pending. Patient be placed on telemetry monitoring. PT, OT and speech therapy will be consulted. Patient will be co ntinued on Eliquis 2.5 mg PO BID and Lipitor 80 mg PO QD. Plavix will be switched to Brilinta. Aspirin will be discontinued due to high risk of bleed. EEG pending. Neurology on board. Patient will be hydrated with normal saline at 50 mL per hour. Lasix, losartan and Aldactone will be discontinued for now. Nephrotoxins will be avoided. Repeat BMP was ordered for 6AM and is still pending at 2:35PM. Patient will be placed on low-dose insulin sliding scale along with Accu-Cheks 4 times a day and hypoglycemic precautions. Objective - Vital Signs Vital signs: Vital Signs Temp 97.8 F 04/20/22 08:00 Pulse 82 04/20/22 08:00 Resp 18 04/20/22 08:00 BP 127/78 04/20/22 08:00 Pulse Ox 97 04/20/22 08:00 FiO2 Intake & Output 04/19/22 04/20/22 04/20/22 18:59 06:59 18:59 Output Total 300 Balance -300 Weight 80.5 kg 80.5 kg Output: Stool 300 - Labs CBC & Chem 7: 04/19/22 13:34 04/19/22 13:34 Labs: Abnormal Lab Results - Last 24 Hours (Table) 04/20/22 Range/Units 13:10 POC Glucose (mg/dL) 147 H (70-110) mg/dL
[2022-04-20 15:14] LABS: African American GFR (CKD) 49 (>60 ml/min/1.73 sqM); Anion Gap 11 mmol/L; Blood Urea Nitrogen 24 mg/dL (7-17); Calcium 8.9 mg/dL (8.4-10.2); Carbon Dioxide 23 mmol/L (22-30); Chloride 101 mmol/L (98-107); Glucose 189 mg/dL (74-99); Non-African American GFR(CKD) 43 (>60 ml/min/1.73 sqM); Potassium 4.1 mmol/L (3.5-5.1); Sodium 135 mmol/L (137-145)
[2022-04-20 15:47] VITALS: BP 127/90
--- NOTE | 2022-04-20 16:34 | P.DS ---
Providers Date of admission: 04/19/22 14:52 Expected date of discharge: 04/20/22 Attending physician: Carson Lockhart MD Consults: 04/19/22 14:53 Consult Physician Routine Consulting Provider: Frank Terry Consult Reason/Comments: Acute ischemic stroke Do you want consulting provider notified?: Yes Primary care physician: Fei [facility] Course: Patient is 81-year-old female with PMH of CAD with multiple stents on Plavix and aspirin, chronic systolic CHF with EF of 20-25%, chronic persistent atrial fibrillation on anticoagulation with Eliquis, hypertension, dyslipidemia, diabetes mellitus, history of TIAs and ulcerative colitis with colostomy presents the ED after family noted that the patient had slurred speech and left sided weakness. NIH was 2. Neuro interventional recommended no TPA. In the ED, her vital signs were otherwise stable with heart rate in the low 110s. CBC was unremarkable. CMP shows sodium 135, potassium of 5.3, bicarb of 20, BUN of 30, creatinine 1.16, glucose of 130 and AST of 56. Troponin was less than 0.012 x 2. Chest x-ray showed no acute findings. CT head showed no acute intracranial process. CTA head and neck showed occlusion of the right MCA, 50% stenosis left internal carotid, less than 50% stenosis right internal carotid. Patient is admitted for further management of her symptoms. MRI brain and MR angiogram shows no acute CVA, luminal narrowing distal MCAs bilaterally. Echocardiogram shows EF 40-45% with LVH. EEG was negative. Neurology followed the patient during her hospitalization. Patient will be continued on Eliquis 2.5 mg PO BID and Lipitor 80 mg PO QD. Plavix will be switched to Brilinta. Aspirin will be discontinued due to high risk of bleed. Her hyperkalemia, acute kidney injury and metabolic acidosis resolved with IV hydration. She is advised to follow up with her PCP within 1-2 day of discharge. She is advised to follow up with Neurology within 1 week of discharge. Pertinent studies include brain CT, CTA head and neck, echocardiogram, brain MRI, head MRA. Please refer to progress note for physical exam. Discharge diagnosis: #TIA #Acute kidney injury with metabolic acidosis and hyperkalemia #Diabetes mellitus #Atrial fibrillation Chronic condition: CAD, chronic systolic CHF, hypertension, dyslipidemia, ulcerative colitis This complex discharge to about 35 minutes to complete. Patient Condition at Discharge: Stable Plan - Discharge Summary New Discharge Prescriptions: New Ticagrelor [Brilinta] 90 mg PO BID #60 tab Atorvastatin [Lipitor] 80 mg PO HS #30 tab Continue Fluticasone Nasal [place] [Flonase Nasal [place]] 1 spray EA NOSTRIL DAILY PRN PRN Reason: Allergy Symptoms Alendronate Sodium [Fosamax] 70 mg PO TH@0830 Famotidine 40 mg PO HS Cholecalciferol [Vitamin D3 (25 Mcg = 1000 Iu)] 25 mcg PO HS Spironolactone 25 mg PO DAILY carvediloL [Coreg] 6.25 mg PO DAILY Propylene Glycol [Systane Complete] 1 drop BOTH EYES QID PRN PRN Reason: dry eyes Furosemide [Lasix] 20 mg PO DAILY Apixaban [Eliquis] 2.5 mg PO BID Venlafaxine HCl ER [Effexor XR] 75 mg PO DAILY Losartan Potassium [Cozaar] 25 mg PO DAILY Discontinued Aspirin 81 mg PO DAILY #30 chew Clopidogrel Bisulfate [Plavix] 75 mg PO DAILY #0 tab Rosuvastatin [Crestor] 20 mg PO HS Discharge Medication List Alendronate Sodium [Fosamax] 70 mg PO TH@0830 11/20/20 [History] Apixaban [Eliquis] 2.5 mg PO BID 11/20/20 [History] Cholecalciferol [Vitamin D3 (25 Mcg = 1000 Iu)] 25 mcg PO HS 11/20/20 [History] Famotidine 40 mg PO HS 11/20/20 [History] Fluticasone Nasal [place] [Flonase Nasal [place]] 1 spray EA NOSTRIL DAILY PRN 11/20/20 [History] Furosemide [Lasix] 20 mg PO DAILY 11/20/20 [History] Spironolactone 25 mg PO DAILY 11/20/20 [History] Venlafaxine HCl ER [Effexor XR] 75 mg PO DAILY 06/21/21 [History] Losartan Potassium [Cozaar] 25 mg PO DAILY 03/12/22 [History] Propylene Glycol [Systane Complete] 1 drop BOTH EYES QID PRN 03/12/22 [History] carvediloL [Coreg] 6.25 mg PO DAILY 03/12/22 [History] Atorvastatin [Lipitor] 80 mg PO HS #30 tab 04/20/22 [Rx] Ticagrelor [Brilinta] 90 mg PO BID #60 tab 04/20/22 [Rx] Follow up Appointment(s)/Referral(s): Papa Hyman MD [STAFF PHYSICIAN] - 1 Week (intracracranial stenosis. Possible diagnostic cerebral angiogram) Fei Mcpherson MD [Primary Care Provider] - 1-2 days Activity/Diet/Wound Care/Special Instructions: Diet: Cardiac FU PCP within 1-2 days of DC. FU with Neurology within 1 week of DC. Take all medications as advised. Come back to the ED for worsening slurred speech, confusion, weakness. Discharge Disposition: HOME SELF-CARE
[2022-04-20 16:49] LABS: Glucose,Whole Blood 170 mg/dL (70-110)
[2022-04-20 18:30] VITALS: PULSE 80
[2022-04-21 01:06] LABS: Chol/HDL Ratio 2.95 Ratio; LDL Cholesterol,Calculated 66.2 mg/dL (0.0-131.0); VLDL Calculation 15.14 mg/dL (5.00-40.00)
--- NOTE | 2022-04-21 01:40 | EEG ---
ELECTROENCEPHALOGRAM REPORT CLINICAL HISTORY: This is an 81-year-old woman with episode of staring off and not responding at home. The video EEG is obtained to evaluate for seizure epileptiform activity. RELEVANT MEDICATION: The patient is not on any antiepileptic drugs. EEG TYPE: A routine 21-channel EEG was performed with video using the 10/20 electrode placement system. DESCRIPTION: Wakefulness is only obtained. During awake state, the posterior-dominant rhythm consists of [id number] voltage of 8 to 9 hertz activity that is well modulated, well sustained. There is no physiological stage 2 sleep architecture seen. There is no focal slowing. Interictal and ictal is none. ACTIVATION PROCEDURE: Photic stimulation did not evoke a posterior driving response. There is no abnormality during the photic stimulation. Hyperventilation is not performed. CLINICAL INTERPRETATION: This is a normal routine EEG. There is no focal slowing, epileptiform discharge, or seizure on the EEG. Clinical correlation is recommended. MMPOPEYE / IJKiran: [id number] /
--- NOTE | 2022-04-22 20:25 | CDI ---
Documentation Clarification Form Date: 04/22/2022 08:01:11 PM From: Yi Sloan Phone: Admit Date: 04/19/2022 02:52:00 PM Pt. Name: Lay Jones Visit Number: [id number] Discharge Date: 04/20/2022 06:40:00 PM ATTENTION: The Clinical Documentation Specialists (CDI) and [facility] Coding Staff appreciate your assistance in clarifying documentation. Please respond to the clarification below the line at the bottom and electronically sign. The CDI & [facility] Coding staff will review the response and follow-up if needed. Please note: Queries are made part of the Legal Health Record. If you have any questions, please contact the author of this message via ITS. Dr. Carson Lockhart TIA is documented per Consult 04/19/22. Additional clarification regarding the etiology is requested. Pt. history/risk factors: 81yo TIA, KENIA, metabolic acidosis, hyperkalemia, DMII, A Fib, CAD w stents, CSHF, HTN, HLD, ulcerative colitis, Hx TIA, NIH 2 Clinical indicators: CT head: No acute intracranial process. Nonspecific white matter changes, likely secondary to chronic small vessel ischemic disease. CTA head and neck: occlusion of the right MCA, 50% stenosis LIC, less than 50% stenosis FENG. Pt. is admitted for further management of her symptoms. MRI Brain: Luminal narrowing distal river MCA. Suspect underlying atheromatous change. Echo: LV systolic function mildly reduced from 40-45%. Moderate AR with mild aortic root dilation Treatment: Neuro interventional recommended no TPA. Pt. continued on Eliquis 2.5 mg PO BID and Lipitor 80 mg PO QD. Plavix switched to Brilinta. ASA will be discontinued due to high risk of bleed. Consult: Neurology Please clarify the etiology of the TIA, if known: [ ] Carotid Sinus Syncope [ ] Carotid Stenosis [ ] Hemorrhagic Stroke [ ] Ischemic Stroke [ ] Other (please specify): [ ] Etiology unknown or Unable to determine Template Last Revised: August 2020) Carotid Stenosis MTDD
== END 2022-04-20 18:40 | disposition home or self-care (01) ==
LOC: EC 13:15 → 3SCARD 14:52 → INTOOBSV 14:52 → 3SCARD 15:25 → UNDODISIN 04-20 18:40
PROVIDERS: ADMIT Family Medicine; ATTEND Family Medicine
DX: I65.23 Occlusion and stenosis of bilateral carotid arteries (principal); N17.9 Acute kidney failure, unspecified; E87.20 Acidosis, unspecified; E87.5 Hyperkalemia; I48.19 Other persistent atrial fibrillation; I11.0 Hypertensive heart disease with heart failure; I50.22 Chronic systolic (congestive) heart failure; R94.31 Abnormal electrocardiogram [ECG] [EKG]; K51.90 Ulcerative colitis, unspecified, without complications; E11.9 Type 2 diabetes mellitus without complications; I08.3 Combined rheumatic disorders of mitral, aortic and tricuspid valves; I25.10 Atherosclerotic heart disease of native coronary artery without angina pectoris; I27.20 Pulmonary hypertension, unspecified; E78.5 Hyperlipidemia, unspecified; R47.81 Slurred speech; R29.810 Facial weakness; R41.3 Other amnesia; I25.2 Old myocardial infarction; Z79.82 Long term (current) use of aspirin; Z79.01 Long term (current) use of anticoagulants; Z79.83 Long term (current) use of bisphosphonates; Z79.02 Long term (current) use of antithrombotics/antiplatelets; Z79.899 Other long term (current) drug therapy; Z88.0 Allergy status to penicillin; Z91.048 Other nonmedicinal substance allergy status; W18.30XA Fall on same level, unspecified, initial encounter; Z95.5 Presence of coronary angioplasty implant and graft; Z90.710 Acquired absence of both cervix and uterus; Z98.890 Other specified postprocedural states; Z86.73 Personal history of transient ischemic attack (TIA), and cerebral infarction without residual deficits; Z93.3 Colostomy status; Z66 Do not resuscitate
CPT/HCPCS: 96360; 99291; 36415; 95816; 93005; 93308; 97162; 97166; 92610; 92523; 80061; 80053; 80048; 84484; 85025; 85610; 85730; 71046; 70496; 70450; 70498; 70544; 70551; G0378 ×2; Q9967

== ENCOUNTER 2023-12-17 07:46 | Emergency (ER) | payer MEDICARE ==
[2023-12-17 08:01] VITALS: RESP 18; TEMP 97.8
--- NOTE | 2023-12-17 08:04 | ED ---
Abdominal Pain HPI - General Chief Complaint: Abdominal Pain Stated Complaint: Abd pain Time Seen by Provider: 12/17/23 07:51 Source: patient, family, EMS, RN notes reviewed Mode of arrival: EMS Limitations: physical limitation - History of Present Illness Initial Comments: This is an 82-year-old female who presents to the emergency department for abdominal pain. Reports periumbilical abdominal pain beginning around midnight last night. Patient has an ostomy bag that has been in place for over 30 years. Family denies any issues with output. Denies any associated nausea or vomiting. Also denies any fevers or chills. Patient is largely bedbound. Since coming to the emergency department pain has started to improve. MD Complaint: abdominal pain - Related Data Home Medications Medication Instructions Recorded Confirmed Apixaban [Eliquis] 2.5 mg PO BID 11/20/20 12/17/23 Famotidine 40 mg PO HS 11/20/20 12/17/23 Furosemide [Lasix] 20 mg PO DAILY 11/20/20 12/17/23 Spironolactone 25 mg PO DAILY 11/20/20 12/17/23 Venlafaxine HCl ER [Effexor XR] 75 mg PO DAILY 06/21/21 12/17/23 Losartan Potassium [Cozaar] 25 mg PO DAILY 03/12/22 12/17/23 carvediloL [Coreg] 6.25 mg PO DAILY 03/12/22 12/17/23 Aspirin EC [Ecotrin Low Dose] 81 mg PO DAILY 12/17/23 12/17/23 Nystatin 100,000 Unit/gm Powd 1 applic TOPICAL BID PRN 12/17/23 12/17/23 [Mycostatin Powder] allopurinoL [Zyloprim] 100 mg PO DAILY 12/17/23 12/17/23 Allergies Allergy/AdvReac Type Severity Reaction Status Date / Time adhesive tape AdvReac skin Verified 12/17/23 10:15 irritation Penicillins AdvReac Rash/Hives Verified 12/17/23 10:15 Review of Systems ROS Statement: Those systems with pertinent positive or pertinent negative responses have been documented in the HPI. ROS Other: All systems not noted in ROS Statement are negative. Past Medical History Past Medical History: Atrial Fibrillation, Coronary Artery Disease (CAD), Heart Failure, GERD/Reflux, Hypertension Additional Past Medical History / Comment(s): ileostomy, acute colitis, some memory loss History of Any Multi-Drug Resistant Organisms: None Reported Past Surgical History: Heart Catheterization With Stent, Hysterectomy, Orthopedic Surgery Additional Past Surgical History / Comment(s): Illeostomy, carpal tunnel bilateral hands, bunion surgery on left foot. last heart cath 12/21/19, stents x3 in December 2019 Past Anesthesia/Blood Transfusion Reactions: No Reported Reaction Date of Last Stent Placement:: 12/2019 Past Psychological History: Anxiety, Depression Smoking Status: Never smoker Past Alcohol Use History: Occasional Past Drug Use History: None Reported - Past Family History Family Family Medical History: No Reported History General Exam Limitations: physical limitation General appearance: alert, in no apparent distress Head exam: Present: atraumatic, normocephalic, normal inspection Respiratory exam: Present: normal lung sounds bilaterally. Absent: respiratory distress, wheezes, rales, rhonchi, stridor Cardiovascular Exam: Present: regular rate, normal rhythm, normal heart sounds. Absent: systolic murmur, diastolic murmur, rubs, gallop, clicks GI/Abdominal exam: Present: soft, tenderness (Mild generalized), normal bowel sounds. Absent: distended Extremities exam: Present: other (Both lower extremities are warm and well- perfused. Capillary refill less than 1 second bilaterally.) Neurological exam: Present: alert, oriented X3, CN II-XII intact Psychiatric exam: Present: normal affect, normal mood Skin exam: Present: warm, dry, intact, normal color. Absent: rash Course Vital Signs 12/17/23 12/17/23 07:53 11:01 Temperature 97.8 F Pulse Rate 66 87 Respiratory 18 18 Rate Blood Pressure 130/84 124/75 O2 Sat by Pulse 99 100 Oximetry Medical Decision Making - Medical Decision Making This is an 82-year-old female who presents to the emergency department for abdominal pain. Was pt. sent in by a medical professional or institution? @ -No Did you speak to anyone other than the patient for history? @ -Family provided the majority of the history. Did you review nursing and triage notes? @ -Yes, and I agree, it is accurate with regards to the patient's symptoms. Were old charts reviewed? @ -No Differential Diagnosis? @ -Differential Abdominal Pain Women: Appendicitis, Cholecystitis, diverticulosis, ischemic bowel, pancreatitis, hepatitis, UTI, gastroenteritis, AAA, incarcerated hernia, bowel obstruction, constipation, inflammatory bowel, hepatitis, peptic ulcer disease, splenic infarction, perforated viscus, vulvitis, ovarian torsion, PID, kidney stone, placenta abruption, this is not meant to be an all-inclusive list EKG interpreted by me (3pts min.)? @ -EKG interpreted by me demonstrating the following: Atrial fibrillation. Ventricular rate 90 bpm, QRS duration 74 ms, QTc 424 ms. X-rays interpreted by me (1pt min.)? @ -Not obtained CT interpreted by me (1pt min.)? @ -CT scan of the abdomen and pelvis obtained. My interpretation identifies no evidence of free air. U/S interpreted by me (1pt. min.)? @ -Not obtained What testing was considered but not performed? (CT, X-rays, U/S, labs)? Why? @ -None What meds were considered but not given? Why? @ -None Did you discuss the management of the patient with other professionals? @ -Yes, Dr. Deleon, vascular surgery, who advised that because her extremity is warm and well-perfused, she can follow-up on an outpatient basis. Did you reconcile home meds? @ -No Was smoking cessation discussed for >3mins.? @ -No Was critical care preformed (if so, how long)? @ -No Were there social determinants of health that impacted care today? How? (Homelessness, low income, unemployed, alcoholism, drug addiction, transportation, low edu. Level, literacy, decrease access to med. care, shelter, rehab)? @ -No Was there de-escalation of care discussed even if they declined? (Discuss DNR or withdrawal of care, Hospice)? @ -No What co-morbidities impacted this encounter? (DM, HTN, Smoking, COPD, CAD, Cancer, CVA, Hep., AIDS, mental health diagnosis, sleep apnea, morbid obesity)? @ -a-fib, GERD, ileostomy Was patient admitted / discharged? @ -Discharged. Lab work unremarkable. CT scan of the abdomen and pelvis demonstrates no acute intra-abdominal process to account for the pain. However, she was found to have a 1.6 cm long segment of occlusion involving the left HARBOR PILOT. This is new from 2020, however this does provide a period of several years when it may have formed. Her extremity is warm and well-perfused. She also denies any pain with this. Case discussed with Dr. Deleon, vascular surgery. She advised that because the extremity is warm and well-perfused and the patient is asymptomatic, she can follow-up on an outpatient basis. This was discussed with the family, who is in agreement with this plan. Patient continued to deny any abdominal pain while in the emergency department. Symptoms may have been related to gas, which has been a problem for the patient before. Information for vascular surgery follow-up provided. Patient discharged home via EMS in stable condition. Undiagnosed new problem with uncertain prognosis? @ -None Drug Therapy requiring intensive monitoring for toxicity (Heparin, Nitro, Insulin, Cardizem)? @ -None Were any procedures done? @ -None Diagnosis/symptom? @ -Abdominal pain, left HARBOR PILOT occlusion Acute, or Chronic, or Acute on Chronic? @ -Acute Uncomplicated (without systemic symptoms) or Complicated (systemic symptoms)? @ -Uncomplicated Side effects of treatment? @ -None Exacerbation, Progression, or Severe Exacerbation] @ -Not applicable Poses a threat to life or bodily function? @ -No Return precautions reviewed in depth, the patient is instructed to return to the emergency department with any new, worsening, or concerning symptoms. Patient and family verbalized understanding. This case was discussed in detail with the attending ED physician, Dr. Negron. Presentation, findings, and treatment plan discussed in detail as well. - Lab Data Result diagrams: 12/17/23 08:13 12/17/23 08:13 Lab Results 12/17/23 12/17/23 12/17/23 Range/Units 08:13 08:13 08:13 WBC 8.0 (3.8-10.6) k/uL RBC 4.08 (3.80-5.40) m/uL Hgb 13.9 (11.4-16.0) gm/dL Hct 44.2 (34.0-46.0) % MCV 108.4 H (80.0-100.0) fL MCH 34.0 (25.0-35.0) pg MCHC 31.4 (31.0-37.0) g/dL RDW 14.2 (11.5-15.5) % Plt Count 207 (150-450) k/uL MPV 10.4 Neutrophils % 48 % Lymphocytes % 22 % Monocytes % 10 % Eosinophils % 17 % Basophils % 1 % Neutrophils # 3.8 (1.3-7.7) k/uL Lymphocytes # 1.8 (1.0-4.8) k/uL Monocytes # 0.8 (0-1.0) k/uL Eosinophils # 1.4 H (0-0.7) k/uL Basophils # 0.1 (0-0.2) k/uL Manual Slide Review Performed Macrocytosis Marked A Sodium 135 L (137-145) mmol/L Potassium 4.6 (3.5-5.1) mmol/L Chloride 107 (98-107) mmol/L Carbon Dioxide 22 (22-30) mmol/L Anion Gap 6 mmol/L BUN 21 H (7-17) mg/dL Creatinine 0.76 (0.52-1.04) mg/dL Est GFR (CKD-EPI)AfAm 84 (>60 ml/min/1.73 sqM) Est GFR (CKD-EPI)NonAf 73 (>60 ml/min/1.73 sqM) Glucose 98 (74-99) mg/dL Plasma Lactic Acid Lele 1.8 (0.7-2.0) mmol/L Calcium 9.4 (8.4-10.2) mg/dL Total Bilirubin 0.8 (0.2-1.3) mg/dL AST 37 H (14-36) U/L ALT 29 (4-34) U/L Alkaline Phosphatase 92 (38-126) U/L Total Protein 6.2 L (6.3-8.2) g/dL Albumin 3.2 L (3.5-5.0) g/dL Amylase 82 (30-110) U/L Lipase 104 (23-300) U/L - Radiology Data Radiology results: report reviewed, image reviewed Disposition Clinical Impression: Abdominal pain, Femoral artery occlusion, left Disposition: HOME SELF-CARE Instructions (If sedation given, give patient instructions): Abdominal Pain (ED) Additional Instructions: Return to the emergency department with any new, worsening, or concerning sym ptoms. Follow up with her primary care provider in 1-2 days. Contact the vascular surgery office listed below. Let them know that she was seen in the emergency department and found to have an occlusion in her left femoral artery that needs to be followed up on. Is patient prescribed a controlled substance at d/c from ED?: No Referrals: Fei Mcpherson MD [Primary Care Provider] - 1-2 days Kathy Deleon DO [STAFF PHYSICIAN] - 1-2 days Time of Disposition: 10:53
[2023-12-17] MEDS: KETOROLAC 15 MG/ML 1 ML VIAL IVP STA (08:53)
[2023-12-17] MEDS: SODIUM CHLORIDE 0.9% 1,000 ML IV STA (08:54)
[2023-12-17 08:59] LABS: Basophils # (A) 0.1 k/uL (0-0.2); Basophils % (A) 1 %; Eosinophils # (A) 1.4 k/uL (0-0.7); Eosinophils % (A) 17 %; HCT 44.2 % (34.0-46.0); HGB 13.9 gm/dL (11.4-16.0); Lymphocytes # (A) 1.8 k/uL (1.0-4.8); Lymphocytes % (A) 22 %; MCHC 31.4 g/dL (31.0-37.0); MCV 108.4 fL (80.0-100.0); Macrocytosis Marked; Mean Platelet Volume 10.4; Monocytes # (A) 0.8 k/uL (0-1.0); Monocytes % (A) 10 %; Neutrophils # (A) 3.8 k/uL (1.3-7.7); Neutrophils % (A) 48 %; Platelet Count 207 k/uL (150-450); RBC 4.08 m/uL (3.80-5.40); RDW 14.2 % (11.5-15.5)
[2023-12-17 09:09] LABS: ALT 29 U/L (4-34); AST 37 U/L (14-36); African American GFR (CKD) 84 (>60 ml/min/1.73 sqM); Albumin 3.2 g/dL (3.5-5.0); Alkaline Phosphatase 92 U/L (38-126); Amylase 82 U/L (30-110); Anion Gap 6 mmol/L; Blood Urea Nitrogen 21 mg/dL (7-17); Calcium 9.4 mg/dL (8.4-10.2); Carbon Dioxide 22 mmol/L (22-30); Chloride 107 mmol/L (98-107); Glucose 98 mg/dL (74-99); Lipase 104 U/L (23-300); Non-African American GFR(CKD) 73 (>60 ml/min/1.73 sqM); Potassium 4.6 mmol/L (3.5-5.1); Sodium 135 mmol/L (137-145); Total Bilirubin 0.8 mg/dL (0.2-1.3); Total Protein 6.2 g/dL (6.3-8.2)
--- NOTE | 2023-12-17 10:09 | CT ---
EXAMINATION TYPE: CT abdomen pelvis w con DATE OF EXAM: 12/17/2023 COMPARISON: 12/21/2019 HISTORY: 82-year-old female with periumbilical abdominal pain TECHNIQUE: Contiguous axial scanning of the abdomen and pelvis following administration of 100 ml Iso klever 300 IV contrast. Delayed images through the kidneys and coronal/sagittal reconstructions perform ed. CT DLP: 794.4 mGycm Automated exposure control for dose reduction was used. FINDINGS: Heart is mildly enlarged without pericardial effusion. Strandy atelectasis and scarring at the lung bases. Suspect background mild emphysematous change. No pleural effusion. Small hiatal hernia. A couple benign hepatic cysts measuring up to 2.4 cm redemonstrated. No biliary ductal dilatation. Sm all 1.3 cm diverticulum of the duodenum projecting into the pancreatic head region. The gallbladder is hydropic measuring 4.4 cm wide but without any surrounding inflammation. Multiple cortical defects of both kidneys with symmetric uptake and excretion of contrast on both cuate es. 2 right renal arteries. Calcified granulomas spleen. Similar atrophic pancreas. Adrenal glands show no gross abnormality. No dilated small bowel, free fluid, free air. Patient has a right lower quadrant ileostomy and appear s to be status post colectomy. Mild to moderate atherosclerotic calcifications abdominal aorta and common iliac arteries. There is a short segment occlusion left SOFT TOP INSTALLER 4 cm 1.6 cm, axial image 79 and coronal image 47. Moderate degenerative change of both hips. Irregular bladder contour is unchanged from 2020. Left-sided pelvic phlebolith. Bones: Baastrup's disease. Hypertrophic facet arthropathy throughout. Degenerated levoconvex curvatur e of lumbar spine. Degenerative grade 1 retrolisthesis L1-L2 and L2/L3. Moderate to severe spinal can al stenosis L3-L4. IMPRESSION: 1. STATUS POST PANCOLECTOMY WITH RIGHT LOWER QUADRANT ILEOSTOMY. 2. A 1.6 CM LONG SEGMENT OF OCCLUSION INVOLVING THE LEFT SOFT TOP INSTALLER, NEW FROM 12/21/2019. 3. HYDROPIC GALLBLADDER LIKELY RELATING TO FASTING STATE. NO SURROUNDING INFLAMMATION. 4. SMALL HIATAL HERNIA.
[2023-12-17 11:02] VITALS: BP 124/75; PULSE 87
== END 2023-12-17 12:49 | disposition home or self-care (01) ==
LOC: EC 07:46
DX: R10.84 Generalized abdominal pain (principal); I70.8 Atherosclerosis of other arteries; I48.91 Unspecified atrial fibrillation; K21.9 Gastro-esophageal reflux disease without esophagitis; Z93.2 Ileostomy status; Z79.01 Long term (current) use of anticoagulants; Z79.899 Other long term (current) drug therapy; Z88.0 Allergy status to penicillin; Z91.09 Other allergy status, other than to drugs and biological substances
CPT/HCPCS: 99285; 96374; 96361; 93005; 80053; 82150; 83605; 83690; 85025; 74177; J1885; Q9967; 36415